=== PATIENT | male | born 1960 | race Caucasian/White ===

== ENCOUNTER 2016-11-18 17:03 | Emergency (ER) | payer MEDICARE, OTHER ==
[~2016-11-18] VITALS: Ht 180.3 cm; Wt 110.0 kg
[~2016-11-18 17:03] MED LIST: CARBXR200 PO; LANTUS2P SQ; LATU80TA PO; LITH300 PO; METF1000 PO; NOVOLOGP2 SQ
[2016-11-18 17:06] VITALS: BP 147/76; PULSE 86; RESP 15; TEMP 98.1; O2SAT 98
== END 2016-11-19 02:00 | disposition left against medical advice (07) ==
LOC: NED 17:03
DX: R07.9 Chest pain, unspecified (principal)
CPT/HCPCS: 99281

== ENCOUNTER 2017-05-26 18:00 | Inpatient (IN) | payer MEDICARE, OTHER ==
[~2017-05-26] VITALS: Ht 182.9 cm; Wt 109.1 kg
[2017-05-26 18:03] VITALS: BP 124/74; PULSE 85; RESP 20; TEMP 97.9; O2SAT 97
[2017-05-26 20:37] VITALS: BP 120/63; PULSE 72; RESP 18; TEMP 98; O2SAT 99
[2017-05-26] MEDS ORDERED: SODIUM CHLOR 0.9% 1000 ML INJ 1,000 ML IV SCH (20:42)
[2017-05-26] MEDS ORDERED: SODIUM CHLORIDE 0.9% FLUSH 10 ML FLUSH IV FLUSH PRN ×2 (20:45→22:45)
[2017-05-26] MEDS ORDERED: LANTUS2P SQ (20:45)
[2017-05-26] MEDS ORDERED: MORPHINE SULFATE 4 MG/ML INJ IV PUSH ONE (20:45)
[2017-05-26] MEDS ORDERED: TEGR200T PO (20:45)
[2017-05-26] MEDS ORDERED: ONDANSETRON HCL 4 MG/2 ML VIAL IVP ONE (20:45)
[2017-05-26] MEDS ORDERED: LITH600C PO (20:45)
[2017-05-26] MEDS ORDERED: LITH300C2 PO (20:45)
[2017-05-26] MEDS ORDERED: METF1000 PO (20:45)
[2017-05-26] MEDS ORDERED: LURA40 PO (20:45)
[2017-05-26] MEDS ORDERED: MORPHINE SULFATE 8 MG/ML INJ ONE (20:48)
--- NOTE | 2017-05-26 20:49 | PD ---
HPI Chief Complaint: Abdominal Pain Time Seen by Provider: 20:36 Travel History International Travel<30 days: No Contact w/Intl Traveler<30days: No Traveled to known affect area: No History of Present Illness HPI The patient is a 56-year-old male who presents emergency department for left lower quadrant abdominal pain at 3 days' duration. The patient developed left lower quadrant abdominal pain 3 days ago which is now radiating to the periumbilical area. He does note nausea, vomiting, some diarrhea which is described as loose and watery. He denies any fever, but has had intermittent chills and sweats. He does note a history of similar symptoms in the past secondary to diverticulitis. He also notes previous admission for diverticulitis, but denies any previous surgeries for diverticulitis. He does note a history of previous left herniorrhaphy. The patient is a diabetic who is currently on metformin and Lantus. He denies any dysuria, frequency, urgency , or hematuria. Symptoms are moderate, possibly exacerbated by diverticulitis, and there are no current alleviating factors. PFSH Past Medical History Arthritis: Yes (HIPS) Asthma: No Blood Disorders: No Bipolar Disorder: Yes (hypermanic) Anxiety: Yes Depression: Yes Heart Rhythm Problems: No Cancer: No Cardiac Catheterization: Yes (3 stents) Cardiovascular Problems: Yes (OCTOBER 2016) High Cholesterol: Yes Chest Pain: Yes Congestive Heart Failure: No COPD: No Diabetes: Yes Patient Takes Glucophage: Yes Diminished Hearing: No Diverticulitis: Yes Endocrine: Yes Genitourinary: Yes Hepatitis: Yes Hypertension: Yes Immune Disorder: No Implanted Vascular Access Dvce: No Neurologic: No Psychiatric: Yes (BIPOLAR) Reproductive: No Respiratory: Yes (EXERTIONAL SOB) Immunizations Current: Yes Myocardial Infarction: Yes (X 3) Sleep Apnea: Yes (LESS NOW THAT HE HAS LOST WEIGHT) Thyroid Disease: No PNEUMOCCOCAL Vaccine (Year): 2 Past Surgical History Abdominal Surgery: Yes (HERNIA ) Cardiac Surgery: Yes (3 STENTS) Genitourinary Surgery: Yes (RT.TESTICULAR SX) Pacemaker: No Other Surgery: Yes (RIGHT TESTICAL REMOVED AND L TESTICAL AFFIXED TO SCROTOM) Social History Alcohol Use: No Tobacco Use: Yes (1/2 PPD) Substance Use: Yes (HX OF IV DILADID USE) Allergies-Medications (Allergen,Severity, Reaction): Coded Allergies: Erythromycin (Verified Allergy, Severe, 11/18/16) Reported Meds & Prescriptions Reported Meds & Active Scripts Active Reported Metformin (Metformin HCl) 1,000 Mg Tab 1,000 Mg PO BIDPC With meals Latuda (Lurasidone) 40 Mg Tab 40 Mg PO DAILY [place] Carbonate 600 Mg Cap 600 Mg PO HS [place] Carbonate 300 Mg Cap 300 Mg PO DAILY Lantus Inj (Insulin Glargine) 1,000 Unit/10 Ml Vial 50 Units SQ BID Tegretol (Carbamazepine) 200 Mg Tab 200 Mg PO BID Review of Systems Except as stated in HPI: all other systems reviewed are Neg General / Constitutional: Positive: Chills, No: Fever Cardiovascular: No: Chest Pain or Discomfort Respiratory: No: Shortness of Breath Gastrointestinal: Positive: Nausea, Vomiting, Diarrhea, Abdominal Pain Genitourinary: No: Urgency, Frequency, Dysuria, Hematuria Skin: No Rash Physical Exam Narrative GENERAL: Awake, alert, pleasant 56-year-old male who appears his stated age and is in no acute respiratory distress. SKIN: Focused skin assessment warm/dry. HEAD: Atraumatic. Normocephalic. EYES: Pupils equal and round. No scleral icterus. No injection or drainage. ENT: No nasal bleeding or discharge. Mucous membranes pink and moist. NECK: Trachea midline. No JVD. CARDIOVASCULAR: Regular rate and rhythm. No murmur appreciated. RESPIRATORY: No accessory muscle use. Clear to auscultation. Breath sounds equal bilaterally. GASTROINTESTINAL: Abdomen soft, tender palpation left lower quadrant. No guarding or rigidity. MUSCULOSKELETAL: No obvious deformities. No clubbing. No cyanosis. No edema. NEUROLOGICAL: Awake and alert. No obvious cranial nerve deficits. Motor grossly within normal limits. Normal speech. PSYCHIATRIC: Appropriate mood and affect; insight and judgment normal. Data Data Last Documented VS Vital Signs Date Time Temp Pulse Resp B/P Pulse Ox O2 Delivery O2 Flow Rate FiO2 05/26/17 22:30 85 18 125/66 98 Room Air 05/26/17 20:37 98.0 Orders Complete Blood Count With Diff (05/26/17 20:42) Comprehensive Metabolic Panel (05/26/17 20:42) Lipase (05/26/17 20:42) Ct Abd/Pel W/O Iv Contrast (05/26/17 20:42) Iv Access Insert/Monitor (05/26/17 20:42) Ecg Monitoring (05/26/17 20:42) Oximetry (05/26/17 20:42) Morphine Inj (Morphine Inj) (05/26/17 20:45) Ondansetron Inj (Zofran Inj) (05/26/17 20:45) Sodium Chlor 0.9% 1000 Ml Inj (Ns 1000 M (05/26/17 20:42) Sodium Chloride 0.9% Flush (Ns Flush) (05/26/17 20:45) Morphine Inj (Morphine Inj) (05/26/17 20:48) Urinalysis - C+S If Indicated (05/26/17 21:44) Carbamazepine (Tegretol) (05/26/17 22:21) [place] (Li) (05/26/17 22:21) Labs Laboratory Tests Test 05/26/17 05/26/17 21:00 22:05 Sodium Level 141 MEQ/L Potassium Level 3.5 MEQ/L Chloride Level 109 MEQ/L Carbon Dioxide Level 25.2 MEQ/L Anion Gap 7 MEQ/L Blood Urea Nitrogen 12 MG/DL Creatinine 1.06 MG/DL Estimat Glomerular Filtration 73 ML/MIN Rate Random Glucose 106 MG/DL Calcium Level 8.6 MG/DL Total Bilirubin 0.6 MG/DL Aspartate Amino Transf 46 U/L (AST/SGOT) Alanine Aminotransferase 72 U/L (ALT/SGPT) Alkaline Phosphatase 147 U/L Total Protein 6.9 GM/DL Albumin 3.3 GM/DL Lipase 1405 U/L White Blood Count 6.6 TH/MM3 Red Blood Count 3.98 MIL/MM3 Hemoglobin 12.6 GM/DL Hematocrit 37.2 % Mean Corpuscular Volume 93.5 FL Mean Corpuscular Hemoglobin 31.5 PG Mean Corpuscular Hemoglobin 33.7 % Concent Red Cell Distribution Width 13.5 % Platelet Count 190 TH/MM3 Mean Platelet Volume 7.4 FL Neutrophils (%) (Auto) 62.2 % Lymphocytes (%) (Auto) 27.1 % Monocytes (%) (Auto) 8.7 % Eosinophils (%) (Auto) 1.7 % Basophils (%) (Auto) 0.3 % Neutrophils # (Auto) 4.1 TH/MM3 Lymphocytes # (Auto) 1.8 TH/MM3 Monocytes # (Auto) 0.6 TH/MM3 Eosinophils # (Auto) 0.1 TH/MM3 Basophils # (Auto) 0.0 TH/MM3 CBC Comment DIFF FINAL Differential Comment Urine Color DARK-YELLOW Urine Turbidity HAZY Urine pH 6.0 Urine Specific [place] 1.023 Urine Protein 30 mg/dL Urine Glucose (UA) NEG mg/dL Urine Ketones TRACE mg/dL Urine Occult Blood NEG Urine Nitrite NEG Urine Bilirubin SMALL Urine Urobilinogen 4.0 MG/DL Urine Leukocyte Esterase NEG Urine Mucus MOD /lpf Microscopic Urinalysis Comment CULT NOT INDICATED MDM Medical Decision Making Medical Screen Exam Complete: Yes Emergency Medical Condition: Yes Medical Record Reviewed: Yes Interpretation(s) Last Impressions Abdomen/Pelvis CT 05/26/172041 Signed Impressions: Service Date/Time: Friday, May 26, 2017 21:09 - CONCLUSION: 1. No acute abnormality demonstrated. There is mild sigmoid colon diverticulosis but no diverticulitis or other acute inflammation seen. 2. Small fat containing inguinal hernia on the left. Dimitry Cross MD Laboratory Tests Test 05/26/17 05/26/17 21:00 22:05 Sodium Level 141 MEQ/L Potassium Level 3.5 MEQ/L Chloride Level 109 MEQ/L Carbon Dioxide Level 25.2 MEQ/L Anion Gap 7 MEQ/L Blood Urea Nitrogen 12 MG/DL Creatinine 1.06 MG/DL Estimat Glomerular Filtration 73 ML/MIN Rate Random Glucose 106 MG/DL Calcium Level 8.6 MG/DL Total Bilirubin 0.6 MG/DL Aspartate Amino Transf 46 U/L (AST/SGOT) Alanine Aminotransferase 72 U/L (ALT/SGPT) Alkaline Phosphatase 147 U/L Total Protein 6.9 GM/DL Albumin 3.3 GM/DL Lipase 1405 U/L White Blood Count 6.6 TH/MM3 Red Blood Count 3.98 MIL/MM3 Hemoglobin 12.6 GM/DL Hematocrit 37.2 % Mean Corpuscular Volume 93.5 FL Mean Corpuscular Hemoglobin 31.5 PG Mean Corpuscular Hemoglobin 33.7 % Concent Red Cell Distribution Width 13.5 % Platelet Count 190 TH/MM3 Mean Platelet Volume 7.4 FL Neutrophils (%) (Auto) 62.2 % Lymphocytes (%) (Auto) 27.1 % Monocytes (%) (Auto) 8.7 % Eosinophils (%) (Auto) 1.7 % Basophils (%) (Auto) 0.3 % Neutrophils # (Auto) 4.1 TH/MM3 Lymphocytes # (Auto) 1.8 TH/MM3 Monocytes # (Auto) 0.6 TH/MM3 Eosinophils # (Auto) 0.1 TH/MM3 Basophils # (Auto) 0.0 TH/MM3 CBC Comment DIFF FINAL Differential Comment Differential Diagnosis Differential diagnosis includes diverticulitis, colitis, enteritis, peritonitis , nephrolithiasis, pyelonephritis, hydronephrosis. Narrative Course IV was established, labs are drawn and sent, and the patient was placed on cardiac telemetry monitoring and continuous pulse oximetry monitoring. The patient was administered morphine, Zofran, and IV fluids. CT of the abdomen and pelvis without IV contrast was ordered to evaluate for diverticulitis. CT is negative for diverticulitis. White count is normal. However, lipase is elevated at 1405, he has no history of pancreatitis. He denies any alcohol use and CT of the abdomen and pelvis is negative for any obvious biliary stone. Patient's LFTs are normal except for mildly elevated AST. The patient does have a history of diabetes, may be secondary to triglycerides and/or diabetes. I had a discussion with the patient regarding management at home versus inpatient, he notes decreased ability to maintain oral intake secondary to persistent nausea/vomiting and would prefer admission. Therefore, the on-call medical service was paged for admission. I discussed the patient with Dr. Choi who agrees with admission. Physician Communication Physician Communication [facility] were paged for admission. I discussed the patient with Dr. Choi who agrees with admission. Diagnosis Primary Impression: Pancreatitis Qualified Code: K85.90 - Acute pancreatitis, unspecified complication status, unspecified pancreatitis type Additional Impression: Abdominal pain Qualified Code: R10.84 - Generalized abdominal pain Admitting Information Admitting Physician Requests: Admit Condition: Stable Hamzah Palencia MD May 26, 2017 20:49
[2017-05-26 21:06] VITALS: O2SAT 99
--- NOTE | 2017-05-26 21:29 | RADRPT ---
EXAM DATE/TIME: 05/26/2017 21:09 [facility] COMPARISON: CT ABDOMEN & PELVIS W CONTRAST, September 20, 2014, 22:30. INDICATIONS : Left lower abdomen pain today with nausea, vomiting and diarrhea. ORAL CONTRAST: No oral contrast ingested. RADIATION DOSE: 10.63 CTDIvol (mGy) MEDICAL HISTORY : Diverticulitis. diabetes, hepatitis SURGICAL HISTORY : None. ENCOUNTER: Initial ACUITY: 1 day PAIN SCALE: 3/10 LOCATION: Left lower quadrant TECHNIQUE: Volumetric scanning of the abdomen and pelvis was performed. Using automated exposure control and ad justment of the mA and/or kV according to patient size, radiation dose was kept as low as reasonably achievable to obtain optimal diagnostic quality images. DICOM format image data is available electro nically for review and comparison. FINDINGS: LOWER LUNGS: The visualized lower lungs are clear. LIVER: Homogeneous density without lesion. There is no dilation of the biliary tree. No calcified gallston es. SPLEEN: Normal size without lesion. PANCREAS: Within normal limits. KIDNEYS: Normal in size and shape. There is no mass, stone, or hydronephrosis. ADRENAL GLANDS: Within normal limits. VASCULAR: There is no aortic aneurysm. BOWEL/MESENTERY: There are a few diverticula of the sigmoid colon. No acute inflammatory changes are demonstrated. No obstruction. A small moderate hiatal hernia is again seen. ABDOMINAL WALL: Within normal limits. RETROPERITONEUM: There is no lymphadenopathy. BLADDER: No wall thickening or mass. REPRODUCTIVE: Within normal limits. INGUINAL: Small fat containing hernia on the left, unchanged. MUSCULOSKELETAL: No acute bony abnormality demonstrated. CONCLUSION: 1. No acute abnormality demonstrated. There is mild sigmoid colon diverticulosis but no diverticuliti s or other acute inflammation seen. 2. Small fat containing inguinal hernia on the left. Dimitry Cross MD on May 26, 2017 at 21:25 Board Certified Radiologist. This report was verified electronically.
[2017-05-26 22:11] LABS: ALT (GPT) 72 U/L (12-78)
[2017-05-26 22:13] LABS: ALKALINE PHOSPHATASE 147 U/L (45-117); TOTAL BILIRUBIN ADULT 0.6 MG/DL (0.2-1.0)
[2017-05-26 22:17] LABS: ANION GAP 7 MEQ/L (5-15); AST (GOT) 46 U/L (15-37); BICARBONATE 25.2 MEQ/L (21.0-32.0); BLOOD UREA NITROGEN 12 MG/DL (7-18); CHLORIDE 109 MEQ/L (98-107); GLOMERULAR FILTRATION RATE 73 ML/MIN (>89); POTASSIUM 3.5 MEQ/L (3.5-5.1); SODIUM (NA) 141 MEQ/L (136-145)
[2017-05-26 22:22] LABS: AUTOMATED NEUTROPHIL # 4.1 TH/MM3 (1.8-7.7); BASOPHIL % 0.3 % (0.0-2.0); EOSINOPHIL # 0.1 TH/MM3 (0-0.4); EOSINOPHIL % 1.7 % (0.0-4.0); HEMATOCRIT 37.2 % (39.0-51.0); HEMO FLAGS DIFF FINAL; LYMPH % 27.1 % (9.0-44.0); LYMPHOCYTE # 1.8 TH/MM3 (1.0-4.8); MEAN CELL VOLUME 93.5 FL (80.0-100.0); MEAN CORPUSCULAR HEMOGLOBIN 31.5 PG (27.0-34.0); MEAN CORPUSCULAR HGB CONC 33.7 % (32.0-36.0); MONO % 8.7 % (0.0-8.0); NEUT % 62.2 % (16.0-70.0); PLATELET COUNT 190 TH/MM3 (150-450); RED BLOOD COUNT 3.98 MIL/MM3 (4.50-5.90); RED CELL DISTRIBUTION WIDTH 13.5 % (11.6-17.2); WHITE BLOOD COUNT 6.6 TH/MM3 (4.0-11.0)
[2017-05-26 22:27] LABS: BLOOD, URINE NEG (NEG); COMMENT (UR) CULT NOT INDICATED; CULTURE IF INDICATED CULT NOT INDICATED; GLUCOSE,URINE NEG (NEG); KETONE, URINE TRACE mg/dL (NEG); MUCUS URINE MOD /lpf (OCC); NITRITE,URINE NEG (NEG); URINE COLOR DARK-YELLOW (YELLW/STRAW)
[2017-05-26 22:30] VITALS: BP 125/66; PULSE 85; RESP 18; O2SAT 98
--- NOTE | 2017-05-26 22:44 | HHI.HP ---
[facility] Alessia Hardy MD Admission Diagnosis pancreatitis, abdominal pain, diabetes Diagnoses: (1) Pancreatitis Diagnosis: Principal (2) Dehydration Diagnosis: Principal (3) DM (diabetes mellitus) Diagnosis: Principal (4) Tobacco abuse Diagnosis: Principal Travel History International Travel<30 Days: No Contact w/Intl Traveler <30 Da: No Traveled to Known Affected Are: No History of Present Illness This is a 56-year-old male with a PMH of Anxiety, Depression, Bipolar Disorder, HTN, Hyperlipidemia, Hepatitis and Tobacco Abuse who presented to ER with complaint of LLQ pain x3 days. Notes associated nausea, vomiting and few episodes of diarrhea, now resolved. Reports subjective fever/chills, states symptoms similar to previous episodes of Diverticulitis. On arrival, BP 120/63 , HR 72, O2 sat 99% on RA, Afebrile. CBC unremarkable. Chemistry essentially unremarkable except for GFR 73. Pancreatitis 1405. UA negative for UTI. CT Abd/Pelvis w/ no acute abnormality, mild sigmoid colon diverticulosis but no diverticulitis. Review of Systems Except as stated in HPI: all other systems reviewed are Neg ROS: 14 point review of systems otherwise negative. Past Family Social History Past Medical History PMH: Anxiety, Depression, Bipolar Disorder, HTN, Hyperlipidemia, Hepatitis and Tobacco Abuse Past Surgical History PAST SURGICAL HISTORY: Hernia Repair, Cardiac Stent, Right Testicle Removal Allergies: Coded Allergies: Erythromycin (Verified Allergy, Severe, 11/18/16) Family History PAST FAMILY HISTORY: Reviewed. No h/o DM or CAD Social History PAST SOCIAL HISTORY: Negative for alcohol. Smokes 1/2ppd. H/o IVDU w/ Dilaudid. Physical Exam Vital Signs Vital Signs Date Time Temp Pulse Resp B/P Pulse Ox O2 Delivery O2 Flow Rate FiO2 05/26/17 22:30 85 18 125/66 98 Room Air 05/26/17 21:06 99 Room Air 05/26/17 20:37 98.0 72 18 120/63 99 Room Air 05/26/17 18:03 97.9 85 20 124/74 97 Room Air Physical Exam PE: GENERAL: Middle-aged male in no acute distress. HEENT: PERRLA, EOMI. No scleral icterus or conjunctival pallor. No lid lag or facial droop. CARDIOVASCULAR: Regular rate and rhythm. No obvious murmurs to auscultation. No chest tenderness to palpation. RESPIRATORY: No obvious rhonchi or wheezing. Clear to auscultation. Breath sounds equal bilaterally. GASTROINTESTINAL: Abdomen soft, mild epigastric/LLQ tenderness to palpation, nondistended. BS normal. MUSCULOSKELETAL: Extremities without clubbing, cyanosis, or edema. No obvious deformities. NEUROLOGICAL: Awake, alert and oriented x4. No focal neurologic deficits. Moving both upper and lower extremities spontaneously. Laboratory Laboratory Tests Test 05/26/17 05/26/17 21:00 22:05 Sodium Level 141 Potassium Level 3.5 Chloride Level 109 Carbon Dioxide Level 25.2 Anion Gap 7 Blood Urea Nitrogen 12 Creatinine 1.06 Estimat Glomerular Filtration 73 Rate Random Glucose 106 Calcium Level 8.6 Total Bilirubin 0.6 Aspartate Amino Transf 46 (AST/SGOT) Alanine Aminotransferase 72 (ALT/SGPT) Alkaline Phosphatase 147 Total Protein 6.9 Albumin 3.3 Lipase 1405 White Blood Count 6.6 Red Blood Count 3.98 Hemoglobin 12.6 Hematocrit 37.2 Mean Corpuscular Volume 93.5 Mean Corpuscular Hemoglobin 31.5 Mean Corpuscular Hemoglobin 33.7 Concent Red Cell Distribution Width 13.5 Platelet Count 190 Mean Platelet Volume 7.4 Neutrophils (%) (Auto) 62.2 Lymphocytes (%) (Auto) 27.1 Monocytes (%) (Auto) 8.7 Eosinophils (%) (Auto) 1.7 Basophils (%) (Auto) 0.3 Neutrophils # (Auto) 4.1 Lymphocytes # (Auto) 1.8 Monocytes # (Auto) 0.6 Eosinophils # (Auto) 0.1 Basophils # (Auto) 0.0 CBC Comment DIFF FINAL Differential Comment Urine Color DARK-YELLOW Urine Turbidity HAZY Urine pH 6.0 Urine Specific [place] 1.023 Urine Protein 30 Urine Glucose (UA) NEG Urine Ketones TRACE Urine Occult Blood NEG Urine Nitrite NEG Urine Bilirubin SMALL Urine Urobilinogen 4.0 Urine Leukocyte Esterase NEG Urine Mucus MOD Microscopic Urinalysis Comment CULT NOT INDICATED Result Diagram: 05/26/17 0414 05/26/17 2100 Assessment and Plan Problem List: (1) Pancreatitis ICD Code: K85.90 Status: Acute (2) Dehydration ICD Code: E86.0 Status: Acute (3) DM (diabetes mellitus) ICD Code: E11.9 Status: Acute (4) Tobacco abuse ICD Code: Z72.0 Status: Acute Assessment and Plan A/P: 1. Pancreatitis: acute onset of LLQ pain and epigastric pain, Lipase 1405. CT Abd/Pelvis w/ diverticulosis, no diverticulitis, images reviewed by me. + nausea/vomiting, unable to take PO. IVF, diet as tolerated, recheck Lipase. Protonix IV. Analgesics/antiemetics as needed. 2. Dehydration: GFR 73, BUN/Creatinine normal. U/a negative for UTI. IVF for hydration, repeat labs. 3. DM: Hold Metformin/Lantus in light of decreased PO intake, resume home meds once taking adequate PO. Sliding scale w/ Accu-Cheks. 4. DVT Prophylaxis: SCD/Teds. 5. Social work for d/c planning as needed. 6. Case discussed w/ ER physician at length. Physician Certification 2 Midnight Certification Type: Admission for Inpatient Services Order for Inpatient Services The services are ordered in accordance with Medicare regulations or non- Medicare payer requirements, as applicable. In the case of services not specified as inpatient-only, they are appropriately provided as inpatient services in accordance with the 2-midnight benchmark. Estimated LOS (days): 2 days is the estimated time the patient will need to remain in the hospital, assuming treatment plan goals are met and no additional complications. Post-Hospital Plan: Not yet determined Problem Qualifiers (1) Pancreatitis: Qualified Code: K85.90 - Acute pancreatitis, unspecified complication status, unspecified pancreatitis type Jocelyne Choi MD May 26, 2017 22:44
[2017-05-26] MEDS ORDERED: DEXTROSE 50% IN WATER 50 ML VIAL(D50) IV PRN (22:45)
[2017-05-26] MEDS ORDERED: SENNOSIDES 8.6 MG TAB PO PRN (22:45)
[2017-05-26] MEDS ORDERED: ONDANSETRON HCL 4 MG/2 ML VIAL IVP PRN (22:45)
[2017-05-26] MEDS ORDERED: GLUCAGON 1 MG/ML VIAL OTHER PRN (22:45)
[2017-05-26] MEDS ORDERED: ACETAMINOPHEN/HYDROcodone 325 MG/5 MG TAB PO PRN (22:45)
[2017-05-26] MEDS ORDERED: LACTULOSE SYRUP 20 GM/30 ML CUP PO PRN (22:45)
[2017-05-26] MEDS ORDERED: ACETAMINOPHEN 325 MG TAB PO PRN (22:45)
[2017-05-26] MEDS ORDERED: MAGNESIUM HYDROXIDE SUSP 30 ML CUP PO PRN (22:45)
[2017-05-26] MEDS ORDERED: BISACODYL 10 MG SUPP RECTAL PRN (22:45)
[2017-05-26] MEDS: SODIUM CHLOR 0.9% 1000 ML INJ 1,000 ML IV SCH (22:57)
[2017-05-26] MEDS: PANTOPRAZOLE SODIUM 40 MG VIAL IV PUSH SCH (22:58)
[2017-05-27] MEDS: MORPHINE SULFATE 8 MG/ML INJ IV PUSH PRN ×6 (00:43→16:30)
[2017-05-27 01:30] VITALS: BP 138/79; PULSE 62; RESP 20; TEMP 97.5; O2SAT 95
[2017-05-27] MEDS: SODIUM CHLOR 0.9% 1000 ML INJ 1,000 ML IV SCH (03:46)
[2017-05-27 04:00] VITALS: BP 110/69; PULSE 59; RESP 18; TEMP 97; O2SAT 96
[2017-05-27] MEDS: INSULIN ASPART SUPPLEMENTAL SCALE SQ SCH ×3 (07:00→16:00)
[2017-05-27 08:00] VITALS: BP 107/58; PULSE 61; RESP 18; TEMP 96.7; O2SAT 97
[2017-05-27] MEDS ORDERED: LURASIDONE 40 MG TAB PO SCH (08:00)
[2017-05-27 08:46] LABS: AUTOMATED NEUTROPHIL # 2.4 TH/MM3 (1.8-7.7); BASOPHIL % 0.7 % (0.0-2.0); EOSINOPHIL # 0.1 TH/MM3 (0-0.4); EOSINOPHIL % 2.8 % (0.0-4.0); HEMATOCRIT 37.1 % (39.0-51.0); HEMO FLAGS DIFF FINAL; LYMPH % 35.4 % (9.0-44.0); LYMPHOCYTE # 1.6 TH/MM3 (1.0-4.8); MEAN CELL VOLUME 92.8 FL (80.0-100.0); MEAN CORPUSCULAR HEMOGLOBIN 31.9 PG (27.0-34.0); MEAN CORPUSCULAR HGB CONC 34.4 % (32.0-36.0); MONO % 10.2 % (0.0-8.0); NEUT % 50.9 % (16.0-70.0); PLATELET COUNT 173 TH/MM3 (150-450); RED CELL DISTRIBUTION WIDTH 13.5 % (11.6-17.2); WHITE BLOOD COUNT 4.7 TH/MM3 (4.0-11.0)
[2017-05-27] MEDS ORDERED: carBAMazepine 200 MG TAB PO SCH (09:00)
[2017-05-27] MEDS ORDERED: LITHIUM CARBONATE 300 MG CAP PO SCH ×2 (09:00→21:00)
[2017-05-27] MEDS ORDERED: SODIUM CHLORIDE 0.9% FLUSH 10 ML FLUSH IV FLUSH SCH (09:00)
[2017-05-27] MEDS ORDERED: DOCUSATE SODIUM 50 MG/SENNA 8.6 MG TAB PO SCH (09:00)
[2017-05-27 09:22] LABS: ANION GAP 6 MEQ/L (5-15); AST (GOT) 44 U/L (15-37); BICARBONATE 23.8 MEQ/L (21.0-32.0); BLOOD UREA NITROGEN 9 MG/DL (7-18); CHLORIDE 113 MEQ/L (98-107); GLOMERULAR FILTRATION RATE 95 ML/MIN (>89); POTASSIUM 3.4 MEQ/L (3.5-5.1); SODIUM (NA) 143 MEQ/L (136-145)
[2017-05-27 09:23] LABS: ALT (GPT) 62 U/L (12-78)
[2017-05-27 09:32] LABS: ALKALINE PHOSPHATASE 126 U/L (45-117); LDL CHOLESTEROL 70 MG/DL (0-99); TOTAL BILIRUBIN ADULT 0.6 MG/DL (0.2-1.0)
[2017-05-27] MEDS: PANTOPRAZOLE SODIUM 40 MG VIAL IV PUSH SCH (10:08)
[2017-05-27 11:57] VITALS: BP 104/57; PULSE 63; RESP 18; TEMP 96.7; O2SAT 96
[2017-05-27 16:00] VITALS: BP 90/54; PULSE 56; RESP 18; TEMP 97.3; O2SAT 96
[2017-05-27] MEDS ORDERED: NORC5TAB PO (16:14)
--- NOTE | 2017-05-27 16:55 | HHI.DS ---
Discharge Summary Admission Date May 26, 2017 at 22:45 Discharge Date: May 27, 2017 Admitting Diagnosis pancreatitis, abdominal pain, diabetes (1) Pancreatitis ICD Code: K85.90 (2) Dehydration ICD Code: E86.0 Diagnosis: Secondary (3) DM (diabetes mellitus) ICD Code: E11.9 Diagnosis: Secondary (4) Tobacco abuse ICD Code: Z72.0 Diagnosis: Secondary Procedures None Brief History - From Admission This is a 56-year-old male with a PMH of Anxiety, Depression, Bipolar Disorder, HTN, Hyperlipidemia, Hepatitis and Tobacco Abuse who presented to ER with complaint of LLQ pain x3 days. Notes associated nausea, vomiting and few episodes of diarrhea, now resolved. Reports subjective fever/chills, states symptoms similar to previous episodes of Diverticulitis. On arrival, BP 120/63 , HR 72, O2 sat 99% on RA, Afebrile. CBC unremarkable. Chemistry essentially unremarkable except for GFR 73. Pancreatitis 1405. UA negative for UTI. CT Abd/Pelvis w/ no acute abnormality, mild sigmoid colon diverticulosis but no diverticulitis. CBC/BMP: 05/27/17 0759 05/27/17 0759 Significant Findings Laboratory Tests Test 05/26/17 05/26/17 05/26/17 05/27/17 21:00 22:05 22:26 07:59 Chloride Level 109 MEQ/L 113 MEQ/L (98-107) (98-107) Estimat Glomerular Filtration 73 ML/MIN (>89) Rate Aspartate Amino Transf 46 U/L (15-37) 44 U/L (15-37) (AST/SGOT) Alkaline Phosphatase 147 U/L 126 U/L (45-117) (45-117) Albumin 3.3 GM/DL 2.7 GM/DL (3.4-5.0) (3.4-5.0) Lipase 1405 U/L (73-393) Carbamazepine (Tegretol) Level LESS THAN 0.5 MCG/ML (4.0-12.0) Red Blood Count 3.98 MIL/MM3 4.00 MIL/MM3 (4.50-5.90) (4.50-5.90) Hemoglobin 12.6 GM/DL 12.8 GM/DL (13.0-17.0) (13.0-17.0) Hematocrit 37.2 % 37.1 % (39.0-51.0) (39.0-51.0) Monocytes (%) (Auto) 8.7 % (0.0-8.0) 10.2 % (0.0-8.0) Urine Color DARK-YELLOW (YELLW/STRAW) Urine Turbidity HAZY (CLEAR) Urine Protein 30 mg/dL (NEG-TRACE) Urine Ketones TRACE mg/dL (NEG) Urine Bilirubin SMALL (NEG) Urine Urobilinogen 4.0 MG/DL (LESS THAN 2.0) Urine Mucus MOD /lpf (OCC) [place] Level LESS THAN 0.1 MEQ/L (0.5-1.5) Potassium Level 3.4 MEQ/L (3.5-5.1) Random Glucose 112 MG/DL (74-106) Calcium Level 7.8 MG/DL (8.5-10.1) Total Protein 5.8 GM/DL (6.4-8.2) Cholesterol Level 118 MG/DL (120-200) HDL Cholesterol 19.0 MG/DL (40.0-60.0) Hospital Course Mr. Zapataight male. He was admitted secondary to pancreatitis. He has no prior history of pancreatitis. Etiology is not related to alcohol. He had a surprising improvement with IV hydration overnight at a rate that was not expected at time of admit. At this point he has improvement in his symptoms and is tolerating a regular diet and by mouth intake. He is medically stable for discharge to home on a regular diet. Discharge home today on pain treatments. Pt Condition on Discharge: Good Discharge Disposition: Discharge Home Discharge Time: <= 30 minutes Discharge Instructions DIET: Follow Instructions for: As Tolerated, No Restrictions Activities you can perform: Regular-No Restrictions Follow up Referrals: PCP Follow-up - 1 Week New Medications: Hydrocodone-Acetaminophen ([place]) 5-325 mg Tab 1 TAB PO Q6H PRN PAIN #30 Ref 0 TAB Continued Medications: Carbamazepine (Tegretol) 200 Mg Tab 200 MG PO BID #60 Ref 0 TAB Insulin Glargine Inj (Lantus Inj) 1,000 Unit/10 Ml Vial 50 UNITS SQ BID Blood Sugar Management Ref 0 VIAL [place] Carbonate ([place] Carbonate) 300 Mg Cap 300 MG PO DAILY Ref 0 CAP [place] Carbonate ([place] Carbonate) 600 Mg Cap 600 MG PO HS Ref 0 CAP Lurasidone (Latuda) 40 Mg Tab 40 MG PO DAILY #30 Ref 0 TAB Metformin (Metformin) 1,000 Mg Tab 1000 MG PO BIDPC With meals Blood Sugar Management #60 Ref 0 TAB Luis Gonzales MD May 27, 2017 16:55
[2017-05-28] MEDS ORDERED: PNEUMOCOCCAL POLYVALENT INJ 25 MCG/0.5 ML SYR IM ONE (10:00)
[2017-05-28 12:57] LABS: HEMOGLOBIN A1b 1.5 %; HEMOGLOBIN LA1C 1.8 %; HEMOGLOBIN P3 3.5 %
== END 2017-05-27 17:42 | disposition home or self-care (01) | DRG 440 ==
LOC: NEPD 18:00 → NEDA 22:45 → N05B 05-27 01:36
PROVIDERS: ADMIT Hospitalist; ATTEND Hospitalist
DX: K85.90 Acute pancreatitis without necrosis or infection, unspecified (principal); K57.30 Diverticulosis of large intestine without perforation or abscess without bleeding; I10 Essential (primary) hypertension; E11.9 Type 2 diabetes mellitus without complications; F31.9 Bipolar disorder, unspecified; F41.9 Anxiety disorder, unspecified; M16.0 Bilateral primary osteoarthritis of hip; E78.00 Pure hypercholesterolemia, unspecified; I25.2 Old myocardial infarction; G47.30 Sleep apnea, unspecified; F17.210 Nicotine dependence, cigarettes, uncomplicated; E86.0 Dehydration; E78.5 Hyperlipidemia, unspecified; Z95.5 Presence of coronary angioplasty implant and graft; Z86.19 Personal history of other infectious and parasitic diseases; Z79.84 Long term (current) use of oral hypoglycemic drugs; Z79.4 Long term (current) use of insulin
CPT/HCPCS: 74176; 80053; 80061; 80156; 80178; 81001; 82948; 83036; 83690; 84443; 85025; 96374; 96375; C9113; J1815; J2270; J2405; J7030

== ENCOUNTER 2017-05-29 16:31 | Emergency (ER) | payer MEDICARE, MEDICAID, OTHER ==
[~2017-05-29] VITALS: Ht 180.3 cm; Wt 100.0 kg
[~2017-05-29 16:31] MED LIST changes: -CARBXR200 PO; -LATU80TA PO; -LITH300 PO; +LITH300C2 PO; +LITH600C PO; +LURA40 PO; +NORC5TAB PO; -NOVOLOGP2 SQ; +TEGR200T PO
[2017-05-29 16:37] VITALS: BP 133/84; PULSE 72; RESP 18; TEMP 98; O2SAT 99
[2017-05-29] MEDS ORDERED: SODIUM CHLOR 0.9% 1000 ML INJ 1,000 ML IV SCH (18:41)
[2017-05-29] MEDS ORDERED: HYDROmorphone HCL PF 1 MG/ML VIAL IVS ONE (18:45)
[2017-05-29] MEDS ORDERED: ONDANSETRON HCL 4 MG/2 ML VIAL IVP ONE ×2 (18:45)
[2017-05-29 19:25] LABS: AUTOMATED NEUTROPHIL # 3.7 TH/MM3 (1.8-7.7); BASOPHIL # 0.1 TH/MM3 (0-0.2); BASOPHIL % 1.4 % (0.0-2.0); EOSINOPHIL # 0.1 TH/MM3 (0-0.4); EOSINOPHIL % 1.8 % (0.0-4.0); HEMATOCRIT 39.6 % (39.0-51.0); HEMO FLAGS DIFF FINAL; LYMPH % 35.8 % (9.0-44.0); LYMPHOCYTE # 2.5 TH/MM3 (1.0-4.8); MEAN CELL VOLUME 92.8 FL (80.0-100.0); MEAN CORPUSCULAR HEMOGLOBIN 32.2 PG (27.0-34.0); MEAN CORPUSCULAR HGB CONC 34.7 % (32.0-36.0); MONO % 7.4 % (0.0-8.0); NEUT % 53.6 % (16.0-70.0); PLATELET COUNT 209 TH/MM3 (150-450); RED BLOOD COUNT 4.26 MIL/MM3 (4.50-5.90); RED CELL DISTRIBUTION WIDTH 13.9 % (11.6-17.2); WHITE BLOOD COUNT 6.9 TH/MM3 (4.0-11.0)
[2017-05-29 19:53] LABS: ALKALINE PHOSPHATASE 154 U/L (45-117); ALT (GPT) 74 U/L (12-78); ANION GAP 5 MEQ/L (5-15); AST (GOT) 37 U/L (15-37); BICARBONATE 26.1 MEQ/L (21.0-32.0); BLOOD UREA NITROGEN 4 MG/DL (7-18); CHLORIDE 112 MEQ/L (98-107); GLOMERULAR FILTRATION RATE 91 ML/MIN (>89); POTASSIUM 3.6 MEQ/L (3.5-5.1); SODIUM (NA) 143 MEQ/L (136-145); TOTAL BILIRUBIN ADULT 0.5 MG/DL (0.2-1.0)
--- NOTE | 2017-05-29 19:53 | PD ---
HPI Chief Complaint: Abdominal Pain Time Seen by Provider: 18:40 Travel History International Travel<30 days: No Contact w/Intl Traveler<30days: No Traveled to known affect area: No History of Present Illness HPI 56-year-old male presents emergency department for evaluation of left-sided abdominal pain and vomiting. Patient was seen and admitted on May 26 for pancreatitis his CAT scan of that time she diverticulosis without evidence of diverticulitis. He reports he was just discharged on May 27 after his abdominal pain improved. Since his discharge he reports the pain returned progressively increasing in severity today. Patient reports 4 episodes of vomiting today. He reports the pain is constant, nonradiating. He denies fever or chills. PFSH Past Medical History Narrative Medical Significant for diverticulitis, diabetes, hypertension, bipolar Arthritis: Yes Asthma: No Autoimmune Disease: No Blood Disorders: No Bipolar Disorder: Yes (hypermanic) Anxiety: Yes Depression: Yes Heart Rhythm Problems: No Cancer: No Cardiac Catheterization: Yes (3 stents) Cardiovascular Problems: Yes ([place]) High Cholesterol: Yes Chest Pain: Yes Congestive Heart Failure: Yes COPD: No Diabetes: Yes Patient Takes Glucophage: Yes Diminished Hearing: No Diverticulitis: Yes Endocrine: Yes Gastrointestinal Disorders: Yes (diverticulitis, pancreaitis) GERD: No Genitourinary: No Hepatitis: Yes Hiatal Hernia: No Hypertension: Yes Immune Disorder: No Implanted Vascular Access Dvce: No Medical other: Yes (dm) Musculoskeletal: No Neurologic: No Psychiatric: Yes (BIPOLAR) Reproductive: No Respiratory: No Immunizations Current: Yes Myocardial Infarction: Yes (X 3) Sleep Apnea: Yes (LESS NOW THAT HE HAS LOST WEIGHT) Thyroid Disease: No Ulcer: No Tetanus Vaccination: < 5 Years Influenza Vaccination: Yes PNEUMOCCOCAL Vaccine (Year): 2 Past Surgical History Abdominal Surgery: Yes (inguinal hernia) Cardiac Surgery: Yes (quadriple bypass) Ear Surgery: No Endocrine Surgery: No Genitourinary Surgery: No Gynecologic Surgery: No Oral Surgery: No Pacemaker: No Thoracic Surgery: No Other Surgery: Yes (r toe, inguinal hernia, right testicle removed, open heart sx) Social History Alcohol Use: No (pt denies) Tobacco Use: Yes (1/2 PPD) Substance Use: No (pt denies ) Allergies-Medications (Allergen,Severity, Reaction): Coded Allergies: Erythromycin (Verified Allergy, Severe, hives, 05/29/17) Reported Meds & Prescriptions Reported Meds & Active Scripts Active Reported Metformin (Metformin HCl) 1,000 Mg Tab 1,000 Mg PO BIDPC With meals Latuda (Lurasidone) 40 Mg Tab 40 Mg PO DAILY [place] Carbonate 600 Mg Cap 600 Mg PO HS [place] Carbonate 300 Mg Cap 300 Mg PO DAILY Lantus Inj (Insulin Glargine) 1,000 Unit/10 Ml Vial 50 Units SQ BID Tegretol (Carbamazepine) 200 Mg Tab 200 Mg PO BID Review of Systems Except as stated in HPI: all other systems reviewed are Neg General / Constitutional: No: Fever Eyes: No: Visual changes HENT: No: Headaches Cardiovascular: No: Chest Pain or Discomfort Gastrointestinal: Positive: Nausea, Vomiting, Abdominal Pain Genitourinary: No: Dysuria Musculoskeletal: No: Pain Skin: No Rash Physical Exam Narrative GENERAL: Alert well-appearing male no distress. SKIN: Focused skin assessment warm/dry. HEAD: Atraumatic. Normocephalic. EYES: Pupils equal and round. No scleral icterus. No injection or drainage. ENT: No nasal bleeding or discharge. Mucous membranes pink and moist. NECK: Trachea midline. No JVD. CARDIOVASCULAR: Regular rate and rhythm. No murmur appreciated. RESPIRATORY: No accessory muscle use. Clear to auscultation. Breath sounds equal bilaterally. GASTROINTESTINAL: Abdomen soft, tenderness in the left upper and lower quadrants , nondistended. No guarding. No rigidity. Hepatic and splenic margins not palpable. MUSCULOSKELETAL: No obvious deformities. No clubbing. No cyanosis. No edema. NEUROLOGICAL: Awake and alert. No obvious cranial nerve deficits. Motor grossly within normal limits. Normal speech. PSYCHIATRIC: Appropriate mood and affect; insight and judgment normal. Data Data Last Documented VS Vital Signs Date Time Temp Pulse Resp B/P Pulse Ox O2 Delivery O2 Flow Rate FiO2 05/29/17 20:00 60 20 128/66 100 Room Air 05/29/17 16:37 98.0 Orders Complete Blood Count With Diff (05/29/17 18:41) Comprehensive Metabolic Panel (05/29/17 18:41) Lipase (05/29/17 18:41) Iv Access Insert/Monitor (05/29/17 18:41) Ondansetron Inj (Zofran Inj) (05/29/17 18:45) Sodium Chlor 0.9% 1000 Ml Inj (Ns 1000 M (05/29/17 18:41) Ondansetron Inj (Zofran Inj) (05/29/17 18:45) Hydromorphone Pf Inj (Dilaudid Pf Inj) (05/29/17 18:45) Labs Laboratory Tests Test 05/29/17 18:46 White Blood Count 6.9 TH/MM3 Red Blood Count 4.26 MIL/MM3 Hemoglobin 13.7 GM/DL Hematocrit 39.6 % Mean Corpuscular Volume 92.8 FL Mean Corpuscular Hemoglobin 32.2 PG Mean Corpuscular Hemoglobin 34.7 % Concent Red Cell Distribution Width 13.9 % Platelet Count 209 TH/MM3 Mean Platelet Volume 8.6 FL Neutrophils (%) (Auto) 53.6 % Lymphocytes (%) (Auto) 35.8 % Monocytes (%) (Auto) 7.4 % Eosinophils (%) (Auto) 1.8 % Basophils (%) (Auto) 1.4 % Neutrophils # (Auto) 3.7 TH/MM3 Lymphocytes # (Auto) 2.5 TH/MM3 Monocytes # (Auto) 0.5 TH/MM3 Eosinophils # (Auto) 0.1 TH/MM3 Basophils # (Auto) 0.1 TH/MM3 CBC Comment DIFF FINAL Differential Comment Sodium Level 143 MEQ/L Potassium Level 3.6 MEQ/L Chloride Level 112 MEQ/L Carbon Dioxide Level 26.1 MEQ/L Anion Gap 5 MEQ/L Blood Urea Nitrogen 4 MG/DL Creatinine 0.87 MG/DL Estimat Glomerular Filtration 91 ML/MIN Rate Random Glucose 117 MG/DL Calcium Level 8.7 MG/DL Total Bilirubin 0.5 MG/DL Aspartate Amino Transf 37 U/L (AST/SGOT) Alanine Aminotransferase 74 U/L (ALT/SGPT) Alkaline Phosphatase 154 U/L Total Protein 7.1 GM/DL Albumin 3.5 GM/DL Lipase 96 U/L MDM Medical Decision Making Medical Screen Exam Complete: Yes Emergency Medical Condition: Yes Differential Diagnosis Differential diagnosis includes pancreatitis [place], diverticulitis, colitis, enteritis, peritonitis, nephrolithiasis, pyelonephritis, hydronephrosis. Narrative Course 56-year-old male with chief complaint of left-sided abdominal pain. Patient was admitted on May 26 for pancreatitis at that visit his lipase was 1405 his CAT scan showed diverticulosis without evidence diverticulitis. He was discharged home on May 27. He reports he developed abdominal pain and vomiting today. On physical exam patient has left upper and lower quadrant pain. His abdomen is soft, no guarding, no rigidity, no rebound. IV established, Dilaudid, Zofran, normal saline administered. Labs pending CBC: WBC 6.9, hemoglobin 13.7 BMP: Lipase 96, down from 1405 on 2009: Patient reassessed at this time. He is resting comfortably on the stretcher. He has had no vomiting. He reports pain is relieved after pain medication. His abdomen is still mildly tender in LLQ, no rebound, no guarding. He is requesting something to eat. he is tolerating po fluids. Lab results discussed with patient. I do not feel the patient needs further imaging or testing at this time. He agrees to follow up with his auto damage appraiser this week. return precautions discussed. Patient agrees to plan. he is stable for discharge. Diagnosis Primary Impression: Abdominal pain Qualified Code: R10.9 - Abdominal pain, unspecified location Additional Impression: Nausea & vomiting Qualified Code: R11.2 - Non-intractable vomiting with nausea, unspecified vomiting type Referrals: Pc Installation Engineer Additional Instructions: Use the medication as prescribed. stay well hydrated by drinking plenty fluids. make an appointment for follow up with your auto damage appraiser or PCP. Return to the ED if you develop new or worsening symptoms. Scripts Ondansetron (Zofran)4 Mg Tab4 Mg PO Q6HR PRN (NAUSEA OR VOMITING) #12 TAB Ref 0 Prov:Shanna Grayson 05/29/17 Disposition: 01 DISCHARGE HOME Condition: Stable Shanna Grayson May 29, 2017 19:53
[2017-05-29 20:00] VITALS: BP 128/66; PULSE 60; RESP 20; O2SAT 100
[2017-05-29] MEDS ORDERED: ZOFR4TAB PO (20:17)
== END 2017-05-30 01:01 | disposition home or self-care (01) ==
LOC: NEPD 16:31
DX: R10.9 Unspecified abdominal pain (principal); R11.2 Nausea with vomiting, unspecified; E11.9 Type 2 diabetes mellitus without complications; I10 Essential (primary) hypertension; E78.00 Pure hypercholesterolemia, unspecified; F17.200 Nicotine dependence, unspecified, uncomplicated; Z79.4 Long term (current) use of insulin; Z87.19 Personal history of other diseases of the digestive system; Z86.59 Personal history of other mental and behavioral disorders; Z87.39 Personal history of other diseases of the musculoskeletal system and connective tissue; Z86.79 Personal history of other diseases of the circulatory system
CPT/HCPCS: 80053; 83690; 85025; 96374; 96375; 99284; J1170; J2405; J7030

== ENCOUNTER 2017-06-05 11:21 | Observation (INO) | payer MEDICARE, OTHER ==
[2017-06-05] VITALS (7 sets, daily range): BP systolic 103–117; BP diastolic 56–78; PULSE 56–98; RESP 14–20; TEMP 97.8–98.6; O2SAT 94–98
[~2017-06-05 11:21] MED LIST changes: -NORC5TAB PO; +ZOFR4TAB PO
--- NOTE | 2017-06-05 11:34 | PD ---
HPI Chief Complaint: chest pain Time Seen by Provider: 12:10 Travel History International Travel<30 days: No Contact w/Intl Traveler<30days: No Traveled to known affect area: No History of Present Illness HPI This is a 56-year-old male who presents via EMS for evaluation of chest pain. One hour prior to arrival the patient was walking his dog when he developed left -sided chest pain that radiates into left arm. The pain is a sharp/burning pain that is worse with exertion. He took 3 nitroglycerin at home with minimal relief and so EMS was called. EMS provided him with 162 mg of aspirin. The patient endorses diaphoresis and mild nausea. Denies vomiting, shortness of breath, abdominal pain, diarrhea or constipation, cough or congestion, fevers or chills. He does report history of OR, pancreatitis, PFSH Past Medical History Arthritis: Yes Asthma: No Autoimmune Disease: No Blood Disorders: No Bipolar Disorder: Yes (hypermanic) Anxiety: Yes Depression: Yes Heart Rhythm Problems: No Cancer: No Cardiac Catheterization: Yes (3 stents) Cardiovascular Problems: Yes ([place]) High Cholesterol: Yes Chest Pain: Yes Congestive Heart Failure: Yes COPD: No Diabetes: Yes Diminished Hearing: No Diverticulitis: Yes Endocrine: Yes Gastrointestinal Disorders: Yes (diverticulitis, pancreaitis) GERD: No Genitourinary: No Hepatitis: Yes Hiatal Hernia: No Hypertension: Yes Immune Disorder: No Implanted Vascular Access Dvce: No Musculoskeletal: No Neurologic: No Psychiatric: Yes (BIPOLAR) Reproductive: No Respiratory: No Immunizations Current: Yes Myocardial Infarction: Yes (X 3) Sleep Apnea: Yes (LESS NOW THAT HE HAS LOST WEIGHT) Thyroid Disease: No Ulcer: No PNEUMOCCOCAL Vaccine (Year): 2 Past Surgical History Abdominal Surgery: Yes (inguinal hernia) Cardiac Surgery: Yes (quadriple bypass) Ear Surgery: No Endocrine Surgery: No Genitourinary Surgery: No Gynecologic Surgery: No Oral Surgery: No Pacemaker: No Thoracic Surgery: No Other Surgery: Yes (r toe, inguinal hernia, right testicle removed, open heart sx) Social History Alcohol Use: No (pt denies) Tobacco Use: Yes (1/2 PPD) Substance Use: No (pt denies ) Allergies-Medications (Allergen,Severity, Reaction): Coded Allergies: Erythromycin (Verified Allergy, Severe, hives, 05/29/17) Reported Meds & Prescriptions Reported Meds & Active Scripts Active Zofran (Ondansetron HCl) 4 Mg Tab 4 Mg PO Q6HR PRN Reported Metformin (Metformin HCl) 1,000 Mg Tab 1,000 Mg PO BIDPC With meals Latuda (Lurasidone) 40 Mg Tab 40 Mg PO DAILY [place] Carbonate 600 Mg Cap 600 Mg PO HS [place] Carbonate 300 Mg Cap 300 Mg PO DAILY Lantus Inj (Insulin Glargine) 1,000 Unit/10 Ml Vial 50 Units SQ BID Tegretol (Carbamazepine) 200 Mg Tab 200 Mg PO BID Review of Systems Except as stated in HPI: all other systems reviewed are Neg Physical Exam Narrative GENERAL: Well-developed well-nourished male in no acute distress. SKIN: Warm and dry. HEAD: Atraumatic. Normocephalic. EYES: Pupils equal and round. No scleral icterus. No injection or drainage. ENT: No nasal bleeding or discharge. Mucous membranes pink and moist. NECK: Trachea midline. No JVD. CARDIOVASCULAR: Regular rate and rhythm. No murmur appreciated. RESPIRATORY: No accessory muscle use. Clear to auscultation. Breath sounds equal bilaterally. GASTROINTESTINAL: Abdomen soft, non-tender, nondistended. Hepatic and splenic margins not palpable. MUSCULOSKELETAL: No obvious deformities. No edema and negative Homans. NEUROLOGICAL: Awake and alert. No obvious cranial nerve deficits. Motor grossly within normal limits. Normal speech. PSYCHIATRIC: Appropriate mood and affect; insight and judgment normal. Data Data Last Documented VS Vital Signs Date Time Temp Pulse Resp B/P Pulse Ox O2 Delivery O2 Flow Rate FiO2 06/05/17 12:23 97.8 98 14 103/56 95 Orders Electrocardiogram (06/05/17 11:26) Complete Blood Count With Diff (06/05/17 11:26) Basic Metabolic Panel (Bmp) (06/05/17 11:26) Ckmb (Isoenzyme) Profile (06/05/17 11:26) Troponin I (06/05/17 11:26) Chest, Single Ap (06/05/17 11:26) Iv Access Insert/Monitor (06/05/17 11:26) Ecg Monitoring (06/05/17 11:26) Oxygen Administration (06/05/17 11:26) Oximetry (06/05/17 11:26) Comprehensive Metabolic Panel (06/05/17 11:32) Lipase (06/05/17 11:32) Prothrombin Time / Inr (Pt) (06/05/17 11:32) Act Partial Throm Time (Ptt) (06/05/17 11:32) Magnesium (Mg) (06/05/17 11:32) Morphine Inj (Morphine Inj) (06/05/17 11:45) Labs Laboratory Tests Test 06/05/17 11:51 White Blood Count 5.6 TH/MM3 Red Blood Count 4.64 MIL/MM3 Hemoglobin 14.7 GM/DL Hematocrit 43.8 % Mean Corpuscular Volume 94.4 FL Mean Corpuscular Hemoglobin 31.6 PG Mean Corpuscular Hemoglobin 33.5 % Concent Red Cell Distribution Width 13.5 % Platelet Count 197 TH/MM3 Mean Platelet Volume 8.6 FL Neutrophils (%) (Auto) 67.2 % Lymphocytes (%) (Auto) 22.3 % Monocytes (%) (Auto) 7.7 % Eosinophils (%) (Auto) 2.1 % Basophils (%) (Auto) 0.7 % Neutrophils # (Auto) 3.7 TH/MM3 Lymphocytes # (Auto) 1.2 TH/MM3 Monocytes # (Auto) 0.4 TH/MM3 Eosinophils # (Auto) 0.1 TH/MM3 Basophils # (Auto) 0.0 TH/MM3 CBC Comment DIFF FINAL Differential Comment Prothrombin Time 11.5 SEC Prothromb Time International 1.0 RATIO Ratio Activated Partial 28.0 SEC Thromboplast Time Sodium Level 141 MEQ/L Potassium Level 3.9 MEQ/L Chloride Level 109 MEQ/L Carbon Dioxide Level 23.6 MEQ/L Anion Gap 8 MEQ/L Blood Urea Nitrogen 6 MG/DL Creatinine 0.91 MG/DL Estimat Glomerular Filtration 86 ML/MIN Rate Random Glucose 217 MG/DL Calcium Level 8.8 MG/DL Magnesium Level 2.1 MG/DL Total Bilirubin 0.6 MG/DL Aspartate Amino Transf 87 U/L (AST/SGOT) Alanine Aminotransferase 117 U/L (ALT/SGPT) Alkaline Phosphatase 174 U/L Total Creatine Kinase 37 U/L Troponin I LESS THAN 0.02 NG/ML Total Protein 8.0 GM/DL Albumin 3.6 GM/DL Lipase 125 U/L [facility] Medical Decision Making Medical Screen Exam Complete: Yes Emergency Medical Condition: Yes Medical Record Reviewed: Yes Interpretation(s) EKG sinus rhythm, Q waves in the inferior leads, no acute ST changes or T-wave inversions. Differential Diagnosis Angina, unstable angina, acute coronary syndrome, costochondritis, pneumothorax , hemothorax, pericarditis, myocarditis, pulmonary embolism, aortic dissection Narrative Course This is a 56-year-old male with significant cardiac history who presents for evaluation of left-sided chest pain that radiates into the left arm which started while walking his dog just prior to arrival, unrelieved with the use of Nitroglycerin. A 12-lead EKG Was Obtained. The Patient Will Be Placed on ECG Monitoring and Pulse Oximetry. Plan is for basic lab work, chest x-ray. The patient's initial cardiac enzymes, EKG are reassuring. After demonstration of morphine his pain is improved to a 4 out of 10. At this point in time the plan will be to admit the patient of the chest pain center for serial cardiac enzymes and rule out purposes. He is agreeable. Diagnosis Primary Impression: Chest pain Qualified Code: R07.9 - Chest pain, unspecified type Admitting Information Admitting Physician Requests: Aldo Lan Jun 05, 2017 11:34
[2017-06-05] MEDS ORDERED: MORPHINE SULFATE 4 MG/ML INJ IV PUSH ONE (11:45)
[2017-06-05 12:30] LABS: AUTOMATED NEUTROPHIL # 3.7 TH/MM3 (1.8-7.7); BASOPHIL % 0.7 % (0.0-2.0); EOSINOPHIL # 0.1 TH/MM3 (0-0.4); EOSINOPHIL % 2.1 % (0.0-4.0); HEMATOCRIT 43.8 % (39.0-51.0); HEMO FLAGS DIFF FINAL; LYMPH % 22.3 % (9.0-44.0); LYMPHOCYTE # 1.2 TH/MM3 (1.0-4.8); MEAN CELL VOLUME 94.4 FL (80.0-100.0); MEAN CORPUSCULAR HEMOGLOBIN 31.6 PG (27.0-34.0); MEAN CORPUSCULAR HGB CONC 33.5 % (32.0-36.0); MONO % 7.7 % (0.0-8.0); NEUT % 67.2 % (16.0-70.0); PLATELET COUNT 197 TH/MM3 (150-450); RED BLOOD COUNT 4.64 MIL/MM3 (4.50-5.90); RED CELL DISTRIBUTION WIDTH 13.5 % (11.6-17.2); WHITE BLOOD COUNT 5.6 TH/MM3 (4.0-11.0)
[2017-06-05 12:32] LABS: PROTHROMBIN TIME - PATIENT 11.5 SEC (9.8-11.6)
[2017-06-05 12:46] LABS: ALT (GPT) 117 U/L (12-78); ANION GAP 8 MEQ/L (5-15); AST (GOT) 87 U/L (15-37); BICARBONATE 23.6 MEQ/L (21.0-32.0); BLOOD UREA NITROGEN 6 MG/DL (7-18); CHLORIDE 109 MEQ/L (98-107); GLOMERULAR FILTRATION RATE 86 ML/MIN (>89); MAGNESIUM 2.1 MG/DL (1.5-2.5); POTASSIUM 3.9 MEQ/L (3.5-5.1); SODIUM (NA) 141 MEQ/L (136-145)
--- NOTE | 2017-06-05 12:46 | RADRPT ---
EXAM DATE/TIME: 06/05/2017 11:56 [place] COMPARISON: CHEST SINGLE AP, June 04, 2016, 22:10. INDICATIONS : Chest pain. MEDICAL HISTORY : 5 heart attacks SURGICAL HISTORY : Coronary artery stent. CABG. ENCOUNTER: Initial ACUITY: 1 day PAIN SCORE: 8/10 LOCATION: Bilateral chest FINDINGS: 2 portable frontal views of the chest show median sternotomy wires and coronary markers. Lungs are cl ear. No effusions. Heart is at the upper limits of normal in terms of size. An old right clavicular f racture noted. Degenerative changes of the spine. CONCLUSION: No acute cardiopulmonary disease. Alexey Almeida Jr., MD on June 05, 2017 at 12:39 Board Certified Radiologist. This report was verified electronically.
[2017-06-05 12:47] LABS: ANION GAP 8 MEQ/L (5-15); BICARBONATE 23.6 MEQ/L (21.0-32.0); BLOOD UREA NITROGEN 7 MG/DL (7-18); CHLORIDE 109 MEQ/L (98-107); GLOMERULAR FILTRATION RATE 89 ML/MIN (>89); SODIUM (NA) 141 MEQ/L (136-145)
[2017-06-05 12:48] LABS: ALKALINE PHOSPHATASE 174 U/L (45-117); TOTAL BILIRUBIN ADULT 0.6 MG/DL (0.2-1.0)
[2017-06-05 12:59] LABS: CREATINE KINASE 37 U/L (39-308)
[2017-06-05] MEDS ORDERED: ACETAMINOPHEN 500 MG CPLT PO PRN (15:15)
[2017-06-05] MEDS ORDERED: ALPRAZolam 0.25 MG TAB PO PRN (15:15)
[2017-06-05] MEDS ORDERED: ONDANSETRON HCL 4 MG/2 ML VIAL IV PRN (15:15)
[2017-06-05] MEDS ORDERED: SODIUM CHLORIDE 0.9% FLUSH 10 ML FLUSH IV FLUSH PRN (15:15)
--- NOTE | 2017-06-05 15:25 | HHI.HP ---
[facility] Primary Care Physician Alessia Hardy MD Chief Complaint Chest pain History of Present Illness This is a 56-year-old male with history of CAD with multiple stents in the past as well as having four-vessel bypass either August or September of last year. States that around 10:00 this morning while walking his dog he developed a sharp pinching discomfort in the left chest which she states is not uncommon for him however almost medially afterwards it turned into a stabbing/burning discomfort that is still there. It is been present for about 4/2 hours. He took some sublingual nitroglycerin which really did not help. Was not short of breath. He was nauseous and diaphoretic a few times. He states that since he had his bypass he was doing okay. He has seen his relief operator 3 or 4 times since then. He states he also had a normal stress test within the last month or 2 that he states was normal. States he is compliant with all his medications however he cannot recall their names. Patient has continued to smoke but is smoking much less. He states that a pack of cigarettes will last him more than one month. He was smoking a pack of cigarettes or more for 35 years. Review of Systems General: Patient denies fevers, chills recent, and recent travel HEENT: Patient denies headache, sore throat, difficulty swallowing. Cardiovascular: Has the chest discomfort as mentioned above. Denies sensation of heart beating rapidly or irregularly. No syncope. He has been diaphoretic. Respiratory: Denies shortness of breath or inspirational chest discomfort. Denies coughing wheezing or hemoptysis. GI: Was nauseous a few times. Patient denies vomiting, diarrhea, abdominal pain , bloody stools. Musculoskeletal: Patient denies joint pain or edema. Denies calf pain or edema. Neurovascular: Patient denies numbness, tingling, weakness in extremities. Denies headache. Endocrine: Denies polyuria and polydipsia. Hematologic: Denies easy bruising. Skin: Denies rash or itching. Past Family Social History Allergies: Coded Allergies: Erythromycin (Verified Allergy, Severe, hives, 06/05/17) Past Medical History CAD. He had a four-vessel bypass either August or September 2016. He's had multiple stents in the past. Her sister hypertension, hyperlipidemia, diabetes , bipolar disorder, pancreatitis earlier in the month. Past Surgical History Four-vessel bypass. Multiple cardiac catheterizations with stenting. Inguinal hernia repair. Reported Medications Reported Meds & Active Scripts Active Zofran (Ondansetron HCl) 4 Mg Tab 4 Mg PO Q6HR PRN Reported Metformin (Metformin HCl) 1,000 Mg Tab 1,000 Mg PO BIDPC With meals Latuda (Lurasidone) 40 Mg Tab 40 Mg PO DAILY [place] Carbonate 600 Mg Cap 600 Mg PO HS [place] Carbonate 300 Mg Cap 300 Mg PO DAILY Lantus Inj (Insulin Glargine) 1,000 Unit/10 Ml Vial 50 Units SQ BID Tegretol (Carbamazepine) 200 Mg Tab 200 Mg PO BID Family History There is family history of CAD. Social History Patient still smoking. He is smoking a little less than a pack of cigarettes per month for the last 8 months but prior that he smoked one pack of cigarettes or more a day for 35 years. Denies alcohol or illicit drugs. Physical Exam Vital Signs Vital Signs Date Time Temp Pulse Resp B/P Pulse Ox O2 Delivery O2 Flow Rate FiO2 06/05/17 14:40 98.6 56 15 109/78 96 06/05/17 14:12 54 20 98 Room Air 06/05/17 14:08 98 Room Air 06/05/17 14:08 57 20 103/59 98 Room Air 06/05/17 12:23 97.8 98 14 103/56 95 06/05/17 12:16 98.2 16 95 Physical Exam GENERAL: This is a well-nourished, well-developed patient, in no apparent distress. Patient speaks in clear complete sentences. Patient is pleasant. HEENT: Head is atraumatic and normocephalic. Neck is supple without lymphadenopathy and trachea is midline. No JVD or carotid bruits. CARDIOVASCULAR: Regular rate and rhythm without murmurs, gallops, or rubs. RESPIRATORY: Well-healed midline scar from prior sternotomy. Clear to auscultation. Breath sounds equal bilaterally. No wheezes, rales, or rhonchi. Chest wall is nontender. No use of accessory muscles. GASTROINTESTINAL: Abdomen is nontender, nondistended. Abdomen soft. No obvious pulsatile mass or bruit. No CVA tenderness. Strong femoral pulses bilaterally. Normal bowel sounds in all quadrants. MUSCULOSKELETAL: Patient is moving upper and lower extremities freely. No calf tenderness or edema, no Homans sign. Strong pulses in upper and lower extremities. NEUROLOGICAL: Patient is alert and oriented. Cranial nerves 2-12 are grossly intact. No focal deficits and speech is clear. SKIN: No rash and turgor is normal. Laboratory Laboratory Tests Test 06/05/17 11:51 White Blood Count 5.6 Red Blood Count 4.64 Hemoglobin 14.7 Hematocrit 43.8 Mean Corpuscular Volume 94.4 Mean Corpuscular Hemoglobin 31.6 Mean Corpuscular Hemoglobin 33.5 Concent Red Cell Distribution Width 13.5 Platelet Count 197 Mean Platelet Volume 8.6 Neutrophils (%) (Auto) 67.2 Lymphocytes (%) (Auto) 22.3 Monocytes (%) (Auto) 7.7 Eosinophils (%) (Auto) 2.1 Basophils (%) (Auto) 0.7 Neutrophils # (Auto) 3.7 Lymphocytes # (Auto) 1.2 Monocytes # (Auto) 0.4 Eosinophils # (Auto) 0.1 Basophils # (Auto) 0.0 CBC Comment DIFF FINAL Differential Comment Prothrombin Time 11.5 Prothromb Time International 1.0 Ratio Activated Partial 28.0 Thromboplast Time Sodium Level 141 Potassium Level 3.9 Chloride Level 109 Carbon Dioxide Level 23.6 Anion Gap 8 Blood Urea Nitrogen 6 Creatinine 0.91 Estimat Glomerular Filtration 86 Rate Random Glucose 217 Calcium Level 8.8 Magnesium Level 2.1 Total Bilirubin 0.6 Aspartate Amino Transf 87 (AST/SGOT) Alanine Aminotransferase 117 (ALT/SGPT) Alkaline Phosphatase 174 Total Creatine Kinase 37 Troponin I LESS THAN 0.02 Total Protein 8.0 Albumin 3.6 Lipase 125 Result Diagram: 06/05/17 1151 06/05/17 1151 Imaging Last 48 hours Impressions Chest X-Ray 06/05/17 1126 Signed Impressions: Service Date/Time: Monday, June 05, 2017 11:56 - CONCLUSION: No acute cardiopulmonary disease. Alexey Almeida Jr., MD Course Initial EKG has sinus rhythm without significant ST segment depressions or elevations. Assessment and Plan Assessment and Plan * Chest pain: Patient will continue to have serial cardiac enzymes and EKGs for ruling out purposes. He will be seen by Dr. Renteria cardiology in the chest pain center. We are awaiting records from the [place] to determine further plan. Patient believes he recently had a stress test. We have obtained some of the records and he apparently was at [facility] recently and may have had a stress test then. We are waiting the records from [facility]. * Hypertension: Continue current medication. * Hyperlipidemia: Continue current medication. * Diabetes: Patient will be on sliding scale insulin coverage. He should resume medication at discharge. He should follow diabetic diet. * Bipolar disorder: Continue current medication. * Tobacco abuse: Patient has been counseled on importance of smoking cessation. Patient is stable at this time. He is agreeable to this plan. Jesus Norris Jun 05, 2017 15:25
[2017-06-05] MEDS ORDERED: ATOR1TAB18 PO (15:42)
[2017-06-05] MEDS ORDERED: CARV6.252 PO (15:48)
[2017-06-05] MEDS ORDERED: FURO20TA PO (15:48)
[2017-06-05] MEDS ORDERED: ISOS60TA PO (15:59)
[2017-06-05] MEDS ORDERED: POTA10CA PO (16:03)
[2017-06-05] MEDS ORDERED: RANI150T PO (16:03)
[2017-06-05] MEDS ORDERED: TEMA7.5C PO (16:05)
[2017-06-05] MEDS ORDERED: GLUC4CHW CHEW (16:07)
[2017-06-05] MEDS ORDERED: SYMB80AE INH (16:12)
[2017-06-05] MEDS ORDERED: IPRAAER INH (16:15)
[2017-06-05] MEDS ORDERED: ASPI81TA11 PO (16:16)
[2017-06-05] MEDS ORDERED: GLUCAGON 1 MG/ML VIAL IM/SQ PRN (16:30)
[2017-06-05] MEDS ORDERED: DEXTROSE 50% IN WATER 50 ML VIAL(D50) IV PRN (16:30)
[2017-06-05 16:32] LABS: CREATINE KINASE 34 U/L (39-308)
[2017-06-05] MEDS: ACETAMINOPHEN/HYDROcodone 325 MG/7.5 MG TAB PO PRN ×2 (16:46→21:55)
[2017-06-05] MEDS ORDERED: TEMAZEPAM 7.5 MG CAP PO PRN (17:00)
[2017-06-05 19:10] LABS: CREATINE KINASE 37 U/L (39-308)
[2017-06-05] MEDS ORDERED: CARVEDILOL 6.25 MG TAB PO SCH (21:00)
[2017-06-05] MEDS ORDERED: LITHIUM CARBONATE 300 MG CAP PO SCH (21:00)
[2017-06-05] MEDS ORDERED: ATORVASTATIN 80 MG TAB PO SCH (21:00)
[2017-06-05] MEDS: CARVEDILOL 3.125 MG TAB PO SCH (21:53)
[2017-06-05] MEDS: carBAMazepine 200 MG TAB PO SCH (21:56)
[2017-06-05] MEDS: INSULIN ASPART SUPPLEMENTAL SCALE SQ SCH (21:58)
[2017-06-05] MEDS: SODIUM CHLORIDE 0.9% FLUSH 10 ML FLUSH IV FLUSH SCH (21:59)
[2017-06-06] VITALS: PULSE 63
[2017-06-06 00:53] VITALS: BP 122/68; PULSE 64; RESP 18; TEMP 98.4; O2SAT 97
[2017-06-06] MEDS: ACETAMINOPHEN/HYDROcodone 325 MG/7.5 MG TAB PO PRN (02:26)
[2017-06-06 04:00] VITALS: PULSE 60
[2017-06-06] MEDS: INSULIN ASPART SUPPLEMENTAL SCALE SQ SCH (05:50)
[2017-06-06 07:06] VITALS: BP 124/69; PULSE 58; RESP 15; TEMP 98.2; O2SAT 97
[2017-06-06] MEDS: carBAMazepine 200 MG TAB PO SCH (08:24)
[2017-06-06] MEDS: CARVEDILOL 3.125 MG TAB PO SCH (08:34)
[2017-06-06] MEDS: SODIUM CHLORIDE 0.9% FLUSH 10 ML FLUSH IV FLUSH SCH (08:35)
[2017-06-06] MEDS ORDERED: LITHIUM CARBONATE 300 MG CAP PO SCH (09:00)
[2017-06-06] MEDS ORDERED: LURASIDONE 40 MG TAB PO SCH (09:00)
[2017-06-06] MEDS ORDERED: ISOSORBIDE MONONITRATE 60 MG TAB PO SCH (09:00)
[2017-06-06] MEDS ORDERED: ASPIRIN 325 MG TAB PO SCH (09:00)
[2017-06-06] MEDS ORDERED: POTASSIUM CHLORIDE 10 MEQ CAP PO SCH (09:00)
[2017-06-06] MEDS ORDERED: FUROSEMIDE 20 MG TAB PO SCH (09:00)
[2017-06-06] MEDS ORDERED: REGADENOSON INJ 0.4 MG/5 ML SYR ONE (09:55)
[2017-06-06 11:12] VITALS: BP 96/55; PULSE 76; RESP 15; TEMP 97.9; O2SAT 95
[2017-06-06 12:00] VITALS: PULSE 67
--- NOTE | 2017-06-06 12:14 | TR ---
Date Performed: 06/06/2017 Time Performed: 10:00:01 DOCTOR: Verenice Renteria DRUG LIST: CLINICAL HISTORY: ANGINA REASON FOR TEST: Angina REASON FOR ENDING: OBSERVATION: CONCLUSION: Lexiscan stress test was performed under standard four minute protocol. [place]ion[place] e was injected one minute prior to ending the test. No electrocardiographic abormalities were present to suggest ischemia. Nuclear imaging and interpretation are pending. COMMENTS:
--- NOTE | 2017-06-06 12:16 | EKG ---
Date Performed: 06/05/2017 Time Performed: 18:17:21 PTAGE: 56 years EKG: Sinus rhythm INFERIOR MYOCARDIAL INFARCTION ABNORMAL ECG PREVIOUS TRACING : 06/05/2017 15.25 Since previous tracing, no significant change noted DOCTOR: Verenice Renteria Interpretating Date/Time 06/06/2017 12:16:10
--- NOTE | 2017-06-06 12:20 | EKG ---
Date Performed: 06/05/2017 Time Performed: 15:25:20 PTAGE: 56 years EKG: SINUS BRADYCARDIA INFERIOR MYOCARDIAL INFARCTION ABNORMAL ECG Since PREVIOUS TRACING , no significant change noted PREVIOUS TRACIN06/05/2017 11.48 DOCTOR: Verenice Renteria Interpretating Date/Time 06/06/2017 12:17:49
--- NOTE | 2017-06-06 12:21 | EKG ---
Date Performed: 06/05/2017 Time Performed: 11:48:40 PTAGE: 56 years EKG: Sinus rhythm PATTERN CONSISTENT WITH PULMONARY DISEASE LEFT ANTERIOR FASCICULAR BLOCK INFERIOR MYOCARDIAL INFARCT ION ABNORMAL ECG Since previous tracing, no significant change noted NO PREVIOUS TRACING DOCTOR: Verenice Renteria Interpretating Date/Time 06/06/2017 12:19:34
--- NOTE | 2017-06-06 13:38 | RADRPT ---
EXAM DATE/TIME: 06/06/2017 09:07 [facility] COMPARISON: MYOCARDIAL PERF PHARM SPECT, GATED W/EF, May 04, 2016, 10:45. INDICATIONS : Left chest pain. Angina. Myocardial infarction. DOSE: 26.4 mCi Tc99m Myoview at stress. 8.6 mCi Tc99m Myoview at rest. 0.4 mg Lexiscan STRESS SYMPTOMS: Shortness of breath. EJECTION FRACTION: 49% MEDICAL HISTORY : Cardiovascular disease. Diabetes mellitus type 2. Hypertension. Smoker. SURGICAL HISTORY : CABG Coronary artery stent. Right testicle removed. ENCOUNTER: Initial ACUITY: 1 day PAIN SCALE: 2/10 LOCATION: Left chest TECHNIQUE: The patient underwent pharmacologic stress with infusion of prescribed dose. Continuous ECG tracing was monitored during stress. Gated SPECT imaging was performed after stress and conventional SPECT i maging was performed at rest. The examination was performed on a SPECT/CT scanner, both attenuation and non-corrected datasets were reviewed. FINDINGS: DISTRIBUTION: The maximum perfused segment at stress is in the septal wall. PERFUSION STUDY: There is a small size mild severity mildly reversible perfusion abnormality involving the low anterio r wall and cardiac apex perfusion is otherwise intact and unremarkable. GATED STUDY: There is intact wall motion and thickening without hypokinetic or dyskinetic segments. Borderline EF. CONCLUSION: Small size mild severity mildly reversible anterior apical perfusion abnormality. Borderline ejection fraction. RISK CATEGORY: Intermediate (1-3% Annual Mortality Rate) Dimitry Medina MD on June 06, 2017 at 13:24 Board Certified Radiologist. This report was verified electronically.
--- NOTE | 2017-06-06 13:55 | HHI.DCPOC ---
Discharge Care Plan Diagnosis: (1) Atypical chest pain (2) Hx of coronary artery disease Goals to Promote Your Health * To prevent worsening of your condition and complications * To maintain your health at the optimal level Directions to Meet Your Goals Take your medications as prescribed Follow your dietary instruction Follow activity as directed Keep your appointments as scheduled Take your immunizations and boosters as scheduled If your symptoms worsen call your PCP, if no PCP go to Urgent Care Center or Emergency Room Smoking is Dangerous to Your Health. Avoid second hand smoke Call the 24-hour hour crisis hotline for domestic abuse at Alea SimsP Jun 06, 2017 13:55
== END 2017-06-06 14:41 | disposition home or self-care (01) ==
LOC: NEDAMB 11:21 → NEDA 13:11 → NEPFCDU 14:25
PROVIDERS: ADMIT Internal Medicine Interventional Cardiology; ATTEND Internal Medicine Interventional Cardiology
DX: R07.89 Other chest pain (principal); E78.5 Hyperlipidemia, unspecified; E11.9 Type 2 diabetes mellitus without complications; F31.9 Bipolar disorder, unspecified; F17.210 Nicotine dependence, cigarettes, uncomplicated; Z95.1 Presence of aortocoronary bypass graft; M19.90 Unspecified osteoarthritis, unspecified site; F41.9 Anxiety disorder, unspecified; I11.0 Hypertensive heart disease with heart failure; I50.9 Heart failure, unspecified; G47.30 Sleep apnea, unspecified; I25.2 Old myocardial infarction; R94.31 Abnormal electrocardiogram [ECG] [EKG]; K75.9 Inflammatory liver disease, unspecified; Z98.61 Coronary angioplasty status; I25.10 Atherosclerotic heart disease of native coronary artery without angina pectoris; Z79.899 Other long term (current) drug therapy; Z79.84 Long term (current) use of oral hypoglycemic drugs; Z79.4 Long term (current) use of insulin
CPT/HCPCS: 71010; 78452; 80053; 82550; 82948; 83690; 83735; 84484; 85025; 85610; 85730; 93005; 93017; 96374; 99285; A9502; G0378; J1815; J2270; J2785; 80048

== ENCOUNTER 2017-06-24 15:50 | Emergency (ER) | payer MEDICARE, MEDICAID ==
[~2017-06-24] VITALS: Ht 170.2 cm; Wt 80.0 kg
[~2017-06-24 15:50] MED LIST changes: +ASPI81TA11 PO; +ATOR1TAB18 PO; +CARV6.252 PO; +FURO20TA PO; +GLUC4CHW CHEW; +IPRAAER INH; +ISOS60TA PO; +POTA10CA PO; +RANI150T PO; +SYMB80AE INH; +TEMA7.5C PO; -ZOFR4TAB PO
[2017-06-24 16:00] VITALS: BP 122/59; PULSE 74; RESP 20; TEMP 98.6; O2SAT 99
--- NOTE | 2017-06-24 16:18 | PD ---
HPI Chief Complaint: Abdominal Pain Time Seen by Provider: 16:15 Travel History International Travel<30 days: No Contact w/Intl Traveler<30days: No Traveled to known affect area: No History of Present Illness HPI 56 year old male with PMH of pancreatitis, diverticulitis, HTN, DM, CAD, chest pain, tobacco abuse presents to the ED for evaluation of 2 day history of left sided lower abdominal pain, watery diarrhea, nausea. Patient endorses NBNB vomiting overnight and throughout today. He denies fever, chills, melena, hematochezia, dysuria, back pain. He states this is similar to pain he has had with previous episodes of diverticulitis. He states last colonoscopy was "within the last year." He is followed by the [place] Past Medical History Arthritis: Yes Asthma: No Autoimmune Disease: No Blood Disorders: No Bipolar Disorder: Yes (hypermanic) Anxiety: Yes Depression: Yes Heart Rhythm Problems: No Cancer: No Cardiac Catheterization: Yes Cardiovascular Problems: Yes High Cholesterol: Yes Chest Pain: Yes Congestive Heart Failure: No COPD: No Diabetes: Yes Patient Takes Glucophage: No Diminished Hearing: No Diverticulitis: Yes Endocrine: Yes Gastrointestinal Disorders: Yes (diverticulitis, pancreaitis) GERD: No Genitourinary: No Hepatitis: Yes Hiatal Hernia: No Heparin Induced Thrombocytopen: No Hypertension: No Immune Disorder: No Implanted Vascular Access Dvce: No Musculoskeletal: No Neurologic: No Psychiatric: Yes (BIPOLAR) Reproductive: No Respiratory: No Immunizations Current: Yes Myocardial Infarction: Yes (X 3) Sleep Apnea: Yes (LESS NOW THAT HE HAS LOST WEIGHT) Thyroid Disease: No Ulcer: No PNEUMOCCOCAL Vaccine (Year): 2 Past Surgical History Abdominal Surgery: Yes (inguinal hernia) Cardiac Surgery: Yes (quadriple bypass) Coronary Artery Bypass Graft: Yes Ear Surgery: No Endocrine Surgery: No Genitourinary Surgery: No Gynecologic Surgery: No Neurologic Surgery: No Oral Surgery: No Pacemaker: No Thoracic Surgery: No Other Surgery: Yes (r toe, inguinal hernia, right testicle removed, open heart sx) Family History Family Myocardial Infarction: Yes (mom, dad) Social History Alcohol Use: No (pt denies) Tobacco Use: Yes (1/2 PPD) Substance Use: No (pt denies ) Allergies-Medications (Allergen,Severity, Reaction): Coded Allergies: Erythromycin (Verified Allergy, Severe, hives, 06/05/17) Reported Meds & Prescriptions Reported Meds & Active Scripts Active Reported Aspirin EC (Aspirin) 81 Mg Tabdr 81 Mg PO DAILY Combivent Respimat Inh (Ipratropium-Albuterol Inh) 20-100 Residential/Act Aero 1 Puff INH QID Symbicort Inh (Budesonide/Formoterol Fumarate) 80-4.5 Mcg/Act Aero 2 Puff INH Q12HR Glucose (Dextrose) 4 Gm Chew 4 Gm CHEW DIRECTED CHEW 4 TABS Temazepam 7.5 Mg Cap 7.5 Mg PO HS PRN Ranitidine (Ranitidine HCl) 150 Mg Tab 150 Mg PO BID Potassium Chloride ER (Potassium Chloride) 10 Meq Cap 10 Meq PO DAILY Isosorbide Mononitrate ER (Isosorbide Mononitrate) 60 Mg Tab 60 Mg PO DAILY Furosemide 20 Mg Tab 20 Mg PO DAILY Carvedilol 6.25 Mg Tab 6.25 Mg PO BID ONE HALF A TAB BID Atorvastatin (Atorvastatin Calcium) 80 Mg Tab 80 Mg PO HS Metformin (Metformin HCl) 1,000 Mg Tab 1,000 Mg PO BIDPC With meals Latuda (Lurasidone) 40 Mg Tab 40 Mg PO DAILY [place] Carbonate 600 Mg Cap 600 Mg PO HS [place]am Carbonate 300 Mg Cap 300 Mg PO DAILY Lantus Inj (Insulin Glargine) 1,000 Unit/10 Ml Vial 60 Units SQ BID Tegretol (Carbamazepine) 200 Mg Tab 200 Mg PO BID Review of Systems Except as stated in HPI: all other systems reviewed are Neg Physical Exam Narrative GENERAL: Well-nourished, well-developed thin white male, lying on the stretcher , watching a TV show and his phone in no acute distress. SKIN: Focused skin assessment warm/dry. HEAD: Normocephalic. EYES: No scleral icterus. No injection or drainage. NECK: Supple, trachea midline. No JVD or lymphadenopathy. CARDIOVASCULAR: Regular rate and rhythm without murmurs, gallops, or rubs. RESPIRATORY: Breath sounds clear and equal bilaterally. No accessory muscle use. GASTROINTESTINAL: Abdomen soft, nondistended. Mild tenderness to palpation in the left lower quadrant. Active bowel sounds. MUSCULOSKELETAL: No cyanosis, or edema. BACK: Nontender without obvious deformity. No CVA tenderness. Data Data Last Documented VS Vital Signs Date Time Temp Pulse Resp B/P Pulse Ox O2 Delivery O2 Flow Rate FiO2 06/24/17 16:55 99 06/24/17 16:00 98.6 74 20 122/59 Orders Complete Blood Count With Diff (06/24/17 16:23) Comprehensive Metabolic Panel (06/24/17 16:23) Lipase (06/24/17 16:23) Urinalysis - C+S If Indicated (06/24/17 16:23) Iv Access Insert/Monitor (06/24/17 16:23) Ecg Monitoring (06/24/17 16:23) Oximetry (06/24/17 16:23) NPO (06/24/17 16:23) Sodium Chlor 0.9% 1000 Ml Inj (Ns 1000 M (06/24/17 16:23) Sodium Chloride 0.9% Flush (Ns Flush) (06/24/17 16:30) Ct Abd/Pel W Iv Contrast(Rout) (06/24/17 17:00) Morphine Inj (Morphine Inj) (06/24/17 17:00) Iohexol 350 Inj (Omnipaque 350 Inj) (06/24/17 17:56) Labs Laboratory Tests Test 06/24/17 06/24/17 16:20 17:25 White Blood Count 9.2 TH/MM3 Red Blood Count 4.80 MIL/MM3 Hemoglobin 15.6 GM/DL Hematocrit 44.4 % Mean Corpuscular Volume 92.4 FL Mean Corpuscular Hemoglobin 32.4 PG Mean Corpuscular Hemoglobin 35.0 % Concent Red Cell Distribution Width 13.0 % Platelet Count 240 TH/MM3 Mean Platelet Volume 8.6 FL Neutrophils (%) (Auto) 72.9 % Lymphocytes (%) (Auto) 19.2 % Monocytes (%) (Auto) 6.1 % Eosinophils (%) (Auto) 1.1 % Basophils (%) (Auto) 0.7 % Neutrophils # (Auto) 6.7 TH/MM3 Lymphocytes # (Auto) 1.8 TH/MM3 Monocytes # (Auto) 0.6 TH/MM3 Eosinophils # (Auto) 0.1 TH/MM3 Basophils # (Auto) 0.1 TH/MM3 CBC Comment DIFF FINAL Differential Comment Sodium Level 138 MEQ/L Potassium Level 3.8 MEQ/L Chloride Level 105 MEQ/L Carbon Dioxide Level 25.8 MEQ/L Anion Gap 7 MEQ/L Blood Urea Nitrogen 11 MG/DL Creatinine 1.17 MG/DL Estimat Glomerular Filtration 65 ML/MIN Rate Random Glucose 227 MG/DL Calcium Level 9.1 MG/DL Total Bilirubin 1.0 MG/DL Aspartate Amino Transf 148 U/L (AST/SGOT) Alanine Aminotransferase 206 U/L (ALT/SGPT) Alkaline Phosphatase 318 U/L Total Protein 8.4 GM/DL Albumin 3.5 GM/DL Lipase 142 U/L Urine Color YELLOW Urine Turbidity CLEAR Urine pH 7.5 Urine Specific [place] 1.022 Urine Protein TRACE mg/dL Urine Glucose (UA) 300 mg/dL Urine Ketones TRACE mg/dL Urine Occult Blood NEG Urine Nitrite NEG Urine Bilirubin NEG Urine Urobilinogen 8.0 MG/DL Urine Leukocyte Esterase NEG Urine RBC LESS THAN 1 /hpf Urine WBC 2 /hpf Urine Squamous Epithelial <1 /hpf Cells Urine Mucus FEW /lpf Microscopic Urinalysis Comment CULT NOT INDICATED MDM Medical Decision Making Medical Screen Exam Complete: Yes Emergency Medical Condition: Yes Differential Diagnosis diverticulitis versus colitis versus nephroureterolithiasis versus pancreatitis versus drug seeking behavior versus other Narrative Course 56 year old male with PMH of pancreatitis, diverticulitis, HTN, DM, CAD, chest pain, tobacco abuse presents to the ED for evaluation of 2 day history of left sided lower abdominal pain, watery diarrhea, nausea. Patient endorses NBNB vomiting overnight and throughout today. He denies fever, chills, melena, hematochezia, dysuria, back pain. He states this is similar to pain he has had with previous episodes of diverticulitis. He states last colonoscopy was "within the last year." Vitals reviewed. Physical exam reveals a nontoxic- appearing white male in no acute distress. There is mild left lower quadrant abdominal tenderness but exam is otherwise unremarkable. Patient was administered 1 L normal saline, 4 mg Zofran, 2 mg morphine IV. CBC without acute abnormality. CMP: AST 148, ALT 206, alkaline phosphatase 318. Per record review patient has chronically elevated LFTs this is slightly worse than normal. Lipase 142 UA culture indicated. No acute findings on the CT. Diverticulosis without diverticulitis. Patient was provided a copy of his lab work. He is instructed to follow-up with the wallpaper scraper regarding his chronically elevated LFTs. He is stable and discharged home. Diagnosis Primary Impression: Abdominal pain Qualified Code: R10.32 - Left lower quadrant pain Additional Impression: Elevated LFTs Referrals: Floor Clerk Primary Care Physician Patient Instructions: Abdominal Pain (ED), General Instructions Additional Instructions: Rest, hydrate. Eat a bland diet for the next few days and gradually reintroduce new foods. You have mild elevation of your liver function tests. This is not emergently life-threatening but should be followed on an outpatient basis by a wallpaper scraper. Follow-up with the primary care provider for referral. Return to the ED for any urgent or emergent medical condition. Disposition: 01 DISCHARGE HOME Condition: Stable Simin Baird Jun 24, 2017 16:17
[2017-06-24] MEDS ORDERED: SODIUM CHLOR 0.9% 1000 ML INJ 1,000 ML IV SCH (16:23)
[2017-06-24] MEDS ORDERED: SODIUM CHLORIDE 0.9% FLUSH 10 ML FLUSH IV FLUSH PRN (16:30)
[2017-06-24 16:38] LABS: AUTOMATED NEUTROPHIL # 6.7 TH/MM3 (1.8-7.7); BASOPHIL # 0.1 TH/MM3 (0-0.2); BASOPHIL % 0.7 % (0.0-2.0); EOSINOPHIL # 0.1 TH/MM3 (0-0.4); EOSINOPHIL % 1.1 % (0.0-4.0); HEMATOCRIT 44.4 % (39.0-51.0); HEMO FLAGS DIFF FINAL; LYMPH % 19.2 % (9.0-44.0); LYMPHOCYTE # 1.8 TH/MM3 (1.0-4.8); MEAN CELL VOLUME 92.4 FL (80.0-100.0); MEAN CORPUSCULAR HEMOGLOBIN 32.4 PG (27.0-34.0); MONO % 6.1 % (0.0-8.0); NEUT % 72.9 % (16.0-70.0); PLATELET COUNT 240 TH/MM3 (150-450); WHITE BLOOD COUNT 9.2 TH/MM3 (4.0-11.0)
[2017-06-24 16:55] VITALS: O2SAT 99
[2017-06-24] MEDS ORDERED: MORPHINE SULFATE 4 MG/ML INJ IV PUSH ONE (17:00)
[2017-06-24 17:08] LABS: ALT (GPT) 206 U/L (12-78); ANION GAP 7 MEQ/L (5-15); AST (GOT) 148 U/L (15-37); BICARBONATE 25.8 MEQ/L (21.0-32.0); BLOOD UREA NITROGEN 11 MG/DL (7-18); CHLORIDE 105 MEQ/L (98-107); GLOMERULAR FILTRATION RATE 65 ML/MIN (>89); POTASSIUM 3.8 MEQ/L (3.5-5.1); SODIUM (NA) 138 MEQ/L (136-145)
[2017-06-24 17:10] LABS: ALKALINE PHOSPHATASE 318 U/L (45-117)
[2017-06-24] MEDS ORDERED: IOHEXOL 350 MG/ML 10 ML VIAL (for RAD DIAG) IV ONE (17:56)
--- NOTE | 2017-06-24 18:12 | RADRPT ---
EXAM DATE/TIME: 06/24/2017 17:46 This report includes an Addendum and supersedes previous reports for this exam. [facility] COMPARISON: CT ABDOMEN & PELVIS W/O CONTRAST, May 26, 2017, 21:09. CT ABDOMEN & PELVIS W CONTRAST, September 20, 2014, 22:30. INDICATIONS : Left lower quadrant pain X 2 days with nausea and diarrhea. IV CONTRAST: 97 cc Omnipaque 350 (iohexol) IV ORAL CONTRAST: No oral contrast ingested. RADIATION DOSE: 16.19 CTDIvol (mGy) MEDICAL HISTORY : Cardiovascular disease. Diabetes mellitus type 2. Hypertension.Diverticulitis, Pancreatitis SURGICAL HISTORY : CABG Inguinal hernia repair. ENCOUNTER: Initial ACUITY: 2 days PAIN SCALE: 7/10 LOCATION: Left lower quadrant abdomen TECHNIQUE: Volumetric scanning of the abdomen and pelvis was performed. Using automated exposure control and ad justment of the mA and/or kV according to patient size, radiation dose was kept as low as reasonably achievable to obtain optimal diagnostic quality images. DICOM format image data is available electro nically for review and comparison. FINDINGS: LOWER LUNGS: Fluid density mass in the posterior mediastinum adjacent to the distal esophagus unchanged from prior study of 2013. May represent a pericardial cyst. Lung bases are clear. LIVER: Small hyperdensities at the dependent portion of the gallbladder likely representing small gallstones . No pericholecystic inflammatory changes. Liver is homogeneous and within normal limits. SPLEEN: Mildly enlarged measuring 13.7 cm in craniocaudal dimension. It is homogeneous. PANCREAS: Within normal limits. KIDNEYS: 3 fluid density masses in the right kidney. The largest measures 2.1 cm and is located in the lateral lower pole. Findings indicate cysts. Kidneys are otherwise within normal limits. No evidence of hydr onephrosis. ADRENAL GLANDS: Within normal limits. VASCULAR: Diffuse aortic calcification. Aortic diameter are within normal limits. BOWEL/MESENTERY: Sigmoid colon diverticula. No evidence of acute diverticulitis. No evidence of bowel dilatation. No f ree air or free fluid. Appendix within normal limits. ABDOMINAL WALL: Within normal limits. RETROPERITONEUM: There is no lymphadenopathy. BLADDER: No wall thickening or mass. REPRODUCTIVE: Within normal limits. INGUINAL: Back containing left inguinal hernia unchanged. MUSCULOSKELETAL: Prominent degenerative findings of the lower lumbar spine. Osteoarthritic findings of the hips and os teoarthritic findings of the sacroiliac joints. CONCLUSION: 1. No acute findings in the abdomen and pelvis. 2. Mild splenomegaly. 3. Colonic diverticulosis but no evidence of acute diverticulitis. 4. Prominent degenerative findings of the lumbar spine. Prominent osteoarthritic findings of the hips and sacroiliac joints. Mariano Eubanks MD on June 24, 2017 at 18:02 Board Certified Radiologist. This report was verified electronically. ADDENDUM: Added to conclusion: Likely gallstones. No pericholecystic inflammatory changes. Mariano Eubanks MD on June 24, 2017 at 19:12 Board Certified Radiologist. This report was verified electronically.
[2017-06-24 18:13] LABS: BLOOD, URINE NEG (NEG); COMMENT (UR) CULT NOT INDICATED; CULTURE IF INDICATED CULT NOT INDICATED; GLUCOSE,URINE 300 mg/dL (NEG); KETONE, URINE TRACE mg/dL (NEG); MUCUS URINE FEW /lpf (OCC); NITRITE,URINE NEG (NEG); PH, URINE 7.5 (5.0-8.5); SQUAMOUS EPITHELIAL CELL URINE <1 /hpf (0-5); URINE COLOR YELLOW (YELLW/STRAW)
[2017-06-24 19:24] VITALS: BP 129/63
[2017-06-25] MEDS ORDERED: ZOFR4TAB PO (01:43)
== END 2017-06-24 19:32 | disposition home or self-care (01) ==
LOC: NEPC 15:50
DX: R10.32 Left lower quadrant pain (principal); R79.89 Other specified abnormal findings of blood chemistry; R19.7 Diarrhea, unspecified; R11.0 Nausea; K85.90 Acute pancreatitis without necrosis or infection, unspecified; K57.92 Diverticulitis of intestine, part unspecified, without perforation or abscess without bleeding; I10 Essential (primary) hypertension; E11.9 Type 2 diabetes mellitus without complications
CPT/HCPCS: 74177; 80053; 81001; 83690; 85025; 96361; 96374; 99285; J2270; J7030; Q9967

== ENCOUNTER 2017-06-25 00:06 | Emergency (ER) | payer MEDICARE, MEDICAID ==
[~2017-06-25] VITALS: Ht 182.9 cm; Wt 100.0 kg
[2017-06-25 00:09] VITALS: BP 141/64; PULSE 70; RESP 18; TEMP 98.1; O2SAT 97
--- NOTE | 2017-06-25 00:25 | PD ---
HPI Chief Complaint: GI Complaint Time Seen by Provider: 00:11 Travel History International Travel<30 days: No Contact w/Intl Traveler<30days: No Traveled to known affect area: No History of Present Illness HPI Patient is a 56-year-old male presents to the emergency department for second evaluation today of nausea and vomiting and generalized abdominal cramping. Patient was evaluated here had complete workup earlier today including CAT scan of his abdomen discharged with diagnoses of nausea vomiting. He states that he got home and was feeling okay and then the nausea started to return, he states he's tried some fluids and was unable to keep them down and saw return to emergency department. He has not tried any antiemetics at home. He states he is on very fix budget on disability and has no money until Monday. My initial exam the patient is sitting upright in a stretcher playing on his cell phone in no obvious distress. He states nothing else it's changed since last evaluation here. States the symptoms are mild abdominal cramping and severe nausea with vomiting. No blood in the emesis. No blood in the Stool. PFSH Past Medical History Arthritis: Yes Asthma: No Autoimmune Disease: No Blood Disorders: No Bipolar Disorder: Yes (hypermanic) Anxiety: Yes Depression: Yes Heart Rhythm Problems: No Cancer: No Cardiac Catheterization: Yes Cardiovascular Problems: Yes High Cholesterol: Yes Chest Pain: Yes Congestive Heart Failure: No COPD: No Diabetes: Yes Patient Takes Glucophage: No Diminished Hearing: No Diverticulitis: Yes Endocrine: Yes Gastrointestinal Disorders: Yes (diverticulitis, pancreaitis) GERD: No Genitourinary: No Hepatitis: Yes Hiatal Hernia: No Heparin Induced Thrombocytopen: No Hypertension: No Immune Disorder: No Implanted Vascular Access Dvce: No Musculoskeletal: No Neurologic: No Psychiatric: Yes (BIPOLAR) Reproductive: No Respiratory: No Immunizations Current: Yes Myocardial Infarction: Yes (X 3) Sleep Apnea: Yes (LESS NOW THAT HE HAS LOST WEIGHT) Thyroid Disease: No Ulcer: No PNEUMOCCOCAL Vaccine (Year): 2 Past Surgical History Abdominal Surgery: Yes (inguinal hernia) Cardiac Surgery: Yes (quadriple bypass) Coronary Artery Bypass Graft: Yes Ear Surgery: No Endocrine Surgery: No Genitourinary Surgery: No Gynecologic Surgery: No Neurologic Surgery: No Oral Surgery: No Pacemaker: No Thoracic Surgery: No Other Surgery: Yes (r toe, inguinal hernia, right testicle removed, open heart sx) Family History Family Myocardial Infarction: Yes (mom, dad) Social History Alcohol Use: No (pt denies) Tobacco Use: Yes (1/2 PPD) Substance Use: No (pt denies ) Allergies-Medications (Allergen,Severity, Reaction): Coded Allergies: Erythromycin (Verified Allergy, Severe, hives, 06/25/17) Reported Meds & Prescriptions Reported Meds & Active Scripts Active Zofran (Ondansetron HCl) 4 Mg Tab 4 Mg PO Q6HR PRN Reported Aspirin EC (Aspirin) 81 Mg Tabdr 81 Mg PO DAILY Combivent Respimat Inh (Ipratropium-Albuterol Inh) 20-100 Care Home/Act Aero 1 Puff INH QID Symbicort Inh (Budesonide/Formoterol Fumarate) 80-4.5 Mcg/Act Aero 2 Puff INH Q12HR Glucose (Dextrose) 4 Gm Chew 4 Gm CHEW DIRECTED CHEW 4 TABS Temazepam 7.5 Mg Cap 7.5 Mg PO HS PRN Ranitidine (Ranitidine HCl) 150 Mg Tab 150 Mg PO BID Potassium Chloride ER (Potassium Chloride) 10 Meq Cap 10 Meq PO DAILY Isosorbide Mononitrate ER (Isosorbide Mononitrate) 60 Mg Tab 60 Mg PO DAILY Furosemide 20 Mg Tab 20 Mg PO DAILY Carvedilol 6.25 Mg Tab 6.25 Mg PO BID ONE HALF A TAB BID Atorvastatin (Atorvastatin Calcium) 80 Mg Tab 80 Mg PO HS Metformin (Metformin HCl) 1,000 Mg Tab 1,000 Mg PO BIDPC With meals Latuda (Lurasidone) 40 Mg Tab 40 Mg PO DAILY [place] Carbonate 600 Mg Cap 600 Mg PO HS [place] Carbonate 300 Mg Cap 300 Mg PO DAILY Lantus Inj (Insulin Glargine) 1,000 Unit/10 Ml Vial 60 Units SQ BID Tegretol (Carbamazepine) 200 Mg Tab 200 Mg PO BID Review of Systems Except as stated in HPI: all other systems reviewed are Neg Physical Exam Narrative GENERAL: Well-developed well-nourished no obvious distress, sitting up or in a stretcher playing on the cell phone SKIN: Focused skin assessment warm/dry. HEAD: Atraumatic. Normocephalic. EYES: Pupils equal and round. No scleral icterus. No injection or drainage. ENT: No nasal bleeding or discharge. Mucous membranes pink and moist. NECK: Trachea midline. No JVD. CARDIOVASCULAR: Regular rate and rhythm. No murmur appreciated. RESPIRATORY: No accessory muscle use. Clear to auscultation. Breath sounds equal bilaterally. GASTROINTESTINAL: Abdomen soft, non-tender, nondistended. Hepatic and splenic margins not palpable. No rebound no percussive tenderness, normal active bowel sounds. MUSCULOSKELETAL: No obvious deformities. No clubbing. No cyanosis. No edema. NEUROLOGICAL: Awake and alert. No obvious cranial nerve deficits. Motor grossly within normal limits. Normal speech. PSYCHIATRIC: Appropriate mood and affect; insight and judgment normal. Data Data Last Documented VS Vital Signs Date Time Temp Pulse Resp B/P Pulse Ox O2 Delivery O2 Flow Rate FiO2 06/25/17 00:12 18 06/25/17 00:09 98.1 70 141/64 97 Orders Promethazine Inj (Phenergan Inj) (06/25/17 00:30) [facility] Medical Decision Making Medical Screen Exam Complete: Yes Emergency Medical Condition: Yes Differential Diagnosis Gastritis, gastritis, dehydration unlikely, acute abdomen extremely unlikely. Narrative Course Patient roomed in emergency department, I reviewed his workup from earlier today which was unremarkable. He appears quite comfortable in no distress. He was given injection of Phenergan and was able to tolerate by mouth fluids. I discussed that he will need to consider how he is going to afford his antinausea medicine but there is no indication for admission nor further workup at this time. He is stable for discharge. Diagnosis Primary Impression: Nausea & vomiting Med/Other Pt SpecificInfo: Prescription(s) given Scripts Ondansetron (Zofran)4 Mg Tab4 Mg PO Q6HR PRN (NAUSEA OR VOMITING) #20 TAB Ref 0 Prov:Jin Erazo MD 06/25/17 Disposition: 01 DISCHARGE HOME Condition: Stable Jin Erazo MD Jun 25, 2017 00:25
[2017-06-25] MEDS ORDERED: PROMETHAZINE INJ 25 MG/ML VIAL IM ONE (00:30)
[2017-06-25] MEDS ORDERED: ZOFR4TAB PO (01:43)
== END 2017-06-25 01:50 | disposition home or self-care (01) ==
LOC: NEPC 00:06
DX: R11.2 Nausea with vomiting, unspecified (principal); R10.84 Generalized abdominal pain
CPT/HCPCS: 96372; 99284; J2550

== ENCOUNTER 2017-06-29 17:59 | Emergency (ER) | payer MEDICARE, MEDICAID ==
[~2017-06-29] VITALS: Ht 182.9 cm; Wt 100.0 kg
[~2017-06-29 17:59] MED LIST changes: +ZOFR4TAB PO
[2017-06-29 18:39] VITALS: BP 138/81; PULSE 72; RESP 18; TEMP 99.1; O2SAT 98
--- NOTE | 2017-06-29 19:23 | PD ---
Physical Exam Date Seen by Provider: Jun 29, 2017 Time Seen by Provider: 19:20 Narrative 56 YOWM BY EMS FOR ABD PAIN WORSE LLQ. SINCE LAST MONDAY. SEEN 2 TIMES IN ER. NOW WITH DIARRHEA2 DAYS. F/C. / PAIN VS REVIEWED WAITING FOR BED PLACEMENT Data Data Last Documented VS Vital Signs Date Time Temp Pulse Resp B/P Pulse Ox O2 Delivery O2 Flow Rate FiO2 06/29/17 18:39 99.1 72 18 138/81 98 MDM Supervised Visit with JAIME: Dwight Shukla Jun 29, 2017 19:22
--- NOTE | 2017-06-29 21:47 | PD ---
HPI Chief Complaint: Abdominal Pain Time Seen by Provider: 21:42 Travel History International Travel<30 days: No Contact w/Intl Traveler<30days: No PFSH Past Medical History Arthritis: Yes Asthma: No Autoimmune Disease: No Blood Disorders: No Bipolar Disorder: Yes (hypermanic) Anxiety: Yes Depression: Yes Heart Rhythm Problems: No Cancer: No Cardiac Catheterization: Yes Cardiovascular Problems: Yes High Cholesterol: Yes Chest Pain: Yes Congestive Heart Failure: No COPD: No Diabetes: Yes Patient Takes Glucophage: Yes Diminished Hearing: No Diverticulitis: Yes Endocrine: Yes Gastrointestinal Disorders: Yes (diverticulitis, pancreaitis) GERD: No Genitourinary: No Hepatitis: Yes Hiatal Hernia: No Heparin Induced Thrombocytopen: No Hypertension: No Immune Disorder: No Implanted Vascular Access Dvce: No Musculoskeletal: No Neurologic: No Psychiatric: Yes (BIPOLAR) Reproductive: No Respiratory: No Immunizations Current: Yes Myocardial Infarction: Yes (X 3) Sleep Apnea: Yes (LESS NOW THAT HE HAS LOST WEIGHT) Thyroid Disease: No Ulcer: No Tetanus Vaccination: < 5 Years Influenza Vaccination: Yes PNEUMOCCOCAL Vaccine (Year): 2 Past Surgical History Abdominal Surgery: Yes (inguinal hernia) Cardiac Surgery: Yes (quadriple bypass) Coronary Artery Bypass Graft: Yes Ear Surgery: No Endocrine Surgery: No Genitourinary Surgery: No Gynecologic Surgery: No Neurologic Surgery: No Oral Surgery: No Pacemaker: No Thoracic Surgery: No Other Surgery: Yes (r toe, inguinal hernia, right testicle removed, open heart sx) Family History Family Myocardial Infarction: Yes (mom, dad) Social History Alcohol Use: No (pt denies) Tobacco Use: Yes (1/2 PPD) Substance Use: No (pt denies ) Allergies-Medications (Allergen,Severity, Reaction): Coded Allergies: erythromycin base (Unverified Allergy, Severe, hives, 06/27/17) Reported Meds & Prescriptions Reported Meds & Active Scripts Active Zofran (Ondansetron HCl) 4 Mg Tab 4 Mg PO Q6HR PRN Reported Aspirin EC (Aspirin) 81 Mg Tabdr 81 Mg PO DAILY Combivent Respimat Inh (Ipratropium-Albuterol Inh) 20-100 Fdc/Act Aero 1 Puff INH QID Symbicort Inh (Budesonide/Formoterol Fumarate) 80-4.5 Mcg/Act Aero 2 Puff INH Q12HR Glucose (Dextrose) 4 Gm Chew 4 Gm CHEW DIRECTED CHEW 4 TABS Temazepam 7.5 Mg Cap 7.5 Mg PO HS PRN Ranitidine (Ranitidine HCl) 150 Mg Tab 150 Mg PO BID Potassium Chloride ER (Potassium Chloride) 10 Meq Cap 10 Meq PO DAILY Isosorbide Mononitrate ER (Isosorbide Mononitrate) 60 Mg Tab 60 Mg PO DAILY Furosemide 20 Mg Tab 20 Mg PO DAILY Carvedilol 6.25 Mg Tab 6.25 Mg PO BID ONE HALF A TAB BID Atorvastatin (Atorvastatin Calcium) 80 Mg Tab 80 Mg PO HS Metformin (Metformin HCl) 1,000 Mg Tab 1,000 Mg PO BIDPC With meals Latuda (Lurasidone) 40 Mg Tab 40 Mg PO DAILY [place] Carbonate 600 Mg Cap 600 Mg PO HS [employer] [place] Carbonate 300 Mg Cap 300 Mg PO DAILY Lantus Inj (Insulin Glargine) 1,000 Unit/10 Ml Vial 60 Units SQ BID Tegretol (Carbamazepine) 200 Mg Tab 200 Mg PO BID Data Data Last Documented VS Vital Signs Date Time Temp Pulse Resp B/P Pulse Ox O2 Delivery O2 Flow Rate FiO2 06/29/17 18:39 99.1 72 18 138/81 98 Nadine Perez MD Jun 29, 2017 21:47
[2017-06-29] MEDS ORDERED: SODIUM CHLOR 0.9% 1000 ML INJ 1,000 ML IV SCH (21:49)
--- NOTE | 2017-06-29 21:58 | PD ---
HPI Chief Complaint: Abdominal Pain Time Seen by Provider: 21:52 Travel History International Travel<30 days: No Contact w/Intl Traveler<30days: No History of Present Illness HPI Patient comes back to the emergency department for re-evaluation of left lower quadrant abdominal pain that he was seen here for 5 days ago. Patient states that he was taking medication as prescribed to seem be helping some however this afternoon pain got worse and the diarrhea persisted. Patient states he continues to have watery diarrhea. Denies any hematochezia, melena, vomiting, back pain, loss or change in bladder, chest pain, shortness breath, or fevers. Patient reports associated nausea with this. Patient is concerned as he reports he has a history of diverticulitis and pancreatitis, but was told this is not the cause of his pain. Patient denies any recent antibiotic use or change in his medications. Patient states he was that he is not able to follow up yet. PFSH Past Medical History Arthritis: Yes Asthma: No Autoimmune Disease: No Blood Disorders: No Bipolar Disorder: Yes (hypermanic) Anxiety: Yes Depression: Yes Heart Rhythm Problems: No Cancer: No Cardiac Catheterization: Yes Cardiovascular Problems: Yes High Cholesterol: Yes Chest Pain: Yes Congestive Heart Failure: No COPD: No Diabetes: Yes Patient Takes Glucophage: Yes Diminished Hearing: No Diverticulitis: Yes Endocrine: Yes Gastrointestinal Disorders: Yes (diverticulitis, pancreaitis) GERD: No Genitourinary: No Hepatitis: Yes Hiatal Hernia: No Heparin Induced Thrombocytopen: No Hypertension: No Immune Disorder: No Implanted Vascular Access Dvce: No Musculoskeletal: No Neurologic: No Psychiatric: Yes (BIPOLAR) Reproductive: No Respiratory: No Immunizations Current: Yes Myocardial Infarction: Yes (X 3) Sleep Apnea: Yes (LESS NOW THAT HE HAS LOST WEIGHT) Thyroid Disease: No Ulcer: No Tetanus Vaccination: < 5 Years Influenza Vaccination: Yes PNEUMOCCOCAL Vaccine (Year): 2 Past Surgical History Abdominal Surgery: Yes (inguinal hernia) Cardiac Surgery: Yes (quadriple bypass) Coronary Artery Bypass Graft: Yes Ear Surgery: No Endocrine Surgery: No Genitourinary Surgery: No Gynecologic Surgery: No Neurologic Surgery: No Oral Surgery: No Pacemaker: No Thoracic Surgery: No Other Surgery: Yes (r toe, inguinal hernia, right testicle removed, open heart sx) Family History Family Myocardial Infarction: Yes (mom, dad) Social History Alcohol Use: No (pt denies) Tobacco Use: Yes (1/2 PPD) Substance Use: No (pt denies ) Allergies-Medications (Allergen,Severity, Reaction): Coded Allergies: erythromycin base (Verified Allergy, Severe, hives, 06/29/17) Reported Meds & Prescriptions Reported Meds & Active Scripts Active Zofran (Ondansetron HCl) 4 Mg Tab 4 Mg PO Q6HR PRN Reported Aspirin EC (Aspirin) 81 Mg Tabdr 81 Mg PO DAILY Combivent Respimat Inh (Ipratropium-Albuterol Inh) 20-100 [place]/Act Aero 1 Puff INH QID Symbicort Inh (Budesonide/Formoterol Fumarate) 80-4.5 Mcg/Act Aero 2 Puff INH Q12HR Glucose (Dextrose) 4 Gm Chew 4 Gm CHEW DIRECTED CHEW 4 TABS Temazepam 7.5 Mg Cap 7.5 Mg PO HS PRN Ranitidine (Ranitidine HCl) 150 Mg Tab 150 Mg PO BID Potassium Chloride ER (Potassium Chloride) 10 Meq Cap 10 Meq PO DAILY Isosorbide Mononitrate ER (Isosorbide Mononitrate) 60 Mg Tab 60 Mg PO DAILY Furosemide 20 Mg Tab 20 Mg PO DAILY Carvedilol 6.25 Mg Tab 6.25 Mg PO BID ONE HALF A TAB BID Atorvastatin (Atorvastatin Calcium) 80 Mg Tab 80 Mg PO HS Metformin (Metformin HCl) 1,000 Mg Tab 1,000 Mg PO BIDPC With meals Latuda (Lurasidone) 40 Mg Tab 40 Mg PO DAILY [place] Carbonate 600 Mg Cap 600 Mg PO HS [place] Carbonate 300 Mg Cap 300 Mg PO DAILY Lantus Inj (Insulin Glargine) 1,000 Unit/10 Ml Vial 60 Units SQ BID Tegretol (Carbamazepine) 200 Mg Tab 200 Mg PO BID Review of Systems Except as stated in HPI: all other systems reviewed are Neg Physical Exam Narrative GENERAL: Well-developed, overly nourished, in no acute distress, and non-ill appearing. Patient resting comfortably sitting up in bed in no acute distress playing on his cell phone. SKIN: Focused skin assessment warm and dry. Scars noted on abdomen patient states previous open-heart surgery. HEAD: Atraumatic. Normocephalic. EYES: Pupils equal and round. EOMI. No scleral icterus. No injection or drainage. ENT: No nasal bleeding or discharge. Mucous membranes pink and moist. NECK: Trachea midline. Supple. No nuclear rigidity. CARDIOVASCULAR: Regular rate and rhythm. No murmur appreciated. RESPIRATORY: No accessory muscle use. No respiratory distress. Clear to auscultation. Breath sounds equal bilaterally. GASTROINTESTINAL: Abdomen soft, non-tender, nondistended, and no guarding. Hepatic and splenic margins not palpable. Normal bowel sounds 4. No pulsatile mass. MUSCULOSKELETAL: No obvious deformities. No clubbing. No cyanosis. No edema. Full range of motion. NEUROLOGICAL: Awake and alert. No obvious cranial nerve deficits. Motor grossly within normal limits. Normal speech. PSYCHIATRIC: Appropriate mood and affect; insight and judgment normal. Data Data Last Documented VS Vital Signs Date Time Temp Pulse Resp B/P Pulse Ox O2 Delivery O2 Flow Rate FiO2 06/29/17 22:41 85 18 122/73 97 Room Air 06/29/17 18:39 99.1 Orders Complete Blood Count With Diff (06/29/17 21:49) Comprehensive Metabolic Panel (06/29/17 21:49) Lipase (06/29/17 21:49) Prothrombin Time / Inr (Pt) (06/29/17 21:49) Act Partial Throm Time (Ptt) (06/29/17 21:49) Iv Access Insert/Monitor (06/29/17 21:49) Ecg Monitoring (06/29/17 21:49) Oximetry (06/29/17 21:49) Ondansetron Inj (Zofran Inj) (06/29/17 22:00) Sodium Chlor 0.9% 1000 Ml Inj (Ns 1000 M (06/29/17 21:49) Sodium Chloride 0.9% Flush (Ns Flush) (06/29/17 22:00) C Diff Toxin Pcr (06/29/17 22:09) Ketorolac Inj (Toradol Inj) (06/29/17 22:45) Labs Laboratory Tests Test 06/29/17 22:10 White Blood Count 9.4 TH/MM3 Red Blood Count 5.21 MIL/MM3 Hemoglobin 16.7 GM/DL Hematocrit 48.9 % Mean Corpuscular Volume 93.9 FL Mean Corpuscular Hemoglobin 32.1 PG Mean Corpuscular Hemoglobin 34.2 % Concent Red Cell Distribution Width 13.4 % Platelet Count 218 TH/MM3 Mean Platelet Volume 8.9 FL Neutrophils (%) (Auto) 63.2 % Lymphocytes (%) (Auto) 26.9 % Monocytes (%) (Auto) 7.9 % Eosinophils (%) (Auto) 1.5 % Basophils (%) (Auto) 0.5 % Neutrophils # (Auto) 6.0 TH/MM3 Lymphocytes # (Auto) 2.5 TH/MM3 Monocytes # (Auto) 0.7 TH/MM3 Eosinophils # (Auto) 0.1 TH/MM3 Basophils # (Auto) 0.0 TH/MM3 CBC Comment DIFF FINAL Differential Comment MDM Medical Decision Making Medical Screen Exam Complete: Yes Emergency Medical Condition: Yes Differential Diagnosis Abdominal pain, diverticulitis, pancreatitis, electrolyte abnormality, dehydration, other Narrative Course Patient was seen and examined. Initial laboratory studies ordered. Patient was hydrated with IV fluid and Zofran. Patient was signed out to Dr. Perez at the end of my shift pending laboratory results. Please see her documentation for final diagnosis and disposition. Aiden Novak Jun 29, 2017 21:58
[2017-06-29 22:00] VITALS: RESP 18; O2SAT 97
[2017-06-29] MEDS ORDERED: SODIUM CHLORIDE 0.9% FLUSH 10 ML FLUSH IV FLUSH PRN (22:00)
[2017-06-29] MEDS ORDERED: ONDANSETRON HCL 4 MG/2 ML VIAL IVP ONE (22:00)
[2017-06-29 22:41] VITALS: BP 122/73; PULSE 85; RESP 18; O2SAT 97
[2017-06-29] MEDS ORDERED: KETOROLAC TROMETHAMINE 30 MG/ML (IVP) VIAL IV PUSH ONE (22:45)
[2017-06-29 22:47] LABS: BASOPHIL % 0.5 % (0.0-2.0); EOSINOPHIL # 0.1 TH/MM3 (0-0.4); EOSINOPHIL % 1.5 % (0.0-4.0); HEMATOCRIT 48.9 % (39.0-51.0); HEMO FLAGS DIFF FINAL; LYMPH % 26.9 % (9.0-44.0); LYMPHOCYTE # 2.5 TH/MM3 (1.0-4.8); MEAN CELL VOLUME 93.9 FL (80.0-100.0); MEAN CORPUSCULAR HEMOGLOBIN 32.1 PG (27.0-34.0); MEAN CORPUSCULAR HGB CONC 34.2 % (32.0-36.0); MONO % 7.9 % (0.0-8.0); NEUT % 63.2 % (16.0-70.0); PLATELET COUNT 218 TH/MM3 (150-450); RED BLOOD COUNT 5.21 MIL/MM3 (4.50-5.90); RED CELL DISTRIBUTION WIDTH 13.4 % (11.6-17.2); WHITE BLOOD COUNT 9.4 TH/MM3 (4.0-11.0)
[2017-06-29 22:57] LABS: ALT (GPT) 326 U/L (12-78); ANION GAP 8 MEQ/L (5-15); APTT (PATIENT) 29.9 SEC (24.3-30.1); AST (GOT) 191 U/L (15-37); BICARBONATE 27.3 MEQ/L (21.0-32.0); BLOOD UREA NITROGEN 8 MG/DL (7-18); CHLORIDE 103 MEQ/L (98-107); GLOMERULAR FILTRATION RATE 81 ML/MIN (>89); INTERNATIONAL NORMALIZED RATIO 1.2 RATIO; POTASSIUM 3.7 MEQ/L (3.5-5.1); PROTHROMBIN TIME - PATIENT 13.1 SEC (9.8-11.6); SODIUM (NA) 138 MEQ/L (136-145)
[2017-06-29 23:00] LABS: ALKALINE PHOSPHATASE 357 U/L (45-117); TOTAL BILIRUBIN ADULT 1.3 MG/DL (0.2-1.0)
--- NOTE | 2017-06-29 23:19 | PD ---
Physical Exam Date Seen by Provider: Jun 29, 2017 Time Seen by Provider: 23:16 Narrative 56-year-old male came to the emergency room with history of abdominal pain and diarrhea. Patient was seen and evaluated in the emergency room about 4-5 days ago for the same thing. At that time he had blood test and CAT scan done. His liver function tests were slightly elevated. Patient is back again with the same complaint. He was seen by the PA initially. The case was signed over to me. All the blood test results are back. His liver function test is further elevated compared to 5 days ago but it's not critically high. I went to talk to the patient. He was watching a movie on his Smart phone. I related to him the test results. Patient goes to [facility] for his healthcare. He says he has an appointment with the GI specialist on the of this month. I have asked them to follow up with his primary care at [place] first thing next week which patient that he will. I will discharge him home. Data Data Last Documented VS Vital Signs Date Time Temp Pulse Resp B/P (MAP) Pulse Ox O2 Delivery O2 Flow Rate FiO2 06/29/17 22:41 85 18 122/73 (89) 97 Room Air 06/29/17 18:39 99.1 Orders Orders Complete Blood Count With Diff (06/29/17 21:49) Comprehensive Metabolic Panel (06/29/17 21:49) Lipase (06/29/17 21:49) Prothrombin Time / Inr (Pt) (06/29/17 21:49) Act Partial Throm Time (Ptt) (06/29/17 21:49) Iv Access Insert/Monitor (06/29/17 21:49) Ecg Monitoring (06/29/17 21:49) Oximetry (06/29/17 21:49) Ondansetron Inj (Zofran Inj) (06/29/17 22:00) Sodium Chlor 0.9% 1000 Ml Inj (Ns 1000 M (06/29/17 21:49) Sodium Chloride 0.9% Flush (Ns Flush) (06/29/17 22:00) Ketorolac Inj (Toradol Inj) (06/29/17 22:45) Labs Laboratory Tests Test 06/29/17 22:10 White Blood Count 9.4 TH/MM3 Red Blood Count 5.21 MIL/MM3 Hemoglobin 16.7 GM/DL Hematocrit 48.9 % Mean Corpuscular Volume 93.9 FL Mean Corpuscular Hemoglobin 32.1 PG Mean Corpuscular Hemoglobin Concent 34.2 % Red Cell Distribution Width 13.4 % Platelet Count 218 TH/MM3 Mean Platelet Volume 8.9 FL Neutrophils (%) (Auto) 63.2 % Lymphocytes (%) (Auto) 26.9 % Monocytes (%) (Auto) 7.9 % Eosinophils (%) (Auto) 1.5 % Basophils (%) (Auto) 0.5 % Neutrophils # (Auto) 6.0 TH/MM3 Lymphocytes # (Auto) 2.5 TH/MM3 Monocytes # (Auto) 0.7 TH/MM3 Eosinophils # (Auto) 0.1 TH/MM3 Basophils # (Auto) 0.0 TH/MM3 CBC Comment DIFF FINAL Differential Comment Prothrombin Time 13.1 SEC Prothromb Time International Ratio 1.2 RATIO Activated Partial Thromboplast Time 29.9 SEC Blood Urea Nitrogen 8 MG/DL Creatinine 0.96 MG/DL Random Glucose 107 MG/DL Total Protein 9.3 GM/DL Albumin 3.9 GM/DL Calcium Level 9.4 MG/DL Alkaline Phosphatase 357 U/L Aspartate Amino Transf (AST/SGOT) 191 U/L Alanine Aminotransferase (ALT/SGPT) 326 U/L Total Bilirubin 1.3 MG/DL Sodium Level 138 MEQ/L Potassium Level 3.7 MEQ/L Chloride Level 103 MEQ/L Carbon Dioxide Level 27.3 MEQ/L Anion Gap 8 MEQ/L Estimat Glomerular Filtration Rate 81 ML/MIN Lipase 143 U/L MDM Supervised Visit with JAIME: Yes Diagnosis Primary Impression: Chronic abdominal pain Additional Impression: Elevated LFTs Referrals: Primary Care Physician 3 days Additional Instruction: Please follow-up with your primary care early next week. Return to the ER if the condition worsens or any other new concerns. Please keep the appointment with the GI specialist. Disposition: 01 DISCHARGE HOME Condition: Stable Nadine Perez MD Jun 29, 2017 23:19
== END 2017-06-29 23:36 | disposition home or self-care (01) ==
LOC: NEPC 17:59
DX: R10.32 Left lower quadrant pain (principal); R79.89 Other specified abnormal findings of blood chemistry; R19.7 Diarrhea, unspecified; K57.92 Diverticulitis of intestine, part unspecified, without perforation or abscess without bleeding; K85.90 Acute pancreatitis without necrosis or infection, unspecified; M13.88 Other specified arthritis, other site; F31.9 Bipolar disorder, unspecified; E11.9 Type 2 diabetes mellitus without complications; F41.9 Anxiety disorder, unspecified
CPT/HCPCS: 80053; 83690; 85025; 85610; 85730; 96361; 96374; 96375; 99284; J1885; J2405; J7030

== ENCOUNTER 2017-07-02 13:20 | Inpatient (IN) | payer MEDICARE, MEDICAID ==
[~2017-07-02] VITALS: Ht 180.3 cm; Wt 97.5 kg
[2017-07-02 13:23] VITALS: BP 128/75; PULSE 84; RESP 17; TEMP 97.4; O2SAT 98
--- NOTE | 2017-07-02 13:45 | PD ---
HPI . abdominal pain LLQ Chief Complaint: Abdominal Pain Time Seen by Provider: 13:45 Travel History International Travel<30 days: No Contact w/Intl Traveler<30days: No Traveled to known affect area: No History of Present Illness HPI 56-year-old male here with complaints of left lower quadrant abdominal pain. He does have a history of diverticulosis. He tells me that he is been in the emergency room several times for the past week. Workup was done and was fairly unremarkable. He did have some elevated LFTs. Patient denies any alcohol ingestion or use of any other substances. He denies any bowel or bladder changes. He tells me that he feels his kidneys may be burning. He says the pain is moderate to severe at times. He is requesting something for nausea. PFSH Past Medical History Arthritis: Yes Asthma: No Autoimmune Disease: No Blood Disorders: No Bipolar Disorder: Yes (hypermanic) Anxiety: Yes Depression: Yes Heart Rhythm Problems: No Cancer: No Cardiac Catheterization: Yes Cardiovascular Problems: Yes High Cholesterol: Yes Chest Pain: Yes Congestive Heart Failure: No COPD: No Diabetes: Yes Diminished Hearing: No Diverticulitis: Yes Endocrine: Yes Gastrointestinal Disorders: Yes (diverticulitis, pancreaitis) GERD: No Genitourinary: No Hepatitis: Yes Hiatal Hernia: No Heparin Induced Thrombocytopen: No Hypertension: No Immune Disorder: No Implanted Vascular Access Dvce: No Musculoskeletal: No Neurologic: No Psychiatric: Yes (BIPOLAR) Reproductive: No Respiratory: No Immunizations Current: Yes Myocardial Infarction: Yes (X 3) Sleep Apnea: Yes (LESS NOW THAT HE HAS LOST WEIGHT) Thyroid Disease: No Ulcer: No PNEUMOCCOCAL Vaccine (Year): 2 Past Surgical History Abdominal Surgery: Yes (inguinal hernia) Cardiac Surgery: Yes (quadriple bypass) Coronary Artery Bypass Graft: Yes Ear Surgery: No Endocrine Surgery: No Genitourinary Surgery: No Gynecologic Surgery: No Neurologic Surgery: No Oral Surgery: No Pacemaker: No Thoracic Surgery: No Other Surgery: Yes (r toe, inguinal hernia, right testicle removed, open heart sx) Social History Alcohol Use: No (pt denies) Tobacco Use: Yes (1/2 PPD) Substance Use: No (pt denies ) Allergies-Medications (Allergen,Severity, Reaction): Coded Allergies: erythromycin base (Verified Allergy, Severe, hives, 8/20/17) Reported Meds & Prescriptions Reported Meds & Active Scripts Active Zofran (Ondansetron HCl) 4 Mg Tab 4 Mg PO Q6HR PRN Reported Aspirin EC (Aspirin) 81 Mg Tabdr 81 Mg PO DAILY Combivent Respimat Inh (Ipratropium-Albuterol Inh) 20-100 [facility]/Act Aero 1 Puff INH QID Symbicort Inh (Budesonide/Formoterol Fumarate) 80-4.5 Mcg/Act Aero 2 Puff INH Q12HR Glucose (Dextrose) 4 Gm Chew 4 Gm CHEW DIRECTED CHEW 4 TABS Temazepam 7.5 Mg Cap 7.5 Mg PO HS PRN Ranitidine (Ranitidine HCl) 150 Mg Tab 150 Mg PO BID Potassium Chloride ER (Potassium Chloride) 10 Meq Cap 10 Meq PO DAILY Isosorbide Mononitrate ER (Isosorbide Mononitrate) 60 Mg Tab 60 Mg PO DAILY Furosemide 20 Mg Tab 20 Mg PO DAILY Carvedilol 6.25 Mg Tab 3.125 Mg PO BID Atorvastatin (Atorvastatin Calcium) 80 Mg Tab 80 Mg PO HS Metformin (Metformin HCl) 1,000 Mg Tab 1,000 Mg PO BIDPC With meals Latuda (Lurasidone) 40 Mg Tab 40 Mg PO DAILY [place] Carbonate 600 Mg Cap 600 Mg PO HS [place] Carbonate 300 Mg Cap 300 Mg PO DAILY Lantus Inj (Insulin Glargine) 1,000 Unit/10 Ml Vial 70 Units SQ BID Tegretol (Carbamazepine) 200 Mg Tab 200 Mg PO BID Review of Systems General / Constitutional: No: Fever Eyes: No: Visual changes HENT: No: Headaches Cardiovascular: No: Chest Pain or Discomfort Respiratory: No: Shortness of Breath Gastrointestinal: Positive: Nausea, Abdominal Pain Genitourinary: No: Dysuria Musculoskeletal: No: Pain Skin: No Rash Neurologic: No: Weakness Psychiatric: No: Depression Endocrine: No: Polydipsia Hematologic/Lymphatic: No: Easy Bruising Physical Exam Narrative GENERAL: AAO x 3, no acute distress, Well-nourished, well-developed patient. Comfortable watching movies on telephone SKIN: Warm and dry. No visible rashes or bruising. HEAD: Normocephalic and atraumatic. EYES: No scleral icterus. No injection or drainage. EOM intact, PERRLA ENT: No nasal drainage noted. Mucous membranes pink. Airway patent. Moist mucous membranes NECK: Supple, trachea midline. No JVD. CARDIOVASCULAR: Regular rate and rhythm without murmurs, gallops, or rubs. RESPIRATORY: Breath sounds equal bilaterally. No accessory muscle use. No rhonchi or rales. GASTROINTESTINAL: Abdomen soft, non-tender, nondistended. No rebound or guarding. No Villa sign no McBurney's point tenderness. EXTREMITIES: No cyanosis or edema. BACK: No deformity. No CVA tenderness. NEURO: CN II-12 intact, penology professor strength normal b/l, UE and LE 5/5, no focal deficits PSYCH: AAO x 3, normal affect. Data Data Last Documented VS Vital Signs Date Time Temp Pulse Resp B/P (MAP) Pulse Ox O2 Delivery O2 Flow Rate FiO2 07/02/17 13:23 97.4 84 17 128/75 (92) 98 Orders Orders Complete Blood Count With Diff (07/02/17 13:27) Comprehensive Metabolic Panel (07/02/17 13:27) Ondansetron Inj (Zofran Inj) (07/02/17 14:00) Tramadol (Ultram) (07/02/17 14:00) Lipase (07/02/17 13:53) Urinalysis - C+S If Indicated (07/02/17 13:53) Sodium Chlor 0.9% 1000 Ml Inj (Ns 1000 M (07/02/17 15:30) Morphine Inj (Morphine Inj) (07/02/17 15:30) Nursing Bedside Swallow Assess .ONCE (07/02/17 15:57) Labs Laboratory Tests Test 07/02/17 13:44 07/02/17 15:00 White Blood Count 6.6 TH/MM3 Red Blood Count 5.06 MIL/MM3 Hemoglobin 15.9 GM/DL Hematocrit 46.8 % Mean Corpuscular Volume 92.5 FL Mean Corpuscular Hemoglobin 31.5 PG Mean Corpuscular Hemoglobin Concent 34.1 % Red Cell Distribution Width 12.7 % Platelet Count 228 TH/MM3 Mean Platelet Volume 8.1 FL Neutrophils (%) (Auto) 64.5 % Lymphocytes (%) (Auto) 25.5 % Monocytes (%) (Auto) 8.2 % Eosinophils (%) (Auto) 1.3 % Basophils (%) (Auto) 0.5 % Neutrophils # (Auto) 4.3 TH/MM3 Lymphocytes # (Auto) 1.7 TH/MM3 Monocytes # (Auto) 0.5 TH/MM3 Eosinophils # (Auto) 0.1 TH/MM3 Basophils # (Auto) 0.0 TH/MM3 CBC Comment DIFF FINAL Differential Comment Blood Urea Nitrogen 9 MG/DL Creatinine 0.94 MG/DL Random Glucose 267 MG/DL Total Protein 8.4 GM/DL Albumin 3.6 GM/DL Calcium Level 8.9 MG/DL Alkaline Phosphatase 283 U/L Aspartate Amino Transf (AST/SGOT) 161 U/L Alanine Aminotransferase (ALT/SGPT) 304 U/L Total Bilirubin 0.7 MG/DL Sodium Level 135 MEQ/L Potassium Level 4.0 MEQ/L Chloride Level 105 MEQ/L Carbon Dioxide Level 22.7 MEQ/L Anion Gap 7 MEQ/L Estimat Glomerular Filtration Rate 83 ML/MIN Lipase 785 U/L Urine Color YELLOW Urine Turbidity CLEAR Urine pH 5.5 Urine Specific [place] 1.028 Urine Protein NEG mg/dL Urine Glucose (UA) 1000 mg/dL Urine Ketones NEG mg/dL Urine Occult Blood NEG Urine Nitrite NEG Urine Bilirubin NEG Urine Urobilinogen 4.0 MG/DL Urine Leukocyte Esterase NEG Urine RBC LESS THAN 1 /hpf Urine WBC 1 /hpf Urine Mucus FEW /lpf Microscopic Urinalysis Comment CULT NOT INDICATED MDM Medical Decision Making Medical Screen Exam Complete: Yes Emergency Medical Condition: Yes Medical Record Reviewed: Yes Differential Diagnosis diverticulitis, pancreatitis, UTI, nephrolithiasis Narrative Course 56-year-old male here with complaints of pain in his left lower quadrant. On examination there are no gross abnormalities. Abdominal examination is benign. I recommend recheck of labs including LFTs and lipase. I will also check urine since he thinks his kidneys are burning. Laboratory Tests Test 07/02/17 13:44 07/02/17 15:00 White Blood Count 6.6 TH/MM3 Red Blood Count 5.06 MIL/MM3 Hemoglobin 15.9 GM/DL Hematocrit 46.8 % Mean Corpuscular Volume 92.5 FL Mean Corpuscular Hemoglobin 31.5 PG Mean Corpuscular Hemoglobin Concent 34.1 % Red Cell Distribution Width 12.7 % Platelet Count 228 TH/MM3 Mean Platelet Volume 8.1 FL Neutrophils (%) (Auto) 64.5 % Lymphocytes (%) (Auto) 25.5 % Monocytes (%) (Auto) 8.2 % Eosinophils (%) (Auto) 1.3 % Basophils (%) (Auto) 0.5 % Neutrophils # (Auto) 4.3 TH/MM3 Lymphocytes # (Auto) 1.7 TH/MM3 Monocytes # (Auto) 0.5 TH/MM3 Eosinophils # (Auto) 0.1 TH/MM3 Basophils # (Auto) 0.0 TH/MM3 CBC Comment DIFF FINAL Differential Comment Blood Urea Nitrogen 9 MG/DL Creatinine 0.94 MG/DL Random Glucose 267 MG/DL Total Protein 8.4 GM/DL Albumin 3.6 GM/DL Calcium Level 8.9 MG/DL Alkaline Phosphatase 283 U/L Aspartate Amino Transf (AST/SGOT) 161 U/L Alanine Aminotransferase (ALT/SGPT) 304 U/L Total Bilirubin 0.7 MG/DL Sodium Level 135 MEQ/L Potassium Level 4.0 MEQ/L Chloride Level 105 MEQ/L Carbon Dioxide Level 22.7 MEQ/L Anion Gap 7 MEQ/L Estimat Glomerular Filtration Rate 83 ML/MIN Lipase 785 U/L He was given morphine for pain. Lipase elevated at 785. Patient appears to have pancreatitis. I discussed with my attending Dr. Vo. He recommends a trial of food products and discharge if no vomiting with pain meds. We tried the oral challenge and patient started vomiting. We will admit for observation. I discussed with patient who was in agreement. 1715: Discussed with Dr. Bowser for admission. Patient will be admitted to observation status under Dr. Saleh. Diagnosis Primary Impression: Pancreatitis Qualified Codes: K85.90 - Acute pancreatitis without necrosis or infection, unspecified Admitting Information Admitting Physician Requests: Admit Condition: Stable Padmini Barriga Jul 02, 2017 13:45
[2017-07-02 13:58] LABS: AUTOMATED NEUTROPHIL # 4.3 TH/MM3 (1.8-7.7); BASOPHIL % 0.5 % (0.0-2.0); EOSINOPHIL # 0.1 TH/MM3 (0-0.4); EOSINOPHIL % 1.3 % (0.0-4.0); HEMATOCRIT 46.8 % (39.0-51.0); HEMO FLAGS DIFF FINAL; LYMPH % 25.5 % (9.0-44.0); LYMPHOCYTE # 1.7 TH/MM3 (1.0-4.8); MEAN CELL VOLUME 92.5 FL (80.0-100.0); MEAN CORPUSCULAR HEMOGLOBIN 31.5 PG (27.0-34.0); MEAN CORPUSCULAR HGB CONC 34.1 % (32.0-36.0); MONO % 8.2 % (0.0-8.0); NEUT % 64.5 % (16.0-70.0); PLATELET COUNT 228 TH/MM3 (150-450); RED BLOOD COUNT 5.06 MIL/MM3 (4.50-5.90); RED CELL DISTRIBUTION WIDTH 12.7 % (11.6-17.2); WHITE BLOOD COUNT 6.6 TH/MM3 (4.0-11.0)
[2017-07-02] MEDS ORDERED: traMADol HCL 50 MG TAB PO ONE (14:00)
[2017-07-02] MEDS ORDERED: ONDANSETRON HCL 4 MG/2 ML VIAL IV PUSH ONE (14:00)
[2017-07-02 14:17] LABS: ALKALINE PHOSPHATASE 283 U/L (45-117); ALT (GPT) 304 U/L (12-78); ANION GAP 7 MEQ/L (5-15); AST (GOT) 161 U/L (15-37); BICARBONATE 22.7 MEQ/L (21.0-32.0); BLOOD UREA NITROGEN 9 MG/DL (7-18); CHLORIDE 105 MEQ/L (98-107); GLOMERULAR FILTRATION RATE 83 ML/MIN (>89); SODIUM (NA) 135 MEQ/L (136-145); TOTAL BILIRUBIN ADULT 0.7 MG/DL (0.2-1.0)
[2017-07-02] MEDS ORDERED: SODIUM CHLOR 0.9% 1000 ML INJ 1,000 ML IV ONE (15:30)
[2017-07-02] MEDS ORDERED: MORPHINE SULFATE 4 MG/ML INJ IV PUSH ONE (15:30)
[2017-07-02 15:38] LABS: BLOOD, URINE NEG (NEG); GLUCOSE,URINE 1000 mg/dL (NEG); KETONE, URINE NEG (NEG); MUCUS URINE FEW /lpf (OCC); NITRITE,URINE NEG (NEG); PH, URINE 5.5 (5.0-8.5); URINE COLOR YELLOW (YELLW/STRAW)
[2017-07-02 15:39] LABS: COMMENT (UR) CULT NOT INDICATED; CULTURE IF INDICATED CULT NOT INDICATED
[2017-07-02] MEDS ORDERED: IOHEXOL 350 MG/ML 10 ML VIAL (for RAD DIAG) IVCONTRAST ONE (17:20)
[2017-07-02] MEDS ORDERED: PROCHLORPERAZINE INJ 10 MG/2 ML VIAL IV PUSH ONE (17:30)
[2017-07-02 17:33] VITALS: BP 120/63; PULSE 70; RESP 17; TEMP 98.5; O2SAT 98
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
[2017-07-02] MEDS: SODIUM CHLORIDE 0.9% FLUSH 10 ML FLUSH IV FLUSH SCH (19:19)
[2017-07-02] MEDS: SODIUM CHLOR 0.9% 1000 ML INJ 1,000 ML IV SCH (19:19)
[2017-07-02] MEDS: KETOROLAC TROMETHAMINE 30 MG/ML (IVP) VIAL IVP PRN (19:19)
[2017-07-02] MEDS ORDERED: GLUCAGON 1 MG/ML VIAL OTHER PRN (19:30)
[2017-07-02] MEDS ORDERED: DEXTROSE 50% IN WATER 50 ML VIAL(D50) IV PRN (19:30)
[2017-07-02 19:58] VITALS: BP 121/63; PULSE 52; RESP 20; O2SAT 98
[2017-07-02 20:05] VITALS: O2SAT 98
[2017-07-02] MEDS: BUDESONIDE-FORMOTEROL 80/4.5 MCG INHALER INH SCH (20:54)
[2017-07-02] MEDS: ALBUTEROL SULFATE 90 MCG/ACT HFA 18 GM INHALER INH SCH (20:55)
[2017-07-02] MEDS: LITHIUM CARBONATE 300 MG CAP PO SCH (21:00)
[2017-07-02] MEDS: CARVEDILOL 3.125 MG TAB PO SCH (21:00)
[2017-07-02] MEDS ORDERED: NON-FORMULARY DRUG (Ipratropium-Albuterol Inh (Combivent Respimat Inh) 1 PUFF) INH SCH (21:00)
[2017-07-02] MEDS: INSULIN ASPART SUPPLEMENTAL SCALE SQ SCH (21:00)
[2017-07-02] MEDS: HEPARIN SODIUM - SQ 10,000 UNITS/ML VIAL SQ SCH (21:01)
[2017-07-02] MEDS: carBAMazepine 200 MG TAB PO SCH (21:02)
[2017-07-02] MEDS: ATORVASTATIN 80 MG TAB PO SCH (21:02)
[2017-07-02 21:47] VITALS: BP 122/66; PULSE 52; RESP 20; TEMP 98.1; O2SAT 100
[2017-07-02] MEDS: MORPHINE SULFATE 4 MG/ML INJ IV PUSH PRN (21:50)
[2017-07-03 00:01] VITALS: BP 127/66; PULSE 51; RESP 18; TEMP 98.1; O2SAT 97
[2017-07-03] MEDS: MORPHINE SULFATE 4 MG/ML INJ IV PUSH PRN ×5 (00:50→16:55)
[2017-07-03] MEDS: SODIUM CHLORIDE 0.9% FLUSH 10 ML FLUSH IV FLUSH PRN ×2 (00:50→04:35)
[2017-07-03] MEDS: SODIUM CHLOR 0.9% 1000 ML INJ 1,000 ML IV SCH ×3 (00:51→23:51)
[2017-07-03 05:30] LABS: AUTOMATED NEUTROPHIL # 2.8 TH/MM3 (1.8-7.7); BASOPHIL % 0.6 % (0.0-2.0); EOSINOPHIL # 0.2 TH/MM3 (0-0.4); EOSINOPHIL % 2.8 % (0.0-4.0); HEMATOCRIT 43.1 % (39.0-51.0); HEMO FLAGS DIFF FINAL; LYMPH % 35.1 % (9.0-44.0); LYMPHOCYTE # 1.9 TH/MM3 (1.0-4.8); MEAN CELL VOLUME 92.7 FL (80.0-100.0); MEAN CORPUSCULAR HEMOGLOBIN 31.3 PG (27.0-34.0); MEAN CORPUSCULAR HGB CONC 33.8 % (32.0-36.0); MONO % 10.1 % (0.0-8.0); NEUT % 51.4 % (16.0-70.0); PLATELET COUNT 176 TH/MM3 (150-450); RED BLOOD COUNT 4.65 MIL/MM3 (4.50-5.90); RED CELL DISTRIBUTION WIDTH 12.9 % (11.6-17.2); WHITE BLOOD COUNT 5.4 TH/MM3 (4.0-11.0)
[2017-07-03 05:51] VITALS: BP 122/67; PULSE 62; RESP 18; TEMP 98.4; O2SAT 98
[2017-07-03 06:10] LABS: ALKALINE PHOSPHATASE 227 U/L (45-117); ALT (GPT) 262 U/L (12-78); ANION GAP 6 MEQ/L (5-15); AST (GOT) 156 U/L (15-37); BICARBONATE 23.7 MEQ/L (21.0-32.0); BLOOD UREA NITROGEN 7 MG/DL (7-18); CHLORIDE 109 MEQ/L (98-107); GLOMERULAR FILTRATION RATE 123 ML/MIN (>89); POTASSIUM 3.7 MEQ/L (3.5-5.1); SODIUM (NA) 139 MEQ/L (136-145); TOTAL BILIRUBIN ADULT 0.8 MG/DL (0.2-1.0)
[2017-07-03] MEDS: TIOTROPIUM BROMIDE 18 MCG INH INH SCH (08:29)
[2017-07-03] MEDS: BUDESONIDE-FORMOTEROL 80/4.5 MCG INHALER INH SCH ×2 (08:30→20:21)
[2017-07-03] MEDS: ALBUTEROL SULFATE 90 MCG/ACT HFA 18 GM INHALER INH SCH ×4 (08:30→20:21)
[2017-07-03] MEDS: INSULIN ASPART SUPPLEMENTAL SCALE SQ SCH ×4 (08:31→23:54)
[2017-07-03] MEDS: carBAMazepine 200 MG TAB PO SCH ×2 (08:33→20:16)
[2017-07-03] MEDS: LITHIUM CARBONATE 300 MG CAP PO SCH ×2 (08:33→20:17)
[2017-07-03] MEDS: CARVEDILOL 3.125 MG TAB PO SCH ×2 (08:34→20:17)
[2017-07-03] MEDS: ASPIRIN EC 81 MG TABEC PO SCH (08:34)
[2017-07-03] MEDS: FUROSEMIDE 20 MG TAB PO SCH (08:34)
[2017-07-03] MEDS: HEPARIN SODIUM - SQ 10,000 UNITS/ML VIAL SQ SCH ×2 (08:35→20:19)
[2017-07-03] MEDS: ONDANSETRON HCL 4 MG/2 ML VIAL IV PRN (08:36)
[2017-07-03] MEDS: SODIUM CHLORIDE 0.9% FLUSH 10 ML FLUSH IV FLUSH SCH ×2 (08:46→20:21)
[2017-07-03 08:47] VITALS: BP 141/84; PULSE 62; RESP 16; TEMP 97.4; O2SAT 99
[2017-07-03] MEDS ORDERED: LURASIDONE 40 MG TAB PO SCH ×2 (09:00→21:00)
--- NOTE | 2017-07-03 09:49 | HHI.FPPN ---
Subjective Remarks FM Attending Note: Patient seen and examined. S: Chart and all resident physician notes reviewed. In summary this is a 56 year old male who was admitted with an admission diagnosis of possible Pancreatitis. This patient relates a past medical history of diverticulitis, hypertension, diabetes, hepatitis C presenting to the ED with left lower quadrant abdominal pain of 2 weeks' duration. This pain started one and half to 2 weeks ago when he felt like he was having and diverticulitis attack. His also been experiencing vomiting after eating. He describes the pain as 8 out of 10 stabbing pain in his left lower quadrant of his abdomen, no radiation, nothing makes it better, eating makes it worse. He states that his whole abdomen is also aching because of the vomiting. He has a history of hepatitis C for which he was treated 8 years ago. He states that the virus is undetectable. He is worried because his LFTs were abnormal. He also complains of kidney pain. He states that it feels like his kidneys are on fire. describes the pain as an 8 out of 10,burning pain in his bilateral flanks, no radiation, better with fluids and pain medication, nothing makes it worse. No dysuria but has increased frequency because of his diabetes. He also complains of diarrhea for one week. He says he goes about 3-9 times a day. His stools ranged from a mud-like consistency to watery. They're brownish in color, with mucus, no blood. He has experienced this diarrhea before when he had diverticulitis. This morning the patient notes that the pain has significantly diminished. No further nausea or vomiting has been noted. He does feel like he has an appetite and would be able to take in liquids or food without difficulty. Pain is still primarily in the left lower quadrant area although he has soreness over his entire abdomen from vomiting. Objective Vitals Vital Signs Date Time Temp Pulse Resp B/P (MAP) Pulse Ox O2 Delivery O2 Flow Rate FiO2 07/03/17 08:47 97.4 62 16 141/84 (103) 99 07/03/17 08:40 21 07/03/17 05:51 98.4 62 18 122/67 (85) 98 07/03/17 04:52 14 07/03/17 00:01 98.1 51 18 127/66 (86) 97 07/02/17 21:47 98.1 52 20 122/66 (84) 100 8/20/17 20:05 98 07/02/17 19:58 52 20 121/63 (82) 98 Room Air 07/02/17 17:33 98.5 70 17 120/63 (82) 98 Room Air 07/02/17 13:23 97.4 84 17 128/75 (92) 98 I/O 07/02/17 07/02/17 07/02/17 07/03/17 07/03/17 07/03/17 07:00 15:00 23:00 07:00 15:00 23:00 Intake Total 1000 ml Balance 1000 ml Intake IV Total 1000 ml Result Diagram: 07/03/17 0440 07/03/17 0440 Other Results Item Value Date Time Lipase 785 U/L H 07/02/17 1344 Lipase 1758 U/L H 07/03/17 0440 Triglycerides Level 244 MG/DL H 07/02/17 1344 Total Bilirubin 0.7 MG/DL 07/02/17 1344 Total Bilirubin 0.8 MG/DL 07/03/17 0440 Aspartate Amino Transf (AST/SGOT) 161 U/L H 07/02/17 1344 Aspartate Amino Transf (AST/SGOT) 156 U/L H 07/03/17 0440 Alanine Aminotransferase (ALT/SGPT) 304 U/L H 07/02/17 1344 Alanine Aminotransferase (ALT/SGPT) 262 U/L H 07/03/17 0440 Alkaline Phosphatase 283 U/L H 07/02/17 1344 Alkaline Phosphatase 227 U/L H 07/03/17 0440 [place] Level 0.5 MEQ/L 07/03/17 1120 Urine Specific [place] 1.028 07/02/17 1500 Urine Glucose (UA) 1000 mg/dL H 07/02/17 1500 Urine Nitrite NEG 07/02/17 1500 Urine Leukocyte Esterase NEG 07/02/17 1500 Urine RBC LESS THAN 1 /hpf 07/02/17 1500 Urine WBC 1 /hpf 07/02/17 1500 Objective Remarks O. CONSTITUTIONAL/GEN: normally nourished, in NAD. EYES: conjunctiva normal, PERRLA, EOMI. ENT: Mouth and pharynx normal. LUNGS: clear A-P, respiratory effort is normal. CARDIOVASCULAR: RR without murmur or gallop. No significant edema. GI/ABD: soft without masses, without organomegaly. Very mild direct tenderness in the LLQ to direct palpation, no rebound. Mild tenderness at the RUQ with deep inspiration. : no CVA tenderness NEURO: No focal deficits. SKIN: color normal, no rashes noted. HEME/LYMPH: no bruising, petechia or significant adenopathy MUSC: back is normal in appearance. Extremities are normal in appearance. PSYCH/MENTAL STATUS: Alert and oriented x 3. A/P Assessment and Plan Mr. Jarrell is a 56-year-old male with a past medical history of diverticulitis, hypertension, diabetes, hepatitis C presenting to the ED with left lower quadrant abdominal pain of 2 weeks' duration. Pancreatitis versus cholecystitis versus diverticulitis Problem List: (1) Abdominal pain ICD Codes: R10.9 - Unspecified abdominal pain Status: Acute Plan: Abdominal pain of 2 weeks' duration. Lipase elevated. LFTs elevated. History of diverticulitis. Rule out pancreatitis and diverticulitis. -Ordered abdominal/pelvis CT w/contrast -Trend lipase -Monitor LFTs -Triglyceride labs -AM labs -Nothing by mouth -Ondansetron for nausea 07/03/17 The patient's lipase has significantly elevated overnight. His would suggest a component of pancreatitis. He did have an abdominal CT ordered which is not available for viewing at this time. He did have a previous CT that didn't suggest small stones in the gallbladder last week. We'll check an ultrasound of the gallbladder. Continue to monitor lipase and liver function studies. (2) HTN (hypertension) ICD Codes: I10 - Hypertension Status: Chronic Plan: Furosemide 20 mg daily Carvedilol 3.125 mg every 12hrs (3) DM (diabetes mellitus) ICD Codes: E11.9 - Type 2 diabetes mellitus without complications Status: Chronic Plan: Hold at home medications -Sliding-scale insulin -Blood glucose monitoring (4) CAD (coronary artery disease) ICD Codes: I25.10 - Coronary artery disease Status: Chronic Plan: Atorvastatin 80 mg at bedtime by mouth (5) Bipolar 1 disorder ICD Codes: F31.9 - Bipolar disorder, unspecified Status: Chronic Plan: [place] 600 mg at bedtime PO Lurasidone 40mg PO qD Carbamazepine 2 mg twice a day by mouth (6) COPD (chronic obstructive pulmonary disease) ICD Codes: J44.9 - Chronic obstructive pulmonary disease, unspecified Status: Chronic Plan: Spiriva inhaler Symbicort inhaler Ventolin inhaler (7) FEN Status: Acute Plan: Fluids: Normal saline Electrolytes: Monitor and replace as needed Nutrition nothing by mouth DVT prophylaxis: Heparin 5000 units subcutaneous every 12 hours Ketorolac for pain Problem Qualifiers (1) Abdominal pain: Qualified Codes: R10.84 - Generalized abdominal pain (2) HTN (hypertension): Qualified Codes: I10 - Essential (primary) hypertension (3) DM (diabetes mellitus): (4) CAD (coronary artery disease): Qualified Codes: I25.10 - Atherosclerotic heart disease of [place] coronary artery without angina pectoris (5) COPD (chronic obstructive pulmonary disease): Qualified Codes: J44.9 - Chronic obstructive pulmonary disease, unspecified Rafael Saleh MD Jul 03, 2017 09:49
--- NOTE | 2017-07-03 11:53 | RADRPT ---
EXAM DATE/TIME: 07/03/2017 10:47 [facility] COMPARISON: CT ABDOMEN & PELVIS W CONTRAST, July 02, 2017, 19:33. INDICATIONS : Right upper quadrant pain. MEDICAL HISTORY : Hypercholesterolemia. Arthritis. Tinnitus. Heart attack. Myocardial infarction. Sleep apnea. Dverti culitis. Pancreatitis. SURGICAL HISTORY : Inguinal hernia repair. Heart catheterization. ENCOUNTER: Initial ACUITY: 1 day PAIN SCORE: 4/10 LOCATION: Right upper quadrant MEASUREMENTS: LIVER: 18.6 cm length COMMON DUCT: 3 mm RIGHT KIDNEY: 12.0 x 5.2 x 4.9 cm FINDINGS: LIVER: Normal echotexture without focal lesion or ductal dilatation. Hepatopedal flow. COMMON DUCT: No intraluminal mass or stone visualized. GALLBLADDER: Contains questionable stones, demonstrates no wall thickening or pericholecystic fluid. Sludge noted within the gallbladder. PANCREAS: The visualized portions are within normal limits. RIGHT KIDNEY: No evidence of hydronephrosis, stone, or mass. Cyst in the lower pole measures 12 x 18 x 12 mm, mini julian complex containing internal echoes. CONCLUSION: 1. Gallbladder sludge and questionable cholelithiasis. No wall thickening or pericholecystic fluid. 2. Minimally complex right renal cyst. Keenan Hankins MD on July 03, 2017 at 11:48 Board Certified Radiologist. This report was verified electronically.
[2017-07-03 12:23] VITALS: BP 132/74; PULSE 54; RESP 16; TEMP 98; O2SAT 96
--- NOTE | 2017-07-03 16:47 | RADRPT ---
EXAM DATE/TIME: 07/03/2017 15:56 [facility] COMPARISON: CT ABDOMEN & PELVIS W CONTRAST, September 20, 2014, 22:30. CT ABDOMEN & PELVIS W/O CONTRAST, May 26, 2017, 21:09. CT ABDOMEN & PELVIS W CONTRAST, June 24, 2017, 17:46. US ABDOMEN - GALLBLADDER, Aug ust 2016, 10:47. INDICATIONS : Abdominal pain. MEDICAL HISTORY : Diabetes mellitus type 2. SURGICAL HISTORY : CABG Inguinal hernia repair. ENCOUNTER: Initial ACUITY: 2 day PAIN SCORE: 6/10 LOCATION: Abdomen TECHNIQUE: Multiplanar, multisequence magnetic resonance imaging of the abdomen was performed. High-resolution 3D dataset was utilized to reconstruct maximum-intensity projection (MIP) images. FINDINGS: INTRAHEPATIC BILE DUCTS: Within normal limits. No significant anatomical variant is present. EXTRAHEPATIC BILE DUCTS: The common bile duct measures 3 mm No stone or filling defect is identified. GALLBLADDER: 3 tiny gallstones are seen layering within an otherwise normal-appearing gallbladder. No gallbladder wall thickening or pericholecystic fluid. LIVER: Normal size and signal intensity. No concerning liver lesion is identified on this non-contrast exam. PANCREAS: The main pancreatic duct is normal in size. There is no significant anatomical variant. Signal inte nsity is within normal limits. No mass is visualized on this non-contrast exam. OTHER: Splenomegaly. The spleen measures 14 cm in greatest dimension. Multiple small cortical renal cysts bi laterally. A fluid filled structure is seen within the paraspinal aspects of the medial right lung ba se. This is within the azygos esophageal groove. This measures 8.9 x 4.1 x 4.1 cm. CONCLUSION: 1. 3 small gallstones within an otherwise normal-appearing gallbladder. No choledocholithiasis observ ed. 2. Splenomegaly. 3. Paraspinal fluid collection involving the lower thorax. 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 Alexey Almeida Jr., MD on July 03, 2017 at 16:34 Board Certified Radiologist. This report was verified electronically.
[2017-07-03 17:13] VITALS: BP 125/71; PULSE 60; RESP 16; TEMP 97.9; O2SAT 94
[2017-07-03] MEDS: ATORVASTATIN 80 MG TAB PO SCH (20:17)
[2017-07-04] MEDS: KETOROLAC TROMETHAMINE 30 MG/ML (IVP) VIAL IVP PRN ×3 (02:59→18:25)
[2017-07-04] MEDS: SODIUM CHLOR 0.9% 1000 ML INJ 1,000 ML IV SCH ×4 (03:34→18:25)
[2017-07-04 04:08] VITALS: BP 101/66; PULSE 64; RESP 20; TEMP 97.9; O2SAT 98
[2017-07-04 06:22] VITALS: O2SAT 97
[2017-07-04] MEDS: INSULIN ASPART SUPPLEMENTAL SCALE SQ SCH ×4 (06:33→23:27)
[2017-07-04 07:41] LABS: HEMATOCRIT 41.7 % (39.0-51.0); MEAN CELL VOLUME 93.7 FL (80.0-100.0); MEAN CORPUSCULAR HEMOGLOBIN 31.9 PG (27.0-34.0); PLATELET COUNT 170 TH/MM3 (150-450); RED BLOOD COUNT 4.45 MIL/MM3 (4.50-5.90); RED CELL DISTRIBUTION WIDTH 12.8 % (11.6-17.2); REVIEW FLAG FINAL; WHITE BLOOD COUNT 4.2 TH/MM3 (4.0-11.0)
[2017-07-04 08:01] LABS: ALT (GPT) 249 U/L (12-78); ANION GAP 8 MEQ/L (5-15); AST (GOT) 172 U/L (15-37); BLOOD UREA NITROGEN 12 MG/DL (7-18); CHLORIDE 108 MEQ/L (98-107); GLOMERULAR FILTRATION RATE 108 ML/MIN (>89); POTASSIUM 3.6 MEQ/L (3.5-5.1); SODIUM (NA) 140 MEQ/L (136-145)
[2017-07-04 08:04] LABS: ALKALINE PHOSPHATASE 212 U/L (45-117); TOTAL BILIRUBIN ADULT 0.8 MG/DL (0.2-1.0)
[2017-07-04 09:21] VITALS: BP 122/79; PULSE 61; RESP 16; TEMP 98.5; O2SAT 99
[2017-07-04] MEDS: FUROSEMIDE 20 MG TAB PO SCH (09:53)
[2017-07-04] MEDS: LITHIUM CARBONATE 300 MG CAP PO SCH ×2 (09:53→23:24)
[2017-07-04] MEDS: carBAMazepine 200 MG TAB PO SCH ×2 (09:53→23:25)
[2017-07-04] MEDS: ASPIRIN EC 81 MG TABEC PO SCH (09:53)
[2017-07-04] MEDS: CARVEDILOL 3.125 MG TAB PO SCH ×2 (09:53→23:23)
[2017-07-04] MEDS: SODIUM CHLORIDE 0.9% FLUSH 10 ML FLUSH IV FLUSH SCH ×2 (09:54→21:00)
[2017-07-04] MEDS: HEPARIN SODIUM - SQ 10,000 UNITS/ML VIAL SQ SCH ×2 (09:54→23:25)
[2017-07-04] MEDS: TIOTROPIUM BROMIDE 18 MCG INH INH SCH (09:55)
[2017-07-04] MEDS: BUDESONIDE-FORMOTEROL 80/4.5 MCG INHALER INH SCH ×2 (09:55→21:00)
[2017-07-04] MEDS: ALBUTEROL SULFATE 90 MCG/ACT HFA 18 GM INHALER INH SCH ×4 (09:55→21:00)
--- NOTE | 2017-07-04 10:54 | RADRPT ---
EXAM DATE/TIME: 07/02/2017 19:33 [facility] COMPARISON: No previous studies available for comparison. INDICATIONS : Left lower quadrant abdominal pain. Evaluate pancreatitis. IV CONTRAST: 100 cc Omnipaque 350 (iohexol) IV ORAL CONTRAST: No oral contrast ingested. RADIATION DOSE: 14.71 CTDIvol (mGy) MEDICAL HISTORY : Cardiovascular disease. Diabetes mellitus type 2. Hepatitis. SURGICAL HISTORY : None. ENCOUNTER: Initial ACUITY: 1 day PAIN SCALE: 3/10 LOCATION: Left lower chest TECHNIQUE: Volumetric scanning of the abdomen and pelvis was performed. Using automated exposure control and ad justment of the mA and/or kV according to patient size, radiation dose was kept as low as reasonably achievable to obtain optimal diagnostic quality images. DICOM format image data is available electro nically for review and comparison. FINDINGS: The spleen, liver, left kidney and adrenal glands are unremarkable. The pancreas is normal. There are stable tiny cysts of the right kidney. Atherosclerotic calcifications of the aorta and iliac vessels are identified bilaterally. There is no aneurysm. There is a small fat containing left inguinal stephanie ia. The urinary bladder and prostate are unremarkable. A few scattered diverticuli of the sigmoid col on are present. There is no evidence for diverticulitis. No obstruction. Stomach is unremarkable. The appendix is normal. Lung bases are clear. The patient has had previous median sternotomy and coronar y artery stents are identified. There are degenerative changes of the spine and both hips. There is a small fat containing hernia at the esophageal hiatus, and a circumscribed fluid attenuation structur e in the posterior mediastinum is noted adjacent to the esophagus, possibly representing a duplicatio n cyst measuring 4.3 x 2.7 cm on image 2. A few tiny colonic diverticuli are noted. Lung bases are cl ear. CONCLUSION: No evidence for pancreatitis or inflammatory changes in the abdomen or pelvis. Cliff Kemp MD on July 04, 2017 at 10:45 Board Certified Radiologist. This report was verified electronically.
--- NOTE | 2017-07-04 11:07 | HHI.FPPN ---
Subjective Remarks Patient states that he is still in pain this morning in his left lower quadrant of his abdomen. He says that he is used to being in pain; however, this pain is significantly more. No nausea or vomiting, no diarrhea, no fever or chills. Patient has an appetite and is tolerating clear liquid diet well. (Lupe Mancini MD R1) Objective Vitals Vital Signs Date Time Temp Pulse Resp B/P (MAP) Pulse Ox O2 Delivery O2 Flow Rate FiO2 07/04/17 09:21 98.5 61 16 122/79 (93) 99 07/04/17 06:22 97 21 07/04/17 04:08 97.9 64 20 101/66 (78) 98 07/03/17 17:13 97.9 60 16 125/71 (89) 94 07/03/17 12:23 98.0 54 16 132/74 (93) 96 I/O 07/03/17 07/03/17 07/03/17 07/04/17 07/04/17 07/04/17 07:00 15:00 23:00 07:00 15:00 23:00 Intake Total 1500 ml Balance 1500 ml Intake IV Total 1500 ml # Voids 5 4 (Lupe Mancini MD R1) Result Diagram: 07/04/17 0600 07/04/17 0602 Objective Remarks CONSTITUTIONAL/GEN: Patient sitting on the side of the bed, normally nourished , in NAD. EYES: conjunctiva normal, PERRLA, EOMI. LUNGS: clear A-P, respiratory effort is normal. CARDIOVASCULAR: RR without murmur or gallop. No edema. GI/ABD: soft without masses, without organomegaly. Very mild direct tenderness in the LLQ to direct palpation, no rebound. Mild tenderness at the RUQ with deep inspiration. NEURO: No focal deficits. SKIN: color normal, no rashes noted. HEME/LYMPH: no bruising, petechia or significant adenopathy MUSC: back is normal in appearance. Extremities are normal in appearance. PSYCH/MENTAL STATUS: Alert and oriented x 3. (Lupe Mancini MD R1) A/P Assessment and Plan Mr. Jarrell is a 56-year-old male with a past medical history of diverticulitis, hypertension, diabetes, hepatitis C presenting to the ED with left lower quadrant abdominal pain of 2 weeks' duration. Pancreatitis versus cholecystitis versus diverticulitis Discharge Planning Will discharge once patient is able to tolerate regular diet. (Lupe Mancini MD R1) Attending Attestation Patient seen and examined. Case reviewed and discussed with the resident team. Agree with plan of care as discussed with me and documented in the resident note. (Rafael Saleh MD) Problem List: (1) Abdominal pain ICD Codes: R10.9 - Unspecified abdominal pain Status: Acute Plan: Abdominal pain of 2 weeks' duration. Lipase elevated. LFTs elevated. History of diverticulitis. Rule out pancreatitis and diverticulitis. Likely pancreatitis. Lipase trended up to 1758 overnight after admission. U/S showed gallbladder sludge which is a risk factor for pancreatitis. Patient also smokes , which is another significant risk factor for pancreatitis. No evidence for diverticulitis on CT. However, there is a fat containing left inguinal hernia that may be causing his LLQ pain. CT abdomen/pelvis- No evidence for pancreatitis or inflammatory changes in the abdomen or pelvis. Gallbladder U/S- 1. Gallbladder sludge and questionable cholelithiasis. No wall thickening or pericholecystic fluid. 2. Minimally complex right renal cyst. MRCP- 1. 3 small gallstones within an otherwise normal-appearing gallbladder. No choledocholithiasis observed. 2. Splenomegaly. 3. Paraspinal fluid collection involving the lower thorax. 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 -Consult GI -Trend lipase- down on normal -Monitor LFTs- still elevated -Triglyceride labs- normal -AM labs -Advance to full liquid diet -Ondansetron for nausea (2) HTN (hypertension) ICD Codes: I10 - Hypertension Status: Chronic Plan: Furosemide 20 mg daily Carvedilol 3.125 mg every 12hrs (3) DM (diabetes mellitus) ICD Codes: E11.9 - Type 2 diabetes mellitus without complications Status: Chronic Plan: Hold at home medications -Sliding-scale insulin -Blood glucose monitoring (4) CAD (coronary artery disease) ICD Codes: I25.10 - Coronary artery disease Status: Chronic Plan: Atorvastatin 80 mg at bedtime by mouth (5) Bipolar 1 disorder ICD Codes: F31.9 - Bipolar disorder, unspecified Status: Chronic Plan: [place] 600 mg at bedtime PO Lurasidone 40mg PO qD Carbamazepine 2 mg twice a day by mouth (6) COPD (chronic obstructive pulmonary disease) ICD Codes: J44.9 - Chronic obstructive pulmonary disease, unspecified Status: Chronic Plan: Spiriva inhaler Symbicort inhaler Ventolin inhaler (7) FEN Status: Acute Plan: Fluids: Normal saline Electrolytes: Monitor and replace as needed Nutrition nothing by mouth DVT prophylaxis: Heparin 5000 units subcutaneous every 12 hours Ketorolac for pain (Lupe Mancini MD R1) Problem Qualifiers (1) Abdominal pain: Qualified Codes: R10.84 - Generalized abdominal pain (2) HTN (hypertension): Qualified Codes: I10 - Essential (primary) hypertension (3) DM (diabetes mellitus): (4) CAD (coronary artery disease): Qualified Codes: I25.10 - Atherosclerotic heart disease of [place] coronary artery without angina pectoris (5) COPD (chronic obstructive pulmonary disease): Qualified Codes: J44.9 - Chronic obstructive pulmonary disease, unspecified Lupe Mancini MD R1 Jul 04, 2017 11:07 Rafael Saleh MD Jul 05, 2017 12:55
[2017-07-04] MEDS: MORPHINE SULFATE 4 MG/ML INJ IV PUSH PRN ×4 (11:49→23:28)
[2017-07-04 12:43] VITALS: BP 115/69; PULSE 61; RESP 16; TEMP 98.1; O2SAT 97
[2017-07-04 16:34] VITALS: BP 135/77; PULSE 58; RESP 16; TEMP 97.9; O2SAT 97
--- NOTE | 2017-07-04 16:58 | PD.CONS ---
HPI History of Present Illness This is a 56 year old male with hx diverticulitis, HTN, DM, hep c s/p tx who presented with abd pain LLQ, diarrhea, n/v, onset 2 weeks ago. This has been intermittent. Pain is about the same over the last 2 weeks and goes bet 6 and 8 on scale of 10. His diarrhea has improved over the last 2 wks and he says his stool is getting firmer and he only went once today, on Monday it was watery. No blood in stool, dark tarry stool, blood in emesis. He has lost 5-10 lbs in the past few weeks since not eating. Denies sick contacts, fevers, recent travel or medication change. he has hx diverticultis and has been hospitalized for this 1-2 years ago. He did come to ER periodoically in last 2 weeks for these sx and says he was given fluid and a one time dose abx but nothing that he took daily. He last had colonoscopy a year, cannot remember where, finding was diverticulosis. Never had EGD. He does have hep c for which he had tx but he does not know what the treatment was. He says he achieved nondetectable viral load. Denies jaundice. (Jamzine Hyde) PFSH Past Medical History HTN diverticulitis DM hep c s/p tx CAD bipolar hyper manic Past Surgical History CABG inguinal hernia repair right toe repair right orchiectomy left orchiopexy (Jazmine Hyde) Coded Allergies: erythromycin base (Verified Allergy, Severe, hives, 07/02/17) Family History CAD breast ca Social History no ETOH currently, denies hx heavy drinking smokes 3-4 packs per month no drugs (Jazmine Hyde) Review of Systems Constitutional: DENIES: Fever Eyes: DENIES: Blurred vision Ears, nose, mouth, throat: DENIES: Hearing loss Respiratory: DENIES: Hemoptysis Cardiovascular: DENIES: Palpitations Gastrointestinal: COMPLAINS OF: Abdominal pain, Diarrhea, Nausea, DENIES: Black stools, Bloody stools, Constipation, Vomiting, Hematemesis Genitourinary: DENIES: Hematuria Musculoskeletal: DENIES: Joint Swelling Integumentary: DENIES: Jaundice Neurologic: DENIES: Headache Psychiatric: DENIES: Confusion (Jazmine Hyde TRANSFORMATION MANAGER) GI Exam Vitals I&O Vital Signs Date Time Temp Pulse Resp B/P (MAP) Pulse Ox O2 Delivery O2 Flow Rate FiO2 07/04/17 16:34 97.9 58 16 135/77 (96) 97 07/04/17 12:43 98.1 61 16 115/69 (84) 97 07/04/17 09:21 98.5 61 16 122/79 (93) 99 07/04/17 06:22 97 21 07/04/17 04:08 97.9 64 20 101/66 (78) 98 07/03/17 17:13 97.9 60 16 125/71 (89) 94 I/O 07/03/17 07/03/17 07/03/17 07/04/17 07/04/17 07/04/17 07:00 15:00 23:00 07:00 15:00 23:00 Intake Total 1500 ml Balance 1500 ml Intake IV Total 1500 ml # Voids 5 4 Imaging Last Impressions Gall Bladder Ultrasound 07/03/17 0000 Signed Impressions: Service Date/Time: Monday, July 03, 2017 10:47 - CONCLUSION: 1. Gallbladder sludge and questionable cholelithiasis. No wall thickening or pericholecystic fluid. 2. Minimally complex right renal cyst. Keenan Hankins MD Laboratory Test 07/04/17 06:00 07/04/17 06:02 White Blood Count 4.2 TH/MM3 Red Blood Count 4.45 MIL/MM3 Hemoglobin 14.2 GM/DL Hematocrit 41.7 % Mean Corpuscular Volume 93.7 FL Mean Corpuscular Hemoglobin 31.9 PG Mean Corpuscular Hemoglobin Concent 34.0 % Red Cell Distribution Width 12.8 % Platelet Count 170 TH/MM3 Mean Platelet Volume 9.5 FL Blood Urea Nitrogen 12 MG/DL Creatinine 0.75 MG/DL Random Glucose 170 MG/DL Total Protein 6.8 GM/DL Albumin 2.9 GM/DL Calcium Level 8.2 MG/DL Alkaline Phosphatase 212 U/L Aspartate Amino Transf (AST/SGOT) 172 U/L Alanine Aminotransferase (ALT/SGPT) 249 U/L Total Bilirubin 0.8 MG/DL Sodium Level 140 MEQ/L Potassium Level 3.6 MEQ/L Chloride Level 108 MEQ/L Carbon Dioxide Level 24.0 MEQ/L Anion Gap 8 MEQ/L Estimat Glomerular Filtration Rate 108 ML/MIN Lipase 328 U/L Physical Examination HEENT: PERRL; normocephalic; atraumatic; no jaundice. CHEST: CTA CARDIAC: RRR ABDOMEN: Soft, nondistended, RUQ & LUQ TTP; no hepatosplenomegaly; bowel sounds are present in all four quadrants. EXTREMITIES: No clubbing, cyanosis, or edema. SKIN: Normal; no rash; no jaundice. PARADI TENDER: No focal deficits; alert and oriented times three. (Jazmine Hyde) Assessment and Plan Plan ASSESSMENT - n/v/diarrhea - onset 2w ago, has improved. ?gastroenteritis Not currently with n/v and his stool is formed, he has had 1 BM today where before he was having 4. last colonoscopy 1 y ago found diverticulosis. hx diverticulitis was hospitalized for it 1-2 y ago. - elevated LFTs - unclear etiology. hx hep c [facility] but does not know which tx he did. US shows GB sludge, questional cholelithiasis MRCP showed 3 gallstones in otherwise normal appearing gallbladder with no choledocholithiasis; splenomegaly CT no evidence pancreatitis, inflammatory changes, no evidence diverticulitis - elev lipase - 785 on admission and went up to 1758 but is now WNL, could be r/ t vomiting. - LLQ pain - this has worsened in last 2 weeks but he has it constantly . Last cscope as above. could be adhesions, hx left inguinal hernia repair. PLAN - ZACARIAS - stool cx - hep panel - hep c quant - monoscreen - consider EGD/colonoscopy as outpatient - monitor labs - supportive care - further recs to follow This pt seen by myself and Dr Brush and this note is written on his behalf (Jazmine Hyde) Physician Comments Seen and examined with fe Loredo as above, further recommendations to follow. Will follow up with you. (Theresa Brush MD) Jazmine Hyde Jul 04, 2017 16:58 Theresa Brush MD Jul 04, 2017 17:20
[2017-07-04 20:01] VITALS: BP 134/79; PULSE 64; RESP 18; TEMP 97.7; O2SAT 100
[2017-07-04] MEDS: ATORVASTATIN 80 MG TAB PO SCH (23:24)
[2017-07-05 00:10] VITALS: BP 129/76; PULSE 55; RESP 20; TEMP 98; O2SAT 96
[2017-07-05] MEDS: SODIUM CHLOR 0.9% 1000 ML INJ 1,000 ML IV SCH ×2 (03:22→09:02)
[2017-07-05] MEDS: KETOROLAC TROMETHAMINE 30 MG/ML (IVP) VIAL IVP PRN ×3 (03:23→17:43)
[2017-07-05] MEDS: MORPHINE SULFATE 4 MG/ML INJ IV PUSH PRN ×5 (05:24→23:04)
[2017-07-05 05:46] VITALS: BP 109/58; PULSE 55; RESP 18; TEMP 97.7; O2SAT 96
[2017-07-05] MEDS: INSULIN ASPART SUPPLEMENTAL SCALE SQ SCH ×4 (06:45→19:43)
[2017-07-05 08:26] VITALS: BP 133/70; PULSE 56; RESP 17; TEMP 98; O2SAT 98
[2017-07-05] MEDS: ALBUTEROL SULFATE 90 MCG/ACT HFA 18 GM INHALER INH SCH ×4 (09:00→19:51)
[2017-07-05] MEDS: BUDESONIDE-FORMOTEROL 80/4.5 MCG INHALER INH SCH ×2 (09:00→19:40)
[2017-07-05] MEDS: TIOTROPIUM BROMIDE 18 MCG INH INH SCH (09:00)
[2017-07-05] MEDS: SODIUM CHLORIDE 0.9% FLUSH 10 ML FLUSH IV FLUSH SCH ×2 (09:00→19:47)
[2017-07-05] MEDS: ASPIRIN EC 81 MG TABEC PO SCH (09:02)
[2017-07-05] MEDS: CARVEDILOL 3.125 MG TAB PO SCH ×2 (09:02→19:48)
[2017-07-05] MEDS: FUROSEMIDE 20 MG TAB PO SCH (09:02)
[2017-07-05] MEDS: carBAMazepine 200 MG TAB PO SCH ×2 (09:02→19:49)
[2017-07-05] MEDS: LITHIUM CARBONATE 300 MG CAP PO SCH ×2 (09:02→19:50)
[2017-07-05] MEDS: HEPARIN SODIUM - SQ 10,000 UNITS/ML VIAL SQ SCH ×2 (09:03→19:50)
[2017-07-05] MEDS: ONDANSETRON HCL 4 MG/2 ML VIAL IV PRN (09:47)
[2017-07-05 11:44] VITALS: BP 145/79; PULSE 52; RESP 19; TEMP 98.6; O2SAT 99
--- NOTE | 2017-07-05 11:56 | HHI.GIFU ---
Subjective Remarks Sitting up on side of bed. States he is feeling "75% better." States he tolerated full liquids up until drinking the coffee and reports that he did vomit the coffee back up, but states he kept everything else down and would like diet advanced. Abdominal pain LLQ, steady, but decreased from a 9 to a 6 on pain scale. No BM today. (AnselmoRufina Craft JESSICA) Objective Vitals I&O Vital Signs Date Time Temp Pulse Resp B/P (MAP) Pulse Ox O2 Delivery O2 Flow Rate FiO2 07/05/17 08:26 98.0 56 17 133/70 (91) 98 07/05/17 05:46 97.7 55 18 109/58 (75) 96 07/05/17 00:10 98.0 55 20 129/76 (93) 96 07/04/17 20:01 97.7 64 18 134/79 (97) 100 07/04/17 16:34 97.9 58 16 135/77 (96) 97 07/04/17 12:43 98.1 61 16 115/69 (84) 97 I/O 07/04/17 07/04/17 07/04/17 07/05/17 07/05/17 07/05/17 07:00 15:00 23:00 07:00 15:00 23:00 Intake Total 1500 ml 1100 ml Balance 1500 ml 1100 ml Intake Oral 1100 ml IV Total 1500 ml # Voids 4 5 1 # Bowel Movements 1 Imaging Last Impressions Gall Bladder Ultrasound 07/03/17 0000 Signed Impressions: Service Date/Time: Monday, July 03, 2017 10:47 - CONCLUSION: 1. Gallbladder sludge and questionable cholelithiasis. No wall thickening or pericholecystic fluid. 2. Minimally complex right renal cyst. Keenan Hankins MD Cholangiopancreatography MRI 07/03/17 0000 Signed Impressions: Service Date/Time: Monday, July 03, 2017 15:56 - CONCLUSION: 1. 3 small gallstones within an otherwise normal-appearing gallbladder. No choledocholithiasis observed. 2. Splenomegaly. 3. Paraspinal fluid collection involving the lower thorax. 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 Alexey Almeida Jr., MD Abdomen/Pelvis CT 07/02/17 0000 Signed Impressions: Service Date/Time: Sunday, July 02, 2017 19:33 - CONCLUSION: No evidence for pancreatitis or inflammatory changes in the abdomen or pelvis. Cliff Kemp MD Physical Exam HEENT: Normocephalic; atraumatic; no jaundice. CHEST: CTA CARDIAC: RRR ABDOMEN: Soft, bloated, mild LLQ tenderness, bowel sounds are present in all four quadrants. EXTREMITIES: No clubbing, cyanosis, or edema. SKIN: Normal; no rash; no jaundice. IT TECHNICIAN: No focal deficits; alert and oriented times three. (BrionesRufina [facility]) Assessment and Plan Plan ASSESSMENT - Abdominal pain with N/V/D, ? gastroenteritis. Has hx of diverticulitis. Last colonoscopy 1 y ago found diverticulosis. Hx diverticulitis was hospitalized for it 1-[address] Abdomen and pelvis (07/02/17)---> No evidence of for pancreatitis or inflammatory changes in abdomen or pelvis. Stool studies pending-has not had bm today. Taking full liquids- states he did tolerate this until he drank coffee and then vomited the coffee back up. However, he is not having any further nausea and would like this advanced. He has LLQ pain, but states it is improving. WBC stable. Will advance diet to low fat diet. - Elevated LFTs. Hx of HCV, [facility]. [facility]Q US (07/02/17)----> gallbladder sludge and questionable cholelithiasis. No wall thickening or pericholecystic fluid. Minimally complex right renal cyst. MRCP (07/03/17)-- ---> 3 small gallstones within an otherwise normal appearing gallbladder. No choledocholithiasis observed, splenomegaly, paraspinal fluid collection involving the lower thorax. 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 Today's lfts are pending. Clinically, he is improving. - Elevated lipase, now normalized. He does have a history of pancreatitis. However, his pain seems to be more in the LLQ. - HTN, CAD, DM, Bipolar d/o, COPD per primary PLAN - Low fat diet - HCV PCR Viral load - RACHEL, ASMA, AMA - Ceruloplasmin, Alpha 1 antitrypsin - Ferritin, Iron saturation - AFP level - Await today's labs. - Send stool studies - Consider EGD/colonoscopy as outpatient - This pt seen by myself and Dr Brush and this note is written on his behalf (Rufina Briones) Physician Comments Agree with the plan as above, will follow up with you. (Theresa Brush MD) Rufina Briones Jul 05, 2017 11:56 Theresa Brush MD Jul 05, 2017 12:31
[2017-07-05 13:33] LABS: HEMATOCRIT 39.9 % (39.0-51.0); MEAN CELL VOLUME 94.5 FL (80.0-100.0); MEAN CORPUSCULAR HEMOGLOBIN 32.1 PG (27.0-34.0); PLATELET COUNT 157 TH/MM3 (150-450); RED BLOOD COUNT 4.23 MIL/MM3 (4.50-5.90); RED CELL DISTRIBUTION WIDTH 13.1 % (11.6-17.2); REVIEW FLAG FINAL
[2017-07-05 13:56] LABS: ALT (GPT) 254 U/L (12-78); ANION GAP 6 MEQ/L (5-15); AST (GOT) 153 U/L (15-37); BICARBONATE 28.5 MEQ/L (21.0-32.0); BLOOD UREA NITROGEN 4 MG/DL (7-18); CHLORIDE 104 MEQ/L (98-107); GLOMERULAR FILTRATION RATE 86 ML/MIN (>89); POTASSIUM 3.7 MEQ/L (3.5-5.1); SODIUM (NA) 138 MEQ/L (136-145)
[2017-07-05 13:59] LABS: ALKALINE PHOSPHATASE 220 U/L (45-117); TOTAL BILIRUBIN ADULT 0.7 MG/DL (0.2-1.0)
--- NOTE | 2017-07-05 15:17 | HHI.FPPN ---
Subjective Remarks Patient states that he is doing better this morning. He feels he is getting better day by day. He is still having pain in his left lower quadrant of his abdomen. His diarrhea is improving. Also had an episode of vomiting this morning after drinking coffee. No chest pain, no shortness of breath, no fevers or chills. (Lupe Mancini MD R1) Objective Vitals Vital Signs Date Time Temp Pulse Resp B/P (MAP) Pulse Ox O2 Delivery O2 Flow Rate FiO2 07/05/17 11:44 98.6 52 19 145/79 (101) 99 07/05/17 08:26 98.0 56 17 133/70 (91) 98 07/05/17 05:46 97.7 55 18 109/58 (75) 96 07/05/17 00:10 98.0 55 20 129/76 (93) 96 07/04/17 20:01 97.7 64 18 134/79 (97) 100 07/04/17 16:34 97.9 58 16 135/77 (96) 97 I/O 07/04/17 07/04/17 07/04/17 07/05/17 07/05/17 07/05/17 07:00 15:00 23:00 07:00 15:00 23:00 Intake Total 1500 ml 1100 ml Balance 1500 ml 1100 ml Intake Oral 1100 ml IV Total 1500 ml # Voids 4 5 1 # Bowel Movements 1 (Lupe Mancini MD R1) Result Diagram: 07/05/17 1238 07/05/17 1238 Objective Remarks CONSTITUTIONAL/GEN: Patient sitting on the side of the bed, normally nourished , in NAD. EYES: conjunctiva normal, PERRLA, EOMI. LUNGS: clear A-P, respiratory effort is normal. CARDIOVASCULAR: RR without murmur or gallop. No edema. GI/ABD: soft without masses, without organomegaly. Very mild direct tenderness in the LLQ to direct palpation, no rebound. Mild tenderness at the RUQ with deep inspiration. NEURO: No focal deficits. SKIN: color normal, no rashes noted. HEME/LYMPH: no bruising, petechia or significant adenopathy MUSC: back is normal in appearance. Extremities are normal in appearance. PSYCH/MENTAL STATUS: Alert and oriented x 3. (Lupe Mancini MD R1) A/P Assessment and Plan Mr. Jarrell is a 56-year-old male with a past medical history of diverticulitis, hypertension, diabetes, hepatitis C presenting to the ED with left lower quadrant abdominal pain of 2 weeks' duration. Pancreatitis versus cholecystitis versus diverticulitis Discharge Planning Will discharge once patient is able to tolerate regular diet. (Lupe Mancini MD R1) Attending Attestation Patient seen and examined. Case reviewed and discussed with the resident team. Agree with plan of care as discussed with me and documented in the resident note. (Rafael Saleh MD) Problem List: (1) Abdominal pain ICD Codes: R10.9 - Unspecified abdominal pain Status: Acute Plan: Abdominal pain of 2 weeks' duration. Lipase elevated. LFTs elevated. History of diverticulitis. Rule out pancreatitis and diverticulitis. Likely pancreatitis. Lipase trended up to 1758 overnight after admission. U/S showed gallbladder sludge which is a risk factor for pancreatitis. Patient also smokes , which is another significant risk factor for pancreatitis. No evidence for diverticulitis on CT. However, there is a fat containing left inguinal hernia that may be causing his LLQ pain. CT abdomen/pelvis- No evidence for pancreatitis or inflammatory changes in the abdomen or pelvis. Gallbladder U/S- 1. Gallbladder sludge and questionable cholelithiasis. No wall thickening or pericholecystic fluid. 2. Minimally complex right renal cyst. MRCP- 1. 3 small gallstones within an otherwise normal-appearing gallbladder. No choledocholithiasis observed. 2. Splenomegaly. 3. Paraspinal fluid collection involving the lower thorax. 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 -Consult GI, appreciate recommendations * Low fat diet * HCV PCR viral load * RACHEL, ASMA, AMA * Ceruloplasmin, Alpha 1 antitrypsin * Ferritin, Iron saturation * AFP level * Stool Studies * EGD/ colonoscopy as outpatient -Trend lipase- down on normal -Monitor LFTs- still elevated -Triglyceride labs- normal -AM labs -Advance to full liquid diet -Ondansetron for nausea (2) HTN (hypertension) ICD Codes: I10 - Hypertension Status: Chronic Plan: Furosemide 20 mg daily Carvedilol 3.125 mg every 12hrs (3) DM (diabetes mellitus) ICD Codes: E11.9 - Type 2 diabetes mellitus without complications Status: Chronic Plan: Hold at home medications -Sliding-scale insulin -Blood glucose monitoring (4) CAD (coronary artery disease) ICD Codes: I25.10 - Coronary artery disease Status: Chronic Plan: Atorvastatin 80 mg at bedtime by mouth (5) Bipolar 1 disorder ICD Codes: F31.9 - Bipolar disorder, unspecified Status: Chronic Plan: [place] 600 mg at bedtime PO Lurasidone 40mg PO qD Carbamazepine 2 mg twice a day by mouth (6) COPD (chronic obstructive pulmonary disease) ICD Codes: J44.9 - Chronic obstructive pulmonary disease, unspecified Status: Chronic Plan: Spiriva inhaler Symbicort inhaler Ventolin inhaler (7) FEN Status: Acute Plan: Fluids: Hydration by mouth Electrolytes: Monitor and replace as needed Nutrition: Heart healthy diet DVT prophylaxis: Heparin 5000 units subcutaneous every 12 hours Ketorolac for pain (Lupe Mancini MD R1) Problem Qualifiers (1) Abdominal pain: Qualified Codes: R10.84 - Generalized abdominal pain (2) HTN (hypertension): Qualified Codes: I10 - Essential (primary) hypertension (3) DM (diabetes mellitus): (4) CAD (coronary artery disease): Qualified Codes: I25.10 - Atherosclerotic heart disease of [place] coronary artery without angina pectoris (5) COPD (chronic obstructive pulmonary disease): Qualified Codes: J44.9 - Chronic obstructive pulmonary disease, unspecified Lupe Mancini MD R1 Jul 05, 2017 15:17 Rafael Saleh MD Jul 06, 2017 08:30
[2017-07-05 15:32] VITALS: BP 137/77; PULSE 66; RESP 18; TEMP 97.8; O2SAT 98
[2017-07-05] MEDS: ATORVASTATIN 80 MG TAB PO SCH (19:49)
[2017-07-05 20:05] VITALS: BP 140/78; PULSE 57; RESP 18; TEMP 98; O2SAT 98
[2017-07-05 22:25] LABS: TRANSFERRIN IRON PROFILE 291 MG/DL (200-360)
[2017-07-05 22:27] LABS: FERRITIN 90 NG/ML (26-388)
[2017-07-06 00:37] VITALS: BP 133/78; PULSE 59; RESP 18; TEMP 98.1; O2SAT 98
[2017-07-06] MEDS: KETOROLAC TROMETHAMINE 30 MG/ML (IVP) VIAL IVP PRN ×3 (01:00→13:56)
[2017-07-06] MEDS: MORPHINE SULFATE 4 MG/ML INJ IV PUSH PRN ×7 (02:42→21:15)
[2017-07-06] MEDS: INSULIN ASPART SUPPLEMENTAL SCALE SQ SCH ×4 (06:07→21:11)
[2017-07-06 07:42] LABS: HEMATOCRIT 41.5 % (39.0-51.0); MEAN CELL VOLUME 93.5 FL (80.0-100.0); MEAN CORPUSCULAR HGB CONC 34.3 % (32.0-36.0); PLATELET COUNT 147 TH/MM3 (150-450); RED BLOOD COUNT 4.43 MIL/MM3 (4.50-5.90); REVIEW FLAG FINAL; WHITE BLOOD COUNT 4.7 TH/MM3 (4.0-11.0)
[2017-07-06] MEDS: HEPARIN SODIUM - SQ 10,000 UNITS/ML VIAL SQ SCH ×2 (07:49→20:30)
[2017-07-06] MEDS: ASPIRIN EC 81 MG TABEC PO SCH (07:50)
[2017-07-06] MEDS: SODIUM CHLORIDE 0.9% FLUSH 10 ML FLUSH IV FLUSH SCH ×2 (07:50→20:29)
[2017-07-06] MEDS: CARVEDILOL 3.125 MG TAB PO SCH ×2 (07:50→20:29)
[2017-07-06] MEDS: FUROSEMIDE 20 MG TAB PO SCH (07:50)
[2017-07-06 08:00] VITALS: BP 159/80; PULSE 52; RESP 18; TEMP 96.7; O2SAT 99
[2017-07-06 08:04] LABS: ANION GAP 7 MEQ/L (5-15); AST (GOT) 163 U/L (15-37); BICARBONATE 27.3 MEQ/L (21.0-32.0); BLOOD UREA NITROGEN 7 MG/DL (7-18); CHLORIDE 103 MEQ/L (98-107); GLOMERULAR FILTRATION RATE 88 ML/MIN (>89); POTASSIUM 3.5 MEQ/L (3.5-5.1); SODIUM (NA) 137 MEQ/L (136-145)
[2017-07-06 08:05] LABS: ALT (GPT) 256 U/L (12-78)
[2017-07-06 08:07] LABS: ALKALINE PHOSPHATASE 217 U/L (45-117); TOTAL BILIRUBIN ADULT 0.6 MG/DL (0.2-1.0)
[2017-07-06] MEDS: BUDESONIDE-FORMOTEROL 80/4.5 MCG INHALER INH SCH ×2 (08:57→21:00)
[2017-07-06] MEDS: TIOTROPIUM BROMIDE 18 MCG INH INH SCH ×3 (08:57→16:54)
[2017-07-06] MEDS: ALBUTEROL SULFATE 90 MCG/ACT HFA 18 GM INHALER INH SCH ×4 (08:57→21:00)
[2017-07-06] MEDS: LITHIUM CARBONATE 300 MG CAP PO SCH ×2 (08:58→20:30)
[2017-07-06] MEDS: carBAMazepine 200 MG TAB PO SCH ×2 (08:58→20:29)
[2017-07-06 12:00] VITALS: BP 144/81; PULSE 63; RESP 19; TEMP 97.4; O2SAT 98
--- NOTE | 2017-07-06 13:01 | HHI.GIFU ---
Subjective Remarks Ambulating around floor. States he is feeling better as far as his n/v/d. A little bloated after eating lunch. But states that he had eggs, grits, bagel with cream cheese and then turned around and ate biscuits with gravy for lunch. No n/v. States that he was treated with Harvoni for hcv 3 years ago and that this was successful. He does reports a hx of mild cirrhosis, but states that his LFTs have been normal other than occasional elevation as outpatient. He denies any new medications. (Rufina Briones) Objective Vitals I&O Vital Signs Date Time Temp Pulse Resp B/P (MAP) Pulse Ox O2 Delivery O2 Flow Rate FiO2 07/06/17 12:00 97.4 63 19 144/81 (102) 98 07/06/17 08:00 96.7 52 18 159/80 (106) 99 07/06/17 00:37 98.1 59 18 133/78 (96) 98 07/05/17 20:05 98.0 57 18 140/78 (98) 98 07/05/17 15:32 97.8 66 18 137/77 (97) 98 I/O 07/05/17 07/05/17 07/05/17 07/06/17 07/06/17 07/06/17 06:59 14:59 22:59 06:59 14:59 22:59 Intake Total 925 ml 360 ml Balance 925 ml 360 ml Intake Oral 925 ml 360 ml # Voids 1 7 2 Laboratory Laboratory Tests Test 07/06/17 04:45 07/06/17 06:45 White Blood Count 4.7 Red Blood Count 4.43 Hemoglobin 14.2 Hematocrit 41.5 Mean Corpuscular Volume 93.5 Mean Corpuscular Hemoglobin 32.0 Mean Corpuscular Hemoglobin Concent 34.3 Red Cell Distribution Width 13.0 Platelet Count 147 Mean Platelet Volume 9.5 Tumor Marker Alpha Fetoprotein 2.6 Blood Urea Nitrogen 7 Creatinine 0.90 Random Glucose 144 Total Protein 6.9 Albumin 3.1 Calcium Level 8.7 Alkaline Phosphatase 217 Aspartate Amino Transf (AST/SGOT) 163 Alanine Aminotransferase (ALT/SGPT) 256 Total Bilirubin 0.6 Sodium Level 137 Potassium Level 3.5 Chloride Level 103 Carbon Dioxide Level 27.3 Anion Gap 7 Estimat Glomerular Filtration Rate 88 Lipase 128 Imaging Last Impressions Gall Bladder Ultrasound 07/03/17 0000 Signed Impressions: Service Date/Time: Monday, July 03, 2017 10:47 - CONCLUSION: 1. Gallbladder sludge and questionable cholelithiasis. No wall thickening or pericholecystic fluid. 2. Minimally complex right renal cyst. Keenan Hankins MD Cholangiopancreatography MRI 07/03/17 0000 Signed Impressions: Service Date/Time: Monday, July 03, 2017 15:56 - CONCLUSION: 1. 3 small gallstones within an otherwise normal-appearing gallbladder. No choledocholithiasis observed. 2. Splenomegaly. 3. Paraspinal fluid collection involving the lower thorax. 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 Alexey Almeida Jr., MD Abdomen/Pelvis CT 07/02/17 0000 Signed Impressions: Service Date/Time: Sunday, July 02, 2017 19:33 - CONCLUSION: No evidence for pancreatitis or inflammatory changes in the abdomen or pelvis. Cliff Kemp MD Physical Exam HEENT: Normocephalic; atraumatic; no jaundice. CHEST: CTA CARDIAC: RRR ABDOMEN: Soft, bloated, mild LLQ tenderness, bowel sounds are present in all four quadrants. EXTREMITIES: No clubbing, cyanosis, or edema. SKIN: Normal; no rash; no jaundice. OVENS SUPERVISOR: No focal deficits; alert and oriented times three. (Rufina Briones) Assessment and Plan Plan ASSESSMENT - Abdominal pain with N/V/D, ? gastroenteritis. Has hx of diverticulitis. Last colonoscopy 1 y ago found diverticulosis. Hx diverticulitis was hospitalized for it 1-[address] Abdomen and pelvis (07/02/17)---> No evidence of for pancreatitis or inflammatory changes in abdomen or pelvis. Stool studies pending-has not had bm today. Taking full liquids- states he did tolerate this until he drank coffee and then vomited the coffee back up. However, he is not having any further nausea and would like this advanced. He has LLQ pain, but states it is improving. WBC stable. Tolerating diet. - Elevated LFTs. Hx of HCV, S/P Tx with [facility]. RUQ US (07/02/17)----> gallbladder sludge and questionable cholelithiasis. No wall thickening or pericholecystic fluid. Minimally complex right renal cyst. MRCP (07/03/17)-- ---> 3 small gallstones within an otherwise normal appearing gallbladder. No choledocholithiasis observed, splenomegaly, paraspinal fluid collection involving the lower thorax. 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 Clinically, he is improving, although his LFTs remain elevated. T. Bili 0.6, AST 163, ALT 256, ALk phosph 217. His liver workup is pending. Iron saturation 37.1% , Ferritin 90,AFP 2.6. Hepatitis, amber, asma, ama, ceruloplasmin and alpha 1 antitrypsin pending. - Elevated lipase, now normalized. He does have a history of pancreatitis. However, his pain seems to be more in the LLQ. - HTN, CAD, DM, Bipolar d/o, COPD per primary PLAN - Low fat diet - HCV PCR Viral load - AMBER, ASMA, AMA - Ceruloplasmin, Alpha 1 antitrypsin - Consider EGD/colonoscopy as outpatient - If liver workup negative and LFTs remain elevated, consider liver biopsy - This pt seen by myself and Dr Brush and this note is written on his behalf (Rufina Briones) Physician Comments Plan as above, daily LFT's, await work up for chronic liver disease, role out HCV relapse. (Theresa Brush MD) Rufina Briones Jul 06, 2017 13:01 Theresa Brush MD Jul 06, 2017 13:35
[2017-07-06 16:00] VITALS: BP 152/70; PULSE 54; RESP 16; TEMP 96.5; O2SAT 98
--- NOTE | 2017-07-06 18:46 | HHI.FPPN ---
Subjective Remarks Patient states that he is doing well this morning. His abdominal pain is almost back to normal. He states that he has not had a bowel movement since Monday. No fever or chills, no chest pain, no shortness of breath, no nausea or vomiting. (Lupe Mancini MD R1) Objective Vitals Vital Signs Date Time Temp Pulse Resp B/P (MAP) Pulse Ox O2 Delivery O2 Flow Rate FiO2 07/06/17 16:00 96.5 54 16 152/70 (97) 98 07/06/17 12:00 97.4 63 19 144/81 (102) 98 07/06/17 08:00 96.7 52 18 159/80 (106) 99 07/06/17 00:37 98.1 59 18 133/78 (96) 98 07/05/17 20:05 98.0 57 18 140/78 (98) 98 I/O 07/05/17 07/05/17 07/05/17 07/06/17 07/06/17 07/06/17 06:59 14:59 22:59 06:59 14:59 22:59 Intake Total 925 ml 360 ml 545 ml Output Total 6 ml Balance 925 ml 360 ml 539 ml Intake Oral 925 ml 360 ml 545 ml Output Urine Total 6 ml # Voids 1 7 2 # Bowel Movements 0 (Lupe Mancini MD R1) Result Diagram: 07/06/17 0445 07/06/17 0645 Objective Remarks CONSTITUTIONAL/GEN: Patient laying in bed bed, normally nourished, in NAD. EYES: conjunctiva normal, EOMI. LUNGS: clear A-P, respiratory effort is normal. CARDIOVASCULAR: RR without murmur or gallop. No edema. GI/ABD: soft without masses, without organomegaly. Diffuse abdominal tenderness. NEURO: No focal deficits. SKIN: color normal, no rashes noted. HEME/LYMPH: no bruising, petechia or significant adenopathy MUSC: Extremities are normal in appearance. (Lupe Mancini MD R1) A/P Assessment and Plan Mr. Jarrell is a 56-year-old male with a past medical history of diverticulitis, hypertension, diabetes, hepatitis C presenting to the ED with left lower quadrant abdominal pain of 2 weeks' duration. Pancreatitis versus cholecystitis versus diverticulitis Discharge Planning Will discharge once liver workup is complete. (Lupe Mancini MD R1) Attending Attestation Patient seen and examined. Case reviewed and discussed Agree with plan of care as discussed with me and documented in the resident note. Tolerating his diet States he is feeling more constipated Appreciate GI input Pain controlled and nearing his baseline-- will transition to PO pain medication (Marilyn Adame MD) Problem List: (1) Abdominal pain ICD Codes: R10.9 - Unspecified abdominal pain Status: Acute Plan: Abdominal pain of 2 weeks' duration. Lipase elevated. LFTs elevated. History of diverticulitis.Lipase trended up to 1758 overnight after admission. U /S showed gallbladder sludge which is a risk factor for pancreatitis. Patient also smokes, which is another significant risk factor for pancreatitis. CT abdomen/pelvis- No evidence for pancreatitis or inflammatory changes in the abdomen or pelvis. Gallbladder U/S- 1. Gallbladder sludge and questionable cholelithiasis. No wall thickening or pericholecystic fluid. 2. Minimally complex right renal cyst. MRCP- 1. 3 small gallstones within an otherwise normal-appearing gallbladder. No choledocholithiasis observed. 2. Splenomegaly. 3. Paraspinal fluid collection involving the lower thorax. 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 -Consult GI, appreciate recommendations * Low fat diet * HCV PCR viral load * RACHEL, ASMA, AMA * Ceruloplasmin, Alpha 1 antitrypsin * Daily LFTs, await workup for chronic liver disease, rule out HCV relapse * If liver workup negative and LFTs remain elevated, consider liver biopsy * EGD/ colonoscopy as outpatient -AM labs -Ondansetron for nausea (2) HTN (hypertension) ICD Codes: I10 - Hypertension Status: Chronic Plan: Furosemide 20 mg daily Carvedilol 3.125 mg every 12hrs (3) DM (diabetes mellitus) ICD Codes: E11.9 - Type 2 diabetes mellitus without complications Status: Chronic Plan: Hold at home medications -Sliding-scale insulin -Levemir 10 units at bedtime -Blood glucose monitoring (4) CAD (coronary artery disease) ICD Codes: I25.10 - Coronary artery disease Status: Chronic Plan: Atorvastatin 80 mg at bedtime by mouth (5) Bipolar 1 disorder ICD Codes: F31.9 - Bipolar disorder, unspecified Status: Chronic Plan: [place] 600 mg at bedtime PO Lurasidone 40mg PO qD Carbamazepine 2 mg twice a day by mouth (6) COPD (chronic obstructive pulmonary disease) ICD Codes: J44.9 - Chronic obstructive pulmonary disease, unspecified Status: Chronic Plan: Spiriva inhaler Symbicort inhaler Ventolin inhaler (7) FEN Status: Acute Plan: Fluids: Hydration by mouth Electrolytes: Monitor and replace as needed Nutrition: Heart healthy diet DVT prophylaxis: Heparin 5000 units subcutaneous every 12 hours Ketorolac for pain (Lupe Mancini MD R1) Problem Qualifiers (1) Abdominal pain: Qualified Codes: R10.84 - Generalized abdominal pain (2) HTN (hypertension): Qualified Codes: I10 - Essential (primary) hypertension (3) DM (diabetes mellitus): (4) CAD (coronary artery disease): Qualified Codes: I25.10 - Atherosclerotic heart disease of [place] coronary artery without angina pectoris (5) COPD (chronic obstructive pulmonary disease): Qualified Codes: J44.9 - Chronic obstructive pulmonary disease, unspecified Lupe Mancini MD R1 Jul 06, 2017 18:46 Marilyn Adame MD Jul 06, 2017 21:36
[2017-07-06] MEDS: ATORVASTATIN 80 MG TAB PO SCH (20:31)
[2017-07-06 20:38] VITALS: BP 142/76; PULSE 60; RESP 18; TEMP 98; O2SAT 97
[2017-07-06] MEDS: INSULIN DETEMIR 100 UNITS/ML VIAL SQ SCH (21:10)
[2017-07-06] MEDS: TEMAZEPAM 7.5 MG CAP PO PRN (21:16)
[2017-07-07] MEDS: KETOROLAC TROMETHAMINE 30 MG/ML (IVP) VIAL IVP PRN ×2 (02:26→17:53)
[2017-07-07 03:03] VITALS: BP 133/70; PULSE 58; RESP 20; TEMP 98.6; O2SAT 98
[2017-07-07 03:50] LABS: HCV RNA PCR LOGIU/ML 5.02 (0-1.18)
[2017-07-07] MEDS: MORPHINE SULFATE 4 MG/ML INJ IV PUSH PRN ×5 (04:57→19:56)
[2017-07-07] MEDS: INSULIN ASPART SUPPLEMENTAL SCALE SQ SCH ×4 (04:58→20:04)
[2017-07-07 06:06] LABS: HEMATOCRIT 38.6 % (39.0-51.0); MEAN CELL VOLUME 92.6 FL (80.0-100.0); MEAN CORPUSCULAR HGB CONC 34.5 % (32.0-36.0); PLATELET COUNT 139 TH/MM3 (150-450); RED BLOOD COUNT 4.17 MIL/MM3 (4.50-5.90); RED CELL DISTRIBUTION WIDTH 12.8 % (11.6-17.2); REVIEW FLAG FINAL; WHITE BLOOD COUNT 5.5 TH/MM3 (4.0-11.0)
[2017-07-07 06:29] LABS: ALT (GPT) 206 U/L (12-78); ANION GAP 7 MEQ/L (5-15); AST (GOT) 107 U/L (15-37); BICARBONATE 26.1 MEQ/L (21.0-32.0); BLOOD UREA NITROGEN 6 MG/DL (7-18); CHLORIDE 106 MEQ/L (98-107); GLOMERULAR FILTRATION RATE 106 ML/MIN (>89); POTASSIUM 3.5 MEQ/L (3.5-5.1); SODIUM (NA) 139 MEQ/L (136-145)
[2017-07-07 06:31] LABS: ALKALINE PHOSPHATASE 191 U/L (45-117); TOTAL BILIRUBIN ADULT 0.5 MG/DL (0.2-1.0)
[2017-07-07 08:00] VITALS: BP 166/81; PULSE 59; RESP 16; TEMP 96.8; O2SAT 98
[2017-07-07] MEDS: FUROSEMIDE 20 MG TAB PO SCH (08:42)
[2017-07-07] MEDS: CARVEDILOL 3.125 MG TAB PO SCH ×2 (08:42→20:01)
[2017-07-07] MEDS: carBAMazepine 200 MG TAB PO SCH ×2 (08:42→20:01)
[2017-07-07] MEDS: ASPIRIN EC 81 MG TABEC PO SCH (08:42)
[2017-07-07] MEDS: LITHIUM CARBONATE 300 MG CAP PO SCH ×2 (08:42→20:01)
[2017-07-07] MEDS: HEPARIN SODIUM - SQ 10,000 UNITS/ML VIAL SQ SCH ×2 (08:43→20:02)
[2017-07-07] MEDS: SODIUM CHLORIDE 0.9% FLUSH 10 ML FLUSH IV FLUSH SCH ×2 (08:43→19:57)
[2017-07-07] MEDS: ALBUTEROL SULFATE 90 MCG/ACT HFA 18 GM INHALER INH SCH ×4 (09:00→20:02)
[2017-07-07] MEDS: BUDESONIDE-FORMOTEROL 80/4.5 MCG INHALER INH SCH ×2 (09:00→20:02)
--- NOTE | 2017-07-07 11:15 | HHI.FPPN ---
Subjective Remarks Patient seen and examined this morning. No acute events overnight. Patient reports his pain has continued to be improved. No bowel movement today. He is ambulating around the floor without difficulties. Tolerating a regular diet. Denies any fever/chills, nausea/vomiting. (Mitesh Bowser MD, R2) Objective Vitals Vital Signs Date Time Temp Pulse Resp B/P (MAP) Pulse Ox O2 Delivery O2 Flow Rate FiO2 07/07/17 08:00 96.8 59 16 166/81 (109) 98 07/07/17 03:03 98.6 58 20 133/70 (91) 98 07/06/17 20:38 98.0 60 18 142/76 (98) 97 07/06/17 16:00 96.5 54 16 152/70 (97) 98 07/06/17 12:00 97.4 63 19 144/81 (102) 98 I/O 07/06/17 07/06/17 07/06/17 07/07/17 07/07/17 07/07/17 07:00 15:00 23:00 07:00 15:00 23:00 Intake Total 360 ml 545 ml 720 ml Output Total 6 ml Balance 360 ml 539 ml 720 ml Intake Oral 360 ml 545 ml 720 ml Output Urine Total 6 ml # Voids 2 4 # Bowel Movements 0 (Mitesh Bowser MD, R2) Result Diagram: 07/07/17 0453 07/07/17 0453 Objective Remarks CONSTITUTIONAL/GEN: Patient sitting up in bed, NAD LUNGS: CTAB, respiratory effort is normal. CARDIOVASCULAR: RR without murmur or gallop. No edema. GI/ABD: soft without masses, without organomegaly. Minimal LLQ tenderness. Bowel sounds positive. SKIN: color normal, no rashes noted. MUSC: Extremities are normal in appearance. (Mitesh Bowser MD, R2) A/P Assessment and Plan Mr. Jarrell is a 56-year-old male with a past medical history of diverticulitis, hypertension, diabetes, hepatitis C presenting to the ED with left lower quadrant abdominal pain of 2 weeks' duration. Pancreatitis versus cholecystitis versus diverticulitis Discharge Planning Will discharge once liver workup is complete and cleared by GI (Mitesh Bowser MD, R2) Attending Attestation Patient seen and examined. Case reviewed and discussed Agree with plan of care as discussed with me and documented in the resident note. (Marilyn Adame MD) Problem List: (1) Abdominal pain ICD Codes: R10.9 - Unspecified abdominal pain Status: Acute Plan: Abdominal pain of 2 weeks' duration. Lipase elevated. LFTs elevated. History of diverticulitis. Patient also smokes, which is another significant risk factor for pancreatitis. Pancreatitis has resolved. Hep C viral load elevated CT abdomen/pelvis- No evidence for pancreatitis or inflammatory changes in the abdomen or pelvis. Gallbladder U/S- 1. Gallbladder sludge and questionable cholelithiasis. No wall thickening or pericholecystic fluid. 2. Minimally complex right renal cyst. MRCP- 1. 3 small gallstones within an otherwise normal-appearing gallbladder. No choledocholithiasis observed. 2. Splenomegaly. 3. Paraspinal fluid collection involving the lower thorax. 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 -Consult GI, appreciate recommendations * Low fat diet * HCV PCR elevated to 100K * RACHEL, ASMA, AMA pending * Ceruloplasmin, Alpha 1 antitrypsin pending * Daily LFTs * EGD/ colonoscopy as outpatient -AM labs -Ondansetron for nausea (2) Hepatitis C ICD Codes: B19.20 - Unspecified viral hepatitis C without hepatic coma Plan: Hepatitis viral load is [id number]. History of Hep C, states he was treated and his viral load was undetectable in the past -GI consulted, as above:appreciate recs -Hepatitis C genotype pending (3) HTN (hypertension) ICD Codes: I10 - Hypertension Status: Chronic Plan: Furosemide 20 mg daily Carvedilol 3.125 mg every 12hrs (4) DM (diabetes mellitus) ICD Codes: E11.9 - Type 2 diabetes mellitus without complications Status: Chronic Plan: Hold at home medications -Sliding-scale insulin -Levemir 10 units at bedtime -Blood glucose monitoring (5) CAD (coronary artery disease) ICD Codes: I25.10 - Coronary artery disease Status: Chronic Plan: Atorvastatin 80 mg at bedtime by mouth (6) Bipolar 1 disorder ICD Codes: F31.9 - Bipolar disorder, unspecified Status: Chronic Plan: [place] 600 mg at bedtime PO Lurasidone 40mg PO qD Carbamazepine 2 mg twice a day by mouth (7) COPD (chronic obstructive pulmonary disease) ICD Codes: J44.9 - Chronic obstructive pulmonary disease, unspecified Status: Chronic Plan: Spiriva inhaler Symbicort inhaler Ventolin inhaler (8) FEN Status: Acute Plan: Fluids: Hydration by mouth Electrolytes: Monitor and replace as needed Nutrition: Heart healthy diet, low fat DVT prophylaxis: Heparin 5000 units subcutaneous every 12 hours Ketorolac for pain (Mitesh Bowser MD, R2) Problem Qualifiers (1) Abdominal pain: Qualified Codes: R10.84 - Generalized abdominal pain (2) Hepatitis C: Qualified Codes: B17.10 - Acute hepatitis C without hepatic coma (3) HTN (hypertension): Qualified Codes: I10 - Essential (primary) hypertension (4) DM (diabetes mellitus): (5) CAD (coronary artery disease): Qualified Codes: I25.10 - Atherosclerotic heart disease of [place] coronary artery without angina pectoris (6) COPD (chronic obstructive pulmonary disease): Qualified Codes: J44.9 - Chronic obstructive pulmonary disease, unspecified Mitesh Bowser MD, R2 Jul 07, 2017 11:15 Marilyn Adame MD Jul 07, 2017 14:44
[2017-07-07 12:00] VITALS: BP 110/68; PULSE 56; RESP 16; TEMP 97.6; O2SAT 98
[2017-07-07] MEDS: TIOTROPIUM BROMIDE 18 MCG INH INH SCH (15:49)
[2017-07-07 16:00] VITALS: BP 118/72; PULSE 50; RESP 16; TEMP 96.7; O2SAT 99
[2017-07-07 20:00] VITALS: BP 140/75; PULSE 55; RESP 20; TEMP 96.2; O2SAT 100
[2017-07-07] MEDS: ATORVASTATIN 80 MG TAB PO SCH (20:01)
[2017-07-07] MEDS: INSULIN DETEMIR 100 UNITS/ML VIAL SQ SCH (20:03)
[2017-07-07] MEDS: KETOROLAC TROMETHAMINE 30 MG/ML (IVP) VIAL IV PUSH PRN (22:59)
[2017-07-07] MEDS ORDERED: KETOROLAC TROMETHAMINE 30 MG/ML (IVP) VIAL IV PUSH SCH (23:00)
[2017-07-08] VITALS: BP 131/74; PULSE 59; RESP 20; TEMP 97; O2SAT 97
[2017-07-08] MEDS: TEMAZEPAM 7.5 MG CAP PO PRN (00:44)
[2017-07-08] MEDS: MORPHINE SULFATE 4 MG/ML INJ IV PUSH PRN ×2 (00:44→03:54)
[2017-07-08] MEDS: INSULIN ASPART SUPPLEMENTAL SCALE SQ SCH (05:05)
[2017-07-08] MEDS: KETOROLAC TROMETHAMINE 30 MG/ML (IVP) VIAL IV PUSH PRN (05:46)
[2017-07-08] MEDS: ALBUTEROL SULFATE 90 MCG/ACT HFA 18 GM INHALER INH SCH (07:53)
[2017-07-08] MEDS: BUDESONIDE-FORMOTEROL 80/4.5 MCG INHALER INH SCH (07:54)
[2017-07-08] MEDS: HEPARIN SODIUM - SQ 10,000 UNITS/ML VIAL SQ SCH (07:56)
[2017-07-08] MEDS: CARVEDILOL 3.125 MG TAB PO SCH (07:57)
[2017-07-08] MEDS: carBAMazepine 200 MG TAB PO SCH (07:57)
[2017-07-08] MEDS: ASPIRIN EC 81 MG TABEC PO SCH (07:57)
[2017-07-08] MEDS: FUROSEMIDE 20 MG TAB PO SCH (07:57)
[2017-07-08] MEDS ORDERED: NALOXONE HCL 0.4 MG/ML AMP IV PRN (08:00)
[2017-07-08] MEDS ORDERED: ACETAMINOPHEN 325 MG TAB PO PRN (08:00)
[2017-07-08] MEDS: LITHIUM CARBONATE 300 MG CAP PO SCH (08:00)
[2017-07-08] MEDS ORDERED: ACETAMINOPHEN/HYDROcodone 325 MG/7.5 MG TAB PO PRN (08:00)
[2017-07-08] MEDS ORDERED: ACETAMINOPHEN/HYDROcodone 325 MG/5 MG TAB PO PRN (08:00)
[2017-07-08] MEDS: SODIUM CHLORIDE 0.9% FLUSH 10 ML FLUSH IV FLUSH SCH (08:08)
[2017-07-08] MEDS ORDERED: HYDR-3516 PO (08:57)
[2017-07-08] MEDS ORDERED: DULC10SU3 RECTAL (08:57)
[2017-07-08] MEDS ORDERED: PERI8.6T PO (08:57)
[2017-07-08] MEDS ORDERED: DOCUSATE SODIUM 50 MG/SENNA 8.6 MG TAB PO SCH (09:00)
--- NOTE | 2017-07-08 09:07 | HHI.FPPN ---
Subjective Remarks Patient seen and examined this morning. No acute events overnight. He reports pain continues to improve. He is a little depressed about the hepatitis C, but states he has good spirits overall. Patient states he has a GI appointment already set up at the [facility] on Monday. Tolerating diet well. No nausea/ vomiting. No bowel movement today. (Mitesh Bowser MD, R2) Objective Vitals Vital Signs Date Time Temp Pulse Resp B/P (MAP) Pulse Ox O2 Delivery O2 Flow Rate FiO2 07/08/17 00:00 97.0 59 20 131/74 (93) 97 07/07/17 20:00 96.2 55 20 140/75 (96) 100 07/07/17 16:00 96.7 50 16 118/72 (87) 99 07/07/17 12:00 97.6 56 16 110/68 (82) 98 I/O 07/07/17 07/07/17 07/07/17 07/08/17 07/08/17 07/08/17 07:00 15:00 23:00 07:00 15:00 23:00 Intake Total 720 ml 980 ml 240 ml Balance 720 ml 980 ml 240 ml Intake Oral 720 ml 980 ml 240 ml # Voids 4 4 (Mitesh Bowser MD, R2) Result Diagram: 07/07/1745207/07/17452 Objective Remarks GEN: Patient sitting up in bed, NAD LUNGS: CTAB CARDIOVASCULAR: RR without murmur or gallop. No edema. GI/ABD: soft without masses. Minimal LLQ tenderness. BS+ SKIN: color normal, no rashes noted. MUSC: Extremities are normal in appearance. (Mitesh Bowser MD, R2) A/P Assessment and Plan Mr. Jarrell is a 56-year-old male with a past medical history of diverticulitis, hypertension, diabetes, hepatitis C presenting to the ED with left lower quadrant abdominal pain of 2 weeks' duration. Pancreatitis versus cholecystitis versus diverticulitis Discharge Planning Discharge today with f/u with GI (Mitesh Bowser MD, R2) Attending Attestation Patient seen and examined. Case reviewed and discussed Agree with plan of care as discussed with me and documented in the resident note. (Marilyn Adame MD) Problem List: (1) Abdominal pain ICD Codes: R10.9 - Unspecified abdominal pain Status: Acute Plan: Abdominal pain of 2 weeks' duration. Lipase elevated. LFTs elevated. History of diverticulitis. Patient also smokes, which is another significant risk factor for pancreatitis. Pancreatitis has resolved. Hep C viral load elevated LFTs trending down CT abdomen/pelvis- No evidence for pancreatitis or inflammatory changes in the abdomen or pelvis. Gallbladder U/S- 1. Gallbladder sludge and questionable cholelithiasis. No wall thickening or pericholecystic fluid. 2. Minimally complex right renal cyst. MRCP- 1. 3 small gallstones within an otherwise normal-appearing gallbladder. No choledocholithiasis observed. 2. Splenomegaly. 3. Paraspinal fluid collection involving the lower thorax. 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 -Pt not seen by GI yesterday, abdominal pain back to baseline, per pt. -Discharge with f/u outpatient GI. Pt has appointment on Monday. -Consult GI, appreciate recs * Low fat diet * HCV PCR elevated to 100K * RACHEL, ASMA, AMA pending * Ceruloplasmin, Alpha 1 antitrypsin pending * Daily LFTs * EGD/ colonoscopy as outpatient -Ondansetron for nausea -[place] for pain -Stool softeners PRN (2) Hepatitis C ICD Codes: B19.20 - Unspecified viral hepatitis C without hepatic coma Plan: Hepatitis viral load is [id number]. History of Hep C, states he was treated and his viral load was undetectable in the past. Was treated 4-5 years ago, states he may have been re-exposed 3 years ago. -GI consulted, as above:appreciate recs -Hepatitis C genotype pending -F/u with outpatient GI at [facility] on Monday (3) HTN (hypertension) ICD Codes: I10 - Hypertension Status: Chronic Plan: Furosemide 20 mg daily Carvedilol 3.125 mg every 12hrs (4) DM (diabetes mellitus) ICD Codes: E11.9 - Type 2 diabetes mellitus without complications Status: Chronic Plan: Hold at home medications -Sliding-scale insulin -Levemir 10 units at bedtime -Blood glucose monitoring (5) CAD (coronary artery disease) ICD Codes: I25.10 - Coronary artery disease Status: Chronic Plan: Atorvastatin 80 mg at bedtime by mouth (6) Bipolar 1 disorder ICD Codes: F31.9 - Bipolar disorder, unspecified Status: Chronic Plan: [place] 600 mg at bedtime PO Lurasidone 40mg PO qD Carbamazepine 2 mg twice a day by mouth (7) COPD (chronic obstructive pulmonary disease) ICD Codes: J44.9 - Chronic obstructive pulmonary disease, unspecified Status: Chronic Plan: Spiriva inhaler Symbicort inhaler Ventolin inhaler (8) FEN Status: Acute Plan: Fluids: Hydration by mouth Electrolytes: Monitor and replace as needed Nutrition: Heart healthy diet, low fat DVT prophylaxis: Heparin 5000 units subcutaneous every 12 hours (Mitesh Bowser MD, R2) Problem Qualifiers (1) Abdominal pain: Qualified Codes: R10.84 - Generalized abdominal pain (2) Hepatitis C: Qualified Codes: B17.10 - Acute hepatitis C without hepatic coma (3) HTN (hypertension): Qualified Codes: I10 - Essential (primary) hypertension (4) DM (diabetes mellitus): (5) CAD (coronary artery disease): Qualified Codes: I25.10 - Atherosclerotic heart disease of [place] coronary artery without angina pectoris (6) COPD (chronic obstructive pulmonary disease): Qualified Codes: J44.9 - Chronic obstructive pulmonary disease, unspecified Mitesh Bowser MD, R2 Jul 08, 2017 09:07 Marilyn Adame MD Jul 10, 2017 16:41
--- NOTE | 2017-07-08 09:07 | HHI.DCPOC ---
Discharge Care Plan Diagnosis: (1) Hepatitis C (2) Nausea & vomiting (3) Chronic abdominal pain (4) Elevated LFTs (5) Pancreatitis (6) HTN (hypertension) (7) Hyperlipidemia (8) Bipolar 1 disorder Goals to Promote Your Health * To prevent worsening of your condition and complications * To maintain your health at the optimal level Directions to Meet Your Goals Take your medications as prescribed Follow your dietary instruction Follow activity as directed Keep your appointments as scheduled Take your immunizations and boosters as scheduled If your symptoms worsen call your PCP, if no PCP go to Urgent Care Center or Emergency Room Smoking is Dangerous to Your Health. Avoid second hand smoke Call the 24-hour hour crisis hotline for domestic abuse at Mitesh Bowser MD, R2 Jul 08, 2017 09:07
--- NOTE | 2017-07-08 10:38 | HHI.DS ---
Discharge Summary Admission Date Jul 04, 2017 at 13:40 Discharge Date: Jul 08, 2017 Admitting Diagnosis pancreatitis (1) Abdominal pain Diagnosis: Principal Plan: Abdominal pain of 2 weeks' duration. Lipase elevated. LFTs elevated. History of diverticulitis. Patient also smokes, which is another significant risk factor for pancreatitis. Pancreatitis has resolved. Hep C viral load elevated LFTs trending down CT abdomen/pelvis- No evidence for pancreatitis or inflammatory changes in the abdomen or pelvis. Gallbladder U/S- 1. Gallbladder sludge and questionable cholelithiasis. No wall thickening or pericholecystic fluid. 2. Minimally complex right renal cyst. MRCP- 1. 3 small gallstones within an otherwise normal-appearing gallbladder. No choledocholithiasis observed. 2. Splenomegaly. 3. Paraspinal fluid collection involving the lower thorax. 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 -Pt not seen by GI yesterday, abdominal pain back to baseline, per pt. -Discharge with f/u outpatient GI. Pt has appointment on Monday. -Consult GI, appreciate recs * Low fat diet * HCV PCR elevated to 100K * RACHEL, ASMA, AMA pending * Ceruloplasmin, Alpha 1 antitrypsin pending * Daily LFTs * EGD/ colonoscopy as outpatient -Ondansetron for nausea -[place] for pain -Stool softeners PRN ICD Codes: R10.9 - Unspecified abdominal pain Status: Acute (2) Hepatitis C Diagnosis: Principal Plan: Hepatitis viral load is [id number]. History of Hep C, states he was treated and his viral load was undetectable in the past. Was treated 4-5 years ago, states he may have been re-exposed 3 years ago. -GI consulted, as above:appreciate recs -Hepatitis C genotype pending -F/u with outpatient GI at [facility] on Monday ICD Codes: B19.20 - Unspecified viral hepatitis C without hepatic coma (3) HTN (hypertension) Diagnosis: Secondary Plan: Furosemide 20 mg daily Carvedilol 3.125 mg every 12hrs ICD Codes: I10 - Hypertension Status: Chronic (4) DM (diabetes mellitus) Diagnosis: Secondary Plan: Hold at home medications -Sliding-scale insulin -Levemir 10 units at bedtime -Blood glucose monitoring ICD Codes: E11.9 - Type 2 diabetes mellitus without complications Status: Chronic (5) CAD (coronary artery disease) Diagnosis: Secondary Plan: Atorvastatin 80 mg at bedtime by mouth ICD Codes: I25.10 - Coronary artery disease Status: Chronic (6) Bipolar 1 disorder Diagnosis: Secondary Plan: [place] 600 mg at bedtime PO Lurasidone 40mg PO qD Carbamazepine 2 mg twice a day by mouth ICD Codes: F31.9 - Bipolar disorder, unspecified Status: Chronic (7) COPD (chronic obstructive pulmonary disease) Diagnosis: Secondary Plan: Spiriva inhaler Symbicort inhaler Ventolin inhaler ICD Codes: J44.9 - Chronic obstructive pulmonary disease, unspecified Status: Chronic (8) FEN Diagnosis: Secondary Plan: Fluids: Hydration by mouth Electrolytes: Monitor and replace as needed Nutrition: Heart healthy diet, low fat DVT prophylaxis: Heparin 5000 units subcutaneous every 12 hours Status: Acute Consultants GI Brief History Mr. Jarrell is a 56-year-old male with a past medical history of diverticulitis, hypertension, diabetes, hepatitis C presenting to the ED with left lower quadrant abdominal pain of 2 weeks' duration. This pain started one and half to 2 weeks ago when he felt like he was having and diverticulitis attack. His also been experiencing vomiting after eating. He describes the pain as 8 out of 10 stabbing pain in his left lower quadrant of his abdomen, no radiation, nothing makes it better, eating makes it worse. He states that his whole abdomen is also aching because of the vomiting. He has a history of hepatitis C for which he was treated 8 years ago. He states that the virus is undetectable. He is worried because his LFTs were abnormal. He also complains of kidney pain. He states that it feels like his kidneys are on fire. describes the pain as an 8 out of 10, burning pain in his bilateral flanks, no radiation, better with fluids and pain medication, nothing makes it worse. No dysuria but has increased frequency because of his diabetes. He also complains of diarrhea for one week. He says he goes about 3-9 times a day. His stools ranged from a mud-like consistency to watery. They're brownish in color, with mucus, no blood. He has experienced this diarrhea before when he had diverticulitis. CBC/BMP: 07/07/17 0453 07/07/17 0453 Significant Findings Laboratory Tests Test 07/05/17 12:38 07/06/17 04:45 07/06/17 06:45 07/07/17 04:53 Red Blood Count 4.23 MIL/MM3 (4.50-5.90) 4.43 MIL/MM3 (4.50-5.90) 4.17 MIL/MM3 (4.50-5.90) Blood Urea Nitrogen 4 MG/DL (7-18) 6 MG/DL (7-18) Random Glucose 180 MG/DL (74-106) 144 MG/DL (74-106) 138 MG/DL (74-106) Albumin 3.2 GM/DL (3.4-5.0) 3.1 GM/DL (3.4-5.0) 2.9 GM/DL (3.4-5.0) Alkaline Phosphatase 220 U/L (45-117) 217 U/L (45-117) 191 U/L (45-117) Aspartate Amino Transf (AST/SGOT) 153 U/L (15-37) 163 U/L (15-37) 107 U/L (15-37) Alanine Aminotransferase (ALT/SGPT) 254 U/L (12-78) 256 U/L (12-78) 206 U/L (12-78) Estimat Glomerular Filtration Rate 86 ML/MIN (>89) 88 ML/MIN (>89) Hepatitis C Antibody REACTIVE (NEGATIVE) Hepatitis C RNA (PCR) IUs/ml 516726 IU/mL (0-14) Hepatitis C RNA (PCR) log IUs/ml 5.02 (0-1.18) Platelet Count 147 TH/MM3 (150-450) 139 TH/MM3 (150-450) Hematocrit 38.6 % (39.0-51.0) Calcium Level 8.2 MG/DL (8.5-10.1) Test 07/07/17 11:03 Imaging Last Impressions Gall Bladder Ultrasound 07/03/17 0000 Signed Impressions: Service Date/Time: Monday, July 03, 2017 10:47 - CONCLUSION: 1. Gallbladder sludge and questionable cholelithiasis. No wall thickening or pericholecystic fluid. 2. Minimally complex right renal cyst. Keenan Hankins MD Cholangiopancreatography MRI 07/03/17 0000 Signed Impressions: Service Date/Time: Monday, July 03, 2017 15:56 - CONCLUSION: 1. 3 small gallstones within an otherwise normal-appearing gallbladder. No choledocholithiasis observed. 2. Splenomegaly. 3. Paraspinal fluid collection involving the lower thorax. 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 Alexey Almeida Jr., MD Abdomen/Pelvis CT 07/02/17 0000 Signed Impressions: Service Date/Time: Sunday, July 02, 2017 19:33 - CONCLUSION: No evidence for pancreatitis or inflammatory changes in the abdomen or pelvis. Cliff Kemp MD PE at Discharge GEN: Patient sitting up in bed, NAD LUNGS: CTAB CARDIOVASCULAR: RR without murmur or gallop. No edema. GI/ABD: soft without masses. Minimal LLQ tenderness. BS+ SKIN: color normal, no rashes noted. MUSC: Extremities are normal in appearance. Hospital Course Patient is a 56-year-old male with past medical history of diverticulitis, hypertension, diabetes, hepatitis C who presented to the ED with left lower quadrant pain for 2 weeks. His lipase was initially elevated, and then continued to rise, suspecting pancreatitis. CT of the abdomen/pelvis was done, which did not show any acute abnormality. Patient was started on IV hydration and pain control. The pain continued to improve and lipase normalized. GI was consulted for further recommendations. Liver workup was initiated, and patient found to have elevated hepatitis C viral load. Been treated in the past, but may have been reexposed. Patient's LFTs downtrending throughout the hospitalization, although were elevated. Patient discharged in stable condition with follow-up gastroenterology at the [facility] on Monday. Pt Condition on Discharge: Stable Discharge Disposition: Discharge Home Discharge Instructions DIET: Follow Instructions for: Heart Healthy Diet Activities you can perform: Regular-No Restrictions Follow up Referrals: Appointment for Follow Up - 1 Week with Theresa Brush MD GI/[facility] Colonoscopy - 07/12/17 PCP Follow-up - 1 Week New Medications: Bisacodyl Supp (Dulcolax Supp) 10 Mg Supp 10 MG RECTAL DAILY PRN for CONSTIPATION, #12 SUPP 0 Refills Sennosides-Docusate Sodium ([place]yl[place]-Colace) 8.6-50 Mg Tab 1 TAB PO BID for Constipation, #60 TAB 0 Refills Hydrocodone-Acetaminophen (Hydrocodone-Acetaminophen) 5-325 mg Tab 1 TAB PO Q4H PRN for PAIN SCALE 1 TO 10, #30 TAB Continued Medications: Aspirin DR (Aspirin EC) 81 Mg Tabdr 81 MG PO DAILY, TAB 0 Refills Atorvastatin (Atorvastatin) 80 Mg Tab 80 MG PO HS for Cholesterol Management, #30 TAB 0 Refills Budesonide-Formoterol Inh (Symbicort Inh) 80-4.5 Mcg/Act Aero 2 PUFF INH Q12HR for Asthma Management, #1 INHALER 0 Refills Carbamazepine (Tegretol) 200 Mg Tab 200 MG PO BID, #60 TAB 0 Refills Carvedilol (Carvedilol) 6.25 Mg Tab 3.125 MG PO BID, #60 TAB 0 Refills Dextrose (Glucose) 4 Gm Chew 4 GM CHEW DIRECTED for Blood Sugar Management, TAB 0 Refills CHEW 4 TABS Furosemide (Furosemide) 20 Mg Tab 20 MG PO DAILY, #30 TAB 0 Refills Insulin Glargine Inj (Lantus Inj) 1,000 Unit/10 Ml Vial 70 UNITS SQ BID for Blood Sugar Management, VIAL 0 Refills Ipratropium-Albuterol Inh (Combivent Respimat Inh) 20-100 Longterm/Act Aero 1 PUFF INH QID for Asthma Management, #1 INHALER 0 Refills Isosorbide Mononitrate ER (Isosorbide Mononitrate ER) 60 Mg Tab 60 MG PO DAILY for Prevent Chest Pain, #30 TAB 0 Refills [place] Carbonate ([place] Carbonate) 300 Mg Cap 300 MG PO DAILY, CAP 0 Refills [place] Carbonate ([place] Carbonate) 600 Mg Cap 600 MG PO HS, CAP 0 Refills Lurasidone (Latuda) 40 Mg Tab 40 MG PO DAILY, #30 TAB 0 Refills Metformin (Metformin) 1,000 Mg Tab 1000 MG PO BIDPC for Blood Sugar Management, #60 TAB 0 Refills With meals Ondansetron (Zofran) 4 Mg Tab 4 MG PO Q6HR PRN for NAUSEA OR VOMITING, #20 TAB 0 Refills Potassium Chloride ER (Potassium Chloride ER) 10 Meq Cap 10 MEQ PO DAILY for Electrolyte Replacement, #30 CAP 0 Refills Ranitidine (Ranitidine) 150 Mg Tab 150 MG PO BID for Heartburn Management, #60 TAB 0 Refills Temazepam (Temazepam) 7.5 Mg Cap 7.5 MG PO HS PRN for INSOMNIA, #30 CAP 0 Refills Heyen,Mitesh J MD, R2 Jul 08, 2017 10:37
--- NOTE | 2017-07-08 10:41 | HHI.GIFU ---
Subjective Remarks Resting in bed. Tolerating diet. Denies any nausea, vomiting, abdominal pain. Discussed with patient that is hepatitis C viral load came back positive and that he will need to follow up with GI as outpatient. He tells me that he follows [facility] and has a GI appointment on July 12. (Rufina Briones) Objective Vitals I&O Vital Signs Date Time Temp Pulse Resp B/P (MAP) Pulse Ox O2 Delivery O2 Flow Rate FiO2 07/08/17 00:00 97.0 59 20 131/74 (93) 97 07/07/17 20:00 96.2 55 20 140/75 (96) 100 07/07/17 16:00 96.7 50 16 118/72 (87) 99 07/07/17 12:00 97.6 56 16 110/68 (82) 98 I/O 07/07/17 07/07/17 07/07/17 07/08/17 07/08/17 07/08/17 06:59 14:59 22:59 06:59 14:59 22:59 Intake Total 720 ml 980 ml 240 ml Balance 720 ml 980 ml 240 ml Intake Oral 720 ml 980 ml 240 ml # Voids 4 4 Laboratory Laboratory Tests Test 07/07/17 11:03 Imaging Last Impressions Gall Bladder Ultrasound 07/03/17 0000 Signed Impressions: Service Date/Time: Monday, July 03, 2017 10:47 - CONCLUSION: 1. Gallbladder sludge and questionable cholelithiasis. No wall thickening or pericholecystic fluid. 2. Minimally complex right renal cyst. Keenan Hankins MD Cholangiopancreatography MRI 07/03/17 0000 Signed Impressions: Service Date/Time: Monday, July 03, 2017 15:56 - CONCLUSION: 1. 3 small gallstones within an otherwise normal-appearing gallbladder. No choledocholithiasis observed. 2. Splenomegaly. 3. Paraspinal fluid collection involving the lower thorax. 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 Alexey Almeida Jr., MD Abdomen/Pelvis CT 07/02/17 0000 Signed Impressions: Service Date/Time: Sunday, July 02, 2017 19:33 - CONCLUSION: No evidence for pancreatitis or inflammatory changes in the abdomen or pelvis. Cliff Kemp MD Physical Exam HEENT: Normocephalic; atraumatic; no jaundice. CHEST: CTA CARDIAC: RRR ABDOMEN: Soft, bloated, nontender, bowel sounds are present in all four quadrants. EXTREMITIES: No clubbing, cyanosis, or edema. SKIN: Normal; no rash; no jaundice. EMPLOYMENT ADJUDICATOR: No focal deficits; alert and oriented times three. (Rufina Briones) Assessment and Plan Plan ASSESSMENT - Abdominal pain with N/V/D, ? gastroenteritis. Has hx of diverticulitis. Last colonoscopy 1 y ago found diverticulosis. Hx diverticulitis was hospitalized for it 1-[address] Abdomen and pelvis (07/02/17)---> No evidence of for pancreatitis or inflammatory changes in abdomen or pelvis. RESOLVED. Tolerating diet. - Elevated LFTs. Hx of HCV, S/[facility] RU[facility] US (07/02/17)----> gallbladder sludge and questionable cholelithiasis. No wall thickening or pericholecystic fluid. Minimally complex right renal cyst. MRCP (07/03/17)-- ---> 3 small gallstones within an otherwise normal appearing gallbladder. No choledocholithiasis observed, splenomegaly, paraspinal fluid collection involving the lower thorax. 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 Iron saturation 37.1%, Ferritin 90, AFP 2.6. Hepatitis (+) HCV, Viral load 105,000, Genotype pending, RACHEL pending, AMA pending, ASMA negative, Alpha 1 Antitrypsin 157, Ceruloplasmin pending, AFP 2.6. LFTs improving T. Bili 0.5, AST 107, ALT 206, Alk Phosph 191. - Elevated lipase, now normalized. RESOLVED. - HTN, CAD, DM, Bipolar d/o, COPD per primary PLAN - Low fat diet - Await Ceruloplasmin, HCV genotype - [facility], has appointment for July 12. - Okay to fl home with GI follow as outpt - This pt seen by myself and Dr Brush and this note is written on his behalf (Rufina Briones) Physician Comments Seen and examined, plan as above. Will need follow up as out patient. (Theresa Brush MD) Rufina Briones Jul 08, 2017 10:41 Theresa Brush MD Jul 08, 2017 14:15
[2017-07-09 03:51] LABS: MITOCHONDRIAL ABS LESS THAN 20.0 U (<=20.0)
== END 2017-07-08 10:36 | disposition home or self-care (01) | DRG 439 ==
LOC: NEPD 13:20 → NEDA 17:19 → NEPFCDU 20:38 → OBSVTOIN 07-04 13:40 → N07A 07-05 22:14
PROVIDERS: ADMIT Family Medicine; ATTEND Family Medicine
DX: K85.90 Acute pancreatitis without necrosis or infection, unspecified (principal); B17.10 Acute hepatitis C without hepatic coma; K74.60 Unspecified cirrhosis of liver; K57.92 Diverticulitis of intestine, part unspecified, without perforation or abscess without bleeding; I10 Essential (primary) hypertension; E11.9 Type 2 diabetes mellitus without complications; I25.10 Atherosclerotic heart disease of native coronary artery without angina pectoris; E78.5 Hyperlipidemia, unspecified; G47.30 Sleep apnea, unspecified; G89.29 Other chronic pain; R10.9 Unspecified abdominal pain; I25.2 Old myocardial infarction; J44.9 Chronic obstructive pulmonary disease, unspecified; K52.9 Noninfective gastroenteritis and colitis, unspecified; K80.20 Calculus of gallbladder without cholecystitis without obstruction; N28.1 Cyst of kidney, acquired; Z79.4 Long term (current) use of insulin; Z79.899 Other long term (current) drug therapy; Z95.1 Presence of aortocoronary bypass graft; F17.210 Nicotine dependence, cigarettes, uncomplicated; F31.9 Bipolar disorder, unspecified
CPT/HCPCS: 74177; 74181; 76377; 76705; 76937; 80053; 80074; 80178; 81001; 82103; 82105; 82390; 82728; 82948; 83520; 83540; 83550; 83690; 84478; 85025; 85027; 86038; 86255; 86308; 87522; 87902; 96361; 96372; 96374; 96375; 96376; G0378; J0780; J1644; J1815; J1885; J2270; J2405; J7030; Q9967

== ENCOUNTER 2017-07-13 16:29 | Observation (INO) | payer MEDICARE, MEDICAID ==
[~2017-07-13] VITALS: Ht 180.3 cm; Wt 104.1 kg
[~2017-07-13 16:29] MED LIST changes: +DULC10SU3 RECTAL; +HYDR-3516 PO; +PERI8.6T PO
[2017-07-13 16:40] VITALS: BP 148/72; PULSE 70; RESP 16; O2SAT 98
[2017-07-13 16:43] VITALS: BP 148/72; PULSE 68; PULSE 70; RESP 15; O2SAT 96; O2SAT 98
[2017-07-13] MEDS ORDERED: ASPIRIN 81 MG CHEW TAB PO ONE (16:45)
[2017-07-13] MEDS ORDERED: SODIUM CHLORIDE 0.9% FLUSH 10 ML FLUSH IVF PRN (16:45)
[2017-07-13] MEDS ORDERED: NITROGLYCERIN 2% OINT 1 GM PACKET TOP ONE (16:45)
--- NOTE | 2017-07-13 16:46 | PD ---
HPI Chief Complaint: chest pain Time Seen by Provider: 16:38 Travel History International Travel<30 days: No Contact w/Intl Traveler<30days: No History of Present Illness HPI Patient comes emergency Department complaining of chest pain began approximately 15 minutes prior to arrival. Describes pain as sharp stabbing pain that radiates into his left upper extremity. States this feels similar to his previous heart attacks. Patient reports he's had a total 5 heart attacks previously and had to have a quadruple bypass done last August. Patient states he takes 81 mg aspirin daily and that he took this today. Patient states he took 2 sublingual nitroglycerin prior to coming to the emergency department that helped alleviate his symptoms some. Pain is worse with exertion. Patient reports mild associated shortness of breath. Denies any nausea, vomiting, diaphoresis, headache, dizziness, change in vision, back pain , abdominal pain, or fevers. Patient has a history of hepatitis C, hypertension , coronary artery disease, and diabetes. Patient reports he continues to smoke cigarettes. 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 [employer] Past Medical History Arthritis: Yes Asthma: No Autoimmune Disease: No Blood Disorders: No Bipolar Disorder: Yes (hypermanic) Anxiety: Yes Depression: Yes Heart Rhythm Problems: No Cancer: No Cardiac Catheterization: Yes Cardiovascular Problems: Yes High Cholesterol: Yes Chemotherapy: No Chest Pain: Yes Congestive Heart Failure: No COPD: No Diabetes: Yes Diminished Hearing: No Diverticulitis: Yes Endocrine: Yes Gastrointestinal Disorders: Yes (diverticulitis, pancreaitis) GERD: No Genitourinary: No Hepatitis: Yes Hiatal Hernia: No Heparin Induced Thrombocytopen: No Hypertension: No Immune Disorder: No Implanted Vascular Access Dvce: No Musculoskeletal: No Neurologic: No Psychiatric: Yes (BIPOLAR) Reproductive: No Respiratory: No Immunizations Current: Yes Myocardial Infarction: Yes (X 5) Radiation Therapy: No Sleep Apnea: Yes (LESS NOW THAT HE HAS LOST WEIGHT) Thyroid Disease: No Ulcer: No PNEUMOCCOCAL Vaccine (Year): 2 Past Surgical History Abdominal Surgery: Yes (inguinal hernia) Cardiac Surgery: Yes (quadriple bypass) Coronary Artery Bypass Graft: Yes Ear Surgery: No Endocrine Surgery: No Genitourinary Surgery: No Gynecologic Surgery: No Neurologic Surgery: No Oral Surgery: No Pacemaker: No Thoracic Surgery: No Other Surgery: Yes (right testicle removed and left testicle fixed in place) Social History Alcohol Use: No (pt denies) Tobacco Use: Yes (3 cigarettes/day) Substance Use: No Allergies-Medications (Allergen,Severity, Reaction): Coded Allergies: erythromycin base (Verified Allergy, Severe, hives, 07/13/17) Reported Meds & Prescriptions Reported Meds & Active Scripts Active Dulcolax Supp (Bisacodyl) 10 Mg Supp 10 Mg RECTAL DAILY PRN [place]-Colace (Sennosides-Docusate Sodium) 8.6-50 Mg Tab 1 Tab PO BID Hydrocodone-Acetaminophen 5-325 mg Tab 1 Tab PO Q4H PRN Zofran (Ondansetron HCl) 4 Mg Tab 4 Mg PO Q6HR PRN Reported Aspirin EC (Aspirin) 81 Mg Tabdr 81 Mg PO DAILY Combivent Respimat Inh (Ipratropium-Albuterol Inh) 20-100 Detention/Act Aero 1 Puff INH QID Symbicort Inh (Budesonide/Formoterol Fumarate) 80-4.5 Mcg/Act Aero 2 Puff INH Q12HR Glucose (Dextrose) 4 Gm Chew 4 Gm CHEW DIRECTED CHEW 4 TABS Temazepam 7.5 Mg Cap 7.5 Mg PO HS PRN Ranitidine (Ranitidine HCl) 150 Mg Tab 150 Mg PO BID Potassium Chloride ER (Potassium Chloride) 10 Meq Cap 10 Meq PO DAILY Isosorbide Mononitrate ER (Isosorbide Mononitrate) 60 Mg Tab 60 Mg PO DAILY Furosemide 20 Mg Tab 20 Mg PO DAILY Carvedilol 6.25 Mg Tab 3.125 Mg PO BID Atorvastatin (Atorvastatin Calcium) 80 Mg Tab 80 Mg PO HS Metformin (Metformin HCl) 1,000 Mg Tab 1,000 Mg PO BIDPC With meals Latuda (Lurasidone) 40 Mg Tab 40 Mg PO DAILY [place] Carbonate 600 Mg Cap 600 Mg PO HS [place] Carbonate 300 Mg Cap 300 Mg PO DAILY Lantus Inj (Insulin Glargine) 1,000 Unit/10 Ml Vial 70 Units SQ BID Review of Systems Except as stated in HPI: all other systems reviewed are Neg Physical Exam Narrative GENERAL: Well-developed, overly nourished, in no acute distress, and non-ill appearing. SKIN: Focused skin assessment warm and dry. Scar noted over sternum from previous open heart surgery. Multiple surgical scars noted on the abdomen as well. HEAD: Atraumatic. Normocephalic. EYES: Pupils equal and round. EOMI. No scleral icterus. No injection or drainage. ENT: No nasal bleeding or discharge. Mucous membranes pink and moist. NECK: Trachea midline. No JVD. Supple. No nuclear rigidity. CARDIOVASCULAR: Regular rate and rhythm. No murmur appreciated. RESPIRATORY: No accessory muscle use. No respiratory distress. Clear to auscultation. Breath sounds equal bilaterally. GASTROINTESTINAL: Abdomen soft, non-tender, nondistended, and no guarding. Hepatic and splenic margins not palpable. No pulsatile mass. MUSCULOSKELETAL: No obvious deformities. No clubbing. No cyanosis. No edema. Full range of motion. NEUROLOGICAL: Awake and alert. No obvious cranial nerve deficits. Motor grossly within normal limits. Normal speech. PSYCHIATRIC: Appropriate mood and affect; insight and judgment normal. Data Data Last Documented VS Vital Signs Date Time Temp Pulse Resp B/P (MAP) Pulse Ox O2 Delivery O2 Flow Rate FiO2 07/13/17 16:43 68 15 99 Room Air 07/13/17 16:43 148/72 (97) 07/13/17 16:43 2.00 Orders Orders Electrocardiogram (07/13/17 16:40) Basic Metabolic Panel (Bmp) (07/13/17 16:40) Ckmb (Isoenzyme) Profile (07/13/17 16:40) Complete Blood Count With Diff (07/13/17 16:40) Magnesium (Mg) (07/13/17 16:40) Prothrombin Time / Inr (Pt) (07/13/17 16:40) Act Partial Throm Time (Ptt) (07/13/17 16:40) Troponin I (07/13/17 16:40) Chest, Single Ap (07/13/17 16:40) Ecg Monitoring (07/13/17 16:40) Bilateral Bp Monitoring (07/13/17 16:40) Iv Access Insert/Monitor (07/13/17 16:40) Oximetry (07/13/17 16:40) Oxygen Administration (07/13/17 16:40) Aspirin Chew (Aspirin Chew) (07/13/17 16:45) Nitroglycerin 2% Oint (Nitroglycerin 2% (07/13/17 16:45) Sodium Chloride 0.9% Flush (Ns Flush) (07/13/17 16:45) Admit Order (Ed Use Only) (07/13/17 19:07) Morphine Inj (Morphine Inj) (07/13/17 19:15) Ondansetron Inj (Zofran Inj) (07/13/17 19:15) Activity Bed Rest With Brp (07/13/17 19:07) Vital Signs (Adult) Q4H (07/13/17 19:07) Cardiac Rhythm .As Directed (07/13/17 19:) Notify Dr: Other .PRN (07/13/17 19:07) Notify DrSalvador Parameters (07/13/17 19:07) Resp Oxygen Nasal Cannula (07/13/17 ) Ckmb (Isoenzyme) Profile (07/13/17 19:45) Ckmb (Isoenzyme) Profile (07/13/17 22:45) Troponin I (07/13/17 19:45) Troponin I (07/13/17 22:45) Electrocardiogram (07/13/17 19:45) Electrocardiogram (07/13/17 22:45) ^ Obtain (07/13/17 19:07) Sodium Chloride 0.9% Flush (Ns Flush) (07/13/17 19:15) Sodium Chloride 0.9% Flush (Ns Flush) (07/13/17 21:00) Buildings And Grounds Coordinator / Telemetry NICA.Q8H (07/13/17 19:07) Labs Laboratory Tests Test 07/13/17 16:45 White Blood Count 7.7 TH/MM3 Red Blood Count 4.83 MIL/MM3 Hemoglobin 15.3 GM/DL Hematocrit 44.5 % Mean Corpuscular Volume 92.0 FL Mean Corpuscular Hemoglobin 31.7 PG Mean Corpuscular Hemoglobin Concent 34.5 % Red Cell Distribution Width 13.2 % Platelet Count 226 TH/MM3 Mean Platelet Volume 8.3 FL Neutrophils (%) (Auto) 63.0 % Lymphocytes (%) (Auto) 27.7 % Monocytes (%) (Auto) 6.7 % Eosinophils (%) (Auto) 2.3 % Basophils (%) (Auto) 0.3 % Neutrophils # (Auto) 4.8 TH/MM3 Lymphocytes # (Auto) 2.1 TH/MM3 Monocytes # (Auto) 0.5 TH/MM3 Eosinophils # (Auto) 0.2 TH/MM3 Basophils # (Auto) 0.0 TH/MM3 CBC Comment DIFF FINAL Differential Comment Prothrombin Time 11.1 SEC Prothromb Time International Ratio 1.0 RATIO Activated Partial Thromboplast Time 27.6 SEC Blood Urea Nitrogen 8 MG/DL Creatinine 0.99 MG/DL Random Glucose 231 MG/DL Calcium Level 8.9 MG/DL Magnesium Level 1.9 MG/DL Sodium Level 137 MEQ/L Potassium Level 3.8 MEQ/L Chloride Level 105 MEQ/L Carbon Dioxide Level 23.3 MEQ/L Anion Gap 9 MEQ/L Estimat Glomerular Filtration Rate 78 ML/MIN Total Creatine Kinase 55 U/L Troponin I LESS THAN 0.02 NG/ML MDM Medical Decision Making Medical Screen Exam Complete: Yes Emergency Medical Condition: Yes Interpretation(s) EKG reviewed by Dr. Cornelius shows sinus rhythm with ventricular is 69. No STEMI. Chest x-ray with radiologist shows: No acute disease. Differential Diagnosis ACS, pneumonia, pneumothorax, electrolyte abnormality, arrhythmia, angina, other Narrative Course Patient was noted a stress test performed here on 06/06/17 was negative the myocardial perfusion scan performed on the same day showed small size mild severity mildly reversible anterior apical perfusion abnormality. With borderline ejection fracture. With the risk category of intermediate. Patient was seen and examined. Initial laboratory and radiologic studies were ordered. Patient was given aspirin along with nitro paste placed. Medical records were reviewed. Discussed patient with Dr. Cornelius, who is in agreement with plan of care and disposition. Discussed all findings and plan of care with patient, who is agreeable for admission. All questions were answered. Patient is requesting something else for his pain though, patient was given dose of morphine and admitted to the chest pain center. Patient remained stable throughout ED course. Procedures Procedure Narrative Diagnosis Primary Impression: Chest pain Qualified Codes: R07.9 - Chest pain, unspecified Admitting Information Admitting Physician Requests: Observation Condition: Stable Aiden Novak Jul 13, 2017 16:46
[2017-07-13 17:11] LABS: AUTOMATED NEUTROPHIL # 4.8 TH/MM3 (1.8-7.7); BASOPHIL % 0.3 % (0.0-2.0); EOSINOPHIL # 0.2 TH/MM3 (0-0.4); EOSINOPHIL % 2.3 % (0.0-4.0); HEMATOCRIT 44.5 % (39.0-51.0); HEMO FLAGS DIFF FINAL; LYMPH % 27.7 % (9.0-44.0); LYMPHOCYTE # 2.1 TH/MM3 (1.0-4.8); MEAN CORPUSCULAR HEMOGLOBIN 31.7 PG (27.0-34.0); MEAN CORPUSCULAR HGB CONC 34.5 % (32.0-36.0); MONO % 6.7 % (0.0-8.0); PLATELET COUNT 226 TH/MM3 (150-450); RED BLOOD COUNT 4.83 MIL/MM3 (4.50-5.90); RED CELL DISTRIBUTION WIDTH 13.2 % (11.6-17.2); WHITE BLOOD COUNT 7.7 TH/MM3 (4.0-11.0)
[2017-07-13 17:30] LABS: APTT (PATIENT) 27.6 SEC (24.3-30.1); PROTHROMBIN TIME - PATIENT 11.1 SEC (9.8-11.6)
--- NOTE | 2017-07-13 17:42 | RADRPT ---
EXAM DATE/TIME: 07/13/2017 17:00 [facility] COMPARISON: CHEST SINGLE AP, June 05, 2017, 11:56. INDICATIONS : Left chest pain since this afternoon. MEDICAL HISTORY : Diabetes mellitus type II. SURGICAL HISTORY : CABG. Inguinal hernia repair. ENCOUNTER: Initial ACUITY: 1 day PAIN SCORE: 8/10 LOCATION: Left chest FINDINGS: A single view of the chest demonstrates the lungs to be symmetrically aerated without evidence of mas s, infiltrate or effusion. The cardiomediastinal contours are unremarkable. The patient is status po st median sternotomy. There is an old healed right clavicular fracture. CONCLUSION: No acute disease. Ryan Shepard MD on July 13, 2017 at 17:40 Board Certified Radiologist. This report was verified electronically.
[2017-07-13 17:50] LABS: ANION GAP 9 MEQ/L (5-15); BICARBONATE 23.3 MEQ/L (21.0-32.0); BLOOD UREA NITROGEN 8 MG/DL (7-18); CHLORIDE 105 MEQ/L (98-107); GLOMERULAR FILTRATION RATE 78 ML/MIN (>89); MAGNESIUM 1.9 MG/DL (1.5-2.5); POTASSIUM 3.8 MEQ/L (3.5-5.1); SODIUM (NA) 137 MEQ/L (136-145)
[2017-07-13 17:56] LABS: CREATINE KINASE 55 U/L (39-308)
[2017-07-13] MEDS ORDERED: SODIUM CHLORIDE 0.9% FLUSH 10 ML FLUSH IV FLUSH PRN (19:15)
[2017-07-13] MEDS ORDERED: ONDANSETRON HCL 4 MG/2 ML VIAL IV PUSH ONE (19:15)
[2017-07-13] MEDS ORDERED: MORPHINE SULFATE 4 MG/ML INJ IV PUSH ONE (19:15)
[2017-07-13 20:01] VITALS: O2SAT 96
[2017-07-13 20:21] LABS: CREATINE KINASE 79 U/L (39-308)
[2017-07-13] MEDS ORDERED: SODIUM CHLORIDE 0.9% FLUSH 10 ML FLUSH IV FLUSH SCH (21:00)
[2017-07-13 21:03] VITALS: BP 132/80; PULSE 59; RESP 18; TEMP 98.2; O2SAT 98
[2017-07-13 21:18] VITALS: PULSE 58
[2017-07-13 23:45] LABS: CREATINE KINASE 41 U/L (39-308)
[2017-07-14 00:12] VITALS: BP 123/69; PULSE 54; RESP 16; TEMP 98.2; O2SAT 96
[2017-07-14 00:26] VITALS: PULSE 51
[2017-07-14 04:05] VITALS: PULSE 54
[2017-07-14 04:49] VITALS: BP 137/77; PULSE 59; RESP 20; TEMP 98.1; O2SAT 95
[2017-07-14 08:14] VITALS: BP 129/77; PULSE 68; RESP 16; TEMP 97.6; O2SAT 99
--- NOTE | 2017-07-14 08:33 | HHI.HP ---
HPI Primary Care Physician Alessia Hardy MD Chief Complaint Chest pain History of Present Illness 56-year-old male with known coronary artery disease including multiple cardiac stents and four-vessel bypass presents to emergency room for further evaluation of chest pain. Onset 4 PM. Location left anterior chest described as pain. Denies pressure or stabbing feeling. Reports this is his normal angina pain. Radiation to left arm. Duration 2-3 hours. Associated symptoms include shallow breathing stating it hurt to take a deep breath. Also slightly nauseous. Denied nausea or diaphoresis. Precipitating factors walking his dog. Relieving factors morphine and nitroglycerin given in ER. Review of Systems General: No fatigue,weakness, fever, chills, or recent illness. Has been in his general state of health. HEENT: No [place], no nasal congestion or drainage CV: As stated above. No current chest pain or pressure. Takes Imdur around 9 am each day, reports angina pain usually occurs late afternoon when he is more active. RESP: No SOB, cough, or sputum production. Continues to smoke. GI: No nausea, vomiting, bowel changes, diarrhea, or blood in the stool. Recently told hepatitis C has returned. Following with a GI specialist. EXT: No lower leg edema MS: No discomfort or change in ROM NEURO: No difficulty with balance, LOC, motor/sensory deficits PSYCH: No anxiety or depression Past Family Social History Allergies: Coded Allergies: erythromycin base (Verified Allergy, Severe, hives, 07/13/17) Past Medical History CAD, Diabetes, cardiac stents, hepatitis C, diverticulosis, COPD, bipolar, hypertension, diabetes Past Surgical History Cabg x4 (2016), inguinal hernia repair Reported Medications Active Dulcolax Supp (Bisacodyl) 10 Mg Supp 10 Mg RECTAL DAILY PRN Skylar-Colace (Sennosides-Docusate Sodium) 8.6-50 Mg Tab 1 Tab PO BID Hydrocodone-Acetaminophen 5-325 mg Tab 1 Tab PO Q4H PRN Zofran (Ondansetron HCl) 4 Mg Tab 4 Mg PO Q6HR PRN Aspirin EC (Aspirin) 81 Mg Tabdr 81 Mg PO DAILY Combivent Respimat Inh (Ipratropium-Albuterol Inh) 20-100 Snf/Act Aero 1 Puff INH QID Symbicort Inh (Budesonide/Formoterol Fumarate) 80-4.5 Mcg/Act Aero 2 Puff INH Q12HR Glucose (Dextrose) 4 Gm Chew 4 Gm CHEW DIRECTED CHEW 4 TABS Temazepam 7.5 Mg Cap 7.5 Mg PO HS PRN Ranitidine (Ranitidine HCl) 150 Mg Tab 150 Mg PO BID Potassium Chloride ER (Potassium Chloride) 10 Meq Cap 10 Meq PO DAILY Isosorbide Mononitrate ER (Isosorbide Mononitrate) 60 Mg Tab 60 Mg PO DAILY Furosemide 20 Mg Tab 20 Mg PO DAILY Carvedilol 6.25 Mg Tab 3.125 Mg PO BID Atorvastatin (Atorvastatin Calcium) 80 Mg Tab 80 Mg PO HS Metformin (Metformin HCl) 1,000 Mg Tab 1,000 Mg PO BIDPC With meals Latuda (Lurasidone) 40 Mg Tab 40 Mg PO DAILY [place] Carbonate 600 Mg Cap 600 Mg PO HS [place] Carbonate 300 Mg Cap 300 Mg PO DAILY Lantus Inj (Insulin Glargine) 1,000 Unit/10 Ml Vial 70 Units SQ BID Active Ordered Medications Current Medications Medications (Trade) Dose Ordered Sig/Lucita Route Start Time Stop Time Status Last Admin (NS Flush) 2 ml UNSCH PRN IVF 07/13/17 16:45 (NS Flush) 2 ml UNSCH PRN IV FLUSH 07/13/17 19:15 (NS Flush) 2 ml BID IV FLUSH 07/13/17 21:00 07/13/17 20:45 Social History Known coronary artery disease and diabetes Lifelong smoker. Continues to smoke 1 pack/week. Denies any alcohol and illegal drug use. Past Cardiac Testing CABGx4 fall 2015. 06/06/2017 Lexiscan-Conclusion: Small size mild severity mildly reversible anterior apical perfusion abnormality. Borderline ejection faction. (Discharge home from chest pain center after report). Physical Exam Vital Signs Vital Signs Date Time Temp Pulse Resp B/P (MAP) Pulse Ox O2 Delivery O2 Flow Rate FiO2 07/14/17 08:14 97.6 68 16 129/77 (94) 99 07/14/17 04:49 98.1 59 20 137/77 (97) 95 07/14/17 04:05 54 07/14/17 00:26 51 07/14/17 00:12 98.2 54 16 123/69 (87) 96 07/13/17 21:49 18 07/13/17 21:18 58 07/13/17 21:03 98.2 59 18 132/80 (97) 98 07/13/17 20:01 96 21 07/13/17 19:46 60 16 97 07/13/17 16:43 68 15 99 Room Air 07/13/17 16:43 70 15 148/72 (97) 96 Room Air 07/13/17 16:43 98 Nasal Cannula 2.00 07/13/17 16:43 68 15 148/72 (97) 98 Nasal Cannula 2.00 07/13/17 16:40 70 16 148/72 (97) 98 Physical Exam GENERAL: Alert WN, WD, NAD, pleasant, male who appears older than stated age CV: RRR, without murmur, rub, gallop, no JVD, S1-S2 no S3-S4. RESP: Clear lungs throughout bilateral, no crackles, wheeze, rhonchi, symmetrical chest rise, nonlabored, able to speak in full sentences ABD: Soft, NT, ND, no masses, positive bowel tones EXT: Pulses +24, no dependent edema MS: Normal tone 4 extremities, nontender, no obvious deformities, full range of motion NEURO: CN II through CN XII grossly intact, motor strength 5/5, gait WNL PSYCH: A+O 3, pleasant affect, appropriate speech, appropriate mood and affect , insight and judgment SKIN: Normal turgor, normal texture, no lesions, no rashes Laboratory Laboratory Tests Test 07/13/17 16:45 07/13/17 19:38 07/13/17 22:45 White Blood Count 7.7 Red Blood Count 4.83 Hemoglobin 15.3 Hematocrit 44.5 Mean Corpuscular Volume 92.0 Mean Corpuscular Hemoglobin 31.7 Mean Corpuscular Hemoglobin Concent 34.5 Red Cell Distribution Width 13.2 Platelet Count 226 Mean Platelet Volume 8.3 Neutrophils (%) (Auto) 63.0 Lymphocytes (%) (Auto) 27.7 Monocytes (%) (Auto) 6.7 Eosinophils (%) (Auto) 2.3 Basophils (%) (Auto) 0.3 Neutrophils # (Auto) 4.8 Lymphocytes # (Auto) 2.1 Monocytes # (Auto) 0.5 Eosinophils # (Auto) 0.2 Basophils # (Auto) 0.0 CBC Comment DIFF FINAL Differential Comment Prothrombin Time 11.1 Prothromb Time International Ratio 1.0 Activated Partial Thromboplast Time 27.6 Blood Urea Nitrogen 8 Creatinine 0.99 Random Glucose 231 Calcium Level 8.9 Magnesium Level 1.9 Sodium Level 137 Potassium Level 3.8 Chloride Level 105 Carbon Dioxide Level 23.3 Anion Gap 9 Estimat Glomerular Filtration Rate 78 Total Creatine Kinase 55 79 41 Troponin I LESS THAN 0.02 LESS THAN 0.02 LESS THAN 0.02 Result Diagram: 07/13/17 1645 07/13/17 1645 Imaging Last Impressions Chest X-Ray 07/13/17 1640 Signed Impressions: Service Date/Time: , July 13, 2017 17:00 - CONCLUSION: No acute disease. Ryan Shepard MD Course EKG Normal sinus bradycardia, inferior CT, no st t segment changes (compared to previous EKG) Caprini VTE Risk Assessment Caprini VTE Risk Assessment: No/Low Risk (score <= 1) Caprini Risk Assessment Model Point Value = 1 Point Value = 2 Point Value = 3 Point Value = 5 Age 41-60 Minor surgery BMI > 25 kg/m2 Swollen legs Varicose veins or History of unexplained or recurrent spontaneous Oral contraceptives or hormone replacement Sepsis (< 1 month) Serious lung disease, including pneumonia (< 1 month) Abnormal pulmonary function Acute myocardial infarction Congestive heart failure (< 1 month) History of inflammatory bowel disease Medical patient at bed rest Age 61-74 Arthroscopic surgery Major open surgery (> 45 min) Laparoscopic surgery (> 45 min) Malignancy Confined to bed (> 72 hours) Immobilizing plaster cast Central venous access Age >= 75 History of VTE Family history of VTE Factor V Leiden Prothrombin [id number] Lupus anticoagulant Anticardiolipin antibodies Elevated serum homocysteine Heparin-induced thrombocytopenia Other congenital or acquired thrombophilia Stroke (< 1 month) Elective arthroplasty Hip, pelvis, or leg fracture Acute spinal cord injury (< 1 month) Prophylaxis Regimen Total Risk Factor Score Risk Level Prophylaxis Regimen 0-1 Low Early ambulation 2 Moderate Order ONE of the following: *Sequential Compression Device (SCD) *Heparin 5000 units SQ BID 3-4 Higher Order ONE of the following medications: *Heparin 5000 units SQ TID *Enoxaparin/Lovenox 40 mg SQ daily (WT < 150 kg, CrCl > 30 mL/min) *Enoxaparin/Lovenox 30 mg SQ daily (WT < 150 kg, CrCl > 10-29 mL/min) *Enoxaparin/Lovenox 30 mg SQ BID (WT < 150 kg, CrCl > 30 mL/min) AND/OR *Sequential Compression Device (SCD) 5 or more Highest Order ONE of the following medications: *Heparin 5000 units SQ TID (Preferred with Epidurals) *Enoxaparin/Lovenox 40 mg SQ daily (WT < 150 kg, CrCl > 30 mL/min) *Enoxaparin/Lovenox 30 mg SQ daily (WT < 150 kg, CrCl > 10-29 mL/min) *Enoxaparin/Lovenox 30 mg SQ BID (WT < 150 kg, CrCl > 30 mL/min) AND *Sequential Compression Device (SCD) Assessment and Plan Assessment and Plan #1 Chest pain-admitted to chest pain center. Ruled out with 3 sets of EKGs and cardiac enzymes. Seen and evaluated by Dr. Verenice Renteria. No further cardiac testing recommended at this time. Dr. Renteria discussed taking Imdur later in morning or early afternoon, 1-2 hours before his most activity of the day. Patient agrees and will trial. Add amlodipine 5 mg daily to current medication regimen. Follow up with [place] obiee lead developer as previously instructed. Patient is agreeable to plan of care and requesting discharge. Discharge this morning. He will take medications once home, he does not want to wait for medications to be restarted. Alea Sims Jul 14, 2017 08:33
--- NOTE | 2017-07-14 08:49 | EKG ---
Date Performed: 07/13/2017 Time Performed: 22:57:19 PTAGE: 56 years EKG: SINUS BRADYCARDIA INFERIOR MYOCARDIAL INFARCTION ABNORMAL ECG Since PREVIOUS TRACING , no significant change noted PREVIOUS TRACIN07/13/2017 19.39 DOCTOR: Verenice Renteria Interpretating Date/Time 07/14/2017 08:48:04
[2017-07-14] MEDS ORDERED: AMLO5TAB2 PO (08:59)
--- NOTE | 2017-07-14 09:00 | HHI.DCPOC ---
Discharge Care Plan Diagnosis: (1) Hx of coronary artery disease (2) Chest pain Goals to Promote Your Health * To prevent worsening of your condition and complications * To maintain your health at the optimal level Directions to Meet Your Goals Take your medications as prescribed Follow your dietary instruction Follow activity as directed Keep your appointments as scheduled Take your immunizations and boosters as scheduled If your symptoms worsen call your PCP, if no PCP go to Urgent Care Center or Emergency Room Smoking is Dangerous to Your Health. Avoid second hand smoke Call the 24-hour hour crisis hotline for domestic abuse at Alea Sims Jul 14, 2017 09:00
--- NOTE | 2017-07-15 00:59 | EKG ---
Date Performed: 07/13/2017 Time Performed: 19:39:45 PTAGE: 56 years EKG: SINUS BRADYCARDIA PATTERN CONSISTENT WITH PULMONARY DISEASE INFERIOR MYOCARDIAL INFARCTION ABNORMAL ECG PREVIOUS TRACING : 07/13/2017 16.33 Compared to prior tracing no significant change DOCTOR: Santino Torres Interpretating Date/Time 07/15/2017 00:58:25
--- NOTE | 2017-07-15 01:09 | EKG ---
Date Performed: 07/13/2017 Time Performed: 16:33:33 PTAGE: 56 years EKG: Sinus rhythm PATTERN CONSISTENT WITH PULMONARY DISEASE INFERIOR MYOCARDIAL INFARCTION ABNORMAL ECG INTERPRETATION BASED ON A DEFAULT AGE OF 40 YEARS PREVIOUS TRACING : 06/05/2017 18.17 Compared to prior tracing no significant change DOCTOR: Santino Torres Interpretating Date/Time 07/15/2017 01:08:44
== END 2017-07-14 10:04 | disposition home or self-care (01) ==
LOC: NEPE 16:29 → NEDA 19:11 → NEPGCP 20:47
PROVIDERS: ADMIT Internal Medicine Interventional Cardiology; ATTEND Internal Medicine Interventional Cardiology
DX: I25.119 Atherosclerotic heart disease of native coronary artery with unspecified angina pectoris (principal); E11.9 Type 2 diabetes mellitus without complications; J44.9 Chronic obstructive pulmonary disease, unspecified; R11.0 Nausea; B19.20 Unspecified viral hepatitis C without hepatic coma; F17.210 Nicotine dependence, cigarettes, uncomplicated; K57.90 Diverticulosis of intestine, part unspecified, without perforation or abscess without bleeding; Z79.84 Long term (current) use of oral hypoglycemic drugs; Z95.1 Presence of aortocoronary bypass graft
CPT/HCPCS: 71010; 80048; 82550; 83735; 84484; 85025; 85610; 85730; 93005; 96374; 96375; 99285; G0378; J2270; J2405

== ENCOUNTER 2017-08-05 17:32 | Emergency (ER) | payer OTHER, MEDICARE ==
[~2017-08-05] VITALS: Ht 180.3 cm; Wt 100.0 kg
[~2017-08-05 17:32] MED LIST changes: +AMLO5TAB2 PO; -TEGR200T PO
[2017-08-05] MEDS ORDERED: IOHEXOL 350 MG/ML 10 ML VIAL (for RAD DIAG) IVCONTRAST ONE (17:33)
--- NOTE | 2017-08-05 17:43 | PD ---
HPI Chief Complaint: abdominal pain Time Seen by Provider: 17:42 Travel History International Travel<30 days: No Contact w/Intl Traveler<30days: No History of Present Illness HPI 56 YO M with PMH of HTN, HLD, DM, CAD S/P CABG and stenting, chronic abdominal pain, pancreatitis, hep C, bipolar, COPD presents to the ED for evaluation of 2 day history of left lower quadrant abdominal pain, loose stools, nausea and vomiting. Patient denies fever, chills, chest pain, palpitations, shortness of breath, hematemesis, melena, hematochezia, dysuria, hematuria. He states these symptoms are similar to previous episodes of diverticulitis. States he is currently taking amoxicillin for a dental infection. PFSH Past Medical History Hx Anticoagulant Therapy: Yes (ASPIRIN) Arthritis: Yes Asthma: No Autoimmune Disease: No Blood Disorders: No Bipolar Disorder: Yes (hypermanic) Anxiety: Yes Depression: Yes Heart Rhythm Problems: No Cancer: No Cardiac Catheterization: Yes Cardiovascular Problems: Yes High Cholesterol: Yes Chemotherapy: No Chest Pain: Yes Congestive Heart Failure: No COPD: No Cerebrovascular Accident: No Diabetes: Yes Diminished Hearing: No Diverticulitis: Yes Endocrine: Yes Gastrointestinal Disorders: Yes (diverticulitis, pancreaitis) GERD: No Genitourinary: No Hepatitis: Yes Hiatal Hernia: No Heparin Induced Thrombocytopen: No Hypertension: No Immune Disorder: No Implanted Vascular Access Dvce: No Musculoskeletal: No Neurologic: No Psychiatric: Yes (BIPOLAR) Reproductive: No Respiratory: No Immunizations Current: Yes Myocardial Infarction: Yes Radiation Therapy: No Sleep Apnea: Yes (LESS NOW THAT HE HAS LOST WEIGHT) Thyroid Disease: No Ulcer: No PNEUMOCCOCAL Vaccine (Year): 2 Past Surgical History Abdominal Surgery: Yes (HERNIA REPAIR) Cardiac Surgery: Yes Coronary Artery Bypass Graft: Yes (x4) Coronary Stent: Yes Ear Surgery: No Endocrine Surgery: No Genitourinary Surgery: Yes (RT TESTICLE REMOVED) Gynecologic Surgery: No Neurologic Surgery: No Oral Surgery: No Pacemaker: No Thoracic Surgery: No Other Surgery: Yes (right testicle removed and left testicle fixed in place) Social History Alcohol Use: No Tobacco Use: Yes Substance Use: No Allergies-Medications (Allergen,Severity, Reaction): Coded Allergies: erythromycin base (Verified Allergy, Severe, hives, 08/05/17) Reported Meds & Prescriptions Reported Meds & Active Scripts Active Cipro (Ciprofloxacin HCl) 500 Mg Tab 500 Mg PO BID 7 Days Metronidazole 500 Mg Tab 500 Mg PO BID 7 Days Amlodipine (Amlodipine Besylate) 5 Mg Tab 5 Mg PO DAILY Zofran (Ondansetron HCl) 4 Mg Tab 4 Mg PO Q6HR PRN Reported Aspirin EC (Aspirin) 81 Mg Tabdr 81 Mg PO DAILY Combivent Respimat Inh (Ipratropium-Albuterol Inh) 20-100 Mcfp/Act Aero 1 Puff INH QID Glucose (Dextrose) 4 Gm Chew 4 Gm CHEW DIRECTED CHEW 4 TABS Temazepam 7.5 Mg Cap 7.5 Mg PO HS PRN Ranitidine (Ranitidine HCl) 150 Mg Tab 150 Mg PO BID Potassium Chloride ER (Potassium Chloride) 10 Meq Cap 10 Meq PO DAILY Isosorbide Mononitrate ER (Isosorbide Mononitrate) 60 Mg Tab 60 Mg PO DAILY Furosemide 20 Mg Tab 20 Mg PO DAILY Carvedilol 6.25 Mg Tab 3.125 Mg PO BID Atorvastatin (Atorvastatin Calcium) 80 Mg Tab 80 Mg PO HS Metformin (Metformin HCl) 1,000 Mg Tab 1,000 Mg PO BIDPC With meals Latuda (Lurasidone) 40 Mg Tab 40 Mg PO DAILY [place] Carbonate 600 Mg Cap 600 Mg PO HS [place] Carbonate 300 Mg Cap 300 Mg PO DAILY Lantus Inj (Insulin Glargine) 1,000 Unit/10 Ml Vial 70 Units SQ BID Review of Systems Except as stated in HPI: all other systems reviewed are Neg Physical Exam Narrative GENERAL: Well-nourished, well-developed white male in no acute distress. SKIN: Focused skin assessment warm/dry. HEAD: Normocephalic. EYES: No scleral icterus. No injection or drainage. NECK: Supple, trachea midline. No JVD or lymphadenopathy. CARDIOVASCULAR: Regular rate and rhythm without murmurs, gallops, or rubs. RESPIRATORY: Breath sounds clear and equal bilaterally. No accessory muscle use. GASTROINTESTINAL: Abdomen soft, nondistended. Mild tender to palpation in the left lower quadrant. Active bowel sounds. MUSCULOSKELETAL: No cyanosis, or edema. BACK: Nontender without obvious deformity. No CVA tenderness. Data Data Last Documented VS Vital Signs Date Time Temp Pulse Resp B/P (MAP) Pulse Ox O2 Delivery O2 Flow Rate FiO2 08/05/17 17:48 98.4 81 20 137/76 (96) 99 Orders Orders Complete Blood Count With Diff (08/05/17 18:17) Comprehensive Metabolic Panel (08/05/17 18:17) Lipase (08/05/17 18:17) Lactic Acid (08/05/17 18:17) Prothrombin Time / Inr (Pt) (08/05/17 18:17) Act Partial Throm Time (Ptt) (08/05/17 18:17) Iv Access Insert/Monitor (08/05/17 18:17) Ecg Monitoring (08/05/17 18:17) Oximetry (08/05/17 18:17) NPO (08/05/17 18:17) Sodium Chloride 0.9% Flush (Ns Flush) (08/05/17 18:30) Ondansetron Inj (Zofran Inj) (08/05/17 18:30) Ct Abd/Pel W Iv Contrast(Rout) (08/05/17 ) Morphine Inj (Morphine Inj) (08/05/17 19:15) Electrocardiogram (08/05/17 17:53) Iohexol 350 Inj (Omnipaque 350 Inj) (08/05/17 17:33) Metronidazole (Flagyl) (08/05/17 20:15) Ciprofloxacin (Cipro) (08/05/17 20:15) Sodium Chlor 0.9% 1000 Ml Inj (Ns 1000 M (08/05/17 20:30) Labs Laboratory Tests Test 08/05/17 18:35 White Blood Count 9.9 TH/MM3 Red Blood Count 5.09 MIL/MM3 Hemoglobin 16.4 GM/DL Hematocrit 46.8 % Mean Corpuscular Volume 92.1 FL Mean Corpuscular Hemoglobin 32.3 PG Mean Corpuscular Hemoglobin Concent 35.1 % Red Cell Distribution Width 13.6 % Platelet Count 230 TH/MM3 Mean Platelet Volume 8.2 FL Neutrophils (%) (Auto) 72.2 % Lymphocytes (%) (Auto) 19.2 % Monocytes (%) (Auto) 7.2 % Eosinophils (%) (Auto) 1.0 % Basophils (%) (Auto) 0.4 % Neutrophils # (Auto) 7.1 TH/MM3 Lymphocytes # (Auto) 1.9 TH/MM3 Monocytes # (Auto) 0.7 TH/MM3 Eosinophils # (Auto) 0.1 TH/MM3 Basophils # (Auto) 0.0 TH/MM3 CBC Comment DIFF FINAL Differential Comment Prothrombin Time 12.0 SEC Prothromb Time International Ratio 1.1 RATIO Activated Partial Thromboplast Time 28.3 SEC Blood Urea Nitrogen 10 MG/DL Creatinine 0.96 MG/DL Random Glucose 204 MG/DL Total Protein 8.5 GM/DL Albumin 3.9 GM/DL Calcium Level 9.3 MG/DL Alkaline Phosphatase 126 U/L Aspartate Amino Transf (AST/SGOT) 44 U/L Alanine Aminotransferase (ALT/SGPT) 60 U/L Total Bilirubin 0.9 MG/DL Sodium Level 135 MEQ/L Potassium Level 3.5 MEQ/L Chloride Level 104 MEQ/L Carbon Dioxide Level 24.7 MEQ/L Anion Gap 6 MEQ/L Estimat Glomerular Filtration Rate 81 ML/MIN Lactic Acid Level 1.6 mmol/L Lipase 147 U/L [facility] Medical Decision Making Medical Screen Exam Complete: Yes Emergency Medical Condition: Yes Differential Diagnosis Diverticulitis versus gastroenteritis versus pancreatitis versus other Narrative Course 56 YO M with PMH of HTN, HLD, DM, CAD S/P CABG and stenting, chronic abdominal pain, pancreatitis, hep C, bipolar, COPD presents to the ED for evaluation of 2 day history of left lower quadrant abdominal pain, loose stools, nausea and vomiting. Patient denies fever, chills, chest pain, palpitations, shortness of breath, hematemesis, melena, hematochezia, dysuria, hematuria. Patient is afebrile, normotensive on presentation. Physical exam reveals left lower quadrant tenderness but is otherwise unremarkable. Patient was administered 1 L normal saline, 4 mg morphine, 4 mg Zofran IV. CBC: WBC 9.9, neutrophil predominant. Hemoglobin 16.4. CMP: Sodium 135. BUN 10. Creatinine 0.96. Coags: INR 1.1 CT abdomen and pelvis: Mild diverticulitis, chronic findings. I discussed the results of the workup with the patient. He is prescribed Cipro and Flagyl, first doses administered in the ED. 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 He was cautioned not to take Zofran while taking Cipro and Flagyl. He is agreeable to this care plan. He is stable and discharged home. 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
[2017-08-05 17:48] VITALS: BP 137/76; PULSE 81; RESP 20; TEMP 98.4; O2SAT 99
[2017-08-05] MEDS ORDERED: ONDANSETRON HCL 4 MG/2 ML VIAL IV PUSH ONE (18:30)
[2017-08-05] MEDS ORDERED: SODIUM CHLORIDE 0.9% FLUSH 10 ML FLUSH IV FLUSH PRN (18:30)
[2017-08-05] MEDS ORDERED: MORPHINE SULFATE 4 MG/ML INJ IV PUSH ONE (19:15)
[2017-08-05 19:22] LABS: AUTOMATED NEUTROPHIL # 7.1 TH/MM3 (1.8-7.7); BASOPHIL % 0.4 % (0.0-2.0); EOSINOPHIL # 0.1 TH/MM3 (0-0.4); HEMATOCRIT 46.8 % (39.0-51.0); HEMO FLAGS DIFF FINAL; LYMPH % 19.2 % (9.0-44.0); LYMPHOCYTE # 1.9 TH/MM3 (1.0-4.8); MEAN CELL VOLUME 92.1 FL (80.0-100.0); MEAN CORPUSCULAR HEMOGLOBIN 32.3 PG (27.0-34.0); MEAN CORPUSCULAR HGB CONC 35.1 % (32.0-36.0); MONO % 7.2 % (0.0-8.0); NEUT % 72.2 % (16.0-70.0); PLATELET COUNT 230 TH/MM3 (150-450); RED BLOOD COUNT 5.09 MIL/MM3 (4.50-5.90); RED CELL DISTRIBUTION WIDTH 13.6 % (11.6-17.2); WHITE BLOOD COUNT 9.9 TH/MM3 (4.0-11.0)
[2017-08-05 19:28] LABS: ANION GAP 6 MEQ/L (5-15); AST (GOT) 44 U/L (15-37); BICARBONATE 24.7 MEQ/L (21.0-32.0); BLOOD UREA NITROGEN 10 MG/DL (7-18); CHLORIDE 104 MEQ/L (98-107); GLOMERULAR FILTRATION RATE 81 ML/MIN (>89); POTASSIUM 3.5 MEQ/L (3.5-5.1); SODIUM (NA) 135 MEQ/L (136-145)
[2017-08-05 19:29] LABS: ALT (GPT) 60 U/L (12-78)
[2017-08-05 19:31] LABS: ALKALINE PHOSPHATASE 126 U/L (45-117); TOTAL BILIRUBIN ADULT 0.9 MG/DL (0.2-1.0)
[2017-08-05 19:38] LABS: APTT (PATIENT) 28.3 SEC (24.3-30.1); INTERNATIONAL NORMALIZED RATIO 1.1 RATIO
--- NOTE | 2017-08-05 19:47 | RADRPT ---
EXAM DATE/TIME: 08/05/2017 19:27 [place] COMPARISON: CT ABDOMEN & PELVIS W CONTRAST, July 02, 2017, 19:33. INDICATIONS : Left lower quadrant pain with vomiting. IV CONTRAST: 95 cc Omnipaque 350 (iohexol) IV ORAL CONTRAST: No oral contrast ingested. RADIATION DOSE: 15.79 CTDIvol (mGy) MEDICAL HISTORY : Cardiovascular disease. Diabetes mellitus type 2. Hepatitis. SURGICAL HISTORY : CABG Inguinal hernia repair. Right testicle removed ENCOUNTER: Initial ACUITY: 1 day PAIN SCALE: 5/10 LOCATION: Left lower quadrant TECHNIQUE: Volumetric scanning of the abdomen and pelvis was performed. Using automated exposure control and ad justment of the mA and/or kV according to patient size, radiation dose was kept as low as reasonably achievable to obtain optimal diagnostic quality images. DICOM format image data is available electro nically for review and comparison. FINDINGS: LOWER LUNGS: The visualized lower lungs are clear. The patient is status post median sternotomy. No oral contrast was given limiting sensitivity. The appendix is within normal limits. LIVER: Homogeneous density without lesion. There is no dilation of the biliary tree. No calcified gallston es. There is mild steatosis with decreased attenuation. SPLEEN: Normal size without lesion. PANCREAS: Within normal limits. KIDNEYS: Normal in size and shape. There is no solid mass, stone or hydronephrosis. There are multiple cysts in the right kidney. ADRENAL GLANDS: Within normal limits. VASCULAR: There is no aortic aneurysm. BOWEL/MESENTERY: There is a small hiatal hernia noted. This is stable fluid structure partially visualized near the ga stroesophageal junction. The stomach, small bowel, and colon demonstrate no acute abnormality. There are small scattered diverticuli. There is no free intraperitoneal air or fluid. ABDOMINAL WALL: Within normal limits. RETROPERITONEUM: There is no lymphadenopathy. BLADDER: No wall thickening or mass. REPRODUCTIVE: Within normal limits. INGUINAL: There is no lymphadenopathy or hernia. MUSCULOSKELETAL: Within normal limits for patient age. CONCLUSION: 1. Mild diverticulosis with no inflammatory change. There is no evidence of obstruction. 2. Small hiatal hernia with stable fluid collection in the region of the gastroesophageal junction wh ich may represent a duplication cyst. 3. Small benign cystic structures in the right kidney. 4. Mild hepatic steatosis. Ryan Shepard MD on August 05, 2017 at 19:40 Board Certified Radiologist. This report was verified electronically.
[2017-08-05] MEDS ORDERED: CIPR-9 PO ×3 (20:13→21:16)
[2017-08-05] MEDS ORDERED: METR500T10 PO ×3 (20:13→21:16)
[2017-08-05] MEDS ORDERED: CIPROFLOXACIN 500 MG TAB PO ONE (20:15)
[2017-08-05] MEDS ORDERED: metroNIDAZOLE 500 MG TAB PO ONE (20:15)
[2017-08-05] MEDS ORDERED: SODIUM CHLOR 0.9% 1000 ML INJ 1,000 ML IV ONE (20:30)
--- NOTE | 2017-08-06 13:24 | EKG ---
Date Performed: 08/05/2017 Time Performed: 17:53:25 PTAGE: 56 years EKG: Sinus rhythm Left axis deviation Possible inferior wall myocardial infarction of indeterminate age PREVIOUS TRACING : 07/13/2017 22.57 Since previous tracing, no significant change. DOCTOR: Forest Owens Interpretating Date/Time 08/06/2017 13:22:11
== END 2017-08-05 21:20 | disposition home or self-care (01) ==
LOC: NEPC 17:32
DX: K57.32 Diverticulitis of large intestine without perforation or abscess without bleeding (principal); I10 Essential (primary) hypertension; E78.5 Hyperlipidemia, unspecified; E11.9 Type 2 diabetes mellitus without complications; I25.2 Old myocardial infarction; Z72.0 Tobacco use; Z79.4 Long term (current) use of insulin; Z79.82 Long term (current) use of aspirin; Z87.39 Personal history of other diseases of the musculoskeletal system and connective tissue; Z86.59 Personal history of other mental and behavioral disorders; Z86.79 Personal history of other diseases of the circulatory system; Z87.19 Personal history of other diseases of the digestive system
CPT/HCPCS: 74177; 80053; 83605; 83690; 85025; 85610; 85730; 93005; 96361; 96374; 96375; 99285; J2270; J2405; J7030; Q9967

== ENCOUNTER 2017-09-24 17:39 | Emergency (ER) | payer OTHER, MEDICARE ==
[~2017-09-24] VITALS: Ht 177.8 cm; Wt 88.0 kg
[~2017-09-24 17:39] MED LIST changes: -ASPI81TA11 PO; +ASPI81TA23 PO; -ATOR1TAB18 PO; +ATOR80TA45 PO; +CIPR-9 PO; -DULC10SU3 RECTAL; -HYDR-3516 PO; +METR1TAB76 PO; -PERI8.6T PO; -SYMB80AE INH
[2017-09-24 17:52] VITALS: BP 121/71; PULSE 88; RESP 20; TEMP 98; O2SAT 99
[2017-09-24 18:22] VITALS: O2SAT 96
[2017-09-24 18:40] LABS: AUTOMATED NEUTROPHIL # 6.3 TH/MM3 (1.8-7.7); BASOPHIL # 0.1 TH/MM3 (0-0.2); BASOPHIL % 0.6 % (0.0-2.0); EOSINOPHIL # 0.1 TH/MM3 (0-0.4); EOSINOPHIL % 1.5 % (0.0-4.0); HEMATOCRIT 50.6 % (39.0-51.0); HEMO FLAGS DIFF FINAL; LYMPH % 24.8 % (9.0-44.0); LYMPHOCYTE # 2.3 TH/MM3 (1.0-4.8); MEAN CELL VOLUME 93.5 FL (80.0-100.0); MEAN CORPUSCULAR HEMOGLOBIN 32.6 PG (27.0-34.0); MEAN CORPUSCULAR HGB CONC 34.8 % (32.0-36.0); MONO % 5.4 % (0.0-8.0); NEUT % 67.7 % (16.0-70.0); PLATELET COUNT 242 TH/MM3 (150-450); RED BLOOD COUNT 5.41 MIL/MM3 (4.50-5.90); RED CELL DISTRIBUTION WIDTH 13.3 % (11.6-17.2); WHITE BLOOD COUNT 9.3 TH/MM3 (4.0-11.0)
[2017-09-24 18:42] LABS: BLOOD, URINE NEG (NEG); COMMENT (UR) CULT NOT INDICATED; CULTURE IF INDICATED CULT NOT INDICATED; GLUCOSE,URINE 300 mg/dL (NEG); KETONE, URINE NEG (NEG); MUCUS URINE FEW /lpf (OCC); NITRITE,URINE NEG (NEG); SQUAMOUS EPITHELIAL CELL URINE <1 /hpf (0-5); URINE COLOR LIGHT-YELLOW (YELLW/STRAW)
[2017-09-24 19:00] LABS: ANION GAP 8 MEQ/L (5-15); AST (GOT) 29 U/L (15-37); BLOOD UREA NITROGEN 13 MG/DL (7-18); CHLORIDE 101 MEQ/L (98-107); GLOMERULAR FILTRATION RATE 71 ML/MIN (>89); POTASSIUM 3.8 MEQ/L (3.5-5.1); SODIUM (NA) 133 MEQ/L (136-145)
[2017-09-24 19:01] LABS: ALT (GPT) 54 U/L (12-78)
[2017-09-24 19:04] LABS: ALKALINE PHOSPHATASE 140 U/L (45-117); TOTAL BILIRUBIN ADULT 0.8 MG/DL (0.2-1.0)
--- NOTE | 2017-09-24 19:11 | PD ---
HPI Chief Complaint: Abdominal Pain Time Seen by Provider: 19:10 Travel History International Travel<30 days: No Contact w/Intl Traveler<30days: No Traveled to known affect area: No History of Present Illness HPI 56-year-old male presents to emergency department via EMS with complaint of left lower quadrant abdominal pain that started approximately 2 AM this morning. History of diverticulosis and diverticulitis. Reports vomiting and diarrhea. Denies hematemesis or hematochezia. Denies fevers; reports cold chills. Denies chest or shortness of breath. Denies dysuria. Has tried taking Zofran and an antidiarrheal medication with some relief of symptoms. Rates pain 8/10. He describes it as a stabbing, throbbing, aching, cramping sensation. No known relieving or aggravating factors. Allergies to erythromycin. Dr. Hardy of the [facility] is primary care provider. History of heart attack, diabetes mellitus, diverticulosis. Has no other medical complaints. No other modifying factors or associated signs and symptoms. PFSH Past Medical History Hx Anticoagulant Therapy: Yes (ASPIRIN) Arthritis: Yes Asthma: No Autoimmune Disease: No Blood Disorders: No Bipolar Disorder: Yes (hypermanic) Anxiety: Yes Depression: Yes Heart Rhythm Problems: No Cancer: No Cardiac Catheterization: Yes Cardiovascular Problems: Yes (CAD, QUAD CABG) High Cholesterol: Yes Chemotherapy: No Chest Pain: Yes Congestive Heart Failure: No COPD: No Cerebrovascular Accident: No Diabetes: Yes Patient Takes Glucophage: No Diminished Hearing: No Diverticulitis: Yes Endocrine: Yes Gastrointestinal Disorders: Yes (diverticulitis, pancreaitis) GERD: No Genitourinary: No Hepatitis: Yes Hiatal Hernia: No Heparin Induced Thrombocytopen: No Hypertension: No Immune Disorder: No Implanted Vascular Access Dvce: No Musculoskeletal: No Neurologic: No Psychiatric: Yes (BIPOLAR) Reproductive: No Respiratory: No Immunizations Current: Yes Myocardial Infarction: Yes Radiation Therapy: No Sleep Apnea: Yes (LESS NOW THAT HE HAS LOST WEIGHT) Thyroid Disease: No Ulcer: No PNEUMOCCOCAL Vaccine (Year): 2 Past Surgical History Abdominal Surgery: Yes (HERNIA REPAIR) Cardiac Surgery: Yes Coronary Artery Bypass Graft: Yes (x4) Coronary Stent: Yes Ear Surgery: No Endocrine Surgery: No Genitourinary Surgery: Yes (RT TESTICLE REMOVED) Gynecologic Surgery: No Neurologic Surgery: No Oral Surgery: No Pacemaker: No Thoracic Surgery: No Other Surgery: Yes (right testicle removed and left testicle fixed in place) Family History Family Myocardial Infarction: Yes (mom, dad) Social History Alcohol Use: No Tobacco Use: Yes (Vape) Substance Use: No Allergies-Medications (Allergen,Severity, Reaction): Coded Allergies: erythromycin base (Verified Allergy, Severe, hives, 08/05/17) Reported Meds & Prescriptions Reported Meds & Active Scripts Active Phenergan (Promethazine HCl) 25 Mg Tablet 25 Mg PO Q6H PRN Cipro (Ciprofloxacin HCl) 500 Mg Tab 500 Mg PO BID 7 Days Metronidazole 500 Mg Tab 500 Mg PO BID 7 Days Amlodipine (Amlodipine Besylate) 5 Mg Tab 5 Mg PO DAILY Zofran (Ondansetron HCl) 4 Mg Tab 4 Mg PO Q6HR PRN Reported Aspirin EC (Aspirin) 81 Mg Tabdr 81 Mg PO DAILY Combivent Respimat Inh (Ipratropium-Albuterol Inh) 20-100 Prison/Act Aero 1 Puff INH QID Glucose (Dextrose) 4 Gm Chew 4 Gm CHEW DIRECTED CHEW 4 TABS Temazepam 7.5 Mg Cap 7.5 Mg PO HS PRN Ranitidine (Ranitidine HCl) 150 Mg Tab 150 Mg PO BID Potassium Chloride ER (Potassium Chloride) 10 Meq Cap 10 Meq PO DAILY Isosorbide Mononitrate ER (Isosorbide Mononitrate) 60 Mg Tab 60 Mg PO DAILY Furosemide 20 Mg Tab 20 Mg PO DAILY Carvedilol 6.25 Mg Tab 3.125 Mg PO BID Atorvastatin (Atorvastatin Calcium) 80 Mg Tab 80 Mg PO HS Metformin (Metformin HCl) 1,000 Mg Tab 1,000 Mg PO BIDPC With meals Latuda (Lurasidone) 40 Mg Tab 40 Mg PO DAILY [place] Carbonate 600 Mg Cap 600 Mg PO HS [place] Carbonate 300 Mg Cap 300 Mg PO DAILY Lantus Inj (Insulin Glargine) 1,000 Unit/10 Ml Vial 70 Units SQ BID Review of Systems Except as stated in HPI: all other systems reviewed are Neg Physical Exam Narrative GENERAL: Well-nourished, well-developed male patient, in no acute distress; afebrile, nontoxic-appearing SKIN: Warm and dry. HEAD: Atraumatic. Normocephalic. EYES: Pupils equal and round. No scleral icterus. No injection or drainage. ENT: Mucosa pink and moist. Airway patent. NECK: Trachea midline. CARDIOVASCULAR: Regular rate and rhythm. No murmur appreciated. RESPIRATORY: No accessory muscle use. Clear to auscultation. Breath sounds equal bilaterally. GASTROINTESTINAL: Abdomen soft, tenderness on palpation to left lower quadrant, nondistended. Hepatic and splenic margins not palpable. Bowel sounds are active 4 quadrants. Nonrigid. No rebound tenderness. No guarding. MUSCULOSKELETAL: No obvious deformities. No clubbing. No cyanosis. No edema. NEUROLOGICAL: Awake and alert. Oriented 3. No obvious cranial nerve deficits. Motor grossly within normal limits. Normal speech. PSYCHIATRIC: Appropriate mood and affect; insight and judgment normal. Data Data Last Documented VS Vital Signs Date Time Temp Pulse Resp B/P (MAP) Pulse Ox O2 Delivery O2 Flow Rate FiO2 09/24/17 18:22 96 Room Air 09/24/17 17:52 98.0 88 20 121/71 (88) Orders Orders Complete Blood Count With Diff (09/24/17 18:04) Comprehensive Metabolic Panel (09/24/17 18:04) Urinalysis - C+S If Indicated (09/24/17 18:04) Iv Access Insert/Monitor (09/24/17 18:04) Oxygen Administration (09/24/17 18:04) Oximetry (09/24/17 18:04) Lipase (09/24/17 18:04) Ct Abd/Pel W Iv Contrast(Rout) (09/24/17 19:32) Morphine Inj (Morphine Inj) (09/24/17 19:45) Ondansetron Inj (Zofran Inj) (09/24/17 19:45) Sodium Chlor 0.9% 1000 Ml Inj (Ns 1000 M (09/24/17 19:32) Sodium Chloride 0.9% Flush (Ns Flush) (09/24/17 19:45) Iohexol 350 Inj (Omnipaque 350 Inj) (09/24/17 20:38) Ketorolac Inj (Toradol Inj) (09/24/17 23:30) Ed Discharge Order (09/24/17 23:27) Labs Laboratory Tests Test 09/24/17 18:17 White Blood Count 9.3 TH/MM3 Red Blood Count 5.41 MIL/MM3 Hemoglobin 17.6 GM/DL Hematocrit 50.6 % Mean Corpuscular Volume 93.5 FL Mean Corpuscular Hemoglobin 32.6 PG Mean Corpuscular Hemoglobin Concent 34.8 % Red Cell Distribution Width 13.3 % Platelet Count 242 TH/MM3 Mean Platelet Volume 8.5 FL Neutrophils (%) (Auto) 67.7 % Lymphocytes (%) (Auto) 24.8 % Monocytes (%) (Auto) 5.4 % Eosinophils (%) (Auto) 1.5 % Basophils (%) (Auto) 0.6 % Neutrophils # (Auto) 6.3 TH/MM3 Lymphocytes # (Auto) 2.3 TH/MM3 Monocytes # (Auto) 0.5 TH/MM3 Eosinophils # (Auto) 0.1 TH/MM3 Basophils # (Auto) 0.1 TH/MM3 CBC Comment DIFF FINAL Differential Comment Urine Color LIGHT-YELLOW Urine Turbidity CLEAR Urine pH 6.0 Urine Specific [place] 1.006 Urine Protein NEG mg/dL Urine Glucose (UA) 300 mg/dL Urine Ketones NEG mg/dL Urine Occult Blood NEG Urine Nitrite NEG Urine Bilirubin NEG Urine Urobilinogen LESS THAN 2.0 MG/DL Urine Leukocyte Esterase NEG Urine RBC LESS THAN 1 /hpf Urine WBC LESS THAN 1 /hpf Urine Squamous Epithelial Cells <1 /hpf Urine Mucus FEW /lpf Microscopic Urinalysis Comment CULT NOT INDICATED Blood Urea Nitrogen 13 MG/DL Creatinine 1.08 MG/DL Random Glucose 236 MG/DL Total Protein 8.9 GM/DL Albumin 4.3 GM/DL Calcium Level 9.4 MG/DL Alkaline Phosphatase 140 U/L Aspartate Amino Transf (AST/SGOT) 29 U/L Alanine Aminotransferase (ALT/SGPT) 54 U/L Total Bilirubin 0.8 MG/DL Sodium Level 133 MEQ/L Potassium Level 3.8 MEQ/L Chloride Level 101 MEQ/L Carbon Dioxide Level 24.0 MEQ/L Anion Gap 8 MEQ/L Estimat Glomerular Filtration Rate 71 ML/MIN Lipase 145 U/L [place] Medical Decision Making Medical Screen Exam Complete: Yes Emergency Medical Condition: Yes Medical Record Reviewed: Yes Differential Diagnosis Diverticulitis, diverticulosis, gastritis, kidney stone, gastroenteritis Narrative Course 56-year-old male with history of diverticulitis with left lower quadrant abdominal pain. CBC, CMP, lipase, urinalysis sent in triage. IV site established. CT abdomen/pelvis, normal saline fluid bolus, morphine, Zofran ordered. 1910: CBC unremarkable. Sodium 133. Random glucose 236. Lipase 145. Urinalysis without signs of infection. 2100: Dr. Lam assumed patient care at this time. See her note for final patient disposition. Scripts Promethazine (Phenergan) 25 Mg Tablet 25 MG PO Q6H Y for NAUSEA OR VOMITING, #10 TAB 0 Refills Prov: Debbie Lam MD 09/24/17 Apryl Aroryo Sep 24, 2017 19:11
[2017-09-24] MEDS ORDERED: SODIUM CHLOR 0.9% 1000 ML INJ 1,000 ML IV SCH (19:32)
[2017-09-24] MEDS ORDERED: MORPHINE SULFATE 4 MG/ML INJ IV PUSH ONE (19:45)
[2017-09-24] MEDS ORDERED: SODIUM CHLORIDE 0.9% FLUSH 10 ML FLUSH IV FLUSH PRN (19:45)
[2017-09-24] MEDS ORDERED: ONDANSETRON HCL 4 MG/2 ML VIAL IVP ONE (19:45)
[2017-09-24] MEDS ORDERED: IOHEXOL 350 MG/ML 10 ML VIAL (for RAD DIAG) IVCONTRAST ONE (20:38)
--- NOTE | 2017-09-24 21:18 | RADRPT ---
EXAM DATE/TIME: 09/24/2017 20:37 [facility] COMPARISON: CT ABDOMEN & PELVIS W CONTRAST, August 05, 2017, 19:27. INDICATIONS : Left upper quadrant pain and diarrhea. IV CONTRAST: 86 cc Omnipaque 350 (iohexol) IV ORAL CONTRAST: No oral contrast ingested. RADIATION DOSE: 15.87 CTDIvol (mGy) MEDICAL HISTORY : Diabetes mellitus type 2. Diverticulitis. Cardiovascular diseaseMyocardial infarction. SURGICAL HISTORY : CABG Coronary stent. ENCOUNTER: Initial ACUITY: 1 day PAIN SCALE: 6/10 LOCATION: Left lower quadrant abdomen TECHNIQUE: Volumetric scanning of the abdomen and pelvis was performed. Using automated exposure control and ad justment of the mA and/or kV according to patient size, radiation dose was kept as low as reasonably achievable to obtain optimal diagnostic quality images. DICOM format image data is available electro nically for review and comparison. FINDINGS: LOWER LUNGS: No acute abnormality. LIVER: Homogeneous density without lesion. There is no dilation of the biliary tree. No calcified gallston es. SPLEEN: Mildly enlarged measuring 14.6 cm. PANCREAS: No acute abnormality. KIDNEYS: Normal in size and shape. There is no mass, stone or hydronephrosis. Multiple bilateral low density lesions are stable measuring up to 12 mm in the right lower pole. ADRENAL GLANDS: Within normal limits. VASCULAR: There is no aortic aneurysm. There is severe atherosclerotic disease. BOWEL/MESENTERY: A small hiatal hernia is present. There is a stable partially visualized fluid collection in the post erior mediastinum adjacent to the distal esophagus measuring approximately 3.5 cm. Small bowel demons trates no abnormality. Terminal ileum and appendix are normal. There is mild sigmoid diverticulosis. No free intraperitoneal air or fluid is present. ABDOMINAL WALL: Within normal limits. RETROPERITONEUM: There is no lymphadenopathy. BLADDER: No wall thickening or mass. REPRODUCTIVE: Within normal limits. INGUINAL: There is no lymphadenopathy or hernia. MUSCULOSKELETAL: There are degenerative changes of the lumbar spine and hip joints. Patient is post median sternotomy. CONCLUSION: 1. No abnormality is identified to explain the clinical symptoms. No acute finding is identified. 2. Stable non-acute findings include mild splenomegaly and small hiatal hernia with adjacent cystic l esion/fluid collection in the posterior mediastinum. Dimitry Holguin MD on September 24, 2017 at 21:12 Board Certified Radiologist. This report was verified electronically.
--- NOTE | 2017-09-24 23:28 | PD ---
Physical Exam Date Seen by Provider: Sep 24, 2017 Time Seen by Provider: 23:27 Narrative Accepted in transfer of care GENERAL: CARDIOVASCULAR: Regular rate and rhythm without murmurs, gallops, or rubs. RESPIRATORY: Breath sounds equal bilaterally. No accessory muscle use. GASTROINTESTINAL: Abdomen soft, non-tender, nondistended. Data Data Last Documented VS Vital Signs Date Time Temp Pulse Resp B/P (MAP) Pulse Ox O2 Delivery O2 Flow Rate FiO2 09/24/17 18:22 96 Room Air 09/24/17 17:52 98.0 88 20 121/71 (88) Orders Orders Complete Blood Count With Diff (09/24/17 18:04) Comprehensive Metabolic Panel (09/24/17 18:04) Urinalysis - C+S If Indicated (09/24/17 18:04) Iv Access Insert/Monitor (09/24/17 18:04) Oxygen Administration (09/24/17 18:04) Oximetry (09/24/17 18:04) Lipase (09/24/17 18:04) Ct Abd/Pel W Iv Contrast(Rout) (09/24/17 19:32) Morphine Inj (Morphine Inj) (09/24/17 19:45) Ondansetron Inj (Zofran Inj) (09/24/17 19:45) Sodium Chlor 0.9% 1000 Ml Inj (Ns 1000 M (09/24/17 19:32) Sodium Chloride 0.9% Flush (Ns Flush) (09/24/17 19:45) Iohexol 350 Inj (Omnipaque 350 Inj) (09/24/17 20:38) Ketorolac Inj (Toradol Inj) (09/24/17 23:30) Ed Discharge Order (09/24/17 23:27) Labs Laboratory Tests Test 09/24/17 18:17 White Blood Count 9.3 TH/MM3 Red Blood Count 5.41 MIL/MM3 Hemoglobin 17.6 GM/DL Hematocrit 50.6 % Mean Corpuscular Volume 93.5 FL Mean Corpuscular Hemoglobin 32.6 PG Mean Corpuscular Hemoglobin Concent 34.8 % Red Cell Distribution Width 13.3 % Platelet Count 242 TH/MM3 Mean Platelet Volume 8.5 FL Neutrophils (%) (Auto) 67.7 % Lymphocytes (%) (Auto) 24.8 % Monocytes (%) (Auto) 5.4 % Eosinophils (%) (Auto) 1.5 % Basophils (%) (Auto) 0.6 % Neutrophils # (Auto) 6.3 TH/MM3 Lymphocytes # (Auto) 2.3 TH/MM3 Monocytes # (Auto) 0.5 TH/MM3 Eosinophils # (Auto) 0.1 TH/MM3 Basophils # (Auto) 0.1 TH/MM3 CBC Comment DIFF FINAL Differential Comment Urine Color LIGHT-YELLOW Urine Turbidity CLEAR Urine pH 6.0 Urine Specific [place] 1.006 Urine Protein NEG mg/dL Urine Glucose (UA) 300 mg/dL Urine Ketones NEG mg/dL Urine Occult Blood NEG Urine Nitrite NEG Urine Bilirubin NEG Urine Urobilinogen LESS THAN 2.0 MG/DL Urine Leukocyte Esterase NEG Urine RBC LESS THAN 1 /hpf Urine WBC LESS THAN 1 /hpf Urine Squamous Epithelial Cells <1 /hpf Urine Mucus FEW /lpf Microscopic Urinalysis Comment CULT NOT INDICATED Blood Urea Nitrogen 13 MG/DL Creatinine 1.08 MG/DL Random Glucose 236 MG/DL Total Protein 8.9 GM/DL Albumin 4.3 GM/DL Calcium Level 9.4 MG/DL Alkaline Phosphatase 140 U/L Aspartate Amino Transf (AST/SGOT) 29 U/L Alanine Aminotransferase (ALT/SGPT) 54 U/L Total Bilirubin 0.8 MG/DL Sodium Level 133 MEQ/L Potassium Level 3.8 MEQ/L Chloride Level 101 MEQ/L Carbon Dioxide Level 24.0 MEQ/L Anion Gap 8 MEQ/L Estimat Glomerular Filtration Rate 71 ML/MIN Lipase 145 U/L [facility] Medical Record Reviewed: Yes Supervised Visit with JAIME: Yes Interpretation(s) Last Impressions Abdomen/Pelvis CT 09/24/[id number] Signed Impressions: Service Date/Time: Sunday, September 24, 2017 20:37 - CONCLUSION: 1. No abnormality is identified to explain the clinical symptoms. No acute finding is identified. 2. Stable non-acute findings include mild splenomegaly and small hiatal hernia with adjacent cystic lesion/fluid collection in the posterior mediastinum. Dimitry Holguin MD CBC & BMP Diagram 09/24/17 18:17 Total Protein 8.9 H, Albumin 4.3, Calcium Level 9.4, Alkaline Phosphatase 140 H , Aspartate Amino Transf (AST/SGOT) 29, Alanine Aminotransferase (ALT/SGPT) 54, Total Bilirubin 0.8 Vital Signs Date Time Temp Pulse Resp B/P (MAP) Pulse Ox O2 Delivery O2 Flow Rate FiO2 09/24/17 18:22 96 Room Air 09/24/17 18:22 96 Room Air 09/24/17 17:52 98.0 88 20 121/71 (88) 99 Differential Diagnosis Abdominal pain, diverticulitis, UTI, colitis Narrative Course 56-year-old male who is followed by the [facility] presents with complaint of abdominal pain concerning for history of diverticulitis colitis UTI pain is not sudden onset no hematuria no dysuria frequency urgency or flank pain patient does have prior history of diverticulosis no recent diarrheal illness or blood in stool. No fever or chills no nausea no vomiting. Patient otherwise voices no concerns or complaints. Exam is consistent with mild tenderness to the lower abdomen without guarding or rebound. Lab work as been ordered and imaging study ordered be following up on the CT abdomen and pelvis I agree with assessment and evaluated initiated by Apryl LOPEZ Diagnosis Primary Impression: Abdominal pain Referrals: [facility] [place] 1 day Patient Instructions: General Instructions, Narcotic given in the ED Additional Instruction: Recommend clear liquid diet for next 12-24 hours follow-up with your primary care provider at the [facility] times one day Return to the emergency department for any concerns or change in condition Monitor blood sugars closely and take medication as chronically prescribed Increase fluid hydration Med/Other Pt SpecificInfo: Prescription(s) given Scripts Promethazine (Phenergan) 25 Mg Tablet 25 MG PO Q6H Y for NAUSEA OR VOMITING, #10 TAB 0 Refills Prov: Debbie Lam MD 09/24/17 Disposition: 01 DISCHARGE HOME Condition: Stable Debbie Lam MD Sep 24, 2017 23:28
[2017-09-24] MEDS ORDERED: KETOROLAC TROMETHAMINE 30 MG/ML (IVP) VIAL IV PUSH ONE (23:30)
[2017-09-24] MEDS ORDERED: PROM25TA10 PO (23:35)
== END 2017-09-24 23:49 | disposition home or self-care (01) ==
LOC: NEPC 17:39
DX: R10.32 Left lower quadrant pain (principal); R11.2 Nausea with vomiting, unspecified; R19.7 Diarrhea, unspecified; K57.90 Diverticulosis of intestine, part unspecified, without perforation or abscess without bleeding; E11.9 Type 2 diabetes mellitus without complications; Z79.01 Long term (current) use of anticoagulants
CPT/HCPCS: 74177; 80053; 81001; 83690; 85025; 96361; 96374; 96375; 99285; J1885; J2270; J2405; J7030; Q9967

== ENCOUNTER 2017-10-21 10:55 | Observation (INO) | payer OTHER, MEDICARE, MEDICAID ==
[~2017-10-21] VITALS: Ht 180.3 cm; Wt 100.0 kg
[~2017-10-21 10:55] MED LIST changes: +PROM25TA10 PO
[2017-10-21] MEDS ORDERED: SODIUM CHLOR 0.9% 1000 ML INJ 1,000 ML IV SCH (11:05)
[2017-10-21 11:06] VITALS: BP 115/95; PULSE 69; RESP 16; TEMP 97.9; O2SAT 95
[2017-10-21] MEDS ORDERED: SODIUM CHLORIDE 0.9% FLUSH 10 ML FLUSH IV FLUSH PRN (11:15)
[2017-10-21] MEDS ORDERED: DICYCLOMINE HCL 20 MG/2 ML VIAL IM ONE (11:15)
[2017-10-21] MEDS ORDERED: ONDANSETRON HCL 4 MG/2 ML VIAL IVP ONE (11:15)
[2017-10-21] MEDS ORDERED: ALUMINUM/MAGNESIUM/SIMETH 30 ML CUP PO ONE (11:15)
[2017-10-21] MEDS ORDERED: LIDOCAINE VISCOUS 2% SOLN 15 ML UDC PO ONE (11:15)
[2017-10-21] MEDS ORDERED: DICY10 PO (11:36)
--- NOTE | 2017-10-21 11:36 | PD ---
HPI Chief Complaint: GI Complaint Time Seen by Provider: 11:01 Travel History International Travel<30 days: No Contact w/Intl Traveler<30days: No Traveled to known affect area: No History of Present Illness HPI 57-year-old male complains of nausea vomiting and diarrhea which started this morning. He believes it's related to a chair at least do that he may last night with several teaspoons of chili peppers used. He reports abdominal pain in the left lower quadrant. He states the vomiting and diarrhea were nonbloody. No chest pain or shortness of breath. Duration a few hours. 3 episodes of vomiting reported. Onset gradual. PFSH Past Medical History Hx Anticoagulant Therapy: Yes (ASPIRIN) Arthritis: Yes Asthma: No Autoimmune Disease: No Blood Disorders: No Bipolar Disorder: Yes Anxiety: Yes Depression: Yes Heart Rhythm Problems: No Cancer: No Cardiac Catheterization: Yes Cardiovascular Problems: Yes High Cholesterol: Yes Chemotherapy: No Chest Pain: Yes Congestive Heart Failure: No COPD: No Cerebrovascular Accident: No Diabetes: Yes Patient Takes Glucophage: Yes Diminished Hearing: No Diverticulitis: Yes Endocrine: Yes Gastrointestinal Disorders: Yes (diverticulitis, pancreaitis) GERD: No Genitourinary: No Hepatitis: Yes Hiatal Hernia: No Heparin Induced Thrombocytopen: No Hypertension: No Immune Disorder: No Implanted Vascular Access Dvce: No Musculoskeletal: No Neurologic: No Psychiatric: Yes (BIPOLAR) Reproductive: No Respiratory: No Immunizations Current: Yes Myocardial Infarction: Yes Radiation Therapy: No Sleep Apnea: Yes (LESS NOW THAT HE HAS LOST WEIGHT) Thyroid Disease: No Ulcer: No PNEUMOCCOCAL Vaccine (Year): 2 Past Surgical History Abdominal Surgery: Yes (HERNIA REPAIR) Cardiac Surgery: Yes Coronary Artery Bypass Graft: Yes (x4) Coronary Stent: Yes Ear Surgery: No Endocrine Surgery: No Genitourinary Surgery: Yes (RT TESTICLE REMOVED) Gynecologic Surgery: No Neurologic Surgery: No Oral Surgery: No Pacemaker: No Thoracic Surgery: No Other Surgery: Yes (right testicle removed and left testicle fixed in place) Family History Family Myocardial Infarction: Yes (mom, dad) Social History Alcohol Use: No Tobacco Use: Yes (Vape) Substance Use: No Allergies-Medications (Allergen,Severity, Reaction): Coded Allergies: erythromycin base (Verified Allergy, Severe, hives, 10/21/17) Reported Meds & Prescriptions Reported Meds & Active Scripts Active Bentyl (Dicyclomine HCl) 10 Mg Cap 10 Mg PO TID PRN Phenergan (Promethazine HCl) 25 Mg Tablet 25 Mg PO Q6H PRN Zofran (Ondansetron HCl) 4 Mg Tab 4 Mg PO Q6HR PRN Reported Aspirin EC (Aspirin) 81 Mg Tabdr 81 Mg PO DAILY Combivent Respimat Inh (Ipratropium-Albuterol Inh) 20-100 Intermediate/Act Aero 1 Puff INH QID Glucose (Dextrose) 4 Gm Chew 4 Gm CHEW DIRECTED CHEW 4 TABS Temazepam 7.5 Mg Cap 7.5 Mg PO HS PRN Ranitidine (Ranitidine HCl) 150 Mg Tab 150 Mg PO BID Isosorbide Mononitrate ER (Isosorbide Mononitrate) 60 Mg Tab 60 Mg PO DAILY Carvedilol 6.25 Mg Tab 3.125 Mg PO BID Atorvastatin (Atorvastatin Calcium) 80 Mg Tab 80 Mg PO HS Metformin (Metformin HCl) 1,000 Mg Tab 1,000 Mg PO BID With meals Latuda (Lurasidone) 40 Mg Tab 40 Mg PO DAILY [place] Carbonate 600 Mg Cap 600 Mg PO HS [place] Carbonate 300 Mg Cap 300 Mg PO DAILY Lantus Inj (Insulin Glargine) 1,000 Unit/10 Ml Vial 70 Units SQ BID Review of Systems Except as stated in HPI: all other systems reviewed are Neg General / Constitutional: No: Fever Physical Exam Narrative GENERAL: 57-year-old male well-nourished well-developed mild distress secondary to pain SKIN: Warm and dry. HEAD: Atraumatic. Normocephalic. EYES: Pupils equal and round. No scleral icterus. No injection or drainage. ENT: No nasal bleeding or discharge. Mucous membranes pink and moist. NECK: Trachea midline. No JVD. CARDIOVASCULAR: Regular rate and rhythm. RESPIRATORY: No accessory muscle use. Clear to auscultation. Breath sounds equal bilaterally. GASTROINTESTINAL: Soft. Diffuse tenderness in the left side. MUSCULOSKELETAL: Extremities without clubbing, cyanosis, or edema. No obvious deformities. NEUROLOGICAL: Awake and alert. No obvious cranial nerve deficits. Motor grossly within normal limits. Five out of 5 muscle strength in the arms and legs. Normal speech. PSYCHIATRIC: Appropriate mood and affect; insight and judgment normal. Data Data Last Documented VS Vital Signs Date Time Temp Pulse Resp B/P (MAP) Pulse Ox O2 Delivery O2 Flow Rate FiO2 10/21/17 11:07 Room Air 10/21/17 11:06 97.9 69 16 95 Orders Orders Complete Blood Count With Diff (10/21/17 11:05) Comprehensive Metabolic Panel (10/21/17 11:05) Lipase (10/21/17 11:05) Lactic Acid (10/21/17 11:05) Urinalysis - C+S If Indicated (10/21/17 11:05) Iv Access Insert/Monitor (10/21/17 11:05) Ecg Monitoring (10/21/17 11:05) Oximetry (10/21/17 11:05) Ondansetron Inj (Zofran Inj) (10/21/17 11:15) Sodium Chlor 0.9% 1000 Ml Inj (Ns 1000 M (10/21/17 11:05) Sodium Chloride 0.9% Flush (Ns Flush) (10/21/17 11:15) Dicyclomine Inj (Bentyl Inj) (10/21/17 11:15) Al-Mag Hy-Si 40-40-4 Mg/Ml Liq (Mag-Al P (10/21/17 11:15) Lidocaine 2% Viscous (Xylocaine 2% Visco (10/21/17 11:15) Oxycodone-Acetamin 5-325 Mg (Percocet (10/21/17 12:30) Labs Laboratory Tests Test 10/21/17 11:20 White Blood Count 8.6 TH/MM3 Red Blood Count 4.34 MIL/MM3 Hemoglobin 13.9 GM/DL Hematocrit 40.4 % Mean Corpuscular Volume 92.9 FL Mean Corpuscular Hemoglobin 31.9 PG Mean Corpuscular Hemoglobin Concent 34.3 % Red Cell Distribution Width 13.7 % Platelet Count 212 TH/MM3 Mean Platelet Volume 8.0 FL Neutrophils (%) (Auto) 72.8 % Lymphocytes (%) (Auto) 18.4 % Monocytes (%) (Auto) 5.7 % Eosinophils (%) (Auto) 2.7 % Basophils (%) (Auto) 0.4 % Neutrophils # (Auto) 6.2 TH/MM3 Lymphocytes # (Auto) 1.6 TH/MM3 Monocytes # (Auto) 0.5 TH/MM3 Eosinophils # (Auto) 0.2 TH/MM3 Basophils # (Auto) 0.0 TH/MM3 CBC Comment DIFF FINAL Differential Comment Urine Color YELLOW Urine Turbidity CLEAR Urine pH 5.5 Urine Specific [place] 1.022 Urine Protein NEG mg/dL Urine Glucose (UA) TRACE mg/dL Urine Ketones NEG mg/dL Urine Occult Blood NEG Urine Nitrite NEG Urine Bilirubin NEG Urine Urobilinogen 2.0 MG/DL Urine Leukocyte Esterase NEG Urine RBC LESS THAN 1 /hpf Urine WBC 1 /hpf Urine Squamous Epithelial Cells <1 /hpf Urine Hyaline Casts 3 /lpf Urine Mucus FEW /lpf Microscopic Urinalysis Comment CULT NOT INDICATED Blood Urea Nitrogen 9 MG/DL Creatinine 1.02 MG/DL Random Glucose 183 MG/DL Total Protein 7.5 GM/DL Albumin 3.2 GM/DL Calcium Level 8.4 MG/DL Alkaline Phosphatase 142 U/L Aspartate Amino Transf (AST/SGOT) 70 U/L Alanine Aminotransferase (ALT/SGPT) 110 U/L Total Bilirubin 0.2 MG/DL Sodium Level 137 MEQ/L Potassium Level 4.0 MEQ/L Chloride Level 106 MEQ/L Carbon Dioxide Level 22.7 MEQ/L Anion Gap 8 MEQ/L Estimat Glomerular Filtration Rate 76 ML/MIN Lactic Acid Level 1.7 mmol/L Lipase 890 U/L [facility] Medical Decision Making Medical Screen Exam Complete: Yes Emergency Medical Condition: Yes Medical Record Reviewed: Yes Differential Diagnosis Constipation, Gastritis, Acute Cholecystitis, Biliary Colic, Pancreatitis, HERNANDEZ , Hepatitis, Bowel Obstruction, Cystitis, Mesenteric Ischemia, AAA, Appendicitis , Renal Stone/Hydronephrosis, GERD, perforated viscous Narrative Course CBC & BMP Diagram 10/21/17 11:20 Total Protein 7.5, Albumin 3.2 L, Calcium Level 8.4 L, Alkaline Phosphatase 142 H, Aspartate Amino Transf (AST/SGOT) 70 H, Alanine Aminotransferase (ALT/SGPT) 110 H, Total Bilirubin 0.2 Lipase 890 UA: normal Pt has pancreatitis with lipase 890. pt has hx pancreatitis unknown etiology per prior GI notes Pain marginally improved with Bentyl, describes less cramping Pt prefers dc home with scripts Return precautions discussed Diagnosis Primary Impression: Abdominal pain Qualified Codes: R10.9 - Unspecified abdominal pain Additional Impression: Pancreatitis Qualified Codes: K85.90 - Acute pancreatitis without necrosis or infection, unspecified Referrals: Boone Shaikh MD 2 days Med/Other Pt SpecificInfo: Prescription(s) given Scripts Ondansetron Odt (Zofran Odt) 4 Mg Tab 4 MG SL Q8HR Y for Nausea/Vomiting, #20 TAB 0 Refills Prov: Lius Torres MD 10/21/17 Oxycodone-Acetaminophen (Percocet) 5-325 mg Tab 2 TAB PO Q6H Y for PAIN SCALE 6 TO 10, #20 TAB 0 Refills Prov: Luis Torres MD 10/21/17 Dicyclomine (Bentyl) 10 Mg Cap 10 MG PO TID Y for Bowel Management, #10 CAP 0 Refills Prov: Luis Torres MD 10/21/17 Disposition: 01 DISCHARGE HOME Condition: Stable Luis Torres MD Oct 21, 2017 11:36
[2017-10-21 11:47] LABS: BLOOD, URINE NEG (NEG); GLUCOSE,URINE TRACE mg/dL (NEG); HYALINE CAST, URINE 3 /lpf (RARE); KETONE, URINE NEG (NEG); MUCUS URINE FEW /lpf (OCC); NITRITE,URINE NEG (NEG); PH, URINE 5.5 (5.0-8.5); SQUAMOUS EPITHELIAL CELL URINE <1 /hpf (0-5); URINE COLOR YELLOW (YELLW/STRAW)
[2017-10-21 11:50] LABS: AUTOMATED NEUTROPHIL # 6.2 TH/MM3 (1.8-7.7); BASOPHIL % 0.4 % (0.0-2.0); COMMENT (UR) CULT NOT INDICATED; CULTURE IF INDICATED CULT NOT INDICATED; EOSINOPHIL # 0.2 TH/MM3 (0-0.4); EOSINOPHIL % 2.7 % (0.0-4.0); HEMATOCRIT 40.4 % (39.0-51.0); HEMO FLAGS DIFF FINAL; LYMPH % 18.4 % (9.0-44.0); LYMPHOCYTE # 1.6 TH/MM3 (1.0-4.8); MEAN CELL VOLUME 92.9 FL (80.0-100.0); MEAN CORPUSCULAR HEMOGLOBIN 31.9 PG (27.0-34.0); MEAN CORPUSCULAR HGB CONC 34.3 % (32.0-36.0); MONO % 5.7 % (0.0-8.0); NEUT % 72.8 % (16.0-70.0); PLATELET COUNT 212 TH/MM3 (150-450); RED BLOOD COUNT 4.34 MIL/MM3 (4.50-5.90); RED CELL DISTRIBUTION WIDTH 13.7 % (11.6-17.2); WHITE BLOOD COUNT 8.6 TH/MM3 (4.0-11.0)
[2017-10-21 12:05] LABS: ALT (GPT) 110 U/L (12-78)
[2017-10-21 12:07] LABS: ALKALINE PHOSPHATASE 142 U/L (45-117); TOTAL BILIRUBIN ADULT 0.2 MG/DL (0.2-1.0)
[2017-10-21 12:13] LABS: ANION GAP 8 MEQ/L (5-15); AST (GOT) 70 U/L (15-37); BICARBONATE 22.7 MEQ/L (21.0-32.0); BLOOD UREA NITROGEN 9 MG/DL (7-18); CHLORIDE 106 MEQ/L (98-107); GLOMERULAR FILTRATION RATE 76 ML/MIN (>89); SODIUM (NA) 137 MEQ/L (136-145)
[2017-10-21] MEDS ORDERED: PERC5TAB12 PO (12:28)
[2017-10-21] MEDS ORDERED: ZOFR4TAB3 SL (12:28)
[2017-10-21] MEDS ORDERED: oxyCODONE/ACETAMINOPHEN 5 MG/325 MG TAB PO ONE (12:30)
[2017-10-21] MEDS ORDERED: ONDANSETRON HCL 4 MG/2 ML VIAL IV PUSH ONE (13:00)
[2017-10-21] MEDS ORDERED: IOHEXOL 350 MG/ML 10 ML VIAL (for RAD DIAG) IVCONTRAST ONE (13:20)
[2017-10-21] MEDS ORDERED: GLUCAGON 1 MG/ML VIAL OTHER PRN (13:30)
[2017-10-21] MEDS ORDERED: DEXTROSE 50% IN WATER 50 ML VIAL(D50) IV PUSH PRN (13:30)
[2017-10-21] MEDS ORDERED: oxyCODONE/ACETAMINOPHEN 5 MG/325 MG TAB PO PRN (13:30)
--- NOTE | 2017-10-21 13:58 | HHI.HP ---
[facility] Service [facility] Primary Care Physician [facility] Admission Diagnosis Pancreatitis, N/V Diagnoses: (1) Pancreatitis Diagnosis: Principal Chief Complaint: abdominal pain Travel History International Travel<30 Days: No Contact w/Intl Traveler <30 Da: No Traveled to Known Affected Are: No History of Present Illness patient is a 57 y/o male with history of pancreatitis, hypertension, CAD, hepatitis C and bipolar disorder who presented to ER with abdominal pain. he says that the pain started this morning. pain was more or less started as a localized pain to the left abdomen. pain was severe in intensity. pain was associated with nausea and non-blood emesis along with some loose bowel movements. no report of fever. he was about to be discharged from ER today when he started to throw up again. abdominal pain was moderate at the time of my evaluation. he was evaluated by GI a few months ago for the same reason. Review of Systems Constitutional: DENIES: Fever, Weight loss, Chills, Night Sweats Eyes: DENIES: Blurred vision, Diplopia, Vision loss, Double Vision Ears, nose, mouth, throat: DENIES: Tinnitus, Vertigo, Throat pain, Epistaxis Respiratory: DENIES: Apneas, Cough, Snoring, Wheezing, Hemoptysis, Sputum production, Shortness of breath Cardiovascular: DENIES: Chest pain, Palpitations, Syncope, Dyspnea on Exertion , PND, Lower Extremity Edema, Orthopnea, Claudication Gastrointestinal: COMPLAINS OF: Abdominal pain, Diarrhea, Nausea, Vomiting, DENIES: Black stools, Bloody stools, Constipation, Difficulty Swallowing, Anorexia Genitourinary: DENIES: Urinary frequency, Urgency, Hematuria, Dysuria Musculoskeletal: DENIES: Joint pain, Muscle aches, Stiffness, Joint Swelling Integumentary: DENIES: Rash Neurologic: DENIES: Abnormal gait, Headache, Localized weakness, Paresthesias, Seizures, Speech Problems, Tremor, Poor Balance Psychiatric: DENIES: Anxiety, Confusion, Mood changes, Depression, Hallucinations, Agitation, Suicidal Ideation, Homicidal Ideation, Delusions Past Family Social History Past Medical History CAD hypertension hepatitis C bipolar disorder pancreatitis diabetes mellitus Past Surgical History hernia repair CABG Reported Medications Aspirin EC (Aspirin) 81 Mg Tabdr 81 Mg PO DAILY Combivent Respimat Inh (Ipratropium-Albuterol Inh) 20-100 Fci/Act Aero 1 Puff INH QID Glucose (Dextrose) 4 Gm Chew 4 Gm CHEW DIRECTED CHEW 4 TABS Temazepam 7.5 Mg Cap 7.5 Mg PO HS PRN Ranitidine (Ranitidine HCl) 150 Mg Tab 150 Mg PO BID Isosorbide Mononitrate ER (Isosorbide Mononitrate) 60 Mg Tab 60 Mg PO DAILY Carvedilol 6.25 Mg Tab 3.125 Mg PO BID Atorvastatin (Atorvastatin Calcium) 80 Mg Tab 80 Mg PO HS Metformin (Metformin HCl) 1,000 Mg Tab 1,000 Mg PO BID With meals Latuda (Lurasidone) 40 Mg Tab 40 Mg PO DAILY [place] Carbonate 600 Mg Cap 600 Mg PO HS [place] Carbonate 300 Mg Cap 300 Mg PO DAILY Lantus Inj (Insulin Glargine) 1,000 Unit/10 Ml Vial 70 Units SQ BID Allergies: Coded Allergies: erythromycin base (Verified Allergy, Severe, hives, 10/21/17) Active Ordered Medications Current Medications Ondansetron HCl (Zofran Inj) 4 mg ONCE ONCE IVP Last administered on 11:43; Start 10/21/17 at 11:15; Stop 10/21/17 at 11:16; Status DC Sodium Chloride 1,000 ml @ 1,000 mls/hr Q1H IV Last administered on 10/21/17 11:42; Start 10/21/17 at 11:05; Stop 10/21/17 at 12:04; Status DC Sodium Chloride (NS Flush) 2 ml UNSCH PRN IV FLUSH FLUSH AFTER USING IV ACCESS ; Start 10/21/17 at 11:15 Dicyclomine HCl (Bentyl Inj) 20 mg ONCE ONCE IM Last administered on 11:43; Start 10/21/17 at 11:15; Stop 10/21/17 at 11:16; Status DC Al Hydrox/Mg Hydrox/Simethicone (Mag-Al Plus Susp Liq) 30 ml ONCE ONCE PO Last administered on 10/21/17 11:43; Start 10/21/17 at 11:15; Stop 10/21/17 at 11:16; Status DC Lidocaine HCl (Xylocaine 2% Viscous) 15 ml ONCE ONCE PO Last administered on 10/21/17 11:42; Start 10/21/17 at 11:15; Stop 10/21/17 at 11:16; Status DC Oxycodone/ Acetaminophen (Percocet 5-325 Mg) 2 tab ONCE ONCE PO Last administered on 10/21/17 12:31; Start 10/21/17 at 12:30; Stop 10/21/17 at 12:31 ; Status DC Ondansetron HCl (Zofran Inj) 4 mg ONCE ONCE IV PUSH Last administered on 13:20; Start 10/21/17 at 13:00; Stop 10/21/17 at 13:01; Status DC Family History breast cancer in mother. Social History no drinking or illicit drug abuse. Physical Exam Vital Signs Vital Signs Date Time Temp Pulse Resp B/P (MAP) Pulse Ox O2 Delivery O2 Flow Rate FiO2 10/21/17 11:07 Room Air 10/21/17 11:06 97.9 69 16 115/95 (102) 95 Physical Exam GENERAL: This is a well-nourished, well-developed patient, in no apparent distress. SKIN: No rashes, ecchymoses or lesions. Cool and dry. HEAD: Atraumatic. Normocephalic. No temporal or scalp tenderness. EYES: Pupils equal round and reactive. Extraocular motions intact. No scleral icterus. No injection or drainage. ENT: Nose without bleeding, purulent drainage or septal hematoma. Throat without erythema, tonsillar hypertrophy or exudate. Uvula midline. Airway patent. NECK: Trachea midline. No JVD or lymphadenopathy. Supple, nontender, no meningeal signs. CARDIOVASCULAR: Regular rate and rhythm without murmurs, gallops, or rubs. RESPIRATORY: Clear to auscultation. Breath sounds equal bilaterally. No wheezes , rales, or rhonchi. GASTROINTESTINAL: Abdomen soft, some tenderness LUQ and LLQ, nondistended. No hepato-splenomegaly, or palpable masses. No guarding. MUSCULOSKELETAL: Extremities without clubbing, cyanosis, or edema. No joint tenderness, effusion, or edema noted. No calf tenderness. Negative Homans sign bilaterally. NEUROLOGICAL: Awake and alert. Cranial nerves II through XII intact. Motor and sensory grossly within normal limits. Five out of 5 muscle strength in all muscle groups. Normal speech. Laboratory Laboratory Tests Test 10/21/17 11:20 White Blood Count 8.6 Red Blood Count 4.34 Hemoglobin 13.9 Hematocrit 40.4 Mean Corpuscular Volume 92.9 Mean Corpuscular Hemoglobin 31.9 Mean Corpuscular Hemoglobin Concent 34.3 Red Cell Distribution Width 13.7 Platelet Count 212 Mean Platelet Volume 8.0 Neutrophils (%) (Auto) 72.8 Lymphocytes (%) (Auto) 18.4 Monocytes (%) (Auto) 5.7 Eosinophils (%) (Auto) 2.7 Basophils (%) (Auto) 0.4 Neutrophils # (Auto) 6.2 Lymphocytes # (Auto) 1.6 Monocytes # (Auto) 0.5 Eosinophils # (Auto) 0.2 Basophils # (Auto) 0.0 CBC Comment DIFF FINAL Differential Comment Urine Color YELLOW Urine Turbidity CLEAR Urine pH 5.5 Urine Specific [place] 1.022 Urine Protein NEG Urine Glucose (UA) TRACE Urine Ketones NEG Urine Occult Blood NEG Urine Nitrite NEG Urine Bilirubin NEG Urine Urobilinogen 2.0 Urine Leukocyte Esterase NEG Urine RBC LESS THAN 1 Urine WBC 1 Urine Squamous Epithelial Cells <1 Urine Hyaline Casts 3 Urine Mucus FEW Microscopic Urinalysis Comment CULT NOT INDICATED Blood Urea Nitrogen 9 Creatinine 1.02 Random Glucose 183 Total Protein 7.5 Albumin 3.2 Calcium Level 8.4 Alkaline Phosphatase 142 Aspartate Amino Transf (AST/SGOT) 70 Alanine Aminotransferase (ALT/SGPT) 110 Total Bilirubin 0.2 Sodium Level 137 Potassium Level 4.0 Chloride Level 106 Carbon Dioxide Level 22.7 Anion Gap 8 Estimat Glomerular Filtration Rate 76 Lactic Acid Level 1.7 Lipase 890 Result Diagram: 10/21/17 1120 10/21/17 112 Caprini VTE Risk Assessment Caprini VTE Risk Assessment: Mod/High Risk (score >= 2) Caprini Risk Assessment Model Point Value = 1 Point Value = 2 Point Value = 3 Point Value = 5 Age 41-60 Minor surgery BMI > 25 kg/m2 Swollen legs Varicose veins or History of unexplained or recurrent spontaneous Oral contraceptives or hormone replacement Sepsis (< 1 month) Serious lung disease, including pneumonia (< 1 month) Abnormal pulmonary function Acute myocardial infarction Congestive heart failure (< 1 month) History of inflammatory bowel disease Medical patient at bed rest Age 61-74 Arthroscopic surgery Major open surgery (> 45 min) Laparoscopic surgery (> 45 min) Malignancy Confined to bed (> 72 hours) Immobilizing plaster cast Central venous access Age >= 75 History of VTE Family history of VTE Factor V Leiden Prothrombin [id number] Lupus anticoagulant Anticardiolipin antibodies Elevated serum homocysteine Heparin-induced thrombocytopenia Other congenital or acquired thrombophilia Stroke (< 1 month) Elective arthroplasty Hip, pelvis, or leg fracture Acute spinal cord injury (< 1 month) Prophylaxis Regimen Total Risk Factor Score Risk Level Prophylaxis Regimen 0-1 Low Early ambulation 2 Moderate Order ONE of the following: *Sequential Compression Device (SCD) *Heparin 5000 units SQ BID 3-4 Higher Order ONE of the following medications: *Heparin 5000 units SQ TID *Enoxaparin/Lovenox 40 mg SQ daily (WT < 150 kg, CrCl > 30 mL/min) *Enoxaparin/Lovenox 30 mg SQ daily (WT < 150 kg, CrCl > 10-29 mL/min) *Enoxaparin/Lovenox 30 mg SQ BID (WT < 150 kg, CrCl > 30 mL/min) AND/OR *Sequential Compression Device (SCD) 5 or more Highest Order ONE of the following medications: *Heparin 5000 units SQ TID (Preferred with Epidurals) *Enoxaparin/Lovenox 40 mg SQ daily (WT < 150 kg, CrCl > 30 mL/min) *Enoxaparin/Lovenox 30 mg SQ daily (WT < 150 kg, CrCl > 10-29 mL/min) *Enoxaparin/Lovenox 30 mg SQ BID (WT < 150 kg, CrCl > 30 mL/min) AND *Sequential Compression Device (SCD) Assessment and Plan Assessment and Plan A/P - acute pancreatitis NPO for now - continue with supportive care with IV fluid, pain control and antiemetics as needed. will check abdominal CT. -CAD- s/p CABG/ stent; continue aspirin, coreg,imdur and statin -diabetes mellitus; resume long-acting insulin at a lower dose while NPO- start on accu-check with SSI. -hypertension; resume coreg- will monitor and adjust the regimen as needed. -elevated LFT's with history of hepatitis C- will monitor closely while on statin. -bipolar disorder; resume home meds. -DVT prophylaxis with subq Lovenox Discussed Condition With ER physician and the patient. Problem Qualifiers (1) Pancreatitis: Qualified Codes: K85.90 - Acute pancreatitis without necrosis or infection, unspecified Cristela Blount MD Oct 21, 2017 13:58
[2017-10-21 14:24] VITALS: BP 131/64; PULSE 68; RESP 17; TEMP 97.7; O2SAT 95
[2017-10-21] MEDS: SODIUM CHLOR 0.9% 1000 ML INJ 1,000 ML IV SCH (14:31)
[2017-10-21 14:57] VITALS: BP 131/64
[2017-10-21] MEDS ORDERED: PANTOPRAZOLE SODIUM 40 MG VIAL IV PUSH SCH (15:00)
[2017-10-21] MEDS ORDERED: DIATRIZOATE MEGLUM/DIATRIZOATE SOD 9 ML CUP PO ONE (15:15)
[2017-10-21] MEDS: MORPHINE SULFATE 4 MG/ML INJ IV PUSH PRN ×2 (15:20→21:57)
[2017-10-21 16:16] VITALS: BP 143/80; PULSE 72; RESP 20; TEMP 97.9; O2SAT 96
[2017-10-21] MEDS: INSULIN ASPART SUPPLEMENTAL SCALE SQ SCH ×2 (17:00→21:00)
[2017-10-21 20:07] VITALS: BP 159/80; PULSE 60; RESP 18; TEMP 98.2; O2SAT 96
[2017-10-21] MEDS: INSULIN DETEMIR 100 UNITS/ML VIAL SQ SCH (21:00)
[2017-10-21] MEDS ORDERED: ATORVASTATIN 80 MG TAB PO SCH (21:00)
[2017-10-21] MEDS ORDERED: LITHIUM CARBONATE 300 MG CAP PO SCH (21:00)
[2017-10-21] MEDS: CARVEDILOL 6.25 MG TAB PO SCH (21:55)
[2017-10-21] MEDS: ONDANSETRON HCL 4 MG/2 ML VIAL IV PUSH PRN (21:56)
--- NOTE | 2017-10-21 22:25 | RADRPT ---
EXAM DATE/TIME: 10/21/2017 22:05 [place] COMPARISON: No previous studies available for comparison. INDICATIONS : Left sided abdomen pain with vomiting. IV CONTRAST: 93 cc Omnipaque 350 (iohexol) IV ORAL CONTRAST: Prescribed oral contrast ingested. RADIATION DOSE: 16.84 CTDIvol (mGy) MEDICAL HISTORY : Cardiovascular disease. Diverticulitis. Pancreatitis.Diabetes Hep C SURGICAL HISTORY : CABG Coronary artery stent.Rt testicle removed ENCOUNTER: Initial ACUITY: 1 day PAIN SCALE: 7/10 LOCATION: Left abdomen TECHNIQUE: Volumetric scanning of the abdomen and pelvis was performed. Using automated exposure control and ad justment of the mA and/or kV according to patient size, radiation dose was kept as low as reasonably achievable to obtain optimal diagnostic quality images. DICOM format image data is available electro nically for review and comparison. FINDINGS: Lung bases are clear. There is a small hiatal hernia and a small fluid collection in the lower musical instrument supervisor ior mediastinum which dates back to prior CT from 2012. Spleen, adrenals, kidneys and pancreas unremarkable. Mild fatty liver. Trace free fluid in the pelvis. No pelvic mass. No acute bony abnormalities. CONCLUSION: 1. No acute findings within the abdomen and pelvis. 2. Small hiatal hernia. Stable fluid collection or mediastinum compared with 2013. Trace free fluid i n the pelvis. Specifically no obstructive uropathy. No pancreatitis. No evidence for diverticulitis. Dwight Farias MD on October 21, 2017 at 22:19 Board Certified Radiologist. This report was verified electronically.
[2017-10-21 23:50] VITALS: BP 111/56; PULSE 61; RESP 17; TEMP 98.1; O2SAT 95
[2017-10-22] MEDS: SODIUM CHLOR 0.9% 1000 ML INJ 1,000 ML IV SCH ×2 (03:05→09:00)
[2017-10-22] MEDS: MORPHINE SULFATE 4 MG/ML INJ IV PUSH PRN ×3 (03:06→12:04)
[2017-10-22 03:11] VITALS: BP 143/77; PULSE 59; RESP 18; TEMP 98.1; O2SAT 98
[2017-10-22 04:15] LABS: ALKALINE PHOSPHATASE 135 U/L (45-117); ALT (GPT) 98 U/L (12-78); ANION GAP 7 MEQ/L (5-15); AST (GOT) 57 U/L (15-37); BICARBONATE 25.2 MEQ/L (21.0-32.0); BLOOD UREA NITROGEN 7 MG/DL (7-18); CHLORIDE 108 MEQ/L (98-107); GLOMERULAR FILTRATION RATE 100 ML/MIN (>89); POTASSIUM 3.7 MEQ/L (3.5-5.1); SODIUM (NA) 140 MEQ/L (136-145); TOTAL BILIRUBIN ADULT 0.6 MG/DL (0.2-1.0)
[2017-10-22 07:33] VITALS: BP 114/71; PULSE 65; RESP 18; TEMP 98.3; O2SAT 92
[2017-10-22] MEDS: CARVEDILOL 6.25 MG TAB PO SCH (07:55)
[2017-10-22] MEDS: ONDANSETRON HCL 4 MG/2 ML VIAL IV PUSH PRN (07:55)
[2017-10-22] MEDS: INSULIN DETEMIR 100 UNITS/ML VIAL SQ SCH ×2 (07:56→08:09)
[2017-10-22] MEDS: INSULIN ASPART SUPPLEMENTAL SCALE SQ SCH ×2 (08:00→11:30)
[2017-10-22] MEDS ORDERED: ISOSORBIDE MONONITRATE 60 MG TAB PO SCH (09:00)
[2017-10-22] MEDS ORDERED: LITHIUM CARBONATE 300 MG CAP PO SCH (09:00)
[2017-10-22] MEDS ORDERED: LURASIDONE 40 MG TAB PO SCH (09:00)
[2017-10-22] MEDS ORDERED: ENOXAPARIN SODIUM 40 MG/0.4 ML SYRINGE SQ SCH (09:00)
[2017-10-22] MEDS ORDERED: ASPIRIN EC 81 MG TABEC PO SCH (09:00)
[2017-10-22] MEDS ORDERED: PNEUMOCOCCAL POLYVALENT INJ 25 MCG/0.5 ML SYR IM ONE (10:00)
[2017-10-22 12:15] VITALS: BP 101/58; PULSE 65; RESP 20; TEMP 98.2; O2SAT 96
--- NOTE | 2017-10-22 12:51 | HHI.PR ---
Subjective Remarks The patient was feeling a lot better. He said he was able to eat several pretzels without difficulty. He wanted to be discharged today. Discussed with nursing. Objective Vitals Vital Signs Date Time Temp Pulse Resp B/P (MAP) Pulse Ox O2 Delivery O2 Flow Rate FiO2 10/22/17 12:15 98.2 65 20 101/58 (72) 96 10/22/17 07:33 98.3 65 18 114/71 (85) 92 10/22/17 03:15 22 10/22/17 03:11 98.1 59 18 143/77 (99) 98 10/21/17 23:50 98.1 61 17 111/56 (74) 95 10/21/17 20:07 98.2 60 18 159/80 (106) 96 10/21/17 16:16 97.9 72 20 143/80 (101) 96 10/21/17 14:57 131/64 (86) 10/21/17 14:24 97.7 68 17 131/64 (86) 95 Room Air I/O 10/21/17 10/21/17 10/21/17 10/22/17 10/22/17 10/22/17 07:00 15:00 23:00 07:00 15:00 23:00 Intake Total 180 ml Balance 180 ml Intake Oral 180 ml # Voids 3 Result Diagram: 10/21/17 1120 10/22/17 0310 Imaging Last Impressions Abdomen/Pelvis CT 10/21/17 0000 Signed Impressions: Service Date/Time: Saturday, October 21, 2017 22:05 - CONCLUSION: 1. No acute findings within the abdomen and pelvis. 2. Small hiatal hernia. Stable fluid collection or mediastinum compared with 2012. Trace free fluid in the pelvis. Specifically no obstructive uropathy. No pancreatitis. No evidence for diverticulitis. Dwight Farias MD Objective Remarks GENERAL: This is a well-nourished, well-developed patient, in no apparent distress. SKIN: No rashes, ecchymoses or lesions. Cool and dry. HEAD: Atraumatic. Normocephalic. No temporal or scalp tenderness. EYES: Pupils equal round and reactive. Extraocular motions intact. No scleral icterus. No injection or drainage. ENT: Nose without bleeding, purulent drainage or septal hematoma. Throat without erythema, tonsillar hypertrophy or exudate. Uvula midline. Airway patent. NECK: Trachea midline. No JVD or lymphadenopathy. Supple, nontender, no meningeal signs. CARDIOVASCULAR: Regular rate and rhythm without murmurs, gallops, or rubs. RESPIRATORY: Clear to auscultation. Breath sounds equal bilaterally. No wheezes , rales, or rhonchi. GASTROINTESTINAL: Abdomen soft, nontender, nondistended. No hepato-splenomegaly , or palpable masses. No guarding. MUSCULOSKELETAL: Extremities without clubbing, cyanosis, or edema. No joint tenderness, effusion, or edema noted. NEUROLOGICAL: Awake and alert. Cranial nerves II through XII intact. Motor and sensory grossly within normal limits. Five out of 5 muscle strength in all muscle groups. Normal speech. Medications and IVs Current Medications Medications (Trade) Dose Ordered Sig/Lucita Route Start Time Stop Time Status Last Admin (NS Flush) 2 ml UNSCH PRN IV FLUSH 10/21/17 11:15 (D50w (Vial) Inj) 50 ml UNSCH PRN IV PUSH 10/21/17 13:30 (Glucagon Inj) 1 mg UNSCH PRN OTHER 10/21/17 13:30 (NovoLOG SUPPLEMENTAL SCALE) 1 ACHS SLIDING SCALE SQ 10/21/17 17:00 Sodium Chloride 1,000 ml @ 100 mls/hr Q10H IV 10/21/17 13:30 10/22/17 09:00 (Zofran Inj) 4 mg Q8HR PRN IV PUSH 10/21/17 13:30 10/22/17 07:55 (Morphine Inj) 2 mg Q4HR PRN IV PUSH 10/21/17 13:30 10/22/17 12:04 (Percocet 5-325 Mg) 1 tab Q4H PRN PO 10/21/17 13:30 (Ecotrin Ec) 81 mg DAILY PO 10/22/17 09:00 10/22/17 07:54 (Lipitor) 80 mg HS PO 10/21/17 21:00 10/21/17 21:55 (Coreg) 3.125 mg BID PO 10/21/17 21:00 10/22/17 07:55 (Imdur) 60 mg DAILY PO 10/22/17 09:00 10/22/17 07:54 ([place] Carbonate) 300 mg DAILY PO 10/22/17 09:00 10/22/17 07:55 ([place] Carbonate) 600 mg HS PO 10/21/17 21:00 10/21/17 21:55 (Latuda) 40 mg DAILY PO 10/22/17 09:00 10/22/17 09:00 (Levemir Inj) 20 units BID SQ 10/21/17 21:00 (Lovenox Inj) 40 mg Q24H SQ 10/22/17 09:00 10/22/17 07:56 (Protonix Inj) 40 mg Q24H IV PUSH 10/21/17 15:00 10/21/17 15:20 A/P Problem List: (1) Pancreatitis ICD Code: K85.90 - Pancreatitis Status: Acute Assessment and Plan - acute pancreatitis Abdominal CT without acute abnormality. Status post IV fluids, antiemetics as needed and pain control. Lipase level normalized overnight. The patient tolerated several pretzels and would like to be discharged today. - DC home if tolerating lunch. -CAD- s/p CABG/ stent; continue aspirin, coreg,imdur and statin -diabetes mellitus; - resume home regimen as diet is currently resumed. -hypertension; resume coreg- will monitor and adjust the regimen as needed. -elevated LFT's with history of hepatitis C- will monitor closely while on statin. - Stable/improving. -bipolar disorder; resume home meds. -DVT prophylaxis with subq Lovenox Discharge Planning Discharge home if tolerating lunch Problem Qualifiers (1) Pancreatitis: Qualified Codes: K85.90 - Acute pancreatitis without necrosis or infection, unspecified Ryan Lawrence DO Oct 22, 2017 12:51
[2017-10-22] MEDS ORDERED: OXYC1TAB63 PO (13:06)
--- NOTE | 2017-10-22 13:07 | HHI.DCPOC ---
Discharge Care Plan Diagnosis: (1) DM (diabetes mellitus) (2) Abdominal pain (3) Pancreatitis Goals to Promote Your Health * To prevent worsening of your condition and complications * To maintain your health at the optimal level Directions to Meet Your Goals Take your medications as prescribed Follow your dietary instruction Follow activity as directed Keep your appointments as scheduled Take your immunizations and boosters as scheduled If your symptoms worsen call your PCP, if no PCP go to Urgent Care Center or Emergency Room Smoking is Dangerous to Your Health. Avoid second hand smoke Call the 24-hour hour crisis hotline for domestic abuse at Ryan Lawrence DO Oct 22, 2017 13:07
== END 2017-10-22 13:45 | disposition home or self-care (01) ==
LOC: NEPE 10:55 → NEDA 13:19 → NEPFCDU 14:44
PROVIDERS: ADMIT Hospitalist; ATTEND Hospitalist
DX: R10.32 Left lower quadrant pain (principal); R11.2 Nausea with vomiting, unspecified; R19.7 Diarrhea, unspecified; E11.9 Type 2 diabetes mellitus without complications; I25.10 Atherosclerotic heart disease of native coronary artery without angina pectoris; R79.89 Other specified abnormal findings of blood chemistry; K44.9 Diaphragmatic hernia without obstruction or gangrene; I10 Essential (primary) hypertension; F31.9 Bipolar disorder, unspecified; Z95.1 Presence of aortocoronary bypass graft; Z79.899 Other long term (current) drug therapy; Z79.82 Long term (current) use of aspirin; Z79.84 Long term (current) use of oral hypoglycemic drugs; Z95.5 Presence of coronary angioplasty implant and graft; Z23 Encounter for immunization
CPT/HCPCS: 74177; 80053; 81001; 82948; 83605; 83690; 85025; 90732; 96361; 96372; 96374; 96375; 96376; 99285; C9113; G0009; G0378; J0500; J1650; J2270; J2405; J7030; Q9963; Q9967; 90471

== ENCOUNTER 2017-10-30 15:51 | Emergency (ER) | payer OTHER, MEDICARE, MEDICAID ==
[~2017-10-30] VITALS: Ht 180.3 cm; Wt 100.0 kg
[~2017-10-30 15:51] MED LIST changes: -AMLO5TAB2 PO; -CIPR-9 PO; +DICY10 PO; -FURO20TA PO; -METR1TAB76 PO; +OXYC1TAB63 PO; -POTA10CA PO; +ZOFR4TAB3 SL
[2017-10-30] MEDS ORDERED: IOHEXOL 350 MG/ML 10 ML VIAL (for RAD DIAG) IVCONTRAST ONE (15:52)
[2017-10-30 16:01] VITALS: BP 149/69; PULSE 92; RESP 16; TEMP 97.8; O2SAT 99
[2017-10-30 17:53] LABS: AUTOMATED NEUTROPHIL # 5.3 TH/MM3 (1.8-7.7); BASOPHIL # 0.1 TH/MM3 (0-0.2); BASOPHIL % 0.8 % (0.0-2.0); EOSINOPHIL # 0.3 TH/MM3 (0-0.4); EOSINOPHIL % 3.1 % (0.0-4.0); HEMATOCRIT 41.7 % (39.0-51.0); HEMO FLAGS DIFF FINAL; LYMPH % 27.9 % (9.0-44.0); LYMPHOCYTE # 2.4 TH/MM3 (1.0-4.8); MEAN CELL VOLUME 92.3 FL (80.0-100.0); MEAN CORPUSCULAR HEMOGLOBIN 32.5 PG (27.0-34.0); MEAN CORPUSCULAR HGB CONC 35.2 % (32.0-36.0); MONO % 7.3 % (0.0-8.0); NEUT % 60.9 % (16.0-70.0); PLATELET COUNT 266 TH/MM3 (150-450); RED BLOOD COUNT 4.51 MIL/MM3 (4.50-5.90); RED CELL DISTRIBUTION WIDTH 13.6 % (11.6-17.2); WHITE BLOOD COUNT 8.8 TH/MM3 (4.0-11.0)
[2017-10-30 18:00] LABS: ALT (GPT) 59 U/L (12-78); ANION GAP 5 MEQ/L (5-15); AST (GOT) 29 U/L (15-37); BICARBONATE 28.4 MEQ/L (21.0-32.0); BLOOD UREA NITROGEN 10 MG/DL (7-18); CHLORIDE 106 MEQ/L (98-107); GLOMERULAR FILTRATION RATE 90 ML/MIN (>89); POTASSIUM 3.9 MEQ/L (3.5-5.1); SODIUM (NA) 139 MEQ/L (136-145)
[2017-10-30 18:03] LABS: ALKALINE PHOSPHATASE 121 U/L (45-117); TOTAL BILIRUBIN ADULT 0.3 MG/DL (0.2-1.0)
[2017-10-30 18:10] LABS: INTERNATIONAL NORMALIZED RATIO 1.1 RATIO; PROTHROMBIN TIME - PATIENT 11.4 SEC (9.8-11.6)
[2017-10-30] MEDS ORDERED: SODIUM CHLOR 0.9% 1000 ML INJ 1,000 ML IV ONE (18:15)
[2017-10-30] MEDS ORDERED: ONDANSETRON HCL 4 MG/2 ML VIAL IV PUSH ONE (18:15)
[2017-10-30] MEDS ORDERED: MORPHINE SULFATE 8 MG/ML INJ IV PUSH ONE (18:15)
[2017-10-30 18:26] LABS: BLOOD, URINE NEG (NEG); COMMENT (UR) CULT NOT INDICATED; CULTURE IF INDICATED CULT NOT INDICATED; GLUCOSE,URINE NEG (NEG); KETONE, URINE NEG (NEG); NITRITE,URINE NEG (NEG); SQUAMOUS EPITHELIAL CELL URINE <1 /hpf (0-5); URINE COLOR LIGHT-YELLOW (YELLW/STRAW)
--- NOTE | 2017-10-30 19:57 | PD ---
HPI Chief Complaint: Abdominal Pain Time Seen by Provider: 17:16 Travel History International Travel<30 days: No Contact w/Intl Traveler<30days: No Traveled to known affect area: No History of Present Illness HPI Patient is a 57 year old male who comes in complaining of LLQ abdominal pain that started this morning. He says it feels like when he had diverticulitis in the past. He says he took Tylenol at home, but it did not help. He says he has had some nausea and vomiting as well as diarrhea. He denies fever or chills. PFSH Past Medical History Hx Anticoagulant Therapy: Yes (ASPIRIN) Arthritis: Yes Asthma: No Autoimmune Disease: No Blood Disorders: No Bipolar Disorder: Yes Anxiety: Yes Depression: Yes Heart Rhythm Problems: No Cancer: No Cardiac Catheterization: Yes Cardiovascular Problems: Yes (CAD, 4 MIs, CABG) High Cholesterol: Yes Chemotherapy: No Chest Pain: Yes Congestive Heart Failure: No COPD: No Cerebrovascular Accident: No Diabetes: Yes Patient Takes Glucophage: Yes Diminished Hearing: No Diverticulitis: Yes Endocrine: Yes Gastrointestinal Disorders: Yes (diverticulitis, pancreaitis) GERD: No Genitourinary: No Hepatitis: Yes Hiatal Hernia: No Heparin Induced Thrombocytopen: No Hypertension: No Immune Disorder: No Implanted Vascular Access Dvce: No Musculoskeletal: No Neurologic: No Psychiatric: Yes (BIPOLAR) Reproductive: No Respiratory: No Immunizations Current: Yes Myocardial Infarction: Yes Pancreatitis: Yes Radiation Therapy: No Sleep Apnea: Yes (LESS NOW THAT HE HAS LOST WEIGHT) Thyroid Disease: No Ulcer: No PNEUMOCCOCAL Vaccine (Year): 2 Past Surgical History Abdominal Surgery: Yes (HERNIA REPAIR) Cardiac Surgery: Yes Coronary Artery Bypass Graft: Yes (x4) Coronary Stent: Yes Ear Surgery: No Endocrine Surgery: No Genitourinary Surgery: Yes (RT TESTICLE REMOVED) Gynecologic Surgery: No Neurologic Surgery: No Oral Surgery: Yes (tooth extractions) Pacemaker: No Thoracic Surgery: No Other Surgery: Yes (right testicle removed and left testicle fixed in place) Family History Family Myocardial Infarction: Yes (mom, dad) Social History Alcohol Use: No Tobacco Use: Yes (Vape) Substance Use: No Allergies-Medications (Allergen,Severity, Reaction): Coded Allergies: erythromycin base (Verified Allergy, Severe, Anaphylaxis, 10/30/17) Reported Meds & Prescriptions Reported Meds & Active Scripts Active Zofran Odt (Ondansetron Odt) 4 Mg Tab 4 Mg SL Q8HR PRN Bentyl (Dicyclomine HCl) 10 Mg Cap 10 Mg PO TID PRN Reported Aspirin EC (Aspirin) 81 Mg Tabdr 81 Mg PO DAILY Glucose (Dextrose) 4 Gm Chew 4 Gm CHEW DIRECTED CHEW 4 TABS Temazepam 7.5 Mg Cap 7.5 Mg PO HS PRN Ranitidine (Ranitidine HCl) 150 Mg Tab 150 Mg PO BID Isosorbide Mononitrate ER (Isosorbide Mononitrate) 60 Mg Tab 60 Mg PO DAILY Carvedilol 6.25 Mg Tab 3.125 Mg PO BID Atorvastatin (Atorvastatin Calcium) 80 Mg Tab 80 Mg PO HS Metformin (Metformin HCl) 1,000 Mg Tab 1,000 Mg PO BID With meals Latuda (Lurasidone) 40 Mg Tab 40 Mg PO DAILY [place] Carbonate 600 Mg Cap 600 Mg PO HS [place] Carbonate 300 Mg Cap 300 Mg PO DAILY Lantus Inj (Insulin Glargine) 1,000 Unit/10 Ml Vial 70 Units SQ BID Review of Systems Except as stated in HPI: all other systems reviewed are Neg General / Constitutional: No: Fever, Chills HENT: No: Headaches, Lightheadedness Cardiovascular: No: Chest Pain or Discomfort Respiratory: No: Shortness of Breath Gastrointestinal: Positive: Nausea, Vomiting, Diarrhea, Abdominal Pain Genitourinary: No: Dysuria Musculoskeletal: No: Myalgias, Edema Skin: No Rash, No Change in Pigmentation Neurologic: No: Weakness, Dizziness Physical Exam Narrative GENERAL: Awake and alert, in no acute distress. SKIN: Focused skin assessment warm/dry. HEAD: Atraumatic. Normocephalic. EYES: Pupils equal and round. No scleral icterus. EOMI. ENT: Mucous membranes pink and moist. NECK: Trachea midline. No JVD. CARDIOVASCULAR: Regular rate and rhythm. No murmur appreciated. RESPIRATORY: No accessory muscle use. Clear to auscultation. Breath sounds equal bilaterally. GASTROINTESTINAL: Abdomen soft, nondistended. Tender to palpation of the LLQ. No rebound or guarding. MUSCULOSKELETAL: No obvious deformities. No clubbing. No cyanosis. No edema. NEUROLOGICAL: Awake and alert. No obvious cranial nerve deficits. Motor grossly within normal limits. Normal speech. PSYCHIATRIC: Appropriate mood and affect; insight and judgment normal. Data Data Last Documented VS Vital Signs Date Time Temp Pulse Resp B/P (MAP) Pulse Ox O2 Delivery O2 Flow Rate FiO2 10/30/17 16:01 97.8 92 16 149/69 (95) 99 Orders Orders Complete Blood Count With Diff (10/30/17 16:11) Comprehensive Metabolic Panel (10/30/17 16:11) Lipase (10/30/17 16:11) Prothrombin Time / Inr (Pt) (10/30/17 16:11) Act Partial Throm Time (Ptt) (10/30/17 16:11) Urinalysis - C+S If Indicated (10/30/17 16:11) Ct Abd/Pel W Iv Contrast(Rout) (10/30/17 ) Morphine Inj (Morphine Inj) (10/30/17 18:15) Ondansetron Inj (Zofran Inj) (10/30/17 18:15) Sodium Chlor 0.9% 1000 Ml Inj (Ns 1000 M (10/30/17 18:15) Iohexol 350 Inj (Omnipaque 350 Inj) (10/30/17 15:52) Labs Laboratory Tests Test 10/30/17 17:24 10/30/17 18:04 White Blood Count 8.8 TH/MM3 Red Blood Count 4.51 MIL/MM3 Hemoglobin 14.7 GM/DL Hematocrit 41.7 % Mean Corpuscular Volume 92.3 FL Mean Corpuscular Hemoglobin 32.5 PG Mean Corpuscular Hemoglobin Concent 35.2 % Red Cell Distribution Width 13.6 % Platelet Count 266 TH/MM3 Mean Platelet Volume 8.0 FL Neutrophils (%) (Auto) 60.9 % Lymphocytes (%) (Auto) 27.9 % Monocytes (%) (Auto) 7.3 % Eosinophils (%) (Auto) 3.1 % Basophils (%) (Auto) 0.8 % Neutrophils # (Auto) 5.3 TH/MM3 Lymphocytes # (Auto) 2.4 TH/MM3 Monocytes # (Auto) 0.6 TH/MM3 Eosinophils # (Auto) 0.3 TH/MM3 Basophils # (Auto) 0.1 TH/MM3 CBC Comment DIFF FINAL Differential Comment Prothrombin Time 11.4 SEC Prothromb Time International Ratio 1.1 RATIO Activated Partial Thromboplast Time 28.0 SEC Blood Urea Nitrogen 10 MG/DL Creatinine 0.88 MG/DL Random Glucose 159 MG/DL Total Protein 7.5 GM/DL Albumin 3.5 GM/DL Calcium Level 8.5 MG/DL Alkaline Phosphatase 121 U/L Aspartate Amino Transf (AST/SGOT) 29 U/L Alanine Aminotransferase (ALT/SGPT) 59 U/L Total Bilirubin 0.3 MG/DL Sodium Level 139 MEQ/L Potassium Level 3.9 MEQ/L Chloride Level 106 MEQ/L Carbon Dioxide Level 28.4 MEQ/L Anion Gap 5 MEQ/L Estimat Glomerular Filtration Rate 90 ML/MIN Lipase 135 U/L Urine Color LIGHT-YELLOW Urine Turbidity CLEAR Urine pH 7.0 Urine Specific [place] 1.006 Urine Protein NEG mg/dL Urine Glucose (UA) NEG mg/dL Urine Ketones NEG mg/dL Urine Occult Blood NEG Urine Nitrite NEG Urine Bilirubin NEG Urine Urobilinogen LESS THAN 2.0 MG/DL Urine Leukocyte Esterase NEG Urine RBC LESS THAN 1 /hpf Urine WBC 1 /hpf Urine Squamous Epithelial Cells <1 /hpf Microscopic Urinalysis Comment CULT NOT INDICATED MDM Medical Decision Making Medical Screen Exam Complete: Yes Emergency Medical Condition: Yes Medical Record Reviewed: Yes Differential Diagnosis Diverticulitis vs colitis vs UTI Narrative Course Patient is a 57 year old male who comes in complaining of LLQ abdominal pain. Exam shows tenderness to palpation. IV established, labs sent. Labs show no acute abnormalities. Given IVF, pain medicine, Zofran. CT shows no acute abnormalities. Last 24 hours Impressions Abdomen/Pelvis CT 10/30/17 0000 Signed Impressions: Service Date/Time: Monday, October 30, 2017 19:29 - CONCLUSION: 1. Scattered sigmoid diverticula without radiographic evidence of diverticulitis. 2. Stable appearance of hiatus hernia containing a focal collection of fluid. 3. Contracted gallbladder without calcified stones. Alexey Russell MD Patient informed of the results. Advised to follow up with his doctor. Advised to return to the ED as needed for any worsening symptoms. Diagnosis Primary Impression: Abdominal pain Qualified Codes: R10.32 - Left lower quadrant pain Patient Instructions: Abdominal Pain (ED), General Instructions Additional Instructions: Drink plenty of fluids. Take Ibuprofen or Tylenol as needed for pain. Follow up with your doctors. Return to the ED as needed for any worsening symptoms. Disposition: 01 DISCHARGE HOME Condition: Stable Matilde Caicedo MD Oct 30, 2017 19:57
--- NOTE | 2017-10-30 20:39 | RADRPT ---
EXAM DATE/TIME: 10/30/2017 19:29 [facility] COMPARISON: CT ABDOMEN & PELVIS W CONTRAST, October 21, 2017, 22:05. INDICATIONS : Left lower quadrant pain . IV CONTRAST: 71 cc Omnipaque 350 (iohexol) IV ORAL CONTRAST: No oral contrast ingested. RADIATION DOSE: 9.43 CTDIvol (mGy) MEDICAL HISTORY : Cardiovascular disease. Pancreatitis. Hernia, inguinal.Diabetes SURGICAL HISTORY : Inguinal hernia repair. ENCOUNTER: Initial ACUITY: 1 day PAIN SCALE: 7/10 LOCATION: Left Abdomen TECHNIQUE: Volumetric scanning of the abdomen and pelvis was performed. Using automated exposure control and ad justment of the mA and/or kV according to patient size, radiation dose was kept as low as reasonably achievable to obtain optimal diagnostic quality images. DICOM format image data is available electro nically for review and comparison. FINDINGS: LOWER LUNGS: The visualized lower lungs are clear. Stable hiatus hernia containing some fluid on the right side m easuring up to 3.7 cm in length. LIVER: Homogeneous density without lesion. There is no dilation of the biliary tree. No calcified gallston es in a contracted gallbladder. SPLEEN: Normal size without lesion. PANCREAS: Within normal limits. KIDNEYS: Normal in size and shape. There is no mass, stone or hydronephrosis. 2 cysts in the right kidney co rtex measuring less than 2 cm. ADRENAL GLANDS: Within normal limits. VASCULAR: There is no aortic aneurysm. BOWEL/MESENTERY: No dilated loops of small or large bowel. The appendix is identified in the right lower quadrant and has a normal size and appearance. Scattered small diverticula in the sigmoid colon without radiogra phic evidence of diverticulitis. No evidence of free fluid. ABDOMINAL WALL: Within normal limits. RETROPERITONEUM: There is no lymphadenopathy. BLADDER: No wall thickening or mass. REPRODUCTIVE: Within normal limits. INGUINAL: There is no lymphadenopathy or hernia. MUSCULOSKELETAL: Within normal limits for patient age. CONCLUSION: 1. Scattered sigmoid diverticula without radiographic evidence of diverticulitis. 2. Stable appearance of hiatus hernia containing a focal collection of fluid. 3. Contracted gallbladder without calcified stones. Alexey Russell MD on October 30, 2017 at 20:32 Board Certified Radiologist. This report was verified electronically.
[2017-10-30 21:50] VITALS: BP 132/79
== END 2017-10-30 21:53 | disposition home or self-care (01) ==
LOC: NEPD 15:51
DX: R10.32 Left lower quadrant pain (principal); R11.2 Nausea with vomiting, unspecified; R19.7 Diarrhea, unspecified; M19.90 Unspecified osteoarthritis, unspecified site; F31.9 Bipolar disorder, unspecified; F41.8 Other specified anxiety disorders; I25.10 Atherosclerotic heart disease of native coronary artery without angina pectoris; E78.00 Pure hypercholesterolemia, unspecified; E11.9 Type 2 diabetes mellitus without complications; K57.92 Diverticulitis of intestine, part unspecified, without perforation or abscess without bleeding; G47.30 Sleep apnea, unspecified; I25.2 Old myocardial infarction; Z72.0 Tobacco use; Z79.82 Long term (current) use of aspirin; Z79.4 Long term (current) use of insulin; Z95.1 Presence of aortocoronary bypass graft
CPT/HCPCS: 74177; 80053; 81001; 83690; 85025; 85610; 85730; 96361; 96374; 96375; 99285; J2270; J2405; J7030; Q9967

== ENCOUNTER 2017-11-05 09:22 | Emergency (ER) | payer OTHER, MEDICARE, MEDICAID ==
[~2017-11-05 09:22] MED LIST changes: -IPRAAER INH; -OXYC1TAB63 PO; -PROM25TA10 PO; -ZOFR4TAB PO
[2017-11-05 09:26] VITALS: BP 141/81; PULSE 81; RESP 16; TEMP 98.5; O2SAT 100
[2017-11-05] MEDS ORDERED: SODIUM CHLORIDE 0.9% FLUSH 10 ML FLUSH IV FLUSH PRN (09:30)
[2017-11-05 09:33] VITALS: O2SAT 100
[2017-11-05 09:52] LABS: AUTOMATED NEUTROPHIL # 8.6 TH/MM3 (1.8-7.7); BASOPHIL # 0.1 TH/MM3 (0-0.2); BASOPHIL % 0.6 % (0.0-2.0); EOSINOPHIL # 0.2 TH/MM3 (0-0.4); EOSINOPHIL % 1.7 % (0.0-4.0); HEMATOCRIT 44.5 % (39.0-51.0); HEMOGLOBIN 15.6 GM/DL (13.0-17.0); LYMPH % 17.9 % (9.0-44.0); LYMPHOCYTE # 2.1 TH/MM3 (1.0-4.8); MEAN CELL VOLUME 92.2 FL (80.0-100.0); MEAN CORPUSCULAR HEMOGLOBIN 32.4 PG (27.0-34.0); MEAN CORPUSCULAR HGB CONC 35.1 % (32.0-36.0); MEAN PLATELET VOLUME 7.8 FL (7.0-11.0); MONO % 5.7 % (0.0-8.0); MONOCYTE # 0.7 TH/MM3 (0-0.9); NEUT % 74.1 % (16.0-70.0); PLATELET COUNT 235 TH/MM3 (150-450); RED BLOOD COUNT 4.83 MIL/MM3 (4.50-5.90); RED CELL DISTRIBUTION WIDTH 13.8 % (11.6-17.2); WHITE BLOOD COUNT 11.6 TH/MM3 (4.0-11.0)
--- NOTE | 2017-11-05 10:06 | PD ---
HPI Chief Complaint: GI Complaint Time Seen by Provider: 10:00 Travel History International Travel<30 days: No Contact w/Intl Traveler<30days: No Traveled to known affect area: No History of Present Illness HPI Patient is a 57-year-old male presents emergency department for evaluation of lower quadrant abdominal pain states he thinks his diverticulitis is come back. The patient was here on the 18 of this month had a CAT scan then showing diverticulosis without diverticulitis. States is gradually gotten worse since then. Review of his records shows that he's been here many times in the past year for pancreatitis and diverticular his chronic abdominal pain. Many times the definitive cause of the abdominal pain has not been established in the emergency department. He is followed by the OR but states he is not satisfied with the care he gets there. Patient states been taking Tylenol at appropriate at home as well as some Zofran is unable to keep anything down. He states the pain is severe, left lower quadrant, context as above, gradually worsening. PFSH Past Medical History Hx Anticoagulant Therapy: Yes (ASPIRIN) Arthritis: Yes Asthma: No Autoimmune Disease: No Blood Disorders: No Bipolar Disorder: Yes Anxiety: Yes Depression: Yes Heart Rhythm Problems: No Cancer: No Cardiac Catheterization: Yes Cardiovascular Problems: Yes High Cholesterol: Yes Chemotherapy: No Chest Pain: Yes Congestive Heart Failure: No COPD: No Cerebrovascular Accident: No Diabetes: Yes Patient Takes Glucophage: Yes Diminished Hearing: No Diverticulitis: Yes Endocrine: Yes Gastrointestinal Disorders: Yes (diverticulitis, pancreaitis) GERD: No Genitourinary: No Hepatitis: Yes Hiatal Hernia: No Heparin Induced Thrombocytopen: No Hypertension: No Immune Disorder: No Implanted Vascular Access Dvce: No Musculoskeletal: No Neurologic: No Psychiatric: Yes (BIPOLAR) Reproductive: No Respiratory: No Immunizations Current: Yes Myocardial Infarction: Yes Pancreatitis: Yes Radiation Therapy: No Sleep Apnea: Yes Thyroid Disease: No Ulcer: No PNEUMOCCOCAL Vaccine (Year): 2 Past Surgical History Abdominal Surgery: Yes (HERNIA REPAIR) Cardiac Surgery: Yes Coronary Artery Bypass Graft: Yes (x4) Coronary Stent: Yes Ear Surgery: No Endocrine Surgery: No Genitourinary Surgery: Yes (RT TESTICLE REMOVED) Gynecologic Surgery: No Neurologic Surgery: No Oral Surgery: Yes (tooth extractions) Pacemaker: No Thoracic Surgery: No Other Surgery: Yes (right testicle removed and left testicle fixed in place) Family History Family Myocardial Infarction: Yes (mom, dad) Social History Alcohol Use: No Tobacco Use: Yes (Vape) Substance Use: No Allergies-Medications (Allergen,Severity, Reaction): Coded Allergies: erythromycin base (Verified Allergy, Severe, Anaphylaxis, 10/30/17) Reported Meds & Prescriptions Reported Meds & Active Scripts Active Zofran Odt (Ondansetron Odt) 4 Mg Tab 4 Mg SL Q6HR PRN Augmentin (Amoxicillin-Clavulanate) 875-125 Mg Tab 1 Tab PO BID Bentyl (Dicyclomine HCl) 10 Mg Cap 10 Mg PO TID PRN Zofran Odt (Ondansetron Odt) 4 Mg Tab 4 Mg SL Q8HR PRN Bentyl (Dicyclomine HCl) 10 Mg Cap 10 Mg PO TID PRN Reported Aspirin EC (Aspirin) 81 Mg Tabdr 81 Mg PO DAILY Glucose (Dextrose) 4 Gm Chew 4 Gm CHEW DIRECTED CHEW 4 TABS Temazepam 7.5 Mg Cap 7.5 Mg PO HS PRN Ranitidine (Ranitidine HCl) 150 Mg Tab 150 Mg PO BID Isosorbide Mononitrate ER (Isosorbide Mononitrate) 60 Mg Tab 60 Mg PO DAILY Carvedilol 6.25 Mg Tab 3.125 Mg PO BID Atorvastatin (Atorvastatin Calcium) 80 Mg Tab 80 Mg PO HS Metformin (Metformin HCl) 1,000 Mg Tab 1,000 Mg PO BID With meals Latuda (Lurasidone) 40 Mg Tab 40 Mg PO DAILY [place] Carbonate 600 Mg Cap 600 Mg PO HS [place] Carbonate 300 Mg Cap 300 Mg PO DAILY Lantus Inj (Insulin Glargine) 1,000 Unit/10 Ml Vial 70 Units SQ BID Review of Systems Except as stated in HPI: all other systems reviewed are Neg Physical Exam Narrative GENERAL: Well-developed well-nourished, no obvious distress SKIN: Focused skin assessment warm/dry. HEAD: Atraumatic. Normocephalic. EYES: Pupils equal and round. No scleral icterus. No injection or drainage. ENT: No nasal bleeding or discharge. Mucous membranes pink and moist. NECK: Trachea midline. No JVD. CARDIOVASCULAR: Regular rate and rhythm. No murmur appreciated. RESPIRATORY: No accessory muscle use. Clear to auscultation. Breath sounds equal bilaterally. GASTROINTESTINAL: Abdomen soft, non-tender, nondistended. Hepatic and splenic margins not palpable. No rebound or percussive tenderness. MUSCULOSKELETAL: No obvious deformities. No clubbing. No cyanosis. No edema. NEUROLOGICAL: Awake and alert. No obvious cranial nerve deficits. Motor grossly within normal limits. Normal speech. PSYCHIATRIC: Appropriate mood and affect; insight and judgment normal. Data Data Last Documented VS Vital Signs Date Time Temp Pulse Resp B/P (MAP) Pulse Ox O2 Delivery O2 Flow Rate FiO2 11/05/17 12:05 94 18 141/81 (101) 97 11/05/17 09:33 Room Air 11/05/17 09:26 98.5 Orders Orders Complete Blood Count With Diff (11/05/17 09:28) Comprehensive Metabolic Panel (11/05/17 09:28) Lipase (11/05/17 09:28) Urinalysis - C+S If Indicated (11/05/17 09:28) Iv Access Insert/Monitor (11/05/17 09:28) Ecg Monitoring (11/05/17 09:28) Oximetry (11/05/17 09:28) Sodium Chloride 0.9% Flush (Ns Flush) (11/05/17 09:30) Ketorolac Inj (Toradol Inj) (11/05/17 10:15) Ondansetron Inj (Zofran Inj) (11/05/17 10:15) Sodium Chlor 0.9% 1000 Ml Inj (Ns 1000 M (11/05/17 10:15) Dicyclomine (Bentyl) (11/05/17 10:15) Oxycodone-Acetamin 5-325 Mg (Percocet (11/05/17 12:00) Ed Discharge Order (11/05/17 11:58) Labs Laboratory Tests Test 11/05/17 09:40 11/05/17 10:46 White Blood Count 11.6 TH/MM3 Red Blood Count 4.83 MIL/MM3 Hemoglobin 15.6 GM/DL Hematocrit 44.5 % Mean Corpuscular Volume 92.2 FL Mean Corpuscular Hemoglobin 32.4 PG Mean Corpuscular Hemoglobin Concent 35.1 % Red Cell Distribution Width 13.8 % Platelet Count 235 TH/MM3 Mean Platelet Volume 7.8 FL Neutrophils (%) (Auto) 74.1 % Lymphocytes (%) (Auto) 17.9 % Monocytes (%) (Auto) 5.7 % Eosinophils (%) (Auto) 1.7 % Basophils (%) (Auto) 0.6 % Neutrophils # (Auto) 8.6 TH/MM3 Lymphocytes # (Auto) 2.1 TH/MM3 Monocytes # (Auto) 0.7 TH/MM3 Eosinophils # (Auto) 0.2 TH/MM3 Basophils # (Auto) 0.1 TH/MM3 CBC Comment DIFF FINAL Differential Comment Blood Urea Nitrogen 11 MG/DL Creatinine 1.01 MG/DL Random Glucose 139 MG/DL Total Protein 8.3 GM/DL Albumin 3.7 GM/DL Calcium Level 9.0 MG/DL Alkaline Phosphatase 120 U/L Aspartate Amino Transf (AST/SGOT) 23 U/L Alanine Aminotransferase (ALT/SGPT) 40 U/L Total Bilirubin 0.6 MG/DL Sodium Level 139 MEQ/L Potassium Level 3.9 MEQ/L Chloride Level 107 MEQ/L Carbon Dioxide Level 24.9 MEQ/L Anion Gap 7 MEQ/L Estimat Glomerular Filtration Rate 76 ML/MIN Lipase 114 U/L Urine Color YELLOW Urine Turbidity CLEAR Urine pH 7.5 Urine Specific [place] 1.025 Urine Protein TRACE mg/dL Urine Glucose (UA) NEG mg/dL Urine Ketones TRACE mg/dL Urine Occult Blood NEG Urine Nitrite NEG Urine Bilirubin NEG Urine Urobilinogen 4.0 MG/DL Urine Leukocyte Esterase NEG Urine RBC LESS THAN 1 /hpf Urine WBC LESS THAN 1 /hpf Urine Mucus FEW /lpf Microscopic Urinalysis Comment CULT NOT INDICATED MDM Medical Decision Making Medical Screen Exam Complete: Yes Emergency Medical Condition: Yes Differential Diagnosis Acute abdomen unlikely, chronic abdominal pain, diverticulitis, diverticulosis, gastritis, gastroenteritis. Narrative Course Patient roomed emerged permit, his been seen emulating to and from the bathroom multiple times, no obvious distress. Was given Toradol and Zofran and states this has not helped his pain at all. Given her recent CAT scan his labs normal today I think that the risks of repeat radiation highly outweigh the benefits. Discussed with patient and he is agreeable. We'll place him on empiric antibiotics, something for cramping. He states he still hurting significant only after Toradol and I discussed with him the addictive nature of opiates and I think he needs to consider holding off but if he is in severe pain and will be happy to treat his pain with a dose here but he needs follow-up with his chronic pain doctors including his gastrologist at the OR for further pain medication. He verbalized understanding and agreement still wanted a dose Percocet one was ordered, is not driving home. He stable for discharge Diagnosis Primary Impression: LLQ abdominal pain Additional Instructions: Follow-up with her clip baker as soon as possible. Med/Other Pt SpecificInfo: Prescription(s) given Scripts Ondansetron Odt (Zofran Odt) 4 Mg Tab 4 MG SL Q6HR Y for Nausea/Vomiting, #20 TAB 0 Refills Prov: Jin Erazo MD 11/05/17 Amoxicillin-Clavulanate (Augmentin) 875-125 Mg Tab 1 TAB PO BID for Infection, #14 TAB 0 Refills Prov: Jin Erazo MD 11/05/17 Dicyclomine (Bentyl) 10 Mg Cap 10 MG PO TID Y for Bowel Management, #20 CAP 0 Refills Prov: Jin Erazo MD 11/05/17 Disposition: 01 DISCHARGE HOME Condition: Stable Jin Erazo MD Nov 05, 2017 10:06
[2017-11-05 10:10] LABS: ALBUMIN 3.7 GM/DL (3.4-5.0); AST (GOT) 23 U/L (15-37); BICARBONATE 24.9 MEQ/L (21.0-32.0); BLOOD UREA NITROGEN 11 MG/DL (7-18); CHLORIDE 107 MEQ/L (98-107); CREATININE 1.01 MG/DL (0.60-1.30); GLOMERULAR FILTRATION RATE 76 ML/MIN (>89); GLUCOSE,RANDOM 139 MG/DL (74-106); LIPASE 114 U/L (73-393); SODIUM (NA) 139 MEQ/L (136-145)
[2017-11-05 10:12] LABS: ALT (GPT) 40 U/L (12-78)
[2017-11-05 10:14] LABS: ALKALINE PHOSPHATASE 120 U/L (45-117); TOTAL BILIRUBIN ADULT 0.6 MG/DL (0.2-1.0); TOTAL PROTEIN 8.3 GM/DL (6.4-8.2)
[2017-11-05] MEDS ORDERED: KETOROLAC TROMETHAMINE 30 MG/ML (IVP) VIAL IV PUSH ONE (10:15)
[2017-11-05] MEDS ORDERED: SODIUM CHLOR 0.9% 1000 ML INJ 1,000 ML IV ONE (10:15)
[2017-11-05] MEDS ORDERED: ONDANSETRON HCL 4 MG/2 ML VIAL IV PUSH ONE (10:15)
[2017-11-05] MEDS ORDERED: DICYCLOMINE HCL 10 MG CAP PO ONE (10:15)
[2017-11-05 11:05] LABS: BILIRUBIN, URINE NEG (NEG); BLOOD, URINE NEG (NEG); GLUCOSE,URINE NEG (NEG); KETONE, URINE TRACE mg/dL (NEG); MUCUS URINE FEW /lpf (OCC); NITRITE,URINE NEG (NEG); PH, URINE 7.5 (5.0-8.5); URINE COLOR YELLOW (YELLW/STRAW); URINE LEUKOCYTE ESTERASE NEG (NEG)
[2017-11-05] MEDS ORDERED: AUGM875T3 PO (11:35)
[2017-11-05] MEDS ORDERED: DICY10 PO (11:35)
[2017-11-05] MEDS ORDERED: ZOFR4TAB3 SL (11:35)
[2017-11-05] MEDS ORDERED: oxyCODONE/ACETAMINOPHEN 5 MG/325 MG TAB PO ONE (12:00)
[2017-11-05 12:05] VITALS: BP 141/81
== END 2017-11-05 12:07 | disposition home or self-care (01) ==
LOC: NEPE 09:22
DX: R10.32 Left lower quadrant pain (principal); K57.90 Diverticulosis of intestine, part unspecified, without perforation or abscess without bleeding; E11.9 Type 2 diabetes mellitus without complications; E78.00 Pure hypercholesterolemia, unspecified; M19.90 Unspecified osteoarthritis, unspecified site; F31.9 Bipolar disorder, unspecified; F41.8 Other specified anxiety disorders; G47.30 Sleep apnea, unspecified; I25.2 Old myocardial infarction; Z72.0 Tobacco use; Z79.4 Long term (current) use of insulin; Z79.82 Long term (current) use of aspirin; Z86.79 Personal history of other diseases of the circulatory system; Z87.19 Personal history of other diseases of the digestive system
CPT/HCPCS: 80053; 81001; 83690; 85025; 96374; 96375; 99284; J1885; J2405; J7030

== ENCOUNTER 2017-11-25 15:10 | Emergency (ER) | payer OTHER, MEDICARE, MEDICAID ==
[~2017-11-25 15:10] MED LIST changes: +AUGM875T3 PO
[2017-11-25 15:31] VITALS: BP 166/92; PULSE 100; RESP 18; TEMP 97.2; O2SAT 99
[2017-11-25 16:17] LABS: AUTOMATED NEUTROPHIL # 9.9 TH/MM3 (1.8-7.7); BASOPHIL # 0.1 TH/MM3 (0-0.2); BASOPHIL % 0.7 % (0.0-2.0); EOSINOPHIL # 0.1 TH/MM3 (0-0.4); EOSINOPHIL % 0.8 % (0.0-4.0); HEMOGLOBIN 15.3 GM/DL (13.0-17.0); LYMPH % 17.4 % (9.0-44.0); LYMPHOCYTE # 2.3 TH/MM3 (1.0-4.8); MEAN CELL VOLUME 92.5 FL (80.0-100.0); MEAN CORPUSCULAR HEMOGLOBIN 32.2 PG (27.0-34.0); MEAN CORPUSCULAR HGB CONC 34.8 % (32.0-36.0); MEAN PLATELET VOLUME 8.3 FL (7.0-11.0); MONO % 4.8 % (0.0-8.0); MONOCYTE # 0.6 TH/MM3 (0-0.9); NEUT % 76.3 % (16.0-70.0); PLATELET COUNT 298 TH/MM3 (150-450); RED BLOOD COUNT 4.75 MIL/MM3 (4.50-5.90); RED CELL DISTRIBUTION WIDTH 13.6 % (11.6-17.2)
[2017-11-25 16:25] VITALS: BP 159/83; PULSE 75; O2SAT 100
[2017-11-25 16:36] LABS: ALBUMIN 3.9 GM/DL (3.4-5.0); AST (GOT) 113 U/L (15-37); BICARBONATE 26.9 MEQ/L (21.0-32.0); BLOOD UREA NITROGEN 9 MG/DL (7-18); CHLORIDE 102 MEQ/L (98-107); CREATININE 0.88 MG/DL (0.60-1.30); GLOMERULAR FILTRATION RATE 90 ML/MIN (>89); GLUCOSE,RANDOM 214 MG/DL (74-106); LIPASE 110 U/L (73-393); SODIUM (NA) 135 MEQ/L (136-145)
[2017-11-25 16:39] LABS: ALKALINE PHOSPHATASE 221 U/L (45-117); ALT (GPT) 290 U/L (12-78); TOTAL BILIRUBIN ADULT 1.1 MG/DL (0.2-1.0); TOTAL PROTEIN 8.9 GM/DL (6.4-8.2)
[2017-11-25 17:07] LABS: BILIRUBIN, URINE NEG (NEG); BLOOD, URINE NEG (NEG); GLUCOSE,URINE 70 mg/dL (NEG); KETONE, URINE NEG (NEG); MUCUS URINE FEW /lpf (OCC); NITRITE,URINE NEG (NEG); SQUAMOUS EPITHELIAL CELL URINE <1 /hpf (0-5); URINE COLOR YELLOW (YELLW/STRAW); URINE LEUKOCYTE ESTERASE NEG (NEG)
--- NOTE | 2017-11-25 17:19 | PD ---
HPI Chief Complaint: Abdominal Pain Time Seen by Provider: 17:15 Travel History International Travel<30 days: No Contact w/Intl Traveler<30days: No Traveled to known affect area: No History of Present Illness HPI 57-year-old male with reported history of pancreatitis and diverticulitis, hepatitis C, here for evaluation of 2 days of left lower quadrant abdominal pain. Patient reports that the pain is been constant, 8 out of 10, sharp/ stabbing, worse with movement and eating. He has had loose bowel movements but denies hematochezia. He is also had some episodes of vomiting. History of inguinal hernia repair on the left side. No other abdominal surgeries. He has not had any fevers. No urinary symptoms. PFSH Past Medical History Hx Anticoagulant Therapy: Yes (ASPIRIN) Arthritis: Yes Asthma: No Autoimmune Disease: No Blood Disorders: No Bipolar Disorder: Yes Anxiety: Yes Depression: Yes Heart Rhythm Problems: No Cancer: No Cardiac Catheterization: Yes Cardiovascular Problems: Yes High Cholesterol: Yes Chemotherapy: No Chest Pain: Yes Congestive Heart Failure: No COPD: No Cerebrovascular Accident: No Diabetes: Yes Patient Takes Glucophage: No Diminished Hearing: No Diverticulitis: Yes Endocrine: Yes Gastrointestinal Disorders: Yes (diverticulitis, pancreaitis) GERD: No Genitourinary: No Hepatitis: Yes Hiatal Hernia: No Heparin Induced Thrombocytopen: No Hypertension: No Immune Disorder: No Implanted Vascular Access Dvce: No Musculoskeletal: No Neurologic: No Psychiatric: Yes (BIPOLAR) Reproductive: No Respiratory: No Immunizations Current: Yes Myocardial Infarction: Yes Pancreatitis: Yes Radiation Therapy: No Sleep Apnea: Yes Thyroid Disease: No Ulcer: No PNEUMOCCOCAL Vaccine (Year): 2 ?: Not Past Surgical History Abdominal Surgery: Yes (HERNIA REPAIR) Cardiac Surgery: Yes Coronary Artery Bypass Graft: Yes (x4) Coronary Stent: Yes Ear Surgery: No Endocrine Surgery: No Genitourinary Surgery: Yes (RT TESTICLE REMOVED) Gynecologic Surgery: No Neurologic Surgery: No Oral Surgery: Yes (tooth extractions) Pacemaker: No Thoracic Surgery: No Other Surgery: Yes (right testicle removed and left testicle fixed in place) Family History Family Myocardial Infarction: Yes (mom, dad) Social History Alcohol Use: No Tobacco Use: Yes (Vape) Substance Use: No Allergies-Medications (Allergen,Severity, Reaction): Coded Allergies: erythromycin base (Verified Allergy, Severe, Anaphylaxis, 11/25/17) Reported Meds & Prescriptions Reported Meds & Active Scripts Active Zofran Odt (Ondansetron Odt) 4 Mg Tab 4 Mg SL Q6HR PRN Augmentin (Amoxicillin-Clavulanate) 875-125 Mg Tab 1 Tab PO BID Bentyl (Dicyclomine HCl) 10 Mg Cap 10 Mg PO TID PRN Zofran Odt (Ondansetron Odt) 4 Mg Tab 4 Mg SL Q8HR PRN Bentyl (Dicyclomine HCl) 10 Mg Cap 10 Mg PO TID PRN Reported Aspirin EC (Aspirin) 81 Mg Tabdr 81 Mg PO DAILY Glucose (Dextrose) 4 Gm Chew 4 Gm CHEW DIRECTED CHEW 4 TABS Temazepam 7.5 Mg Cap 7.5 Mg PO HS PRN Ranitidine (Ranitidine HCl) 150 Mg Tab 150 Mg PO BID Isosorbide Mononitrate ER (Isosorbide Mononitrate) 60 Mg Tab 60 Mg PO DAILY Carvedilol 6.25 Mg Tab 3.125 Mg PO BID Atorvastatin (Atorvastatin Calcium) 80 Mg Tab 80 Mg PO HS Metformin (Metformin HCl) 1,000 Mg Tab 1,000 Mg PO BID With meals Latuda (Lurasidone) 40 Mg Tab 40 Mg PO DAILY [place] Carbonate 600 Mg Cap 600 Mg PO HS [place] Carbonate 300 Mg Cap 300 Mg PO DAILY Lantus Inj (Insulin Glargine) 1,000 Unit/10 Ml Vial 70 Units SQ BID Review of Systems Except as stated in HPI: all other systems reviewed are Neg Physical Exam Narrative GENERAL: Well-developed, well-nourished, comfortable, no apparent distress. SKIN: Focused skin assessment warm/dry. HEAD: Atraumatic. Normocephalic. EYES: Pupils equal and round. No scleral icterus. No injection or drainage. ENT: No nasal bleeding or discharge. Mucous membranes pink and moist. NECK: Trachea midline. No JVD. CARDIOVASCULAR: Regular rate and rhythm. RESPIRATORY: No accessory muscle use. Clear to auscultation. Breath sounds equal bilaterally. GASTROINTESTINAL: Abdomen soft, nondistended. Mild left lower quadrant tenderness without peritoneal signs. No hernias. MUSCULOSKELETAL: No obvious deformities. No clubbing. No cyanosis. No edema. NEUROLOGICAL: Awake and alert. No obvious cranial nerve deficits. Motor grossly within normal limits. Normal speech. PSYCHIATRIC: Appropriate mood and affect; insight and judgment normal. Data Data Last Documented VS Vital Signs Date Time Temp Pulse Resp B/P (MAP) Pulse Ox O2 Delivery O2 Flow Rate FiO2 11/25/17 16:25 75 159/83 (108) 100 Room Air 11/25/17 15:31 97.2 18 Orders Orders Complete Blood Count With Diff (11/25/17 15:40) Comprehensive Metabolic Panel (11/25/17 15:40) Urinalysis - C+S If Indicated (11/25/17 15:40) Lipase (11/25/17 15:40) Ct Abd/Pel W Iv Contrast(Rout) (11/25/17 ) Morphine Inj (Morphine Inj) (11/25/17 17:30) Iohexol 350 Inj (Omnipaque 350 Inj) (11/25/17 18:00) Labs Laboratory Tests Test 11/25/17 15:44 White Blood Count 13.0 TH/MM3 Red Blood Count 4.75 MIL/MM3 Hemoglobin 15.3 GM/DL Hematocrit 44.0 % Mean Corpuscular Volume 92.5 FL Mean Corpuscular Hemoglobin 32.2 PG Mean Corpuscular Hemoglobin Concent 34.8 % Red Cell Distribution Width 13.6 % Platelet Count 298 TH/MM3 Mean Platelet Volume 8.3 FL Neutrophils (%) (Auto) 76.3 % Lymphocytes (%) (Auto) 17.4 % Monocytes (%) (Auto) 4.8 % Eosinophils (%) (Auto) 0.8 % Basophils (%) (Auto) 0.7 % Neutrophils # (Auto) 9.9 TH/MM3 Lymphocytes # (Auto) 2.3 TH/MM3 Monocytes # (Auto) 0.6 TH/MM3 Eosinophils # (Auto) 0.1 TH/MM3 Basophils # (Auto) 0.1 TH/MM3 CBC Comment DIFF FINAL Differential Comment Urine Color YELLOW Urine Turbidity CLEAR Urine pH 7.0 Urine Specific [place] 1.020 Urine Protein TRACE mg/dL Urine Glucose (UA) 70 mg/dL Urine Ketones NEG mg/dL Urine Occult Blood NEG Urine Nitrite NEG Urine Bilirubin NEG Urine Urobilinogen 4.0 MG/DL Urine Leukocyte Esterase NEG Urine RBC LESS THAN 1 /hpf Urine WBC LESS THAN 1 /hpf Urine Squamous Epithelial Cells <1 /hpf Urine Mucus FEW /lpf Microscopic Urinalysis Comment CULT NOT INDICATED Blood Urea Nitrogen 9 MG/DL Creatinine 0.88 MG/DL Random Glucose 214 MG/DL Total Protein 8.9 GM/DL Albumin 3.9 GM/DL Calcium Level 9.0 MG/DL Alkaline Phosphatase 221 U/L Aspartate Amino Transf (AST/SGOT) 113 U/L Alanine Aminotransferase (ALT/SGPT) 290 U/L Total Bilirubin 1.1 MG/DL Sodium Level 135 MEQ/L Potassium Level 3.9 MEQ/L Chloride Level 102 MEQ/L Carbon Dioxide Level 26.9 MEQ/L Anion Gap 6 MEQ/L Estimat Glomerular Filtration Rate 90 ML/MIN Lipase 110 U/L [facility] Medical Decision Making Medical Screen Exam Complete: Yes Emergency Medical Condition: Yes Medical Record Reviewed: Yes Differential Diagnosis Diverticulitis, colitis, appendicitis, UTI, cystitis, nephrolithiasis, pancreatitis Narrative Course Vital signs reviewed. CBC: WBC 13, hemoglobin 15.3, hematocrit 44, platelets 298 CMP is remarkable for AST 113, ALT 290, alkaline phosphatase 221. The patient reports history of hepatitis C. Lipase is 110. UA shows 70 glucose, 4 urobilinogen, not suggestive of UTI, no hematuria. CT abd/pelvis: CONCLUSION: 1. Unremarkable bowel gas pattern with no inflammatory change or obstruction. There is a normal appendix. There is mild diverticulosis. 2. Stable benign low density fluid collection along the lower right posterior mediastinum. Patient was made aware of all findings. He is resting comfortably. He states he has an appoint with a hothouse worker in the next 1-2 weeks. He is stable for discharge home with outpatient follow-up. He was advised on when to return to the emergency department. He verbalizes understanding and agreement with plan. Diagnosis Primary Impression: Abdominal pain Qualified Codes: R10.32 - Left lower quadrant pain Referrals: It Systems Analyst 3 days Primary Care Physician 3 days Additional Instructions: Follow-up with a primary care physician/hothouse worker this week. Return to the emergency department for worsening symptoms or any other concerns. Scripts Tramadol (Tramadol) 50 Mg Tab 50 MG PO Q8H Y for PAIN, #15 TAB 0 Refills Prov: Lokesh Figueredo MD 11/25/17 Disposition: 01 DISCHARGE HOME Condition: Stable Lokesh Figueredo MD Nov 25, 2017 17:19
[2017-11-25] MEDS ORDERED: MORPHINE SULFATE 2 MG/ML INJ IV PUSH ONE (17:30)
[2017-11-25] MEDS ORDERED: IOHEXOL 350 MG/ML 10 ML VIAL (for RAD DIAG) IVCONTRAST ONE (18:00)
--- NOTE | 2017-11-25 18:15 | RADRPT ---
EXAM DATE/TIME: 11/25/2017 17:48 [facility] COMPARISON: CT ABDOMEN & PELVIS W CONTRAST, October 30, 2017, 19:29. INDICATIONS : Left lower abdomen pain for three days. IV CONTRAST: 90 cc Omnipaque 350 (iohexol) IV ORAL CONTRAST: No oral contrast ingested. RADIATION DOSE: 15.98 CTDIvol (mGy) MEDICAL HISTORY : Pancreatitis. diabetes SURGICAL HISTORY : CABG ENCOUNTER: Initial ACUITY: 3 days PAIN SCALE: 7/10 LOCATION: Left lower quadrant TECHNIQUE: Volumetric scanning of the abdomen and pelvis was performed. Using automated exposure control and ad justment of the mA and/or kV according to patient size, radiation dose was kept as low as reasonably achievable to obtain optimal diagnostic quality images. DICOM format image data is available electro nically for review and comparison. FINDINGS: LOWER LUNGS: The visualized lower lungs are clear. There is a stable low density fluid collection along the right lower posterior mediastinum which is benign. LIVER: Homogeneous density without lesion. There is no dilation of the biliary tree. No calcified gallston es. SPLEEN: Normal size without lesion. PANCREAS: Within normal limits. KIDNEYS: Normal in size and shape. There is no solid mass, stone or hydronephrosis. 2 right renal cysts are a gain noted. ADRENAL GLANDS: Within normal limits. VASCULAR: There is no aortic aneurysm. BOWEL/MESENTERY: The stomach, small bowel, and colon demonstrate no acute abnormality. There is no free intraperitone al air or fluid. There is a normal appendix. ABDOMINAL WALL: Within normal limits. RETROPERITONEUM: There is no lymphadenopathy. BLADDER: No wall thickening or mass. REPRODUCTIVE: Within normal limits. INGUINAL: There is no lymphadenopathy or hernia. MUSCULOSKELETAL: Within normal limits for patient age. CONCLUSION: 1. Unremarkable bowel gas pattern with no inflammatory change or obstruction. There is a normal appen espinoza. There is mild diverticulosis. 2. Stable benign low density fluid collection along the lower right posterior mediastinum. Ryan Shepard MD on November 25, 2017 at 18:06 Board Certified Radiologist. This report was verified electronically.
[2017-11-25] MEDS ORDERED: TRAM50TA PO (18:33)
== END 2017-11-25 19:27 | disposition home or self-care (01) ==
LOC: NEPD 15:10
DX: R10.32 Left lower quadrant pain (principal); E11.9 Type 2 diabetes mellitus without complications; B19.20 Unspecified viral hepatitis C without hepatic coma; Z79.01 Long term (current) use of anticoagulants
CPT/HCPCS: 74177; 80053; 81001; 83690; 85025; 96374; 99285; J2270; Q9967

== ENCOUNTER 2018-03-15 14:18 | Emergency (ER) | payer OTHER, MEDICARE, MEDICAID ==
[2018-03-15] VITALS (7 sets, daily range): BP systolic 127–150; BP diastolic 58–93; PULSE 73–99; RESP 14–22; TEMP 97.7; O2SAT 90–100
[~2018-03-15] VITALS: Ht 182.9 cm; Wt 100.0 kg
[~2018-03-15 14:18] MED LIST changes: +TRAM50TA PO
[2018-03-15] MEDS ORDERED: SODIUM CHLOR 0.9% 1000 ML INJ 1,000 ML IV SCH (14:28)
[2018-03-15] MEDS ORDERED: SODIUM CHLORIDE 0.9% FLUSH 10 ML FLUSH IV FLUSH PRN (14:30)
[2018-03-15 14:56] LABS: AUTOMATED NEUTROPHIL # 7.7 TH/MM3 (1.8-7.7); BASOPHIL # 0.1 TH/MM3 (0-0.2); BASOPHIL % 0.5 % (0.0-2.0); EOSINOPHIL # 0.3 TH/MM3 (0-0.4); HEMATOCRIT 49.3 % (39.0-51.0); HEMOGLOBIN 17.2 GM/DL (13.0-17.0); LYMPHOCYTE # 4.1 TH/MM3 (1.0-4.8); MEAN CELL VOLUME 92.4 FL (80.0-100.0); MEAN CORPUSCULAR HEMOGLOBIN 32.2 PG (27.0-34.0); MEAN CORPUSCULAR HGB CONC 34.8 % (32.0-36.0); MEAN PLATELET VOLUME 8.6 FL (7.0-11.0); MONO % 7.6 % (0.0-8.0); NEUT % 58.9 % (16.0-70.0); PLATELET COUNT 302 TH/MM3 (150-450); RED BLOOD COUNT 5.34 MIL/MM3 (4.50-5.90); RED CELL DISTRIBUTION WIDTH 13.6 % (11.6-17.2); WHITE BLOOD COUNT 13.1 TH/MM3 (4.0-11.0)
[2018-03-15 15:05] LABS: ALBUMIN 4.4 GM/DL (3.4-5.0); ALT (GPT) 103 U/L (12-78); AST (GOT) 55 U/L (15-37); BLOOD UREA NITROGEN 20 MG/DL (7-18); CALCIUM 9.7 MG/DL (8.5-10.1); CHLORIDE 103 MEQ/L (98-107); CREATININE 1.38 MG/DL (0.60-1.30); GLOMERULAR FILTRATION RATE 53 ML/MIN (>89); GLUCOSE,RANDOM 344 MG/DL (74-106); SODIUM (NA) 135 MEQ/L (136-145)
--- NOTE | 2018-03-15 15:06 | PD ---
HPI Chief Complaint: OD/ Ingestion Time Seen by Provider: 14:28 Travel History International Travel<30 days: No Contact w/Intl Traveler<30days: No Traveled to known affect area: No History of Present Illness HPI This is a 57-year-old male who presents to the emergency department with somnolence. He was found asleep on the floor of his apartment by his roommate and his roommate had difficulty waking him up so he called EMS. EMS noted the patient to be sleepy but arousable. The patient says that he feels very sweaty but otherwise has no medical complaints. He says he takes pain medicine at home as well as insulin. Blood sugar in the field was arousable. History is somewhat limited as the patient keeps falling asleep. PFSH Past Medical History Hx Anticoagulant Therapy: Yes (ASPIRIN) Arthritis: Yes Asthma: No Autoimmune Disease: No Blood Disorders: No Bipolar Disorder: Yes Anxiety: Yes Depression: Yes Heart Rhythm Problems: No Cancer: No Cardiac Catheterization: Yes Cardiovascular Problems: Yes High Cholesterol: Yes Chemotherapy: No Chest Pain: Yes Congestive Heart Failure: No COPD: No Cerebrovascular Accident: No Diabetes: Yes Diminished Hearing: No Diverticulitis: Yes Endocrine: Yes Gastrointestinal Disorders: Yes (diverticulitis, pancreaitis) GERD: No Genitourinary: No Hepatitis: Yes Hiatal Hernia: No Heparin Induced Thrombocytopen: No Hypertension: No Immune Disorder: No Implanted Vascular Access Dvce: No Musculoskeletal: No Neurologic: No Psychiatric: Yes (BIPOLAR) Reproductive: No Respiratory: No Immunizations Current: Yes Myocardial Infarction: Yes Pancreatitis: Yes Radiation Therapy: No Sleep Apnea: Yes Thyroid Disease: No Ulcer: No PNEUMOCCOCAL Vaccine (Year): 2 Past Surgical History Abdominal Surgery: Yes (HERNIA REPAIR) Cardiac Surgery: Yes Coronary Artery Bypass Graft: Yes (x4) Coronary Stent: Yes Ear Surgery: No Endocrine Surgery: No Genitourinary Surgery: Yes (RT TESTICLE REMOVED) Gynecologic Surgery: No Neurologic Surgery: No Oral Surgery: Yes (tooth extractions) Pacemaker: No Thoracic Surgery: No Other Surgery: Yes (right testicle removed and left testicle fixed in place) Social History Alcohol Use: No Tobacco Use: Yes (Vape) Substance Use: No Allergies-Medications (Allergen,Severity, Reaction): Coded Allergies: erythromycin base (Verified Allergy, Severe, Anaphylaxis, 11/25/17) Reported Meds & Prescriptions Reported Meds & Active Scripts Active Zofran Odt (Ondansetron Odt) 4 Mg Tab 4 Mg SL Q6HR PRN Zofran Odt (Ondansetron Odt) 4 Mg Tab 4 Mg SL Q8HR PRN Reported Aspirin EC (Aspirin) 81 Mg Tabdr 81 Mg PO DAILY Glucose (Dextrose) 4 Gm Chew 4 Gm CHEW DIRECTED CHEW 4 TABS Temazepam 7.5 Mg Cap 7.5 Mg PO HS PRN Ranitidine (Ranitidine HCl) 150 Mg Tab 150 Mg PO BID Isosorbide Mononitrate ER (Isosorbide Mononitrate) 60 Mg Tab 60 Mg PO DAILY Carvedilol 6.25 Mg Tab 3.125 Mg PO BID Atorvastatin (Atorvastatin Calcium) 80 Mg Tab 80 Mg PO HS Latuda (Lurasidone) 40 Mg Tab 40 Mg PO DAILY [place] Carbonate 600 Mg Cap 600 Mg PO HS [place] Carbonate 300 Mg Cap 300 Mg PO DAILY Lantus Inj (Insulin Glargine) 1,000 Unit/10 Ml Vial 70 Units SQ BID Review of Systems ROS Limitations: Altered Mental Status Physical Exam Narrative GENERAL:Well appearing, no acute distress SKIN: Diaphoretic. HEAD: Atraumatic. Normocephalic. EYES: Pinpoint pupils ENT: Moist mucous membranes NECK: Trachea midline. CARDIOVASCULAR: Regular rate and rhythm. No murmur appreciated. RESPIRATORY: Clear to auscultation. Breath sounds equal bilaterally. GASTROINTESTINAL: Abdomen soft, non-tender, nondistended. MUSCULOSKELETAL: No obvious deformities. NEUROLOGICAL: Awake and alert. No obvious cranial nerve deficits. Moving all extremities. PSYCHIATRIC: Appropriate mood and affect; insight and judgment normal. Data Data Last Documented VS Vital Signs Date Time Temp Pulse Resp B/P (MAP) Pulse Ox O2 Delivery O2 Flow Rate FiO2 03/15/18 17:30 78 20 127/93 (104) 100 Venturi Mask 35 03/15/18 15:13 6.00 03/15/18 14:26 97.7 Orders Orders Complete Blood Count With Diff (03/15/18 14:28) Comprehensive Metabolic Panel (03/15/18 14:28) Creatine Kinase (Cpk) (03/15/18 14:28) Urinalysis - C+S If Indicated (03/15/18 14:28) Arterial Blood Gas (Abg) (03/15/18 14:28) Blood Glucose (03/15/18 14:28) Ecg Monitoring (03/15/18 14:28) Iv Access Insert/Monitor (03/15/18 14:28) Oximetry (03/15/18 14:28) Sodium Chloride 0.9% Flush (Ns Flush) (03/15/18 14:30) Sodium Chlor 0.9% 1000 Ml Inj (Ns 1000 M (03/15/18 14:28) Drug Screen, Random Urine (03/15/18 14:28) Alcohol (Ethanol) (03/15/18 14:28) Naloxone Inj (Narcan Inj) (03/15/18 15:15) Ondansetron Inj (Zofran Inj) (03/15/18 15:30) Arterial Blood Gas (Abg) (03/15/18 ) Chest, Single Ap (03/15/18 ) Labs Laboratory Tests Test 03/15/18 14:35 03/15/18 14:40 03/15/18 14:50 03/15/18 15:38 White Blood Count 13.1 TH/MM3 Red Blood Count 5.34 MIL/MM3 Hemoglobin 17.2 GM/DL Hematocrit 49.3 % Mean Corpuscular Volume 92.4 FL Mean Corpuscular Hemoglobin 32.2 PG Mean Corpuscular Hemoglobin Concent 34.8 % Red Cell Distribution Width 13.6 % Platelet Count 302 TH/MM3 Mean Platelet Volume 8.6 FL Neutrophils (%) (Auto) 58.9 % Lymphocytes (%) (Auto) 31.0 % Monocytes (%) (Auto) 7.6 % Eosinophils (%) (Auto) 2.0 % Basophils (%) (Auto) 0.5 % Neutrophils # (Auto) 7.7 TH/MM3 Lymphocytes # (Auto) 4.1 TH/MM3 Monocytes # (Auto) 1.0 TH/MM3 Eosinophils # (Auto) 0.3 TH/MM3 Basophils # (Auto) 0.1 TH/MM3 CBC Comment DIFF FINAL Differential Comment Blood Urea Nitrogen 20 MG/DL Creatinine 1.38 MG/DL Random Glucose 344 MG/DL Total Protein 9.1 GM/DL Albumin 4.4 GM/DL Calcium Level 9.7 MG/DL Alkaline Phosphatase 121 U/L Aspartate Amino Transf (AST/SGOT) 55 U/L Alanine Aminotransferase (ALT/SGPT) 103 U/L Total Bilirubin 1.0 MG/DL Sodium Level 135 MEQ/L Potassium Level 4.0 MEQ/L Chloride Level 103 MEQ/L Carbon Dioxide Level 21.0 MEQ/L Anion Gap 11 MEQ/L Estimat Glomerular Filtration Rate 53 ML/MIN Total Creatine Kinase 81 U/L Ethyl Alcohol Level LESS THAN 3 MG/DL Blood Gas Puncture Site LT RADIAL LT RADIAL Blood Gas Patient Temperature 98.6 98.6 Blood Gas HCO3 23 mmol/L 22 mmol/L Blood Gas Base Excess -3.3 mmol/L -3.9 mmol/L Blood Gas Oxygen Saturation 91 % 95 % Arterial Blood pH 7.23 7.24 Arterial Blood Partial Pressure CO2 57 mmHg 54 mmHg Arterial Blood Partial Pressure O2 86 mmHG 160 mmHG Arterial Blood Oxygen Content 21.9 Vol % 22.1 Vol % Arterial Blood Carboxyhemoglobin 3.3 % 2.8 % Arterial Blood Methemoglobin 0.6 % 0.6 % Blood Gas Hemoglobin 17.2 G/DL 16.3 G/DL Oxygen Delivery Device NASAL CANNULA VENTI Blood Gas Liter Flow 3 L/M 6 L/M Urine Color DARK-YELLOW Urine Turbidity CLEAR Urine pH 5.5 Urine Specific [place] 1.027 Urine Protein 30 mg/dL Urine Glucose (UA) 1000 mg/dL Urine Ketones 10 mg/dL Urine Occult Blood NEG Urine Nitrite NEG Urine Bilirubin NEG Urine Urobilinogen GREATER THAN 12.0 MG/DL Urine Leukocyte Esterase NEG Urine RBC 2 /hpf Urine WBC 2 /hpf Urine Squamous Epithelial Cells <1 /hpf Urine Hyaline Casts 23 /lpf Urine Mucus FEW /lpf Microscopic Urinalysis Comment CATH-CULT NOT IND Urine Opiates Screen POS Urine Barbiturates Screen NEG Urine Amphetamines Screen POS Urine Benzodiazepines Screen NEG Urine Cocaine Screen NEG Urine Cannabinoids Screen NEG Blood Gas Inspired Oxygen 50 % [facility] Medical Decision Making Medical Screen Exam Complete: Yes Emergency Medical Condition: Yes Interpretation(s) Afebrile, mild tachycardia, normotensive Mild leukocytosis Hemoglobin is 17 consistent with hemoconcentration Mild renal insufficiency CPK is normal Urinalysis demonstrates no infection ABG demonstrates CO2 retention Differential Diagnosis Opiate overdose, rhabdomyolysis, renal insufficiency, aspiration pneumonia Narrative Course This is a 57-year-old male who presents to the emergency department having been found sleepy by his roommate. He has pinpoint pupils on exam. He initially was somewhat difficult to arouse. His mental status improved after IV Narcan. Labs are reassuring with some mild renal insufficiency. Drug screen is positive for opiates and amphetamines. Patient was observed in the emergency department and became increasingly more alert. His initial ABG demonstrated some CO2 retention but upon reassessment the patient immediately arouses and his oxygen saturation is now normal. The patient acknowledges that he took some pills and was not sure what they were and they must have been opiates. Patient is awake, alert, able to answer questions appropriately and I think his substance is cleared. I think he can be discharged home. Diagnosis Primary Impression: Opiate or related narcotic overdose Qualified Codes: T40.601A - Poisoning by unspecified narcotics, accidental ( unintentional), initial encounter Patient Instructions: General Instructions Additional Instructions: Follow up with Edward Schulz in regards to psychiatric or substance related issues at: [address] [place] [id number] Med/Other Pt SpecificInfo: No Change to Meds Disposition: 01 DISCHARGE HOME Condition: Stable Jessica Ku MD March 15, 2018 15:06
[2018-03-15 15:07] LABS: ALKALINE PHOSPHATASE 121 U/L (45-117); TOTAL PROTEIN 9.1 GM/DL (6.4-8.2)
[2018-03-15 15:08] LABS: BLOOD, URINE NEG (NEG); GLUCOSE,URINE 1000 mg/dL (NEG); HYALINE CAST, URINE 23 /lpf (RARE); KETONE, URINE 10 mg/dL (NEG); MUCUS URINE FEW /lpf (OCC); NITRITE,URINE NEG (NEG); PH, URINE 5.5 (5.0-8.5); SQUAMOUS EPITHELIAL CELL URINE <1 /hpf (0-5); URINE COLOR DARK-YELLOW (YELLW/STRAW); URINE LEUKOCYTE ESTERASE NEG (NEG)
[2018-03-15 15:10] LABS: BILIRUBIN, URINE NEG (NEG)
[2018-03-15] MEDS ORDERED: NALOXONE HCL 0.4 MG/ML AMP IV PUSH PRN (15:15)
[2018-03-15] MEDS ORDERED: ONDANSETRON HCL 4 MG/2 ML VIAL IV ONE (15:30)
--- NOTE | 2018-03-15 18:51 | RADRPT ---
EXAM DATE/TIME: 03/15/2018 18:18 [facility] COMPARISON: CHEST SINGLE AP, July 13, 2017, 17:00. INDICATIONS : Shortness of breath. MEDICAL HISTORY : Myocardial infarction. Diabetes. SURGICAL HISTORY : CABG. Cardiac cath. Coronary stent. ENCOUNTER: Initial ACUITY: 1 day PAIN SCORE: 0/10 LOCATION: Bilateral chest FINDINGS: A single view of the chest demonstrates no focal consolidation or effusion. No pneumothorax. Previous CABG. CONCLUSION: 1. Postop CABG. No consolidation or significant effusion. Dwight Farias MD on March 15, 2018 at 18:42 Board Certified Radiologist. This report was verified electronically.
--- NOTE | 2018-03-16 21:36 | EKG ---
Date Performed: 03/15/2018 Time Performed: 14:33:54 PTAGE: 57 years EKG: Sinus rhythm WITH OCCASIONAL VENTRICULAR PREMATURE COMPLEXES PATTERN CONSISTENT WITH PULMONARY DISEASE INFERIOR M YOCARDIAL INFARCTION ABNORMAL ECG Since the PREVIOUS TRACING , no significant change noted PREVIOUS TRACIN08/05/2017 17.53 DOCTOR: Edwin Hale Interpretating Date/Time 03/16/2018 16:56:28
== END 2018-03-15 21:31 | disposition home or self-care (01) ==
LOC: NEPC 14:18
DX: T40.601A Poisoning by unspecified narcotics, accidental (unintentional), initial encounter (principal); Y92.039 Unspecified place in apartment as the place of occurrence of the external cause; E78.00 Pure hypercholesterolemia, unspecified; E11.9 Type 2 diabetes mellitus without complications; I25.2 Old myocardial infarction; F31.9 Bipolar disorder, unspecified; F17.290 Nicotine dependence, other tobacco product, uncomplicated; Z95.5 Presence of coronary angioplasty implant and graft; Z95.1 Presence of aortocoronary bypass graft; Z88.1 Allergy status to other antibiotic agents; Z79.4 Long term (current) use of insulin; Z79.899 Other long term (current) drug therapy
CPT/HCPCS: 36600; 71045; 80053; 80307; 81001; 82550; 82805; 85025; 93005; 96361; 96374; 96375; 99284; J2310; J2405; J7030

== ENCOUNTER 2018-04-20 14:41 | Emergency (ER) | payer OTHER, MEDICARE, MEDICAID ==
[~2018-04-20 14:41] MED LIST changes: -AUGM875T3 PO; -DICY10 PO; -METF1000 PO; -TRAM50TA PO
[2018-04-20 14:52] VITALS: BP 143/82; PULSE 91; RESP 18; TEMP 97.8; O2SAT 97
[2018-04-20] MEDS ORDERED: SODIUM CHLORIDE 0.9% FLUSH 10 ML FLUSH IV FLUSH PRN (15:30)
[2018-04-20] MEDS ORDERED: PROMETHAZINE INJ 25 MG/ML VIAL IM ONE (15:30)
[2018-04-20] MEDS ORDERED: MAGNESIUM CITRATE SOLN 300 ML BTL PO ONE (15:45)
[2018-04-20] MEDS ORDERED: MINERAL OIL ENEMA 118 ML BTL RECTAL ONE (15:45)
--- NOTE | 2018-04-20 15:50 | PD ---
HPI Chief Complaint: Abdominal Pain Time Seen by Provider: 15:21 Travel History International Travel<30 days: No Contact w/Intl Traveler<30days: No Traveled to known affect area: No History of Present Illness HPI This is a 57-year-old male with a history of opiate abuse, presents today with complaints of constipation. Patient states she has not had a bowel movement in multiple days. He states that he is trying to kick his opiate habit. He reports nausea vomiting as well as no bowel movement. He states he is desperate to have a bowel movement. He denies any fevers, chills. There is no reported blood in his emesis. There are no other complaints at time of examination. PFSH Past Medical History Hx Anticoagulant Therapy: Yes (ASPIRIN) Arthritis: Yes Asthma: No Autoimmune Disease: No Blood Disorders: No Bipolar Disorder: Yes Anxiety: Yes Depression: Yes Heart Rhythm Problems: No Cancer: No Cardiac Catheterization: Yes Cardiovascular Problems: Yes High Cholesterol: Yes Chemotherapy: No Chest Pain: Yes Congestive Heart Failure: No COPD: No Cerebrovascular Accident: No Diabetes: Yes (DM TYPE 2) Diminished Hearing: No Diverticulitis: Yes Endocrine: Yes Gastrointestinal Disorders: Yes (diverticulitis) GERD: No Genitourinary: No Hepatitis: Yes Hiatal Hernia: No Heparin Induced Thrombocytopen: No Hypertension: No Immune Disorder: No Implanted Vascular Access Dvce: No Musculoskeletal: No Neurologic: No Psychiatric: Yes (BIPOLAR) Reproductive: No Respiratory: No Immunizations Current: Yes Myocardial Infarction: Yes Pancreatitis: Yes Radiation Therapy: No Sleep Apnea: Yes Thyroid Disease: No Ulcer: No PNEUMOCCOCAL Vaccine (Year): 2 Past Surgical History Abdominal Surgery: Yes (HERNIA REPAIR) Cardiac Surgery: Yes Coronary Artery Bypass Graft: Yes (x4) Coronary Stent: Yes Ear Surgery: No Endocrine Surgery: No Genitourinary Surgery: Yes (RT TESTICLE REMOVED) Gynecologic Surgery: No Neurologic Surgery: No Oral Surgery: Yes (tooth extractions) Pacemaker: No Thoracic Surgery: No Other Surgery: Yes (right testicle removed and left testicle fixed in place) Social History Alcohol Use: No Tobacco Use: Yes (Vape) Substance Use: Yes Allergies-Medications (Allergen,Severity, Reaction): Coded Allergies: erythromycin base (Verified Allergy, Severe, Anaphylaxis, 04/20/18) Reported Meds & Prescriptions Reported Meds & Active Scripts Active Zofran Odt (Ondansetron Odt) 4 Mg Tab 4 Mg SL Q6HR PRN Zofran Odt (Ondansetron Odt) 4 Mg Tab 4 Mg SL Q8HR PRN Reported Aspirin EC (Aspirin) 81 Mg Tabdr 81 Mg PO DAILY Glucose (Dextrose) 4 Gm Chew 4 Gm CHEW DIRECTED CHEW 4 TABS Temazepam 7.5 Mg Cap 7.5 Mg PO HS PRN Ranitidine (Ranitidine HCl) 150 Mg Tab 150 Mg PO BID Isosorbide Mononitrate ER (Isosorbide Mononitrate) 60 Mg Tab 60 Mg PO DAILY Carvedilol 6.25 Mg Tab 3.125 Mg PO BID Atorvastatin (Atorvastatin Calcium) 80 Mg Tab 80 Mg PO HS Latuda (Lurasidone) 40 Mg Tab 40 Mg PO DAILY [place] Carbonate 600 Mg Cap 600 Mg PO HS [place] Carbonate 300 Mg Cap 300 Mg PO DAILY Lantus Inj (Insulin Glargine) 1,000 Unit/10 Ml Vial 70 Units SQ BID Review of Systems Except as stated in HPI: all other systems reviewed are Neg General / Constitutional: No: Fever, Chills HENT: No: Headaches, Lightheadedness Cardiovascular: No: Chest Pain or Discomfort, Palpitations Respiratory: No: Cough, Shortness of Breath Gastrointestinal: Positive: Nausea, Vomiting, Abdominal Pain, Constipation Genitourinary: No: Dysuria, Decreased Urinary Output Musculoskeletal: No: Weakness, Pain Neurologic: No: Weakness, Dizziness, Headache Physical Exam Narrative GENERAL: Well-nourished, well-developed patient, who is actively vomiting when I entered the room.. SKIN: Focused skin assessment warm/dry. HEAD: Normocephalic/atraumatic. EYES: No scleral icterus. No injection or drainage. NECK: Supple, trachea midline. No JVD or lymphadenopathy. CARDIOVASCULAR: Regular rate and rhythm without murmurs, gallops, or rubs. RESPIRATORY: Breath sounds equal bilaterally. No accessory muscle use. GASTROINTESTINAL: Abdomen soft, nondistended. The patient had subjective cramping in his abdomen. There is no pulsatile masses. There is no rigidity. MUSCULOSKELETAL: No cyanosis, or edema. NEUROLOGICAL: Awake and alert. Cranial nerves II through XII intact. Motor grossly within normal limits. Five out of 5 muscle strength in all muscle groups. Normal speech. Data Data Last Documented VS Vital Signs Date Time Temp Pulse Resp B/P (MAP) Pulse Ox O2 Delivery O2 Flow Rate FiO2 04/20/18 14:52 97.8 91 18 143/82 (102) 97 Orders Orders Complete Blood Count With Diff (04/20/18 15:20) Comprehensive Metabolic Panel (04/20/18 15:20) Lipase (04/20/18 15:20) Prothrombin Time / Inr (Pt) (04/20/18 15:20) Act Partial Throm Time (Ptt) (04/20/18 15:20) Abdomen, Flat & Upright (04/20/18 ) Iv Access Insert/Monitor (04/20/18 15:20) Ecg Monitoring (04/20/18 15:20) Oximetry (04/20/18 15:20) Sodium Chloride 0.9% Flush (Ns Flush) (04/20/18 15:30) Promethazine Inj (Phenergan Inj) (04/20/18 15:30) Magnesium Citrate Liq (Citroma Liq) (04/20/18 15:45) Mineral Oil Enema (Fleet Mineral Oil Guillermina (04/20/18 15:45) Enema Administration PRN (04/20/18 18:58) Lactulose Liq (Lactulose Liq) (04/20/18 19:30) Labs Laboratory Tests Test 04/20/18 15:40 White Blood Count 14.1 TH/MM3 Red Blood Count 4.84 MIL/MM3 Hemoglobin 15.6 GM/DL Hematocrit 44.8 % Mean Corpuscular Volume 92.7 FL Mean Corpuscular Hemoglobin 32.4 PG Mean Corpuscular Hemoglobin Concent 34.9 % Red Cell Distribution Width 12.7 % Platelet Count 287 TH/MM3 Mean Platelet Volume 7.9 FL Neutrophils (%) (Auto) 78.8 % Lymphocytes (%) (Auto) 11.5 % Monocytes (%) (Auto) 9.3 % Eosinophils (%) (Auto) 0.1 % Basophils (%) (Auto) 0.3 % Neutrophils # (Auto) 11.1 TH/MM3 Lymphocytes # (Auto) 1.6 TH/MM3 Monocytes # (Auto) 1.3 TH/MM3 Eosinophils # (Auto) 0.0 TH/MM3 Basophils # (Auto) 0.0 TH/MM3 CBC Comment DIFF FINAL Differential Comment Prothrombin Time 11.3 SEC Prothromb Time International Ratio 1.1 RATIO Activated Partial Thromboplast Time 28.5 SEC Blood Urea Nitrogen 19 MG/DL Creatinine 1.13 MG/DL Random Glucose 162 MG/DL Total Protein 8.3 GM/DL Albumin 3.4 GM/DL Calcium Level 8.9 MG/DL Alkaline Phosphatase 137 U/L Aspartate Amino Transf (AST/SGOT) 22 U/L Alanine Aminotransferase (ALT/SGPT) 44 U/L Total Bilirubin 1.6 MG/DL Sodium Level 133 MEQ/L Potassium Level 3.9 MEQ/L Chloride Level 95 MEQ/L Carbon Dioxide Level 23.2 MEQ/L Anion Gap 15 MEQ/L Estimat Glomerular Filtration Rate 67 ML/MIN Lipase 56 U/L MDM Medical Decision Making Medical Screen Exam Complete: Yes Emergency Medical Condition: Yes Differential Diagnosis Opiate induced constipation versus dehydration versus metabolic derangement. Narrative Course 57-year-old male with history of opiate addiction, presents here with complaints of not having a bowel movement in what he reports in 3 weeks. Patient's currently getting off of his opiates. He has been given a fleets enema with no success. He is currently undergoing a soapsuds enema. He is also be given lactulose. If he has a successful bowel movement I anticipate he can go home. He will be instructed to increase his fluid intake. Diagnosis Primary Impression: Constipation Additional Impressions: History of opiate dependence. COPD (chronic obstructive pulmonary disease) Hepatitis C Additional Instructions: Increase your fluid intake. Return as needed. Disposition: 01 DISCHARGE HOME Condition: Stable Claudy Ramirez MD Apr 20, 2018 15:50
--- NOTE | 2018-04-20 16:07 | RADRPT ---
EXAM DATE: 04/20/2018 3:53 PM EDT AGE/SEX: 57 years / Male INDICATIONS: Bilateral lower quadrant pain for 4 days CLINICAL DATA: This is the patient's initial encounter. Patient reports that signs and symptoms have been present for 4 - 6 days and indicates a pain score of 10/10. MEDICAL/SURGICAL HISTORY: . Pancreatitis. Diabetes CABG. COMPARISON: No prior exams available for comparison. FINDINGS: The bowel gas is nonspecific. There are no signs of obstruction or free air for technique . No definite calcified stones are identified for technique. Moderate stool is present throughout the colon. Degenerative arthritis is seen in bilateral hip joints to a moderate degree particularly supe riolaterally. CONCLUSION: Unremarkable study except for stool and osteoarthritis. Electronically signed by: Dakota Dye MD 04/20/2018 4:05 PM EDT
[2018-04-20 16:15] LABS: AUTOMATED NEUTROPHIL # 11.1 TH/MM3 (1.8-7.7); BASOPHIL % 0.3 % (0.0-2.0); EOSINOPHIL % 0.1 % (0.0-4.0); HEMATOCRIT 44.8 % (39.0-51.0); HEMOGLOBIN 15.6 GM/DL (13.0-17.0); LYMPH % 11.5 % (9.0-44.0); LYMPHOCYTE # 1.6 TH/MM3 (1.0-4.8); MEAN CELL VOLUME 92.7 FL (80.0-100.0); MEAN CORPUSCULAR HEMOGLOBIN 32.4 PG (27.0-34.0); MEAN CORPUSCULAR HGB CONC 34.9 % (32.0-36.0); MEAN PLATELET VOLUME 7.9 FL (7.0-11.0); MONO % 9.3 % (0.0-8.0); MONOCYTE # 1.3 TH/MM3 (0-0.9); NEUT % 78.8 % (16.0-70.0); PLATELET COUNT 287 TH/MM3 (150-450); RED BLOOD COUNT 4.84 MIL/MM3 (4.50-5.90); RED CELL DISTRIBUTION WIDTH 12.7 % (11.6-17.2); WHITE BLOOD COUNT 14.1 TH/MM3 (4.0-11.0)
[2018-04-20 16:25] LABS: INTERNATIONAL NORMALIZED RATIO 1.1 RATIO; PROTHROMBIN TIME - PATIENT 11.3 SEC (9.8-11.6)
[2018-04-20 16:29] LABS: ALBUMIN 3.4 GM/DL (3.4-5.0); ALT (GPT) 44 U/L (12-78); AST (GOT) 22 U/L (15-37); BICARBONATE 23.2 MEQ/L (21.0-32.0); BLOOD UREA NITROGEN 19 MG/DL (7-18); CALCIUM 8.9 MG/DL (8.5-10.1); CHLORIDE 95 MEQ/L (98-107); CREATININE 1.13 MG/DL (0.60-1.30); GLOMERULAR FILTRATION RATE 67 ML/MIN (>89); GLUCOSE,RANDOM 162 MG/DL (74-106); SODIUM (NA) 133 MEQ/L (136-145)
[2018-04-20 16:31] LABS: ALKALINE PHOSPHATASE 137 U/L (45-117); TOTAL BILIRUBIN ADULT 1.6 MG/DL (0.2-1.0); TOTAL PROTEIN 8.3 GM/DL (6.4-8.2)
[2018-04-20] MEDS ORDERED: LACTULOSE SYRUP 20 GM/30 ML CUP PO ONE (19:30)
[2018-04-20] MEDS ORDERED: POLYETHYLENE GLYCOL 17 GM PKG PO ONE (22:45)
[2018-04-21] MEDS ORDERED: MIRA3350 PO (00:09)
[2018-04-21] MEDS ORDERED: MAGNSOL2 PO (00:09)
--- NOTE | 2018-04-21 00:09 | PD ---
Physical Exam Narrative Received sign out to see if pt is able to have a bowel movement. Pt has a history of opiate abuse and here with complaint of constipation. Pt was able to have a small bowel movement in the ED after multiple medications. Abdomen is soft. Return precautions given. Data Data Last Documented VS Vital Signs Date Time Temp Pulse Resp B/P (MAP) Pulse Ox O2 Delivery O2 Flow Rate FiO2 04/20/18 14:52 97.8 91 18 143/82 (102) 97 Orders Orders Complete Blood Count With Diff (04/20/18 15:20) Comprehensive Metabolic Panel (04/20/18 15:20) Lipase (04/20/18 15:20) Prothrombin Time / Inr (Pt) (04/20/18 15:20) Act Partial Throm Time (Ptt) (04/20/18 15:20) Abdomen, Flat & Upright (04/20/18 ) Iv Access Insert/Monitor (04/20/18 15:20) Ecg Monitoring (04/20/18 15:20) Oximetry (04/20/18 15:20) Sodium Chloride 0.9% Flush (Ns Flush) (04/20/18 15:30) Promethazine Inj (Phenergan Inj) (04/20/18 15:30) Magnesium Citrate Liq (Citroma Liq) (04/20/18 15:45) Mineral Oil Enema (Fleet Mineral Oil Guillermina (04/20/18 15:45) Enema Administration PRN (04/20/18 18:58) Lactulose Liq (Lactulose Liq) (04/20/18 19:30) Polyethylene Glycol (Miralax) (04/20/18 22:45) Ondansetron Odt (Zofran Odt) (04/21/18 00:15) Ed Discharge Order (04/21/18 00:20) Labs Laboratory Tests Test 04/20/18 15:40 White Blood Count 14.1 TH/MM3 Red Blood Count 4.84 MIL/MM3 Hemoglobin 15.6 GM/DL Hematocrit 44.8 % Mean Corpuscular Volume 92.7 FL Mean Corpuscular Hemoglobin 32.4 PG Mean Corpuscular Hemoglobin Concent 34.9 % Red Cell Distribution Width 12.7 % Platelet Count 287 TH/MM3 Mean Platelet Volume 7.9 FL Neutrophils (%) (Auto) 78.8 % Lymphocytes (%) (Auto) 11.5 % Monocytes (%) (Auto) 9.3 % Eosinophils (%) (Auto) 0.1 % Basophils (%) (Auto) 0.3 % Neutrophils # (Auto) 11.1 TH/MM3 Lymphocytes # (Auto) 1.6 TH/MM3 Monocytes # (Auto) 1.3 TH/MM3 Eosinophils # (Auto) 0.0 TH/MM3 Basophils # (Auto) 0.0 TH/MM3 CBC Comment DIFF FINAL Differential Comment Prothrombin Time 11.3 SEC Prothromb Time International Ratio 1.1 RATIO Activated Partial Thromboplast Time 28.5 SEC Blood Urea Nitrogen 19 MG/DL Creatinine 1.13 MG/DL Random Glucose 162 MG/DL Total Protein 8.3 GM/DL Albumin 3.4 GM/DL Calcium Level 8.9 MG/DL Alkaline Phosphatase 137 U/L Aspartate Amino Transf (AST/SGOT) 22 U/L Alanine Aminotransferase (ALT/SGPT) 44 U/L Total Bilirubin 1.6 MG/DL Sodium Level 133 MEQ/L Potassium Level 3.9 MEQ/L Chloride Level 95 MEQ/L Carbon Dioxide Level 23.2 MEQ/L Anion Gap 15 MEQ/L Estimat Glomerular Filtration Rate 67 ML/MIN Lipase 56 U/L MDM Supervised Visit with JAIEM: No Diagnosis Primary Impression: Constipation Additional Impressions: History of opiate dependence. Hepatitis C COPD (chronic obstructive pulmonary disease) Patient Instructions: General Instructions Departure Forms: Tests/Procedures Additional Instruction: Increase your fluid intake. Return as needed. Med/Other Pt SpecificInfo: Prescription(s) given Scripts Magnesium Citrate Liq (Magnesium Citrate Liq) 300 Ml Liq 300 ML PO ONCE for 5 Days, #1 BOTTLE 0 Refills Prov: CandidoHafsa DO 04/21/18 Polyethylene Glycol 3350 Powder (Miralax Powder) 17 Gm Powd 17 GM PO DAILY for Constipation for 5 Days, #1 CAN 0 Refills Mix and dissolve one measuring cap-ful (17 grams) in water or juice. Prov: CandidoHafsa DO 04/21/18 Disposition: 01 DISCHARGE HOME Condition: Stable ReyShirlene [email or web address] SMALL Apr 21, 2018 00:09
[2018-04-21] MEDS ORDERED: ONDANSETRON ODT 4 MG TAB PO ONE (00:15)
== END 2018-04-21 00:33 | disposition home or self-care (01) ==
LOC: NEDAMB 14:41 → NEPC 04-21 00:33
DX: K59.00 Constipation, unspecified (principal); F11.20 Opioid dependence, uncomplicated; J44.9 Chronic obstructive pulmonary disease, unspecified; B19.20 Unspecified viral hepatitis C without hepatic coma; R11.2 Nausea with vomiting, unspecified; E78.00 Pure hypercholesterolemia, unspecified; E11.9 Type 2 diabetes mellitus without complications; I25.2 Old myocardial infarction; M19.90 Unspecified osteoarthritis, unspecified site; F31.9 Bipolar disorder, unspecified; F17.290 Nicotine dependence, other tobacco product, uncomplicated; Z95.1 Presence of aortocoronary bypass graft; Z95.5 Presence of coronary angioplasty implant and graft; Z88.1 Allergy status to other antibiotic agents; Z79.4 Long term (current) use of insulin; Z79.899 Other long term (current) drug therapy
CPT/HCPCS: 74019; 80053; 83690; 85025; 85610; 85730; 96372; 99283; J2550